=== PATIENT | female | born 1960 | race Caucasian/White ===

== ENCOUNTER → 2020-03-12 15:16 | Outpatient (BNVA) | payer OTHER, SELFPAY | PROVIDERS: PCP Internal Medicine; Visit Provider Surgery | DX: Z76.89 Persons encountering health services in other specified circumstances (principal) ==

== ENCOUNTER 2020-03-16 12:50 | Outpatient (REF) | payer OTHER, SELFPAY ==
[2020-03-16 13:04] VITALS: BP 137/58; PULSE 81; RESP 16; TEMP 36.4; O2SAT 96
[2020-03-16 13:09] VITALS: BMI 39.4
[2020-03-16 13:29] VITALS: BP 111/94; PULSE 79; RESP 16; O2SAT 79
--- NOTE | 2020-03-16 13:59 | OP_ITS ---
SURGEON: Jeb Wick MD INDICATIONS: The patient is a 59-year-old female with cystic mass in the subcutaneous area of the scalp at the right parieto occipital area, this was about 8.75 cm diameter cyst. She understood technique of excision under local anesthesia and she is aware of the risks, benefits, and alternatives. PREOPERATIVE DIAGNOSIS: Scalp cyst. POSTOPERATIVE DIAGNOSIS: Scalp cyst. PROCEDURE PERFORMED: Excision of scalp cyst. ESTIMATED BLOOD LOSS: COMPLICATIONS: ANESTHESIA: ASSISTANTS: SPECIMENS: DESCRIPTION OF PROCEDURE: She was brought to the minor procedure room and placed supine on the table with the head turned to the left a little bit to expose the cyst. The area was prepped and draped. Lidocaine 1% was used for local anesthesia. An incision was made in the skin overlying the cyst using blade #15, it was carried down to full-thickness skin and little bit of subcutaneous fat until the cyst capsule was visualized. I sharply dissected the cyst capsule off the rest of the subcutaneous layer until it was completely delivered and sent as specimen. I closed the incision with full-thickness nylon 3-0 interrupted sutures. Bacitracin ointment was applied. She tolerated procedure well. There were no complications noted. She will be seen in the office for followup in about 2 weeks. MD DEJUAN Cleary/MICKEY / [id number]
== END 2020-03-16 12:51 | disposition home or self-care (01) ==
LOC: HO.MS 12:50
PROVIDERS: PCP Internal Medicine; Visit Provider Surgery
PROC: (CPT 11426; principal; 2020-03-16 13:00)
DX: L72.0 Epidermal cyst (principal)
CPT/HCPCS: 11426; 88304

== ENCOUNTER → 2020-03-29 15:23 | Outpatient (BNVA) | payer OTHER, SELFPAY | PROVIDERS: PCP Internal Medicine; Referring Provider Internal Medicine; Visit Provider Surgery | DX: Z76.89 Persons encountering health services in other specified circumstances (principal) ==

== ENCOUNTER 2020-05-24 09:51 | Outpatient (REF) | payer OTHER, SELFPAY ==
[2020-05-24 11:38] LABS: Creatinine Urine 114.95 mg/dL; Microalbum/Creatinine Ratio Ur 9.5 ug/mg cr
[2020-05-24 11:44] LABS: Alanine Aminotransferase 17 U/L (0-31); Anion Gap 14 (12-20); Aspartate Amino Transferase 13 U/L (5-31); Blood Urea Nitrogen 13 mg/dL (9-16); Calcium 9.5 mg/dL (8.4-10.2); Carbon Dioxide 29 mmol/L (22-29); Chloride 101 mmol/L (96-108); Cholesterol 168 mg/dL; Estimated Glomerular Filt Rate > 60; Glucose Fasting 123 mg/dL (60-99); HDL Cholesterol 44 mg/dL; LDL Cholesterol Calculated 90 mg/dl; Potassium 3.8 mmol/l (3.3-5.1); Sodium 140 mmol/L (135-145); Triglycerides 172 mg/dL
[2020-05-24 12:08] LABS: Vitamin D 25-OH Total 47.9 ng/mL (>30)
== END 2020-05-24 09:52 | disposition home or self-care (01) ==
LOC: HO.HMGCLDS 09:51
PROVIDERS: PCP Internal Medicine; Visit Provider Internal Medicine
DX: E78.5 Hyperlipidemia, unspecified (principal); E11.9 Type 2 diabetes mellitus without complications; I10 Essential (primary) hypertension; Z78.0 Asymptomatic menopausal state
CPT/HCPCS: 80048; 80061; 82043; 82306; 84450; 84460

== ENCOUNTER → 2020-06-13 10:37 | Outpatient (BNVA) | payer OTHER, SELFPAY | PROVIDERS: PCP Internal Medicine; Referring Provider Internal Medicine; Visit Provider Internal Medicine ==

== ENCOUNTER 2020-07-13 14:30 | Outpatient (REF) | payer SELFPAY | END 2020-07-13 14:31 | disposition home or self-care (01) | LOC: HO.HAP 14:30 | PROVIDERS: Visit Provider Internal Medicine | DX: Z46.1 Encounter for fitting and adjustment of hearing aid (principal) | CPT/HCPCS: V5266 ==

== ENCOUNTER 2020-07-28 08:54 | Outpatient (REF) | payer OTHER, SELFPAY ==
[2020-07-28 10:47] LABS: Creatinine Urine 106.26 mg/dL; Microalbum/Creatinine Ratio Ur 7.5 ug/mg cr
[2020-07-28 10:50] LABS: Alanine Aminotransferase 18 U/L (0-31); Anion Gap 12 (12-20); Aspartate Amino Transferase 16 U/L (5-31); Blood Urea Nitrogen 14 mg/dL (9-16); Calcium 9.5 mg/dL (8.4-10.2); Carbon Dioxide 31 mmol/L (22-29); Chloride 101 mmol/L (96-108); Cholesterol 194 mg/dL; Estimated Glomerular Filt Rate > 60; Glucose Fasting 119 mg/dL (60-99); HDL Cholesterol 49 mg/dL; LDL Cholesterol Calculated 124 mg/dl; Potassium 4.2 mmol/L (3.3-5.1); Sodium 140 mmol/L (135-145); Triglycerides 106 mg/dL
[2020-07-28 11:08] LABS: Free T4 (Free Thyroxine) 0.98 ng/dL (0.71-1.85)
[2020-07-28 11:13] LABS: Thyroid Stimulating Hormone 1.07 uIU/mL (0.32-4.0); Vitamin D 25-OH Total 51.8 ng/mL (>30)
== END 2020-07-28 08:55 | disposition home or self-care (01) ==
LOC: HO.LAB 08:54
PROVIDERS: Internal Medicine; Visit Provider Internal Medicine
DX: E11.9 Type 2 diabetes mellitus without complications (principal); E78.5 Hyperlipidemia, unspecified; I10 Essential (primary) hypertension; E04.2 Nontoxic multinodular goiter; E66.01 Morbid (severe) obesity due to excess calories; Z78.0 Asymptomatic menopausal state
CPT/HCPCS: 36415; 80048; 80061; 82043; 82306; 84439; 84443; 84450; 84460

== ENCOUNTER 2020-10-08 11:11 | Outpatient (REF) | payer OTHER, SELFPAY ==
[2020-10-08 13:44] LABS: MANUAL DIFF FLAG NO
[2020-10-08 13:52] LABS: Basophils Percent Auto 0.3 % (0-2); Eosinophils Absolute Auto 0.1 X10*3/uL (0.0-0.4); Eosinophils Percent Auto 0.8 % (0-4); Hematocrit 38.3 % (37-47); Hemoglobin 12.8 g/dl (12.0-16.0); Imm Gran Abs Auto 0.02 X10*3/uL (0.00-0.03); Imm Gran Pct Auto 0.3 % (0.0-0.4); Lymphocytes Absolute Auto 1.3 X10*3/uL (1.2-4.9); Lymphocytes Percent Auto 22.4 % (20-40); Mean Corpuscular HGB Conc 33.4 g/dl (31.0-35.0); Mean Corpuscular Hemoglobin 31.8 pg (27.0-33.0); Mean Corpuscular Volume 95.3 fL (80-98); Mean Platelet Volume 12.6 fL (9.4-12.3); Monocytes Absolute Auto 0.6 X10*3/uL (0.1-1.2); Monocytes Percent Auto 9.9 % (2-11); Neutrophils Percent Auto 66.3 % (45-73); Platelet Count 209 X10*3/uL (160-400); Red Blood Count 4.02 X10*6/uL (4.20-5.50); Red Cell Distribution Width 15.7 % (11.0-16.0)
[2020-10-08 14:06] LABS: Anion Gap 13 (12-20); Blood Urea Nitrogen 14 mg/dL (9-16); Carbon Dioxide 30 mmol/L (22-29); Chloride 101 mmol/L (96-108); Estimated Glomerular Filt Rate > 60; Glucose Random 96 mg/dL (60-115); Sodium 140 mmol/L (135-145)
[2020-10-08 14:28] LABS: Thyroid Stimulating Hormone 1.77 uIU/mL (0.32-4.0)
[2020-10-09 13:38] LABS: Lyme Abs Screen <0.90 index
== END 2020-10-08 11:12 | disposition home or self-care (01) ==
LOC: HO.HMGCLDS 11:11
PROVIDERS: PCP Internal Medicine; Visit Provider Nurse Practitioner Family
DX: R20.0 Anesthesia of skin (principal); R20.2 Paresthesia of skin
CPT/HCPCS: 36415; 80048; 84443; 85025; 86617; 86618

== ENCOUNTER 2020-10-24 06:24 | Outpatient (REF) | payer OTHER, SELFPAY ==
[2020-10-24 11:59] LABS: Estimated Average Glucose 131 mg/dL; Hemoglobin A1C 148.8092 umol/L; Hemoglobin A1c % 6.2 %
[2020-10-24 12:10] LABS: Alanine Aminotransferase 20 U/L (0-31); Anion Gap 14 (12-20); Aspartate Amino Transferase 19 U/L (5-31); Blood Urea Nitrogen 25 mg/dL (9-16); Calcium 9.9 mg/dL (8.4-10.2); Carbon Dioxide 30 mmol/L (22-29); Chloride 101 mmol/L (96-108); Cholesterol 186 mg/dL; Estimated Glomerular Filt Rate > 60; Glucose Fasting 110 mg/dL (60-99); HDL Cholesterol 46 mg/dL; LDL Cholesterol Calculated 96 mg/dl; Sodium 141 mmol/L (135-145); Triglycerides 221 mg/dL
[2020-10-24 12:13] LABS: Creatinine Urine 72.02 mg/dL; Microalbum/Creatinine Ratio Ur 8.3 ug/mg cr
[2020-10-24 12:22] LABS: Free T4 (Free Thyroxine) 0.96 ng/dL (0.71-1.85); Thyroid Stimulating Hormone 2.06 uIU/mL (0.32-4.0)
[2020-10-24 12:36] LABS: Folate > 20.0 ng/mL (> or = 4.0); Vitamin B12 777 pg/mL (200-900)
== END 2020-10-24 06:25 | disposition home or self-care (01) ==
LOC: HO.HMGCLDS 06:24
PROVIDERS: Nurse Practitioner Family; PCP Internal Medicine; Visit Provider Internal Medicine
DX: E04.2 Nontoxic multinodular goiter (principal); E78.5 Hyperlipidemia, unspecified; I10 Essential (primary) hypertension; E11.9 Type 2 diabetes mellitus without complications; E03.9 Hypothyroidism, unspecified; R20.0 Anesthesia of skin; R20.2 Paresthesia of skin
CPT/HCPCS: 36415; 80048; 80061; 82043; 82607; 82746; 83036; 84439; 84443; 84450; 84460

== ENCOUNTER 2020-10-31 15:40 | Outpatient (REF) | payer SELFPAY | END 2020-10-31 15:41 | disposition home or self-care (01) | LOC: HO.HAP 15:40 | PROVIDERS: Visit Provider Internal Medicine | DX: Z46.1 Encounter for fitting and adjustment of hearing aid (principal) | CPT/HCPCS: V5266 ==

== ENCOUNTER 2020-11-15 09:59 | Outpatient (REF) | payer OTHER, SELFPAY ==
--- NOTE | 2020-11-15 10:49 | P.BOP_ITS ---
Brief Operative Note Date of Service: 11/15/20 Surgeon: Arelis Scott, DO This is doctor Arelis Scott. This is an ultrasound-guided fine-needle aspiration report. Date of Examination: 11/15/2020 Indication: Multinodular Thyroid Porcedure: Procedure was explained to the patient. Alternatives, the risk and benefits were discussed. Written consent was obtained. A time-out was also obtained. After sterile preparation, fine-needle aspiration of a left isthmus 2.0 cm thyroid nodule was performed using direct ultrasound guidance to confirm accurate needle placement. Four aspirations were made using 27 gauge needles. Samples were submitted for cytology. One pass was dedicated for [employer] sequencing director of nurses registry testing. fine-needle aspiration of a right isthmus 1.0 cm thyroid nodule was performed using direct ultrasound guidance to confirm accurate needle placement. Six aspirations were made using 27 and 25 gauge needles. Samples were submitted for cytology. One pass was dedicated for [employer] sequencing director of nurses registry testing. The patient tolerated the procedure well. Aftercare instructions were provided. Impression: Uncomplicated fine needle aspiration biopsy of a left isthmus 2.0 cm and a right isthmus 1.0 cm thyroid nodule under ultrasound guidance. Was an Diversional Therapist'S Assistant used for this Procedure?: No Estimated blood loss (mL): 0
[2020-11-15] MEDS: Lidocaine HCl 1 % MPF 5 ML VIAL SUBCUT (11:08)
== END 2020-11-15 10:00 | disposition home or self-care (01) ==
LOC: HO.US 09:59
PROVIDERS: Visit Provider Internal Medicine
DX: E04.2 Nontoxic multinodular goiter (principal)
CPT/HCPCS: 10005; 10006; 88172; 88173; 88177; 88305

== ENCOUNTER 2020-11-22 09:13 | Outpatient (REF) | payer OTHER, SELFPAY ==
--- NOTE | 2020-11-22 09:20 | EMG_ITS ---
Bilateral median and ulnar motor and sensory studies were performed. Bilateral radial sensory studies were performed and paraspinal muscles were tested with a needle. IMPRESSION: [id number] bilateral median neuropathy across carpal tunnel. MD NYA Reza/MICKEY / [id number]
== END 2020-11-22 09:14 | disposition home or self-care (01) ==
LOC: HO.NEURO 09:13
PROVIDERS: Visit Provider Nurse Practitioner Family
DX: R20.0 Anesthesia of skin (principal); R20.2 Paresthesia of skin
CPT/HCPCS: 95886; 95911

== ENCOUNTER → 2020-11-29 12:28 | Outpatient (BNVA) | payer OTHER, SELFPAY | PROVIDERS: PCP Internal Medicine; Visit Provider Internal Medicine ==

== ENCOUNTER 2021-01-30 15:28 | Outpatient (REF) | payer SELFPAY | END 2021-01-30 15:29 | disposition home or self-care (01) | LOC: HO.HAP 15:28 | PROVIDERS: Visit Provider Internal Medicine | DX: Z46.1 Encounter for fitting and adjustment of hearing aid (principal); H90.3 Sensorineural hearing loss, bilateral | CPT/HCPCS: V5266 ==

== ENCOUNTER 2021-03-02 06:44 | Outpatient (REF) | payer OTHER, SELFPAY ==
[2021-03-02 11:22] LABS: Alanine Aminotransferase 13 U/L (0-31); Anion Gap 12 (12-20); Aspartate Amino Transferase 14 U/L (5-31); Blood Urea Nitrogen 22 mg/dL (9-16); Calcium 9.6 mg/dL (8.4-10.2); Carbon Dioxide 29 mmol/L (22-29); Chloride 105 mmol/L (96-108); Cholesterol 188 mg/dL; Estimated Glomerular Filt Rate > 60; Glucose Fasting 133 mg/dL (60-99); HDL Cholesterol 42 mg/dL; LDL Cholesterol Calculated 119 mg/dl; Potassium 3.9 mmol/L (3.3-5.1); Sodium 142 mmol/L (135-145); Triglycerides 137 mg/dL
== END 2021-03-02 06:45 | disposition home or self-care (01) ==
LOC: HO.HMGCLDS 06:44
PROVIDERS: PCP Internal Medicine; Visit Provider Internal Medicine
DX: I10 Essential (primary) hypertension (principal); E78.5 Hyperlipidemia, unspecified
CPT/HCPCS: 36415; 80048; 80061; 82306; 84450; 84460

== ENCOUNTER 2021-06-29 11:48 | Outpatient (REF) | payer OTHER, SELFPAY ==
--- NOTE | ~2021-06-29 | XR_ITS ---
EXAMINATION: XR CHEST CLINICAL INFORMATION: R05.9 - Cough, unspecified COMPARISON: Chest radiographs 06/17/2019, 09/11/2015 TECHNIQUE: 2 views of the chest were obtained. FINDINGS: Cardiopulmonary appearance is similar to prior exams. There are chronic changes right lateral base with mild elevation diaphragm and blunting right lateral costophrenic angle. The posterior costophrenic sulci are clear. There is no visible effusion. No lobar or segmental airspace consolidation or groundglass opacity. The heart is normal in size. The vascularity is normal. The hilar and mediastinal contours are normal. No visible acute bony abnormality. XR/XR chest 2V IMPRESSION: No acute intrathoracic disease. Chronic changes right lateral base similar to prior exams.
[2021-06-29 12:07] LABS: Binax Internal Control QC Valid; Binax Now Covid-19 Ag Negative (Negative)
== END 2021-06-29 11:49 | disposition home or self-care (01) ==
LOC: HO.HMGCX 11:48
PROVIDERS: Visit Provider Physician Assistant
DX: R05.9 Cough, unspecified (principal); J02.9 Acute pharyngitis, unspecified; Z20.822 Contact with and (suspected) exposure to COVID-19
CPT/HCPCS: 71046

== ENCOUNTER 2021-07-22 08:55 | Outpatient (REF) | payer OTHER, SELFPAY ==
[2021-07-22 11:46] LABS: Estimated Average Glucose 137 mg/dL; Hemoglobin A1c % 6.4 %
[2021-07-22 12:10] LABS: Alanine Aminotransferase 16 U/L (0-31); Anion Gap 14 (12-20); Aspartate Amino Transferase 13 U/L (5-31); Blood Urea Nitrogen 13 mg/dL (9-16); Calcium 9.5 mg/dL (8.4-10.2); Carbon Dioxide 29 mmol/L (22-29); Chloride 102 mmol/L (96-108); Cholesterol 183 mg/dL; Estimated Glomerular Filt Rate > 60; Glucose Fasting 119 mg/dL (60-99); HDL Cholesterol 47 mg/dL; LDL Cholesterol Calculated 112 mg/dl; Potassium 3.9 mmol/L (3.3-5.1); Sodium 141 mmol/L (135-145); Triglycerides 123 mg/dL
== END 2021-07-22 08:56 | disposition home or self-care (01) ==
LOC: HO.HMGCLDS 08:55
PROVIDERS: Visit Provider Internal Medicine
DX: E11.9 Type 2 diabetes mellitus without complications (principal); E78.5 Hyperlipidemia, unspecified; I10 Essential (primary) hypertension
CPT/HCPCS: 36415; 80048; 80061; 83036; 84450; 84460

== ENCOUNTER 2021-09-12 07:13 | Outpatient (REF) | payer OTHER, SELFPAY ==
[2021-09-12 11:33] LABS: Alanine Aminotransferase 20 U/L (0-31); Anion Gap 13 (12-20); Aspartate Amino Transferase 17 U/L (5-31); Blood Urea Nitrogen 13 mg/dL (9-16); Calcium 9.8 mg/dL (8.4-10.2); Carbon Dioxide 28 mmol/L (22-29); Chloride 103 mmol/L (96-108); Cholesterol 220 mg/dL; Estimated Glomerular Filt Rate > 60; Glucose Fasting 132 mg/dL (60-99); HDL Cholesterol 48 mg/dL; LDL Cholesterol Calculated 145 mg/dl; Potassium 3.9 mmol/L (3.3-5.1); Sodium 140 mmol/L (135-145); Triglycerides 135 mg/dL
[2021-09-12 11:57] LABS: Estimated Average Glucose 128 mg/dL; Hemoglobin A1c % 6.1 %
== END 2021-09-12 07:14 | disposition home or self-care (01) ==
LOC: HO.HMGCLDS 07:13
PROVIDERS: Visit Provider Internal Medicine
DX: E11.9 Type 2 diabetes mellitus without complications (principal); E78.5 Hyperlipidemia, unspecified; I10 Essential (primary) hypertension
CPT/HCPCS: 36415; 80048; 80061; 83036; 84450; 84460

== ENCOUNTER 2021-09-13 14:16 | Outpatient (REF) | payer SELFPAY | END 2021-09-13 14:17 | disposition home or self-care (01) | LOC: HO.HAP 14:16 | PROVIDERS: Visit Provider Internal Medicine | DX: Z46.1 Encounter for fitting and adjustment of hearing aid (principal); H90.3 Sensorineural hearing loss, bilateral | CPT/HCPCS: V5266 ==

== ENCOUNTER 2021-11-30 09:45 | Outpatient (REF) | payer OTHER, SELFPAY ==
[2021-11-30 11:22] LABS: Estimated Average Glucose 128 mg/dL; Hemoglobin A1c % 6.1 %
[2021-11-30 11:29] LABS: Alanine Aminotransferase 17 U/L (0-31); Anion Gap 12 (12-20); Aspartate Amino Transferase 13 U/L (5-31); Blood Urea Nitrogen 12 mg/dL (9-16); Calcium 9.7 mg/dL (8.4-10.2); Carbon Dioxide 28 mmol/L (22-29); Chloride 105 mmol/L (96-108); Cholesterol 202 mg/dL; Estimated Glomerular Filt Rate > 60; Glucose Fasting 115 mg/dL (60-99); HDL Cholesterol 44 mg/dL; LDL Cholesterol Calculated 129 mg/dl; Potassium 4.3 mmol/L (3.3-5.1); Sodium 141 mmol/L (135-145); Triglycerides 148 mg/dL
[2021-11-30 11:44] LABS: Creatinine Urine 161.38 mg/dL; Microalbum/Creatinine Ratio Ur 10.5 ug/mg cr
[2021-11-30 11:51] LABS: Thyroid Stimulating Hormone 1.34 uIU/mL (0.32-4.0)
[2021-11-30 11:55] LABS: Free T4 (Free Thyroxine) 0.93 ng/dL (0.71-1.85)
== END 2021-11-30 09:46 | disposition home or self-care (01) ==
LOC: HO.HMGCLDS 09:45
PROVIDERS: Absent Provider Internal Medicine; PCP Internal Medicine; Visit Provider Internal Medicine
DX: E78.5 Hyperlipidemia, unspecified (principal); I10 Essential (primary) hypertension; E04.2 Nontoxic multinodular goiter; E11.9 Type 2 diabetes mellitus without complications
CPT/HCPCS: 36415; 80048; 80061; 82043; 83036; 84439; 84443; 84450; 84460

== ENCOUNTER 2021-12-05 14:18 | Outpatient (REF) | payer OTHER, SELFPAY ==
--- NOTE | ~2021-12-05 | US_ITS ---
EXAMINATION: US THYROID CLINICAL INFORMATION: Nontoxic multinodular goiter. COMPARISON: US thyroid 11/08/2019 and 11/24/2018. US-guided thyroid biopsy 11/15/2020. TECHNIQUE: Linear transducer grayscale and color Doppler examination with attention to the region of the thyroid. Technically difficult study secondary to low-lying thyroid. FINDINGS: SIZE: Measurements of the thyroid lobes and nodules are given in sagittal, anteroposterior and transverse dimensions respectively. Right Thyroid Lobe: 5.4 x 1.8 x 2.6 cm, volume 13.2 mL. Previously 4.2 x 1.6 x 2.2 cm, volume 7.7 mL. Parenchyma: The gland echotexture is homogeneous. Thyroid vascularity is normal. Left Thyroid Lobe: 6.3 x 2.0 x 2.6 cm, volume 17.2 mL. Previously 4.0 x 2.0 x 2.6 cm, volume 10.9 mL. Parenchyma: The gland echotexture is homogeneous. Thyroid vascularity is normal. Isthmus: 0.8 cm in maximum AP dimension. Previously 0.6 cm. Estimated total number of nodules greater than or equal to 1 cm: 1. Direct Sales Representative nodules are described as follows: 1. Location: Left medial/isthmus. Size: 2.0 x 1.4 x 2.0 cm, volume 2.86 mL. Previously: 1.6 x 1.3 x 1.8 cm, volume 1.96 mL. Nodule characteristics: Composition: Solid/almost completely solid (2). Echogenicity: Hypoechoic (2). Shape: Not taller than wide (0). Margins: Smooth (0). Echogenic Foci: None (0). ACR TI-RADS total points: 4 ACR TI-RADS category: 4 Significant change in size (>/= 20% in 2 dimensions and minimal increase of 2 mm or 50% or greater increase in volume): No Change in features: No Change in ACR TI-RADS risk category: No 2. Location: Right superior. Size: 0.8 x 0.3 x 0.4 cm, volume 0.06 mL. Previously: 0.6 x 0.4 x 0.6 cm, volume 0.08 mL. Nodule characteristics: Composition: Spongiform (0). Echogenicity: Anechoic (0). Shape: Not taller than wide (0). Margins: Smooth (0). Echogenic Foci: None (0). ACR TI-RADS total points: 0 ACR TI-RADS category: 1 Significant change in size (>/= 20% in 2 dimensions and minimal increase of 2 mm or 50% or greater increase in volume): No Change in features: No Change in ACR TI-RADS risk category: No 3. Location: Right isthmus. Size: 0.7 x 0.4 x 0.7 cm, volume 0.10 mL. Previously: 0.5 x 0.4 x 0.6 cm, volume 0.06 mL. Nodule characteristics: Composition: Solid (2). Echogenicity: Hypoechoic (2). Shape: Not taller than wide (0). Margins: Smooth (0). Echogenic Foci: None (0). ACR TI-RADS total points: 4 ACR TI-RADS category: 4 Significant change in size (>/= 20% in 2 dimensions and minimal increase of 2 mm or 50% or greater increase in volume): No Change in features: No Change in ACR TI-RADS risk category: No NODES: No lymphadenopathy is seen in the tissue surrounding the thyroid gland. US/US thyroid IMPRESSION: 1. A 2.0 cm in maximal diameter thyroid isthmus nodule meets ACR biopsy criteria and is amenable to ultrasound-guided biopsy, if clinically indicated and not already performed. 2. There is a diffuse goiter. ACR TI-RADS RECOMMENDATION REFERENCE: Ultrasound-guided fine-needle aspiration, followup ultrasound, no further follow up. * TR1 (0 point) and TR 2 (2 points): No FNA or follow up * TR3 (3 points): FNA if more than or equal to 2.5 cm in maximum dimension, followup ultrasound in 1, 3 and 5 years if 1.5 to 2.4 cm in maximum dimension. * TR4 (4-6 points): FNA if more than or equal to 1.5 cm in maximum dimension, followup ultrasound in 1, 2, 3 and 5 years if 1 to 1.4 cm in maximum dimension. * TR5 (more than or equal to 7 points): FNA if more than or equal to 1 cm in maximum dimension, followup ultrasound every year for 5 years if 0.5 to 0.9 cm in maximum dimension. * TR3, TR4 or TR5 nodules that are below the size threshold for follow up receive no follow up.
== END 2021-12-05 14:19 | disposition home or self-care (01) ==
LOC: HO.HMGCX 14:18
PROVIDERS: Visit Provider Internal Medicine
DX: E04.2 Nontoxic multinodular goiter (principal)
CPT/HCPCS: 76536

== ENCOUNTER 2022-02-24 15:19 | Outpatient (REF) | payer SELFPAY | END 2022-02-24 15:20 | disposition home or self-care (01) | LOC: HO.HAP 15:19 | PROVIDERS: Visit Provider Internal Medicine | DX: Z46.1 Encounter for fitting and adjustment of hearing aid (principal); H90.3 Sensorineural hearing loss, bilateral | CPT/HCPCS: V5266 ==

== ENCOUNTER 2022-05-07 06:08 | Outpatient (REF) | payer OTHER, SELFPAY ==
[2022-05-07 14:39] LABS: Hemoglobin A1c % 5.9 %
[2022-05-07 14:40] LABS: Estimated Average Glucose 123 mg/dL
[2022-05-07 14:49] LABS: Alanine Aminotransferase 18 U/L (0-31); Anion Gap 13 (12-20); Aspartate Amino Transferase 15 U/L (5-31); Blood Urea Nitrogen 12 mg/dL (9-16); Calcium 9.9 mg/dL (8.4-10.2); Carbon Dioxide 29 mmol/L (22-29); Chloride 104 mmol/L (96-108); Cholesterol 191 mg/dL; Estimated Glomerular Filt Rate > 60; Glucose Fasting 112 mg/dL (60-99); HDL Cholesterol 46 mg/dL; LDL Cholesterol Calculated 120 mg/dl; Potassium 3.8 mmol/L (3.3-5.1); Sodium 142 mmol/L (135-145); Triglycerides 129 mg/dL
== END 2022-05-07 06:09 | disposition home or self-care (01) ==
LOC: HO.HMGCLDS 06:08
PROVIDERS: Absent Provider Family Medicine Adult Medicine; PCP Internal Medicine; Visit Provider Internal Medicine
DX: E11.9 Type 2 diabetes mellitus without complications (principal); E78.5 Hyperlipidemia, unspecified; I10 Essential (primary) hypertension
CPT/HCPCS: 36415; 80048; 80061; 83036; 84450; 84460

== ENCOUNTER 2022-05-08 09:00 | Outpatient (AMB) | payer OTHER, SELFPAY ==
--- NOTE | 2022-05-08 09:38 | MHC.PC.OV ---
Vital Signs 05/08/22 09:39 Height 5 ft 5 in Weight 239 lb BMI 39.7 BP 124/70 Blood Pressure Location Lt brachial Position Sitting Pulse 67 Pulse Source Pulse Oximeter Pulse Oximetry (%) 95 Oxygen Delivery Method Room Air Intake Visit Reasons: Followup labs Intake Note: Pt is here today to discuss recent lab results Allergies mold,trees,dust,cats,dogs Allergy (Unknown, Uncoded 09/26/22 05:36) unknown strawberries Allergy (Unknown, Uncoded 09/26/22 05:36) hives Medication List - Last Reconciled 05/08/22 by Marquita Gonzales MD albuterol sulfate 90 mcg/actuation inhalation budesonide-formoterol 160-4.5 mcg/actuation inhalation calcium carbonate (Calcium 500) 500 mg PO DAILY citalopram 20 mg PO DAILY diclofenac sodium 1% topical ibuprofen 800 mg PO TID irbesartan 75 mg PO DAILY ketotifen fumarate 0.025%(0.035%) (Zaditor) 1 drp ophthalmic (eye) Q12H latanoprost 0.005% drps ophthalmic (eye) levocetirizine (Xyzal) 5 mg PO QPM PRN meloxicam 15 mg PO DAILY metformin ER 500 mg PO QPM montelukast 10 mg PO DAILY multivitamin 1 tab PO DAILY rosuvastatin 5 mg PO Q2D 90 days spironolacton-hydrochlorothiaz 25-25 mg 2 tabs PO DAILY vitamin B complex (B Complex-Vitamin B12 tablet) 1 tab PO DAILY Tobacco use date assessed: 05/08/22 HPI Followup labs HPI Details 62-year-old lady with diabetes mellitus, dyslipidemia and hypertension, here today for follow-up. She has been feeling well, compliant with taking her medications. In fasting labs done showed hemoglobin A1c at 5.9% with average glucose at 123 mg/dL over the last 3 months, LDL cholesterol however slightly elevated at 120 mg/dL, electrolytes and renal function are within normal limits. [facility] Medical History Cervical spondylosis DJD (degenerative joint disease), lumbar Dyslipidemia Family history of early CAD Hypertension Intermittent left-sided chest pain Lung nodule < 6cm on CT Menopause Mild intermittent asthma in adult without complication Morbid obesity Multiple thyroid nodules Nontoxic multinodular goiter 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 Plantar fasciitis, right Polycystic ovaries Primary open angle glaucoma, right eye Retinoblastoma of left eye Scalp cyst Seasonal allergies Type 2 diabetes mellitus without complication, without long-term current use of insulin Surgical History H/O bilateral breast reduction surgery H/O section H/O eye surgery H/O hernia repair H/O thyroidectomy Hx of cholecystectomy Status post phlebectomy Family History Father CAD (coronary artery disease) Myocardial infarction CVD (cardiovascular disease) Substance use disorder Mother Diabetes mellitus HTN (hypertension) Maternal Grandfather No problems noted. Maternal Grandmother No problems noted. Paternal Grandfather No problems noted. Paternal Grandmother No problems noted. Brother Substance use disorder Mental health disorder Sister No problems noted. Sister Substance use disorder Sister No problems noted. Sister No problems noted. Son No problems noted. Daughter No problems noted. 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 Lucien Greenberg, Tika Ryan, Raúl Marmolejo and colleagues, with an educational julian from [employer]. Asthma Control Questionnaire In the past 4 weeks, how much of the time did your asthma keep you from getting as much done at work, school or at home?: A little of the time During the past 4 weeks, how often have you had shortness of breath?: More than once a day During the past 4 weeks, how often did your asthma symptoms wake you up at night or earlier than usual in the morning?: 2-3 nights a week During the past 4 weeks, how often have you had to use your rescue inhaler or nebulizer medication?: More than 3 times per day How would you rate your asthma control during the past 4 weeks?: Poorly controlled Score: 10 Review of Systems Const Reports no additional complaints, Denies headache(s) and Denies weakness Eyes Details: sees [facility] for her dm retinopathy screening ENT Reports no additional complaints and Denies headache(s) Card Denies chest pain, Denies irregular heart rhythm and Denies dyspnea Resp Denies cough and Denies dyspnea GI Denies abdominal pain, Denies change in bowel habits, Denies diarrhea and Denies nausea Denies urinary frequency, Denies difficulty voiding, Denies nocturia, Denies dysuria, Denies vaginal discharge and Denies vaginal pruritus Musc Denies myalgias, Denies muscle cramps, Denies numbness and Denies tingling Neuro Denies burning sensations, Denies headache(s), Denies numbness, Denies tingling and Denies weakness Psych Denies anxiety and Denies depression Endo Details: sees [facility] , Dr Hollingsworth Reports no additional complaints Kenji/Lymph Reports no additional complaints Physical exam (Primary Care) Vital Signs: Last Vital Signs Pulse 67 05/08/22 09:39 BP 124/70 05/08/22 09:39 Pulse Ox 95 05/08/22 09:39 Oxygen Delivery Method Room Air 05/08/22 09:39 BMI result Body Mass Index 39.7 BMI Assessment/Plan discussion: High BMI High, discussed plan: lifestyle, weight reduction, dietary and physical activity Tobacco/Smoking Status: Tobacco use Status Tobacco use date assessed 05/08/22 05/08/22 09:51 Patient Tobacco Use Status Former Tobacco user 05/08/22 09:39 e-Cigarette/Vaping Use Never Used 05/08/22 09:39 Thrive Assessment: Date of Thrive Assessment Date Thrive assessed 07/22/21 05/08/22 09:39 Const Other: Alert oriented x3, no acute distress noted ambulatory normal gait Nutritional Appearance: obese morbidly obese Orientation/consciousness: patient oriented x3 HENMT Mouth: Normal oral and palatal mucosa present, tongue normal, oropharynx normal and moist mucous membranes Eyes Other: Artificial left eye Neck Neck: Yes full ROM, Yes no lymphadenopathy and Yes supple Resp Auscultation: clear to auscultation bilaterally Cardio Other: S1-S2 present regular rate and rhythm GI Other: Normal bowel sounds, soft, nontender Skin General skin exam: no rashes or lesions noted Neuro General: patient oriented x3, gait normal, tone normal, moves all extremities, Normal light touch and pain sensation, no focal motor deficits and CN's II-XI intact bilaterally Extrem General: Yes full ROM, Yes no joint enlargement, Yes no pedal edema and Yes normal gait Results Reviewed Results Reviewed: ENTERED: 05/07/[address]: ORDERED: Met Prof Fast, AST, ALT, Lipid Panel Test Result Flag Reference Site Sodium 142 135-145 mmol/L Potassium 3.8 3.3-5.1 mmol/L CL 104 96-108 mmol/L CO2 29 22-29 mmol/L Gap 13 12-20 BUN 12 9-16 mg/dL Creat 0.61 0.5-1.4 mg/dL EGFR > 60 NOTE: For -[place] individuals, multiply the result by 1.210. Chronic Kidney Disease: Estimated GFR < 60 mL/min/1.73m2 Severe Kidney Disease: Estimated GFR < 15 mL/min/1.73m2 FBS 112 H 60-99 mg/dL A fasting glucose from 100-125 mg/dl is considered impaired (pre-diabetes). CA 9.9 8.4-10.2 mg/dL AST (GOT) 15 5-31 U/L ALT (GPT) 18 0-31 U/L Triglyceride 129 mg/dL Desirable Triglyceride: less than 150 mg/dL Borderline High Triglyceride 150-199 mg/dL High Triglyceride: 200-499 mg/dL Very High Triglyceride: greater than or equal to 5OO mg/dL Chol 191 mg/dL Desirable Cholesterol: less than 200 mg/dL Borderline High Cholesterol: 200-239 mg/dL High Cholesterol: greater than 239 mg/dL LDL Calculated 120 mg/dl Desirable LDL: less than 100 mg/dL Near Optimal/Above Optimal LDL: 110-129 mg/dL Borderline High LDL: 130-159 mg/dL High LDL: 160-189 mg/dL Very High LDL: greater than or equal to 190 mg/dL HDL 46 mg/dL Desirable HDL: greater than 40 mg/dL Laboratory Tests 05/07/22 06:16 Estimat Average Glucose 123 Hemoglobin A1c % 5.9 Assessment and Plan Assessment & Plan (1) Dyslipidemia: Code(s): E78.5 - Hyperlipidemia, unspecified Plan: Latest LDL cholesterol is not at goal of less than 100 mg/dL, currently at 120. Increase rosuvastatin dosing to 5 mg once a day, reinforced adherence to low-cholesterol diet. Repeat another fasting lipid panel in August 2022, orders already sent. (2) Type 2 diabetes mellitus without complication, without long-term current use of insulin: Code(s): E11.9 - Type 2 diabetes mellitus without complications Plan: Recent lab results reviewed with patient, with sugar and hemoglobin A1c stable and at goal . Continue with metformin ER 500 mg once a day and continue to check fasting blood sugar at home, maintain log and bring to next appointment for review. Reinforced diabetic diet and regular exercise with patient. Referral for diabetes education and guidance with regards to nutrition/diet. Counseled regarding importance of yearly diabetes retinopathy screening, currently being seen at [facility], patient states she will make an appointment for her diabetes retinopathy screening. She has been referred to Dr. Hollingsworth , podiatry, will obtain copy of recent office visit note.. Which should Patient advised to inspect feet daily, for any signs of injury, callus or infection. Compliance with diet and regular exercise again stressed. Blood pressure goal is less than 130/80, goal LDL is less than 100 and goal hemoglobin A1c is less than 7% follow-up appointment made in--4months, after fasting labs done. (3) Hypertension: Code(s): I10 - Essential (primary) hypertension Qualifiers: Hypertension type: essential hypertension Qualified Code(s): I10 - Essential (primary) hypertension Plan: Blood pressure at goal of less than 130/80. Continue with current medication. Reinforced importance of following a low sodium diet, getting regular exercise, and lowering stress levels. Orders: Orders Alanine Aminotransferase 08/23/22 E11.9 - Type 2 diabetes mellitus without complications, E78.5 - Hyperlipidemia, unspecified, I10 - Essential (primary) hypertension, E66.01 - Morbid (severe) obesity due to excess calories, Z78.0 - Asymptomatic menopausal state Aspartate Amino Transferase 08/23/22 E11.9 - Type 2 diabetes mellitus without complications, E78.5 - Hyperlipidemia, unspecified, I10 - Essential (primary) hypertension, E66.01 - Morbid (severe) obesity due to excess calories, Z78.0 - Asymptomatic menopausal state Basic Metabolic Panel Fasting 08/23/22 E11.9 - Type 2 diabetes mellitus without complications, E78.5 - Hyperlipidemia, unspecified, I10 - Essential (primary) hypertension, E66.01 - Morbid (severe) obesity due to excess calories, Z78.0 - Asymptomatic menopausal state Hemoglobin A1c 08/23/22 E11.9 - Type 2 diabetes mellitus without complications, E78.5 - Hyperlipidemia, unspecified, I10 - Essential (primary) hypertension, E66.01 - Morbid (severe) obesity due to excess calories, Z78.0 - Asymptomatic menopausal state Lipid Panel 08/23/22 E11.9 - Type 2 diabetes mellitus without complications, E78.5 - Hyperlipidemia, unspecified, I10 - Essential (primary) hypertension, E66.01 - Morbid (severe) obesity due to excess calories, Z78.0 - Asymptomatic menopausal state Vitamin D 25-OH Total 08/23/22 E11.9 - Type 2 diabetes mellitus without complications, E78.5 - Hyperlipidemia, unspecified, I10 - Essential (primary) hypertension, E66.01 - Morbid (severe) obesity due to excess calories, Z78.0 - Asymptomatic menopausal state Microalbumin, Random (w Creat) 08/23/22 E11.9 - Type 2 diabetes mellitus without complications, E78.5 - Hyperlipidemia, unspecified, I10 - Essential (primary) hypertension, E66.01 - Morbid (severe) obesity due to excess calories, Z78.0 - Asymptomatic menopausal state Medications: Changed From rosuvastatin 5 mg PO Q2D 90 days 45 tabs 1RF E78.5 - Hyperlipidemia, unspecified, E11.9 - Type 2 diabetes mellitus without complications, I10 - Essential (primary) hypertension To rosuvastatin 5 mg PO DAILY 90 tabs 1RF 90 days E78.5 - Hyperlipidemia, unspecified, E11.9 - Type 2 diabetes mellitus without complications, I10 - Essential (primary) hypertension Coding Level of Care Code Est Pt Level 4 (10204) Diagnoses Dyslipidemia E78.5 Type 2 diabetes mellitus without complication, without long-term current use of insulin E11.9 Hypertension I10 Hypertension type: essential hypertension
[2022-05-08 09:39] VITALS: BP 124/70; PULSE 67; O2SAT 95; BMI 39.7
== END 2022-05-08 10:34 | disposition home or self-care (01) ==
LOC: HO.HMGC 09:00
PROVIDERS: PCP Internal Medicine; Visit Provider Internal Medicine
DX: E78.5 Hyperlipidemia, unspecified (principal); E11.9 Type 2 diabetes mellitus without complications; I10 Essential (primary) hypertension
CPT/HCPCS: 99214

== ENCOUNTER 2022-07-03 16:04 | Outpatient (REF) | payer SELFPAY | END 2022-07-03 16:05 | disposition home or self-care (01) | LOC: HO.HAP 16:04 | PROVIDERS: Visit Provider Internal Medicine | DX: Z46.1 Encounter for fitting and adjustment of hearing aid (principal); H90.3 Sensorineural hearing loss, bilateral | CPT/HCPCS: V5266 ==

== ENCOUNTER 2022-09-10 06:42 | Outpatient (REF) | payer OTHER, SELFPAY ==
[2022-09-10 11:48] LABS: Estimated Average Glucose 128 mg/dL; Hemoglobin A1c % 6.1 %
[2022-09-10 12:10] LABS: Alanine Aminotransferase 21 U/L (0-31); Anion Gap 13 (12-20); Aspartate Amino Transferase 19 U/L (5-31); Blood Urea Nitrogen 17 mg/dL (9-16); Calcium 9.9 mg/dL (8.4-10.2); Carbon Dioxide 31 mmol/L (22-29); Chloride 101 mmol/L (96-108); Cholesterol 178 mg/dL; Estimated Glomerular Filt Rate > 60; Glucose Fasting 118 mg/dL (60-99); HDL Cholesterol 52 mg/dL; LDL Cholesterol Calculated 94 mg/dl; Potassium 4.1 mmol/L (3.3-5.1); Sodium 141 mmol/L (135-145); Triglycerides 161 mg/dL
[2022-09-10 12:18] LABS: Creatinine Urine 69.87 mg/dL; Microalbum/Creatinine Ratio Ur 11.4 ug/mg cr
[2022-09-10 12:26] LABS: Vitamin D 25-OH Total 50.4 ng/mL (>30)
== END 2022-09-10 06:43 | disposition home or self-care (01) ==
LOC: HO.HMGCLDS 06:42
PROVIDERS: PCP Internal Medicine; Visit Provider Internal Medicine
DX: E11.9 Type 2 diabetes mellitus without complications (principal); E66.01 Morbid (severe) obesity due to excess calories; E78.5 Hyperlipidemia, unspecified; I10 Essential (primary) hypertension; Z78.0 Asymptomatic menopausal state
CPT/HCPCS: 36415; 80048; 80061; 82043; 82306; 83036; 84450; 84460

== ENCOUNTER 2022-09-23 10:18 | Outpatient (REF) | payer OTHER, SELFPAY ==
--- NOTE | ~2022-09-23 | XR_ITS ---
EXAMINATION: Cervical spine, left shoulder, left RIBS with chest x-ray and left hip. CLINICAL INDICATIONS: Fall. COMPARISON: Chest 07/01/2021. TECHNIQUE: Cervical spine 3 views. Left shoulder 3 views. Chest and left RIBS 4 views left hip 2 views. FINDINGS: LEFT HIP: AP and frog-leg views left hip reveal no visible acute fracture, dislocation or subluxation. No bony erosive changes. The soft tissues are normal. Small mesh is seen along the midline anterior abdominal wall from previous hernia repair. CHEST WITH LEFT RIBS: Multiple views of left ribs reveal no visible fracture or bony abnormality. Both lungs are well-expanded and clear of acute pneumonic process heart size and pulmonary vascularity is normal. Is mild spondylosis. No lytic or sclerotic process seen LEFT SHOULDER: There is no visible acute fracture, dislocation or subluxation. The AC joint and glenohumeral joint space is normal. No bony erosive changes or loose bodies. The soft tissues are normal. CERVICAL SPINE: There is normal cervical lordosis. The vertebral heights and alignment is normal. There is mild loss of C5-C6, and C6-C7 disc heights. The vertebral heights and alignment is maintained normal. There is mild ventral spondylosis at the C5-C6 disc level. Moderate facet joint arthropathy is seen C4-C5, C5-C6 and C6-C7 disc levels. XR/XR ribs LT min 3V w CXR1V IMPRESSION: 1. Unremarkable left hip exam. 2. Unremarkable left rib exam. 3. Unremarkable chest exam. 4. Unremarkable left shoulder exam. 5. Degenerative disc changes C5-C6 and C6-C7 disc levels with moderate ventral spondylosis at the C5-C6 disc level. There is moderate facet joint arthropathy C4-C5 through C6-C7 disc levels.
--- NOTE | ~2022-09-23 | XR_ITS ---
EXAMINATION: Cervical spine, left shoulder, left RIBS with chest x-ray and left hip. CLINICAL INDICATIONS: Fall. COMPARISON: Chest 07/01/2021. TECHNIQUE: Cervical spine 3 views. Left shoulder 3 views. Chest and left RIBS 4 views left hip 2 views. FINDINGS: LEFT HIP: AP and frog-leg views left hip reveal no visible acute fracture, dislocation or subluxation. No bony erosive changes. The soft tissues are normal. Small mesh is seen along the midline anterior abdominal wall from previous hernia repair. CHEST WITH LEFT RIBS: Multiple views of left ribs reveal no visible fracture or bony abnormality. Both lungs are well-expanded and clear of acute pneumonic process heart size and pulmonary vascularity is normal. Is mild spondylosis. No lytic or sclerotic process seen LEFT SHOULDER: There is no visible acute fracture, dislocation or subluxation. The AC joint and glenohumeral joint space is normal. No bony erosive changes or loose bodies. The soft tissues are normal. CERVICAL SPINE: There is normal cervical lordosis. The vertebral heights and alignment is normal. There is mild loss of C5-C6, and C6-C7 disc heights. The vertebral heights and alignment is maintained normal. There is mild ventral spondylosis at the C5-C6 disc level. Moderate facet joint arthropathy is seen C4-C5, C5-C6 and C6-C7 disc levels. XR/XR shoulder LT min 2V IMPRESSION: 1. Unremarkable left hip exam. 2. Unremarkable left rib exam. 3. Unremarkable chest exam. 4. Unremarkable left shoulder exam. 5. Degenerative disc changes C5-C6 and C6-C7 disc levels with moderate ventral spondylosis at the C5-C6 disc level. There is moderate facet joint arthropathy C4-C5 through C6-C7 disc levels.
--- NOTE | ~2022-09-23 | XR_ITS ---
EXAMINATION: Cervical spine, left shoulder, left RIBS with chest x-ray and left hip. CLINICAL INDICATIONS: Fall. COMPARISON: Chest 07/01/2021. TECHNIQUE: Cervical spine 3 views. Left shoulder 3 views. Chest and left RIBS 4 views left hip 2 views. FINDINGS: LEFT HIP: AP and frog-leg views left hip reveal no visible acute fracture, dislocation or subluxation. No bony erosive changes. The soft tissues are normal. Small mesh is seen along the midline anterior abdominal wall from previous hernia repair. CHEST WITH LEFT RIBS: Multiple views of left ribs reveal no visible fracture or bony abnormality. Both lungs are well-expanded and clear of acute pneumonic process heart size and pulmonary vascularity is normal. Is mild spondylosis. No lytic or sclerotic process seen LEFT SHOULDER: There is no visible acute fracture, dislocation or subluxation. The AC joint and glenohumeral joint space is normal. No bony erosive changes or loose bodies. The soft tissues are normal. CERVICAL SPINE: There is normal cervical lordosis. The vertebral heights and alignment is normal. There is mild loss of C5-C6, and C6-C7 disc heights. The vertebral heights and alignment is maintained normal. There is mild ventral spondylosis at the C5-C6 disc level. Moderate facet joint arthropathy is seen C4-C5, C5-C6 and C6-C7 disc levels. XR/XR cervical spine 3V IMPRESSION: 1. Unremarkable left hip exam. 2. Unremarkable left rib exam. 3. Unremarkable chest exam. 4. Unremarkable left shoulder exam. 5. Degenerative disc changes C5-C6 and C6-C7 disc levels with moderate ventral spondylosis at the C5-C6 disc level. There is moderate facet joint arthropathy C4-C5 through C6-C7 disc levels.
== END 2022-09-23 10:19 | disposition home or self-care (01) ==
LOC: HO.HMGCX 10:18
PROVIDERS: PCP Internal Medicine; Visit Provider Nurse Practitioner Family
DX: Z91.81 History of falling (principal)
CPT/HCPCS: 71101; 72040; 73030; 73502

== ENCOUNTER 2022-11-27 12:00 | Outpatient (REF) | payer SELFPAY | END 2022-11-27 12:01 | disposition home or self-care (01) | LOC: HO.HAP 12:00 | PROVIDERS: Visit Provider Internal Medicine | DX: Z46.1 Encounter for fitting and adjustment of hearing aid (principal) | CPT/HCPCS: V5266 ==

== ENCOUNTER 2023-01-03 07:14 | Outpatient (REF) | payer OTHER, SELFPAY ==
[2023-01-03 11:33] LABS: Estimated Average Glucose 126 mg/dL; Hemoglobin A1C 152.4232 umol/L
[2023-01-03 11:48] LABS: Alanine Aminotransferase 15 U/L (0-31); Anion Gap 14 (12-20); Aspartate Amino Transferase 13 U/L (5-31); Blood Urea Nitrogen 18 mg/dL (9-16); Carbon Dioxide 30 mmol/L (22-29); Chloride 101 mmol/L (96-108); Cholesterol 159 mg/dL; Estimated Glomerular Filt Rate > 60; Glucose Fasting 109 mg/dL (60-99); HDL Cholesterol 41 mg/dL; LDL Cholesterol Calculated 92 mg/dl; Magnesium 2.1 mg/dL (1.6-2.6); Potassium 3.7 mmol/L (3.3-5.1); Sodium 141 mmol/L (135-145); Triglycerides 133 mg/dL
[2023-01-03 12:09] LABS: Vitamin D 25-OH Total 51.7 ng/mL (>30)
[2023-01-03 12:17] LABS: Creatinine Urine 137.79 mg/dL; Microalbum/Creatinine Ratio Ur 17.4 ug/mg cr
[2023-01-03 12:24] LABS: Folate 16.2 ng/mL (> or = 4.0); Vitamin B12 1041 pg/mL (200-900)
== END 2023-01-03 07:15 | disposition home or self-care (01) ==
LOC: HO.HMGCLDS 07:14
PROVIDERS: PCP Internal Medicine; Visit Provider Internal Medicine
DX: E11.9 Type 2 diabetes mellitus without complications (principal); E66.01 Morbid (severe) obesity due to excess calories; E78.5 Hyperlipidemia, unspecified; I10 Essential (primary) hypertension; Z78.0 Asymptomatic menopausal state
CPT/HCPCS: 36415; 80048; 80061; 82043; 82306; 82607; 82746; 83036; 83735; 84450; 84460

== ENCOUNTER 2023-01-12 08:55 | Outpatient (AMB) | payer OTHER, SELFPAY ==
[2023-01-12 08:58] VITALS: BP 128/70; PULSE 70; O2SAT 94
--- NOTE | 2023-01-12 08:58 | MHC.PC.OV ---
Vital Signs 01/12/23 08:58 Weight 236 lb 2 oz BP 128/70 Blood Pressure Location Lt brachial Position Sitting Pulse 70 Pulse Source Pulse Oximeter Pulse Oximetry (%) 94 Oxygen Delivery Method Room Air Intake Visit Reasons: 4 month follow-up Intake Note: Pt is here today for 4 month f/u. Allergies mold,trees,dust,cats,dogs Allergy (Unknown, Uncoded 09/26/22 05:36) unknown strawberries Allergy (Unknown, Uncoded 09/26/22 05:36) hives Medication List - Last Reconciled 01/12/23 by Marquita Gonzales MD albuterol sulfate 90 mcg/actuation inhalation budesonide-formoterol 160-4.5 mcg/actuation inhalation calcium carbonate (Calcium 500) 500 mg PO DAILY citalopram 20 mg PO DAILY diclofenac sodium 1% topical ibuprofen 600 mg PO Q6H PRN irbesartan 75 mg PO DAILY ketotifen fumarate 0.025%(0.035%) (Zaditor) 1 drp ophthalmic (eye) Q12H latanoprost 0.005% drps ophthalmic (eye) levocetirizine (Xyzal) 5 mg PO QPM PRN magnesium oxide 400 mg PO DAILY meloxicam 15 mg PO DAILY metformin ER 500 mg PO QPM montelukast 10 mg PO DAILY multivitamin 1 tab PO DAILY rosuvastatin 5 mg PO DAILY 90 days spironolacton-hydrochlorothiaz 25-25 mg 2 tabs PO DAILY vitamin B complex (B Complex-Vitamin B12 tablet) 1 tab PO DAILY Tobacco use date assessed: 01/12/23 Dental Screening Dental Screen Date: 01/12/23 Did you have a dental visit in the last 12 months?: Yes Did you have a dental problem in the last 6 months where you did not have access to dental care?: No Was dental information given to patient?: No HPI 4 month follow-up HPI Details 62-year-old lady with diabetes mellitus, dyslipidemia, mild intermittent asthma, obstructive sleep apnea on CPAP, COPD morbid obesity, and hypertension, here today for follow-up. Has been following recommended diet and getting regular exercise. Has lost some weight. Recent fasting labs showed normal electrolytes, renal function, normal fasting lipids, hemoglobin A1c at 6%, and normal vitamin-D level. [facility] Medical History (Updated 08/21/23 @ 09:47 by Marquita Gonzales MD) Cervical spondylosis DJD (degenerative joint disease), lumbar Dyslipidemia Family history of early CAD Hypertension Intermittent left-sided chest pain Lung nodule < 6cm on CT Menopause Mild intermittent asthma in adult without complication Morbid obesity Multiple thyroid nodules Nontoxic multinodular goiter 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 Plantar fasciitis, right Polycystic ovaries Primary open angle glaucoma, right eye Retinoblastoma of left eye Scalp cyst Seasonal allergies Type 2 diabetes mellitus without complication, without long-term current use of insulin Surgical History H/O bilateral breast reduction surgery H/O section H/O eye surgery H/O hernia repair H/O thyroidectomy Hx of cholecystectomy Status post phlebectomy Family History Father CAD (coronary artery disease) Myocardial infarction CVD (cardiovascular disease) Substance use disorder Mother Diabetes mellitus HTN (hypertension) Maternal Grandfather No problems noted. Maternal Grandmother No problems noted. Paternal Grandfather No problems noted. Paternal Grandmother No problems noted. Brother Substance use disorder Mental health disorder Sister No problems noted. Sister Substance use disorder Sister No problems noted. Sister No problems noted. Son No problems noted. Daughter No problems noted. 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 1. Little interest or pleasure in doing things: not at all 2. Feeling down, depressed, or hopeless: not at all 3. Trouble falling or staying asleep, or sleeping too much: several days 4. Feeling tired or having little energy: several days 5. Poor appetite or overeating: not at all 6. Feeling bad about yourself - or that you are a failure or have let yourself or your family down: not at all 7. Trouble concentrating on things, such as reading the newspaper or watching television: not at all 8. Moving or speaking so slowly that other people could have noticed. Or the opposite - being so fidgety or restless that you have been moving around a lot more than usual: not at all 9. Thoughts that you would be better off or of hurting yourself in some way: not at all Total score: 2 Depression Screening Interpretation: Negative 21696 - PHQ-9 Billing: Yes Source: Developed by Drs. Lucien Greenberg, Tika Ryan, Raúl Marmolejo and colleagues, with an educational julian from [employer]. Thrive Questionnaire Date Thrive assessed: 01/12/23 I am a: Patient What is your living situation today?: I have a steady place to live Within the past 12 months, did the food you bought not last and you didn't have the money to get more?: Never true Within the past 12 months, did you worry whether your food would run out before you got money to buy more?: Never true Do you have trouble paying for medicines?: No Do you have trouble getting transportation to medical appointments?: No Do you have trouble paying your heating and electricity bill?: No Do you have trouble taking care of your child, family member or friend?: No Do you have trouble with day-to-day activities such as bathing, preparing meals, shopping, managing finances, etc.?: No Are you currently unemployed and looking for a job?: No Are you interested in more education?: No AUDIT C Alcohol Use Questionnaire (AUDIT-C) 1. How often do you have a drink containing alcohol?: Monthly or less 2. How many drinks containing alcohol do you have on a typical day when you are drinking?: 1 or 2 3. How often do you have six or more drinks on one occasion?: Never Total Score: 1 Score Reviewed/Action Taken: Yes MONIK-7 AMB Questionnaire MONIK-7 Date MONIK - 7 assessed: 07/22/21 Feeling nervous, anxious, or on edge: 0 = Not at all Not being able to stop or control worryin = Several days Worrying too much about different things: 1 = Several days Trouble relaxin = Not at all Being so restless that it is hard to sit still: 0 = Not at all Becoming easily annoyed or irritable: 1 = Several days Feeling afraid as if something awful might happen: 0 = Not at all Total MONIK-7 score (0-4 normal; 5-9 mild; 10-14 moderate; 15-21 severe): 3 Source: Developed by Drs. Lucien Greenberg, Tika Ryan, Raúl Marmolejo and colleagues, with an educational julian from [employer]. MONIK-7 Assessment Billing MONIK-7 Assessment Tool: MONIK-7 Assessment 53390 Review of Systems Const Denies body aches, Denies fatigue, Denies fever(s), Denies headache(s), Denies malaise and Reports weight loss Eyes Details: [facility] dm retinopathy screening ENT Denies change in voice, Denies dysphagia, Denies headache(s) and Denies hoarseness Card Denies chest pain, Denies irregular heart rhythm and Denies dyspnea Resp Denies cough and Denies dyspnea GI Denies abdominal pain, Denies change in bowel habits, Denies dysphagia, Denies diarrhea and Denies nausea Reports no additional complaints Musc Denies myalgias, Denies muscle cramps, Denies numbness and Denies tingling Skin/Breast Denies breast pain, Denies breast mass, Denies new lesions and Denies rash Neuro Denies headache(s), Denies numbness and Denies tingling Psych Denies anxiety and Denies depression Endo Details: sees [facility] , Dr Hollingsworth Denies fatigue Kenji/Lymph Denies easy bleeding and Denies easy bruising Aller/Immun Reports seasonal rhinorrhea Physical exam (Primary Care) Vital Signs: Last Vital Signs Pulse 70 01/12/23 08:58 BP 128/70 01/12/23 08:58 Pulse Ox 94 01/12/23 08:58 Oxygen Delivery Method Room Air 01/12/23 08:58 BMI Assessment/Plan discussion: High BMI High, discussed plan: lifestyle, weight reduction, dietary and physical activity Tobacco/Smoking Status: Tobacco use Status Tobacco use date assessed 01/12/23 01/12/23 09:01 Patient Tobacco Use Status Former Tobacco user 01/12/23 09:01 e-Cigarette/Vaping Use Never Used 01/12/23 09:01 PHQ-9: PHQ-9 Score PHQ-9: Total score 2 01/12/23 09:49 Depression Screening Interpretation: Negative Thrive Assessment: Date of Thrive Assessment Date Thrive assessed 01/12/23 01/12/23 09:49 Const Other: Alert oriented x3, no acute distress noted ambulatory normal gait Nutritional Appearance: obese morbidly obese Orientation/consciousness: patient oriented x3 HENMT Head: Yes normocephalic Ears: hearing grossly normal bilaterally, external ears normal, TM's normal bilaterally and EAC's normal General nose exam: Normal external nose present Face and sinus: Yes face symmetric Mouth: Normal oral and palatal mucosa present, oropharynx normal and moist mucous membranes Eyes Other: Artificial left eye Neck Neck: Yes full ROM, Yes no lymphadenopathy and Yes supple Chest Chest palpation & inspection: normal inspection of the chest and normal palpation of entire chest wall Breast/axilla inspection: normal inspection of the breasts Breast/axilla palpation: normal palpation of the breasts Resp Auscultation: clear to auscultation bilaterally Cardio Other: S1-S2 present regular rate and rhythm GI Other: Normal bowel sounds, soft, nontender General: Yes no CVA tenderness Back/Spine/Pelvis Back: no CVA tenderness and No back tenderness Cervical Spine: normal cervical lordosis and cervical ROM normal Thoracic/Lumbar Spine: thoraco-lumbar ROM normal Skin General skin exam: no rashes or lesions noted Neuro General: patient oriented x3, gait normal, tone normal, moves all extremities, Normal light touch and pain sensation, no focal motor deficits and CN's II-XI intact bilaterally Extrem General: Yes full ROM, Yes no joint enlargement, Yes no pedal edema and Yes normal gait Psych Appearance: grossly normal and well kempt Mental Status: mental status grossly normal Speech and movement: Normal speech and movement present Affect: normal affect Attitude: cooperative Thought process: Normal thought process present Thought content: Normal thought content present Results Reviewed Results Reviewed: NTERED: 01/03/23-719 FELICITAS KIRKPATRICK: ORDERED: Met Prof Fast, MG, AST, ALT, Lipid Panel, Vitamin D 25-OH Test Result Flag Reference Site Sodium 141 135-145 mmol/L Potassium 3.7 3.3-5.1 mmol/L CL 101 96-108 mmol/L CO2 30 H 22-29 mmol/L Gap 14 12-20 BUN 18 H 9-16 mg/dL Creat 0.69 0.5-1.4 mg/dL EGFR > 60 NOTE: For -[place] individuals, multiply the result by 1.210. Chronic Kidney Disease: Estimated GFR < 60 mL/min/1.73m2 Severe Kidney Disease: Estimated GFR < 15 mL/min/1.73m2 FBS 109 H 60-99 mg/dL A fasting glucose from 100-125 mg/dl is considered impaired (pre-diabetes). CA 10.0 8.4-10.2 mg/dL Magnesium 2.1 1.6-2.6 mg/dL AST (GOT) 13 5-31 U/L ALT (GPT) 15 0-31 U/L Triglyceride 133 mg/dL Desirable Triglyceride: less than 150 mg/dL Borderline High Triglyceride 150-199 mg/dL High Triglyceride: 200-499 mg/dL Very High Triglyceride: greater than or equal to 5OO mg/dL Chol 159 mg/dL Desirable Cholesterol: less than 200 mg/dL Borderline High Cholesterol: 200-239 mg/dL High Cholesterol: greater than 239 mg/dL LDL Calculated 92 mg/dl Desirable LDL: less than 100 mg/dL Near Optimal/Above Optimal LDL: 110-129 mg/dL Borderline High LDL: 130-159 mg/dL High LDL: 160-189 mg/dL Very High LDL: greater than or equal to 190 mg/dL HDL 41 mg/dL Desirable HDL: greater than 40 mg/dL Note: This HDL assay may give artificially low results in patients with liver disease. Vit D 25-OH Tot 51.7 >30 ng/mL Health Based Reference Values* < 20 ng/mL Deficient 20-30 ng/mL Insufficient > 30 ng/mL Sufficient Laboratory Tests 01/03/23 01/03/23 01/03/23 07:21 07:21 07:21 Estimat Average Glucose 126 Hemoglobin A1c % 6.0 Vitamin B12 1041 H 25-OH Vitamin D Total 51.7 Folate 16.2 Urine Creatinine Urine Microalbumin Microalb/Creat Ratio 01/03/23 07:21 Estimat Average Glucose Hemoglobin A1c % Vitamin B12 25-OH Vitamin D Total Folate Urine Creatinine 137.79 Urine Microalbumin 24.0 Microalb/Creat Ratio 17.4 Assessment and Plan Assessment & Plan (1) Morbid obesity: Code(s): E66.01 - Morbid (severe) obesity due to excess calories Plan: Continue staying active and adhering to healthy eating habits. Recommended focusing on improving your health instead of dieting. : Eat Mediterranean diet, limit foods high in fat, sugar, and calories, eat slowly, pay attention to portion sizes, plan your meals ahead of time, start regular physical activity 150 minutes of moderate intensity exercise or 90 minutes/week of vigorous exercise and increase water intake. (2) Type 2 diabetes mellitus without complication, without long-term current use of insulin: Code(s): E11.9 - Type 2 diabetes mellitus without complications Plan: Recent lab results reviewed with patient, with sugar and hemoglobin A1c stable and at goal . Reinforced diabetic diet and regular exercise with patient. Counseled regarding importance of yearly diabetes retinopathy screening. Patient advised to inspect feet daily, for any signs of injury, callus or infection. Compliance with diet and regular exercise again stressed. Blood pressure goal is less than 130/80, goal LDL is less than 100 and goal hemoglobin A1c is less than 7% follow-up appointment made in-3--months, after fasting labs done. (3) Dyslipidemia: Code(s): E78.5 - Hyperlipidemia, unspecified Plan: Reviewed recent fasting lipid profile with patient with levels at goal . Continue with rosuvastatin 5 mg daily , in addition to adherence to low-cholesterol diet and regular exercise, at least 30 minutes 3 to 4 times a week. Advised patient to make healthy food choices, eat more fruits, vegetables, whole grains, wild caught fish and low-fat dairy. Limit amount of meat and fried or fatty food products, as well as processed foods and fast foods. Follow-up scheduled with repeat fasting lipid panel in months. (4) Hypertension: Code(s): I10 - Essential (primary) hypertension Qualifiers: Hypertension type: essential hypertension Qualified Code(s): I10 - Essential (primary) hypertension Plan: Blood pressure at goal of less than 130/80. Continue with current medication. Reinforced importance of following a low sodium diet, getting regular exercise, and lowering stress levels. (5) Elevated vitamin B12 level: Code(s): R74.8 - Abnormal levels of other serum enzymes Plan: Advised to hold on taking vitamin-D supplements. (6) Retinoblastoma of left eye: Code(s): C69.22 - Malignant neoplasm of left retina Plan: Currently followed at [facility] [place] and at [facility] [place] (7) Primary open angle glaucoma, right eye: Comment: followed at [facility] in [place], Dr. Lea Code(s): H40.1110 - Primary open-angle glaucoma, right eye, stage unspecified Plan: Followed by Ophthalmology currently on latanoprost from (8) COPD (chronic obstructive pulmonary disease): Comment: followed by Dr. Leon Code(s): J44.9 - Chronic obstructive pulmonary disease, unspecified Plan: Followed by Pulmonary Dr. Leon (9) DJD (degenerative joint disease), lumbar: Code(s): M47.816 - Spondylosis without myelopathy or radiculopathy, lumbar region Plan: Prescription sent for meloxicam 50 mg per tablet to take 1 tablet once a day as needed for severe pain, may alternate this with Tylenol arthritis 650 mg once a day as needed for pain. Advised to not take any NSAIDs, like, ibuprofen, naproxen, Aleve, Advil when taking meloxicam Orders: Orders Alanine Aminotransferase 3 Months E11.9 - Type 2 diabetes mellitus without complications, E66.01 - Morbid (severe) obesity due to excess calories, E78.5 - Hyperlipidemia, unspecified, I10 - Essential (primary) hypertension, R74.8 - Abnormal levels of other serum enzymes Aspartate Amino Transferase 3 Months E11.9 - Type 2 diabetes mellitus without complications, E66.01 - Morbid (severe) obesity due to excess calories, E78.5 - Hyperlipidemia, unspecified, I10 - Essential (primary) hypertension, R74.8 - Abnormal levels of other serum enzymes Vitamin B12 and Folate 3 Months E11.9 - Type 2 diabetes mellitus without complications, E66.01 - Morbid (severe) obesity due to excess calories, E78.5 - Hyperlipidemia, unspecified, I10 - Essential (primary) hypertension, R74.8 - Abnormal levels of other serum enzymes Basic Metabolic Panel Fasting 3 Months E11.9 - Type 2 diabetes mellitus without complications, E66.01 - Morbid (severe) obesity due to excess calories, E78.5 - Hyperlipidemia, unspecified, I10 - Essential (primary) hypertension, R74.8 - Abnormal levels of other serum enzymes Hemoglobin A1c 3 Months E11.9 - Type 2 diabetes mellitus without complications, E66.01 - Morbid (severe) obesity due to excess calories, E78.5 - Hyperlipidemia, unspecified, I10 - Essential (primary) hypertension, R74.8 - Abnormal levels of other serum enzymes Lipid Panel 3 Months E11.9 - Type 2 diabetes mellitus without complications, E66.01 - Morbid (severe) obesity due to excess calories, E78.5 - Hyperlipidemia, unspecified, I10 - Essential (primary) hypertension, R74.8 - Abnormal levels of other serum enzymes Medications: Changed From meloxicam 15 mg PO DAILY 14 tabs 0RF To meloxicam 15 mg PO DAILY PRN 30 tabs 0RF joint pain Discontinued ibuprofen Discontinued Reason: Doctor's Order 600 mg PO Q6H PRN 60 tabs 0RF pain Coding Level of Care Code Est Pt Level 4 (40126) Diagnoses Morbid obesity E66.01 Type 2 diabetes mellitus without complication, without long-term current use of insulin E11.9 Dyslipidemia E78.5 Hypertension I10 Hypertension type: essential hypertension Elevated vitamin B12 level R74.8 Retinoblastoma of left eye C69.22 Primary open angle glaucoma, right eye H40.1110 COPD (chronic obstructive pulmonary disease) J44.9 DJD (degenerative joint disease), lumbar M47.816 Additional Codes MONIK-7 Assessment Billing - MONIK-7 Assessment Tool: MONIK-7 Assessment [id number] ([id number])
== END 2023-01-12 09:46 | disposition home or self-care (01) ==
PROVIDERS: PCP Internal Medicine; Visit Provider Internal Medicine
DX: E11.9 Type 2 diabetes mellitus without complications (principal); E66.01 Morbid (severe) obesity due to excess calories; I10 Essential (primary) hypertension; C69.22 Malignant neoplasm of left retina; J44.9 Chronic obstructive pulmonary disease, unspecified; E78.5 Hyperlipidemia, unspecified; R74.8 Abnormal levels of other serum enzymes; H40.1110 Primary open-angle glaucoma, right eye, stage unspecified; M47.816 Spondylosis without myelopathy or radiculopathy, lumbar region
CPT/HCPCS: 99214

== ENCOUNTER 2023-03-26 14:33 | Outpatient (AMB) | payer OTHER, SELFPAY ==
--- NOTE | 2023-03-26 14:37 | MHC.OFFVIS ---
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) Intake Note: NPV Diamond Setter Required: No Accompanied by: Self / Same As Patient Allergies mold,trees,dust,cats,dogs Allergy (Unknown, Uncoded 03/26/23 14:38) unknown strawberries Allergy (Unknown, Uncoded 03/26/23 14:38) hives Medication List - Last Reconciled 03/26/23 by Shubham Jefferson MD albuterol sulfate 90 mcg/actuation inhalation budesonide-formoterol 160-4.5 mcg/actuation inhalation calcium carbonate (Calcium 500) 500 mg PO DAILY citalopram 20 mg PO DAILY irbesartan 75 mg PO DAILY ketotifen fumarate 0.025%(0.035%) (Zaditor) 1 drp ophthalmic (eye) Q12H latanoprost 0.005% drps ophthalmic (eye) levocetirizine (Xyzal) 5 mg PO QPM PRN magnesium oxide 400 mg PO DAILY meloxicam 15 mg PO DAILY PRN metformin ER 500 mg PO QPM montelukast 10 mg PO DAILY multivitamin 1 tab PO DAILY rosuvastatin 5 mg PO DAILY 90 days spironolacton-hydrochlorothiaz 25-25 mg 2 tabs PO DAILY vitamin B complex (B Complex-Vitamin B12 tablet) 1 tab PO DAILY HPI HPI Comments History of Present Illness Details Isabella has been referred here for evaluation of chest pain but patient denies this. Past numerous times about chest pain and she states she has not had this before. Hence not clear. Any case, it seems she has got numerous cardiovascular risk factors including morbid obesity, diabetes, hypertension, dyslipidemia. Under get CT scan of the chest also shows coronary artery/aortic calcification. She states she gets asthma and that leads to shortness of breath with activity at times but not always. No previous history of any coronary disease, myocardial infarction or cardiomyopathy. 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 Again, unclear details. [facility], [facility] Medical History (Updated 03/26/23 @ 14:51 by Shubham Jefferson MD) Family history of early CAD Intermittent left-sided chest pain Seasonal allergies Plantar fasciitis, right Mild intermittent asthma in adult without complication Scalp cyst Nontoxic multinodular goiter Lung nodule < 6cm on CT Cervical spondylosis DJD (degenerative joint disease), lumbar 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 Primary open angle glaucoma, right eye Retinoblastoma of left eye Polycystic ovaries Morbid obesity Multiple thyroid nodules Menopause Type 2 diabetes mellitus without complication, without long-term current use of insulin Dyslipidemia Hypertension Surgical History Status post phlebectomy H/O eye surgery H/O hernia repair H/O bilateral breast reduction surgery H/O section H/O thyroidectomy Hx of cholecystectomy Family History Father CAD (coronary artery disease) Myocardial infarction CVD (cardiovascular disease) Substance use disorder Mother Diabetes mellitus HTN (hypertension) Maternal Grandfather No problems noted. Maternal Grandmother No problems noted. Paternal Grandfather No problems noted. Paternal Grandmother No problems noted. Brother Substance use disorder Mental health disorder Sister No problems noted. Sister Substance use disorder Sister No problems noted. Sister No problems noted. Son No problems noted. Daughter No problems noted. 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: No Cognitive needs: No Hearing needs: No Vision needs: Yes Review of Systems Const All systems reviewed & are unremarkable except as noted in HPI and below Reports as per HPI and Reports no additional complaints Eyes Reports as per HPI and Denies no additional complaints ENT Denies no additional complaints and Reports as per HPI Card Reports as per HPI, Reports no additional complaints, Denies acrocyanosis, Denies chest pain, Denies leg edema, Denies lightheadedness, Denies palpitations and Denies dyspnea Resp Reports as per HPI, Denies no additional complaints and Denies dyspnea GI Reports as per HPI and Denies no additional complaints Reports as per HPI Musc Reports no additional complaints and Reports as per HPI Skin/Breast Reports system reviewed and no additional complaints, except as documented Neuro Reports no additional complaints and Reports as per HPI Psych Reports no additional complaints and Reports as per HPI Endo Reports no additional complaints, Reports as per HPI and Denies palpitations Kenji/Lymph Reports no additional complaints and Reports as per HPI Aller/Immun Reports no additional complaints and Reports as per HPI Physical Exam Vital Signs: Last Vital Signs Pulse 63 03/26/23 14:38 BP 132/70 03/26/23 14:38 BMI result Body Mass Index 39.2 Const General: comfortable and no acute distress Orientation/consciousness: patient oriented x3 HEENT Other: Unremarkable Head: Yes normal to inspection Neck Neck: Yes normal visual inspection Chest Chest palpation & inspection: normal inspection of the chest Resp Auscultation: clear to auscultation bilaterally Cardio Palpation: normal PMI Heart sounds: S1 normal heart sound present, S2 normal heart sound present, no gallops, Murmur heart sound present systolic I/ and at the right sternal border and no rubs GI Palpation (GI): Soft to palpation Back/Spine/Pelvis Other: unremarkable Skin General skin exam: no rashes or lesions noted Neuro General: patient oriented x3 Extrem General: Yes normal to inspection Psych Mental Status: mental status grossly normal Assessment & Plan Assessment & Plan (1) Atherosclerotic cardiovascular disease: Code(s): I25.10 - Atherosclerotic heart disease of [place] coronary artery without angina pectoris (2) Type 2 diabetes mellitus without complication, without long-term current use of insulin: Code(s): E11.9 - Type 2 diabetes mellitus without complications (3) Hypertension: Code(s): I10 - Essential (primary) hypertension Qualifiers: Hypertension type: essential hypertension Qualified Code(s): I10 - Essential (primary) hypertension (4) Morbid obesity: Code(s): E66.01 - Morbid (severe) obesity due to excess calories (5) Dyslipidemia: Code(s): E78.5 - Hyperlipidemia, unspecified Plan EKG with sinus rhythm at 67/Min; no significant ST-T changes and otherwise unremarkable. Normal LA and corrected QT. Ungated chest CT scan from [facility] shows atherosclerotic calcification of thoracic aorta and coronary arteries. She has got numerous cardiovascular risk factors and there is a question of chest pain that she might have had in the past but nothing recent. We can proceed with echocardiogram and stress test for further evaluation. Discussed with patient and she is agreeable. Orders: Orders CA echo transthoracic complete Today I25.10 - Atherosclerotic heart disease of [place] coronary artery without angina pectoris CA stress test Today R07.2 - Precordial pain NM cardiolite stress test Today R07.2 - Precordial pain Coding Level of Care Code New Pt Level 3 (72324) Diagnoses Atherosclerotic cardiovascular disease I25.10 Type 2 diabetes mellitus without complication, without long-term current use of insulin E11.9 Essential hypertension I10 Hypertension type: essential hypertension Morbid obesity E66.01 Dyslipidemia E78.5
[2023-03-26 14:38] VITALS: BP 132/70; PULSE 63; BMI 39.2
== END 2023-03-26 14:52 | disposition home or self-care (01) ==
PROVIDERS: PCP Internal Medicine; Visit Provider Internal Medicine
DX: I25.10 Atherosclerotic heart disease of native coronary artery without angina pectoris (principal); E11.9 Type 2 diabetes mellitus without complications; I10 Essential (primary) hypertension; E66.01 Morbid (severe) obesity due to excess calories; E78.5 Hyperlipidemia, unspecified
CPT/HCPCS: 99203

== ENCOUNTER → 2023-03-26 14:33 | Outpatient (BNVA) | payer OTHER, SELFPAY | PROVIDERS: PCP Internal Medicine; Visit Provider Internal Medicine ==

== ENCOUNTER 2023-04-21 06:09 | Outpatient (REF) | payer OTHER, SELFPAY ==
[2023-04-21 11:42] LABS: Estimated Average Glucose 123 mg/dL; Hemoglobin A1c % 5.9 % (<6.0)
[2023-04-21 11:58] LABS: Free T4 (Free Thyroxine) 0.92 ng/dL (0.71-1.85)
[2023-04-21 12:06] LABS: Alanine Aminotransferase 22 U/L (0-31); Anion Gap 11 (12-20); Aspartate Amino Transferase 20 U/L (5-31); Blood Urea Nitrogen 16 mg/dL (9-16); Calcium 10.1 mg/dL (8.4-10.2); Carbon Dioxide 31 mmol/L (22-29); Chloride 103 mmol/L (96-108); Cholesterol 165 mg/dL (<200); Estimated Glomerular Filt Rate > 60; Glucose Fasting 121 mg/dL (60-99); HDL Cholesterol 53 mg/dL (>40); LDL Cholesterol Calculated 96 mg/dL (<100); Potassium 3.8 mmol/L (3.3-5.1); Sodium 141 mmol/L (135-145); Thyroid Stimulating Hormone 2.61 uIU/mL (0.32-4.0); Triglycerides 80 mg/dL (<150)
[2023-04-21 12:16] LABS: Folate > 20.0 ng/mL (> or = 4.0); Vitamin B12 785 pg/mL (200-900)
== END 2023-04-21 06:10 | disposition home or self-care (01) ==
LOC: HO.HMGCLDS 06:09
PROVIDERS: Absent Provider Internal Medicine; PCP Internal Medicine; Visit Provider Internal Medicine
DX: E66.01 Morbid (severe) obesity due to excess calories (principal); E11.9 Type 2 diabetes mellitus without complications; I10 Essential (primary) hypertension; R74.8 Abnormal levels of other serum enzymes; E04.2 Nontoxic multinodular goiter; E78.5 Hyperlipidemia, unspecified
CPT/HCPCS: 36415; 80048; 80061; 82607; 82746; 83036; 84439; 84443; 84450; 84460

== ENCOUNTER 2023-04-23 14:47 | Outpatient (AMB) | payer OTHER, SELFPAY ==
[2023-04-23 15:06] VITALS: BP 102/56; PULSE 67; O2SAT 95; BMI 39.8
--- NOTE | 2023-04-23 15:06 | A.OFFPC_ITS ---
Vital Signs 04/23/23 15:06 Height 5 ft 5 in Weight 239 lb 4 oz BMI 39.8 BP 102/56 L Blood Pressure Location Lt brachial Position Sitting Pulse 67 Pulse Source Pulse Oximeter Pulse Oximetry (%) 95 Oxygen Delivery Method Room Air Intake Visit Reasons: 3 month fu Intake Note: pt is here to follow up on her lab results Allergies mold,trees,dust,cats,dogs Allergy (Unknown, Uncoded 07/13/23 20:01) unknown strawberries Allergy (Unknown, Uncoded 07/13/23 20:01) hives Medication List - Last Reconciled 04/23/23 by Marquita Gonzales MD albuterol sulfate 90 mcg/actuation inhalation alendronate (Fosamax) 70 mg PO QWEEK budesonide-formoterol 160-4.5 mcg/actuation inhalation calcium carbonate (Calcium 500) 500 mg PO DAILY citalopram 20 mg PO DAILY irbesartan 75 mg PO DAILY ketotifen fumarate 0.025%(0.035%) (Zaditor) 1 drp ophthalmic (eye) Q12H latanoprost 0.005% drps ophthalmic (eye) levocetirizine (Xyzal) 5 mg PO QPM PRN magnesium oxide 400 mg PO DAILY meloxicam 15 mg PO DAILY PRN metformin ER 500 mg PO QPM montelukast 10 mg PO DAILY multivitamin 1 tab PO DAILY rosuvastatin 5 mg PO DAILY 90 days spironolacton-hydrochlorothiaz 25-25 mg 2 tabs PO DAILY vitamin B complex (B Complex-Vitamin B12 tablet) 1 tab PO DAILY Tobacco use date assessed: 04/23/23 Dental Screening Dental Screen Date: 04/23/23 Did you have a dental visit in the last 12 months?: Yes Did you have a dental problem in the last 6 months where you did not have access to dental care?: No Was dental information given to patient?: Patient has dentist HPI 3 month fu HPI Details 62-year-old lady here today for follow-u p on her hypertension and lipids. Currently on rosuvastatin 5 mg once a day and on spironolactone- hydrochlorothiazide and irbesartan for blood pressure which is currently well controlled. 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 Primary open angle glaucoma, right eye Retinoblastoma of left eye Polycystic ovaries Morbid obesity Multiple thyroid nodules Menopause Type 2 diabetes mellitus without complication, without long-term current use of insulin Dyslipidemia Hypertension Surgical History Status post phlebectomy H/O eye surgery H/O hernia repair H/O bilateral breast reduction surgery H/O section H/O thyroidectomy Hx of cholecystectomy Family History Father CAD (coronary artery disease) Myocardial infarction CVD (cardiovascular disease) Substance use disorder Mother Diabetes mellitus HTN (hypertension) Maternal Grandfather No problems noted. Maternal Grandmother No problems noted. Paternal Grandfather No problems noted. Paternal Grandmother No problems noted. Brother Substance use disorder Mental health disorder Sister No problems noted. Sister Substance use disorder Sister No problems noted. Sister No problems noted. Son No problems noted. Daughter No problems noted. 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 Depression Screening Interpretation: Negative Depression Screening Done: Yes Source: Developed by Drs. Lucien Greenberg, Tika Ryan, Raúl Marmolejo and colleagues, with an educational julian from [employer]. Thrive Questionnaire Date Thrive assessed: 01/12/23 MONIK-7 AMB Questionnaire MONIK-7 Date MONIK - 7 assessed: 07/22/21 Source: Developed by Drs. Lucien Greenberg, Tika Ryan, Raúl Marmolejo and colleagues, with an educational julian from [employer]. Review of Systems Const Denies body aches, Denies fatigue, Denies fever(s), Denies headache(s), Denies malaise and Denies weight loss Eyes Details: sees [facility] for her dm retinopathy screening Denies change in vision ENT Denies change in voice, Denies dysphagia, Denies headache(s) and Denies hoarseness Card Denies chest pain, Denies irregular heart rhythm and Denies dyspnea Resp Denies cough and Denies dyspnea GI Denies abdominal pain, Denies change in bowel habits, Denies dysphagia, Denies diarrhea and Denies nausea Reports no additional complaints Musc Denies myalgias, Denies muscle cramps, Denies numbness and Denies tingling Skin/Breast Denies breast pain, Denies breast mass, Denies new lesions and Denies rash Neuro Denies headache(s), Denies numbness and Denies tingling Psych Denies anxiety and Denies depression Endo Details: sees [facility] , Dr Hollingsworth Denies fatigue Kenji/Lymph Denies easy bleeding and Denies easy bruising Aller/Immun Reports seasonal rhinorrhea Physical exam (Primary Care) Vital Signs: Last Vital Signs Pulse 67 04/23/23 15:06 BP 102/56 L 04/23/23 15:06 Pulse Ox 95 04/23/23 15:06 Oxygen Delivery Method Room Air 04/23/23 15:06 BMI result Body Mass Index 39.8 BMI Assessment/Plan discussion: High BMI High, discussed plan: lifestyle, weight reduction, dietary and physical activity Tobacco/Smoking Status: Tobacco use Status Tobacco use date assessed 04/23/23 04/23/23 15:25 Patient Tobacco Use Status Former Tobacco user 04/23/23 15:08 e-Cigarette/Vaping Use Never Used 04/23/23 15:08 Depression Screening Interpretation: Negative Thrive Assessment: Date of Thrive Assessment Date Thrive assessed 01/12/23 04/23/23 15:08 Const Other: Alert oriented x3, no acute distress noted ambulatory normal gait Nutritional Appearance: obese morbidly obese Orientation/consciousness: patient oriented x3 HENMT Head: Yes normocephalic Ears: hearing grossly normal bilaterally, external ears normal, TM's normal bilaterally and EAC's normal General nose exam: Normal external nose present Face and sinus: Yes face symmetric Mouth: Normal oral and palatal mucosa present, oropharynx normal and moist mucous membranes Eyes Other: Artificial left eye Neck Neck: Yes full ROM, Yes no lymphadenopathy and Yes supple Resp Auscultation: clear to auscultation bilaterally Cardio Other: S1-S2 present regular rate and rhythm GI Other: Normal bowel sounds, soft, nontender General: Yes no CVA tenderness Back/Spine/Pelvis Back: no CVA tenderness and No back tenderness Cervical Spine: normal cervical lordosis and cervical ROM normal Thoracic/Lumbar Spine: thoraco-lumbar ROM normal Skin General skin exam: no rashes or lesions noted Neuro General: patient oriented x3, gait normal, tone normal, moves all extremities, Normal light touch and pain sensation, no focal motor deficits and CN's II-XI intact bilaterally Extrem General: Yes full ROM, Yes no joint enlargement, Yes no pedal edema and Yes normal gait Psych Appearance: grossly normal and well kempt Mental Status: mental status grossly normal Speech and movement: Normal speech and movement present Affect: normal affect Attitude: cooperative Thought process: Normal thought process present Thought content: Normal thought content present Results Reviewed Results Reviewed: ENTERED: 04/21/[address] [facility] DR: Arelis Scott DO ORDERED: Met Prof Fast, AST, ALT, Lipid Panel, TSH Test Result Flag Reference Site Sodium 141 135-145 mmol/L Potassium 3.8 3.3-5.1 mmol/L CL 103 96-108 mmol/L CO2 31 H 22-29 mmol/L Gap 11 L 12-20 BUN 16 9-16 mg/dL Creat 0.69 0.5-1.4 mg/dL EGFR > 60 NOTE: For -Fij[place] individuals, multiply the result by 1.210. Chronic Kidney Disease: Estimated GFR < 60 mL/min/1.73m2 Severe Kidney Disease: Estimated GFR < 15 mL/min/1.73m2 FBS 121 H 60-99 mg/dL A fasting glucose from 100-125 mg/dl is considered impaired (pre-diabetes). CA 10.1 8.4-10.2 mg/dL AST (GOT) 20 5-31 U/L ALT (GPT) 22 0-31 U/L Triglyceride 80 <150 mg/dL Desirable Triglyceride: less than 150 mg/dL Borderline High Triglyceride 150-199 mg/dL High Triglyceride: 200-499 mg/dL Very High Triglyceride: greater than or equal to 5OO mg/dL Cholesterol 165 <200 mg/dL Desirable Cholesterol: less than 200 mg/dL Borderline High Cholesterol: 200-239 mg/dL High Cholesterol: greater than 239 mg/dL LDL Calculated 96 <100 mg/dL Desirable LDL: less than 100 mg/dL Near Optimal/Above Optimal LDL: 110-129 mg/dL Borderline High LDL: 130-159 mg/dL High LDL: 160-189 mg/dL Very High LDL: greater than or equal to 190 mg/dL HDL 53 >40 mg/dL Desirable HDL: greater than 40 mg/dL Note: This HDL assay may give artificially low results in patients with liver disease. TSH 3rd Gen. 2.61 0.32-4.0 uIU/mL Note: A sustained TSH level above 2.5 uIU/mL may warrant further investigation. TSH 3rd Generation ([facility]) Laboratory Tests 04/21/23 06:23 Estimat Average Glucose 123 Hemoglobin A1c % 5.9 Assessment and Plan Assessment & Plan (1) Type 2 diabetes mellitus without complication, without long-term current use of insulin: Code(s): E11.9 - Type 2 diabetes mellitus without complications Plan: Recent lab results reviewed with patient, with sugar and hemoglobin A1c stable and at goal, with hemoglobin A1c at 5.9%. Continue with metformin ER 500 mg daily with supper. continue to check fasting blood sugar at home, maintain log and bring to next appointment for review. Reinforced diabetic diet and regular exercise with patient. Counseled regarding importance of yearly diabetes retinopathy screening. Patient advised to inspect feet daily, for any signs of injury, callus or infection. Compliance with diet and regular exercise again stressed. Blood pressure goal is less than 130/80, goal LDL is less than 100 and goal hemoglobin A1c is less than 7% (2) Morbid obesity: Code(s): E66.01 - Morbid (severe) obesity due to excess calories Plan: Has tried dieting and exercising but unable to lose weight, will add 1 general 2.5 mg per injection to be injected subcutaneously weekly, and patient instructed on proper use of the medication, discussed possible side effects of medication which may include abdominal cramping, nausea, vomiting. Continue with recommended diet, follow-up in 4 weeks. (3) Dyslipidemia: Code(s): E78.5 - Hyperlipidemia, unspecified Plan: Reviewed recent fasting lipid profile with patient with levels within normal limits . Continue with rosuvastatin 5 mg daily , in addition to adherence to low-cholesterol diet and regular exercise, at least 30 minutes 3 to 4 times a week. Advised patient to make healthy food choices, eat more fruits, vegetables, whole grains, wild caught fish and low-fat dairy. Limit amount of meat and fried or fatty food products, as well as processed foods and fast foods. (4) Hypertension: Code(s): I10 - Essential (primary) hypertension Qualifiers: Hypertension type: essential hypertension Qualified Code(s): I10 - Essential (primary) hypertension Plan: Blood pressure at goal of less than 130/80. Continue with current medication. Reinforced importance of following a low sodium diet, getting regular exercise, and lowering stress levels. Medications: New tirzepatide (Mounjaro) 2.5 mg (0.5 mL) subcut QWEEK 2 mL 0RF 4 weeks blood-glucose meter (FreeStyle Votaw Lite kit) As directed 1 ea 0RF E11.9 - Type 2 diabetes mellitus without complications lancets (FreeStyle Lancets) Check fasting glucose once a day 100 ea 5RF E11.9 - Type 2 diabetes mellitus without complications blood sugar diagnostic (FreeStyle Lite Strips) Check fasting blood sugar once a day 50 ea 5RF E11.9 - Type 2 diabetes mellitus without complications Coding Level of Care Code Est Pt Level 4 (61276) Diagnoses Type 2 diabetes mellitus without complication, without long-term current use of insulin E11.9 Morbid obesity E66.01 Dyslipidemia E78.5 Essential hypertension I10 Hypertension type: essential hypertension
== END 2023-04-23 15:58 | disposition home or self-care (01) ==
PROVIDERS: PCP Internal Medicine; Visit Provider Internal Medicine
DX: E11.69 Type 2 diabetes mellitus with other specified complication (principal); E66.01 Morbid (severe) obesity due to excess calories; E78.5 Hyperlipidemia, unspecified; Z68.39 Body mass index [BMI] 39.0-39.9, adult; I10 Essential (primary) hypertension
CPT/HCPCS: 99214

== ENCOUNTER 2023-05-04 15:20 | Outpatient (AMB) | payer OTHER, SELFPAY ==
[2023-05-04 15:26] VITALS: BP 122/60; PULSE 66; TEMP 36.3; O2SAT 95; BMI 39.8
--- NOTE | 2023-05-04 15:26 | AM.OFFWIN_ITS ---
Intake Vital Signs 05/04/23 15:26 Height 5 ft 5 in Weight 108.409 kg BMI 39.8 BP 122/60 Blood Pressure Location Rt brachial Position Sitting Pulse 66 Pulse Source Pulse Oximeter Temp 97.3 F Temp Source Temporal Artery Scan Pulse Oximetry (%) 95 Oxygen Delivery Method Room Air Intake Visit Reasons: EP cough congestion [id number] Intake Note: pt is here today cough congestion started last Thursday Patient Tobacco Use Status: Former Tobacco user Allergies mold,trees,dust,cats,dogs Allergy (Unknown, Uncoded 04/23/23 15:33) unknown strawberries Allergy (Unknown, Uncoded 04/23/23 15:33) hives Do you need a note to return to daycare/school/sports/work: No HPI HPI Comments History of Present Illness Details 62-year-old female history of COPD prese nts with productive cough of yellow/green sputum, fatigue, malaise, myalgias, has had multiple sick contacts this is all been going on since last Thursday/Thursday. 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 Denies chest pain, shortness of breath, nausea, vomiting, abdominal pain, headache, vision changes, dizziness and weakness. Physical exam benign. Likely bronchitis versus viral illness versus flu versus COVID versus RSV. Unlikely PE, pneumothorax, ACS, acute respiratory distress. Plan at this time will obtain viral test discharge patient home with treatment for bronchitis. Educated patient on diagnosis and treatment plan, answered all question, patient verbalizes understanding. At this time patient will be di scharged home, advised to return with new or worsening symptoms. Educated on worrisome signs and symptoms and when to return. At this time I feel comfortable discharge home. [facility] Medical History Family history of early CAD Intermittent left-sided chest pain Seasonal allergies Plantar fasciitis, right Mild intermittent asthma in adult without complication Scalp cyst Nontoxic multinodular goiter Lung nodule < 6cm on CT Cervical spondylosis DJD (degenerative joint disease), lumbar 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 Primary open angle glaucoma, right eye Retinoblastoma of left eye Polycystic ovaries Morbid obesity Multiple thyroid nodules Menopause Type 2 diabetes mellitus without complication, without long-term current use of insulin Dyslipidemia Hypertension Surgical History Status post phlebectomy H/O eye surgery H/O hernia repair H/O bilateral breast reduction surgery H/O section H/O thyroidectomy Hx of cholecystectomy Family History Father CAD (coronary artery disease) Myocardial infarction CVD (cardiovascular disease) Substance use disorder Mother Diabetes mellitus HTN (hypertension) Maternal Grandfather No problems noted. Maternal Grandmother No problems noted. Paternal Grandfather No problems noted. Paternal Grandmother No problems noted. Brother Substance use disorder Mental health disorder Sister No problems noted. Sister Substance use disorder Sister No problems noted. Sister No problems noted. Son No problems noted. Daughter No problems noted. 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: No Cognitive needs: No Hearing needs: No Vision needs: Yes Review of Systems Const Details: Constitutional : No Weight loss, No Fever, No Chills, + Fatigue, + Malaise ENT/Mouth : No sore throat, No Rhinorrhea Eyes: No Eye Pain, No Swelling, No Redness Cardiovascular : No Chest Pain, No SOB, No Dyspnea on Exertion, No Orthopnea, No Edema, No Palpitations Respiratory : + Cough, + Sputum, No Wheezing Gastrointestinal : No Nausea, No Vomiting, No Diarrhea, No Constipation, No abdominal Pain, No Hematochezia, No Melena Genitourinary : No Dysuria, No Urinary Frequency, No Hematuria, Musculoskeletal : No joint pain, No Myalgias, No Joint Swelling Skin : No Skin Lesions, No rash Neuro : No Weakness, No Numbness, No Dizziness, No Headache Psych : No Anxiety/Panic, No Depression All other systems reviewed and are negative All systems reviewed & are unremarkable except as noted in HPI and below Physical Exam Vital Signs: Last Vital Signs Temp 97.3 F 05/04/23 15:26 Pulse 66 05/04/23 15:26 BP 122/60 05/04/23 15:26 Pulse Ox 95 05/04/23 15:26 Oxygen Delivery Method Room Air 05/04/23 15:26 BMI result Body Mass Index 39.8 Vital signs stable Appearance: Alert.? Oriented X3.? No acute distress.? Head: Normocephalic, atraumatic, no step-offs or deformities Eyes: Pupils equal, round and reactive to light.? Neck: Normal inspection.? Neck supple.? CVS: Normal heart rate and rhythm.? Pulses normal.? Respiratory: No respiratory distress.? Breath sounds normal.? Skin: Skin warm and dry.? Normal skin color.? Normal skin turgor.? Extremities: No lower extremity edema.? No calf ttp. 5/5 strength to bilateral upper and lower extremities Neuro: Oriented X 3.? No motor deficit.? No sensory deficit. CN 2-12 intact Assessment & Plan Assessment & Plan (1) Bronchitis: Code(s): J40 - Bronchitis, not specified as acute or chronic Plan Take your medications as prescribed. If you were prescribed antibiotics today, it is important that you take your medication to their entirety, do not skip any doses, do not finish them early. Follow-up with your primary care provider this week. Return to the emergency department with new or worsening symptoms. Such as fevers, chills, chest pain, shortness of breath, nausea, vomiting, dizziness, headache, vision changes, lethargy In case of emergency call 911 Medications: New doxycycline hyclate 100 mg PO BID 14 caps 0RF 7 days prednisone 40 mg (2 x 20 mg) PO DAILY 10 tabs 0RF 5 days albuterol sulfate 90 mcg/actuation 2 puffs inhalation Q6H PRN 6.7 grams 0RF shortness of breath or wheezing Coding Level of Care Code Est Pt Level 3 (97818) Diagnoses Bronchitis J40
== END 2023-05-04 16:04 | disposition home or self-care (01) ==
PROVIDERS: PCP Internal Medicine; Visit Provider Physician Assistant
DX: J40 Bronchitis, not specified as acute or chronic (principal)
CPT/HCPCS: 99213

== ENCOUNTER 2023-05-27 15:56 | Outpatient (REF) | payer SELFPAY ==
--- NOTE | 2023-05-28 09:49 | MHC.AU.HA3 ---
Hearing Instrument Follow-Up- Binaural Date of Visit: 05/27/23 Right Ear: Nehemiah, Model, Color, Serial Number: Kassandra Guerrero [id number]-[id number] SN: [id number] Color: Zita Beige [employer] Repair Warranty: 10/17/2017 [employer] Loss and Damage Warranty: 10/17/2017 Battery Size: 13 Earmold/Dome/CShell/SlimTip:Microsonic [id number] skeleton Dispensed By: [facility] Date of Fittin07/27/2014 Left Ear: Nehemiah, Model, Color, Serial Number: Kassandra Guerrero [id number]-[id number] SN: [id number] Color: Zita Beige [employer] Repair Warranty: 10/17/2017 [employer] Loss and Damage Warranty: 10/17/2017 Battery Size: 13 Earmold/Dome/CShell/SlimTip: Microsonic [id number] skeleton Dispensed By: [facility] Date of Fittin07/27/2014 Follow-Up Summary: Isabella returned for a routine tubing change. Tubing extremely hard and discolored as it has not been changed in over three years. Cleaned both hearing aids and ear molds. Replaced tubing. Vacuumed microphones. Ran through dehumidifier. Discussed age of hearing aids and possibility of upgraded technology. Isabella reported she is interested in pursuing new hearing aids and will request doctor's order for updated hearing test to begin the process. Recommendations: Hearing instrument follow-up or maintenance as needed. Please contact our clinic with any questions or concerns. Diagnosis Code(s): Primary Diagnosis: H90.3 Bilateral Sensorineural Hearing Loss Signature: Provider: Jaquan Nelson, [facility]
== END 2023-05-27 15:57 | disposition home or self-care (01) ==
LOC: HO.HAP 15:56
PROVIDERS: Visit Provider Internal Medicine
DX: Z46.1 Encounter for fitting and adjustment of hearing aid (principal); H90.3 Sensorineural hearing loss, bilateral
CPT/HCPCS: 92593; V5266

== ENCOUNTER 2023-05-30 09:45 | Outpatient (AMB) | payer OTHER, SELFPAY ==
--- NOTE | 2023-05-30 11:36 | MHC.OFFWIV ---
Intake Vital Signs 05/30/23 12:17 Height 5 ft 5 in Weight 234 lb BMI 38.9 BP 110/78 Blood Pressure Location Rt brachial Position Sitting Pulse 92 Pulse Source Pulse Oximeter Temp 99.8 F Temp Source Oral Pulse Oximetry (%) 94 Oxygen Delivery Method Room Air Intake Visit Reasons: EP, nausea, sore throat ([phone]) Intake Note: Pt is here today c/o nausea and sore throat x3days Patient Tobacco Use Status: Former Tobacco user Allergies mold,trees,dust,cats,dogs Allergy (Unknown, Uncoded 05/30/23 12:01) unknown strawberries Allergy (Unknown, Uncoded 05/30/23 12:01) hives Do you need a note to return to daycare/school/sports/work: No HPI HPI Comments History of Present Illness Details 62-year-old female sore throat nausea and fever x3 days PFSH Medical History Family history of early CAD Intermittent left-sided chest pain Seasonal allergies Plantar fasciitis, right Mild intermittent asthma in adult without complication Scalp cyst Nontoxic multinodular goiter Lung nodule < 6cm on CT Cervical spondylosis DJD (degenerative joint disease), lumbar 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 Primary open angle glaucoma, right eye Retinoblastoma of left eye Polycystic ovaries Morbid obesity Multiple thyroid nodules Menopause Type 2 diabetes mellitus without complication, without long-term current use of insulin Dyslipidemia Hypertension Surgical History Status post phlebectomy H/O eye surgery H/O hernia repair H/O bilateral breast reduction surgery H/O section H/O thyroidectomy Hx of cholecystectomy Family History Father CAD (coronary artery disease) Myocardial infarction CVD (cardiovascular disease) Substance use disorder Mother Diabetes mellitus HTN (hypertension) Maternal Grandfather No problems noted. Maternal Grandmother No problems noted. Paternal Grandfather No problems noted. Paternal Grandmother No problems noted. Brother Substance use disorder Mental health disorder Sister No problems noted. Sister Substance use disorder Sister No problems noted. Sister No problems noted. Son No problems noted. Daughter No problems noted. 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: No Cognitive needs: No Hearing needs: No Vision needs: Yes Review of Systems Const Reports fatigue and Reports fever(s) ENT Reports sore throat Endo Reports fatigue Physical Exam Vital Signs: Last Vital Signs Temp 99.8 F 05/30/23 12:17 Pulse 92 05/30/23 12:17 BP 110/78 05/30/23 12:17 Pulse Ox 94 05/30/23 12:17 Oxygen Delivery Method Room Air 05/30/23 12:17 BMI result Body Mass Index 38.9 Const General: cooperative, healthy appearing, no acute distress and alert Orientation/consciousness: patient oriented x3 Limitations: no limitations HEENT Other: Bilateral starts in the she had a tonsils are 2+ bilaterally you the midline Head: Yes normal to inspection Ears: hearing grossly normal bilaterally General nose exam: Normal external nose present Resp Effort & Inspection: normal respiratory effort and able to speak in complete sentences Cardio Rate: regular rate Skin General skin exam: no rashes or lesions noted Neuro General: patient oriented x3 Extrem General: Yes normal to inspection Results AMB Rapid Strep AMB Rapid Strep Positive Last Edit by Trinidad Potter CMA on 05/30/23 12:26 Results Reviewed Results Reviewed: Laboratory Last Values Strep Scn Rapid Clinic Positive 05/30/23 12:16 Assessment & Plan Assessment & Plan (1) Strep pharyngitis: Code(s): J02.0 - Streptococcal pharyngitis Plan: - pos rapid strep - penicillin 500 bid x 10days - zofran for nausea - meloxicam for pain Orders: Orders AMB Rapid Strep Screen Today Z13.9 - Encounter for screening, unspecified Medications: New ondansetron 4 mg PO Q8H PRN 7 tabs 0RF nausea and vomiting penicillin V potassium 500 mg PO BID 20 tabs 0RF 10 days Coding Level of Care Code Est Pt Level 3 (36217) Diagnoses Strep pharyngitis J02.0
[2023-05-30 12:17] VITALS: BP 110/78; PULSE 92; TEMP 37.7; O2SAT 94; BMI 38.9
== END 2023-05-30 12:51 | disposition home or self-care (01) ==
PROVIDERS: PCP Internal Medicine; Visit Provider Physician Assistant
DX: J02.9 Acute pharyngitis, unspecified (principal); J02.0 Streptococcal pharyngitis
CPT/HCPCS: 87880; 99051; 99213

== ENCOUNTER 2023-06-10 09:43 | Outpatient (AMB) | payer OTHER, SELFPAY ==
--- NOTE | 2023-06-10 09:45 | A.OFFVIS_ITS ---
Intake Vital Signs 06/10/23 09:46 Height 5 ft 5 in Weight 236 lb 5.369 oz BMI 39.3 BP 110/70 Blood Pressure Location Lt brachial Position Sitting Pulse 76 Pulse Source Pulse Oximeter Intake Visit Reasons: F/U NTMNG-confirmed Intake Note: Patient presents today for NTMNG follow up. Last seen by Dr. Boyce on NTMNG. Drawer In [place] Required: No Accompanied by: Self / Same As Patient Allergies mold,trees,dust,cats,dogs Allergy (Unknown, Uncoded 05/30/23 12:01) unknown strawberries Allergy (Unknown, Uncoded 05/30/23 12:01) hives Medication List - Last Reconciled 06/10/23 by Lucien Mon MD albuterol sulfate 90 mcg/actuation inhalation albuterol sulfate 90 mcg/actuation 2 puffs inhalation Q6H PRN alendronate (Fosamax) 70 mg PO QWEEK blood sugar diagnostic (FreeStyle Lite Strips) Check fasting blood sugar once a day blood-glucose meter (FreeStyle [place] Lite kit) As directed budesonide-formoterol 160-4.5 mcg/actuation inhalation calcium carbonate (Calcium 500) 500 mg PO DAILY citalopram 20 mg PO DAILY irbesartan 75 mg PO DAILY ketotifen fumarate 0.025%(0.035%) (Zaditor) 1 drp ophthalmic (eye) Q12H lancets (FreeStyle Lancets) Check fasting glucose once a day latanoprost 0.005% drps ophthalmic (eye) levocetirizine (Xyzal) 5 mg PO QPM PRN magnesium oxide 400 mg PO DAILY meloxicam 15 mg PO DAILY PRN metformin ER 500 mg PO QPM montelukast 10 mg PO DAILY multivitamin 1 tab PO DAILY ondansetron 4 mg PO Q8H PRN penicillin V potassium 500 mg PO BID 10 days rosuvastatin 5 mg PO DAILY 90 days spironolacton-hydrochlorothiaz 25-25 mg 2 tabs PO DAILY tirzepatide (Mounjaro) 2.5 mg (0.5 mL) subcut QWEEK 4 weeks vitamin B complex (B Complex-Vitamin B12 tablet) 1 tab PO DAILY HPI HPI Comments History of Present Illness Details 62 YO F with PMHx Retinoblastoma who is seen in F/U for a multinodular thyroid. The patient last saw Dr. Boyce 04/21/2022 Was initially diagnosed with multinodular thyroid in 2016. Underwent FNA biopsy on 11/15/2020 of a L isthmus 2.0 cm thyroid nodule and a R isthmus 1.0 cm thyroid nodule, both with benign cytology. Does mention symptoms of dysphagia. Denies any baseline hoarseness of voice. Denies any symptoms of hyper or hypothyroidism. Denies any history of head or neck irradiation. Denies any family history of thyroid cancer. Thyroid US: 12/05/2021 Right Thyroid Lobe: 5.4 x 1.8 x 2.6 cm, volume 13.2 mL. Previously 4.2 x 1.6 x 2.2 cm, volume 7.7 mL. Parenchyma: The gland echotexture is homogeneous. Thyroid vascularity is normal. Left Thyroid Lobe: 6.3 x 2.0 x 2.6 cm, volume 17.2 mL. Previously 4.0 x 2.0 x 2.6 cm, volume 10.9 mL. Parenchyma: The gland echotexture is homogeneous. Thyroid vascularity is normal. Isthmus: 0.8 cm in maximum AP dimension. Previously 0.6 cm. Estimated total number of nodules greater than or equal to 1 cm: 1. Circular Saw Filer nodules are described as follows: 1.? Location: Left medial/isthmus. ?? ? Size: 2.0 x 1.4 x 2.0 cm, volume 2.86 mL. ?? ? Previously: 1.6 x 1.3 x 1.8 cm, volume 1.96 mL. ?? ? Nodule characteristics: ?? ? Composition: Solid/almost completely solid (2). ?? ? Echogenicity: Hypoechoic (2). ?? ? Shape: Not taller than wide (0). ?? ? Margins: Smooth (0). ?? ? Echogenic Foci: None (0). ? ACR TI-RADS total points: 4 ?? ? ACR TI-RADS category: 4 ? Significant change in size (>/= 20% in 2 dimensions and minimal increase of 2 mm or 50% or greater increase in volume): No ?? ? Change in features: No ?? ? Change in ACR TI-RADS risk category: No 2.? Location: Right superior. ?? ? Size: 0.8 x 0.3 x 0.4 cm, volume 0.06 mL. ?? ? Previously: 0.6 x 0.4 x 0.6 cm, volume 0.08 mL. ?? ? Nodule characteristics: ?? ? Composition: Spongiform (0). ?? ? Echogenicity: Anechoic (0). ?? ? Shape: Not taller than wide (0). ?? ? Margins: Smooth (0). ?? ? Echogenic Foci: None (0).? ACR TI-RADS total points: 0 ?? ? ACR TI-RADS category: 1 ? Significant change in size (>/= 20% in 2 dimensions and minimal increase of 2 mm or 50% or greater increase in volume): No ?? ? Change in features: No ?? ? Change in ACR TI-RADS risk category: No 3.? Location: Right isthmus. ?? ? Size: 0.7 x 0.4 x 0.7 cm, volume 0.10 mL. ?? ? Previously: 0.5 x 0.4 x 0.6 cm, volume 0.06 mL. ?? ? Nodule characteristics: ?? ? Composition: Solid (2). ?? ? Echogenicity: Hypoechoic (2). ?? ? Shape: Not taller than wide (0). ?? ? Margins: Smooth (0). ?? ? Echogenic Foci: None (0).? ACR TI-RADS total points: 4 ?? ? ACR TI-RADS category: 4 ? Significant change in size (>/= 20% in 2 dimensions and minimal increase of 2 mm or 50% or greater increase in volume): No ?? ? Change in features: No ?? ? Change in ACR TI-RADS risk category: No NODES: No lymphadenopathy is seen in the tissue surrounding the thyroid gland. Labs: Laboratory Tests 11/30/21 11/30/21 09:55 09:55 TSH 1.34 Free T4 0.93 C/O obstructive sx such as hoarseness and feels tight with head back [facility] Medical History Family history of early CAD Intermittent left-sided chest pain Seasonal allergies Plantar fasciitis, right Mild intermittent asthma in adult without complication Scalp cyst Nontoxic multinodular goiter Lung nodule < 6cm on CT Cervical spondylosis DJD (degenerative joint disease), lumbar 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 Primary open angle glaucoma, right eye Retinoblastoma of left eye Polycystic ovaries Morbid obesity Multiple thyroid nodules Menopause Type 2 diabetes mellitus without complication, without long-term current use of insulin Dyslipidemia Hypertension Surgical History Status post phlebectomy H/O eye surgery H/O hernia repair H/O bilateral breast reduction surgery H/O section H/O thyroidectomy Hx of cholecystectomy Family History Father CAD (coronary artery disease) Myocardial infarction CVD (cardiovascular disease) Substance use disorder Mother Diabetes mellitus HTN (hypertension) Maternal Grandfather No problems noted. Maternal Grandmother No problems noted. Paternal Grandfather No problems noted. Paternal Grandmother No problems noted. Brother Substance use disorder Mental health disorder Sister No problems noted. Sister Substance use disorder Sister No problems noted. Sister No problems noted. Son No problems noted. Daughter No problems noted. 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 There are no thyroid nodules palpated. There is a negative [place] sign Assessment & Plan Assessment & Plan (1) Nontoxic multinodular goiter: Code(s): E04.2 - Nontoxic multinodular goiter Plan: This is a 62-year-old white female with a history of multinodular goiter Underwent FNA biopsy on 11/15/2020 of a L isthmus 2.0 cm thyroid nodule and a R isthmus 1.0 cm thyroid nodule, both with benign cytology.. . She appears to be clinically and biochemically euthyroid . Plan is to repeat a thyroid ultrasound. I do not think patient hoarseness or dysphagia is related to the thyroid as she had a CT scan done about a year and half ago which not show any evidence of tracheal compromise. Perhaps, patient's primary care provider can order a barium swallow if the dysphagia continues Orders: Orders US thyroid Today E04.2 - Nontoxic multinodular goiter Coding Level of Care Code Est Pt Level 3 (90654) Diagnoses Nontoxic multinodular goiter E04.2
[2023-06-10 09:46] VITALS: BP 110/70; PULSE 76; BMI 39.3
== END 2023-06-10 10:33 | disposition home or self-care (01) ==
PROVIDERS: PCP Internal Medicine; Visit Provider Internal Medicine Endocrinology, Diabetes & Metabolism
DX: E04.2 Nontoxic multinodular goiter (principal)
CPT/HCPCS: 99213

== ENCOUNTER → 2023-06-10 09:43 | Outpatient (BNVA) | payer OTHER, SELFPAY | PROVIDERS: Visit Provider Internal Medicine Endocrinology, Diabetes & Metabolism ==

== ENCOUNTER 2023-06-17 15:24 | Outpatient (REF) | payer OTHER, SELFPAY ==
--- NOTE | ~2023-06-17 | US_ITS ---
EXAMINATION: US THYROID CLINICAL INFORMATION: Nontoxic multinodular goiter. October 2020 FNA Left isthmus-benign Right isthmus-benign COMPARISON: Ultrasound soft tissue head/neck thyroid dated 12/05/2021 and 11/08/2019. TECHNIQUE: Linear transducer grayscale and color Doppler examination with attention to the region of the thyroid. FINDINGS: SIZE: Measurements of the thyroid lobes and nodules are given in sagittal, anteroposterior and transverse dimensions respectively. Right Thyroid Lobe: 5.1 x 1.9 x 2.2 cm, volume 11.1 mL. Previously 5.4 x 1.8 x 2.6 cm, volume 13.2 mL. Parenchyma: The gland echotexture is homogeneous. Thyroid vascularity is normal. Left Thyroid Lobe: 4.8 x 2.3 x 2.7 cm, volume 15.7 mL. Previously 6.3 x 2.0 x 2.6 cm, volume 17.2 mL. Parenchyma: The gland echotexture is homogeneous. Thyroid vascularity is normal. Isthmus: 0.56 cm in maximum AP dimension. Previously 0.80 cm. Estimated total number of nodules greater than or equal to 1 cm: 1. Machine Tool Mechanic nodules are described as follows: 1. Location: Right superior. Size: 0.46 x 0.35 x 0.33 cm, volume 0.03 mL. Previously: 0.80 x 0.30 x 0.40 cm, volume 0.06 mL. Nodule characteristics: Composition: Spongiform (0). Echogenicity: Anechoic (0). Shape: Not taller than wide (0). Margins: Smooth (0). Echogenic Foci: None (0). ACR TI-RADS total points: 0 Previous: 0 ACR TI-RADS category: 1 Previous: 1 Significant change in size (>/= 20% in 2 dimensions and minimal increase of 2 mm or 50% or greater increase in volume): Smaller Change in features: No Change in ACR TI-RADS risk category: No 2. Location: Right mid isthmus. Size: 0.78 x 0.40 x 0.63 cm, volume 0.10 mL. Previously: 0.70 x 0.40 x 0.70 cm, volume 0.10 mL. Nodule characteristics: Composition: Solid (2). Echogenicity: Hypoechoic (2). Shape: Not taller than wide (0). Margins: Smooth (0). Echogenic Foci: None (0). ACR TI-RADS total points: 4 Previous: 4 ACR TI-RADS category: 4 Previous: 4 Significant change in size (>/= 20% in 2 dimensions and minimal increase of 2 mm or 50% or greater increase in volume): No Change in features: No Change in ACR TI-RADS risk category: No 3. Location: Left medial/inferior isthmus. Size: 1.5 x 1.2 x 1.5 cm, volume 1.4 mL. Previously: 2.0 x 1.4 x 2.0 cm, volume 2.9 mL. Nodule characteristics: Composition: Solid (2). Echogenicity: Hypoechoic (2). Shape: Not taller than wide (0). Margins: Smooth (0). Echogenic Foci: None (0). ACR TI-RADS total points: 4 Previous: 4 ACR TI-RADS category: 4 Previous: 4 Significant change in size (>/= 20% in 2 dimensions and minimal increase of 2 mm or 50% or greater increase in volume): Smaller Change in features: No Change in ACR TI-RADS risk category: No 4. Location: Left mid. Size: 0.73 x 0.58 x 0.63 cm, volume 0.14 mL. Previously: Not seen on the previous study. Nodule characteristics: Composition: Solid (2). Echogenicity: Hypoechoic (2). Shape: Not taller than wide (0). Margins: Smooth (0). Echogenic Foci: None (0). ACR TI-RADS total points: 4 ACR TI-RADS category: 4 NODES: No lymphadenopathy is seen in the tissue surrounding the thyroid gland. US/US thyroid IMPRESSION: 1.5 cm nodule in the left medial/inferior isthmus is smaller compared to the prior study, TR 4. This was previously biopsied and considered to be benign. Continue annual sonographic follow-up is recommended. ACR TI-RADS RECOMMENDATION REFERENCE: Ultrasound-guided fine-needle aspiration, follow up ultrasound, no further followup. * TR1 (0 point) and TR2 (2 points): No FNA or followup * TR3 (3 points): FNA if more than or equal to 2.5 cm in maximum dimension, follow up ultrasound in 1, 3 and 5 years if 1.5 to 2.4 cm in maximum dimension. * TR4 (4-6 points): FNA if more than or equal to 1.5 cm in maximum dimension, follow up ultrasound in 1, 2, 3 and 5 years if 1 to 1.4 cm in maximum dimension. * TR5 (more than or equal to 7 points): FNA if more than or equal to 1 cm in maximum dimension, follow up ultrasound every year for 5 years if 0.5 to 0.9 cm in maximum dimension. * TR3, TR4 or TR5 nodules that are below the size threshold for follow up receive no followup.
== END 2023-06-17 15:25 | disposition home or self-care (01) ==
LOC: HO.HMGCX 15:24
PROVIDERS: PCP Internal Medicine; Visit Provider Internal Medicine Endocrinology, Diabetes & Metabolism
DX: E04.2 Nontoxic multinodular goiter (principal)
CPT/HCPCS: 76536

== ENCOUNTER 2023-07-23 14:21 | Outpatient (AMB) | payer OTHER, SELFPAY ==
[2023-07-23 14:29] VITALS: BP 132/64; PULSE 73; O2SAT 97; BMI 40.5
--- NOTE | 2023-07-23 14:29 | MHC.PC.OV ---
Vital Signs 07/23/23 14:29 Height 5 ft 5 in Weight 243 lb 8 oz BMI 40.5 BP 132/64 Blood Pressure Location Lt brachial Position Sitting Pulse 73 Pulse Source Pulse Oximeter Pulse Oximetry (%) 97 Intake Visit Reasons: 4 week F/U blood sugar and weight Intake Note: Pt is here today for 4 wk F/u on blood sugar and weight. Allergies mold,trees,dust,cats,dogs Allergy (Unknown, Uncoded 07/23/23 14:40) unknown strawberries Allergy (Unknown, Uncoded 07/23/23 14:40) hives Medication List - Last Reconciled 07/23/23 by Marquita Gonzales MD albuterol sulfate 90 mcg/actuation 2 puffs inhalation Q6H PRN alendronate (Fosamax) 70 mg PO QWEEK blood sugar diagnostic (FreeStyle Lite Strips) Check fasting blood sugar once a day blood-glucose meter (FreeStyle [place] Lite kit) As directed budesonide-formoterol 160-4.5 mcg/actuation inhalation calcium carbonate (Calcium 500) 500 mg PO DAILY citalopram 20 mg PO DAILY irbesartan 75 mg PO DAILY ketotifen fumarate 0.025%(0.035%) (Zaditor) 1 drp ophthalmic (eye) Q12H lancets (FreeStyle Lancets) Check fasting glucose once a day latanoprost 0.005% drps ophthalmic (eye) levocetirizine (Xyzal) 5 mg PO QPM PRN magnesium oxide 400 mg PO DAILY meloxicam 15 mg PO DAILY PRN metformin ER 500 mg PO QPM montelukast 10 mg PO DAILY multivitamin 1 tab PO DAILY ondansetron 4 mg PO Q8H PRN penicillin V potassium 500 mg PO BID 10 days rosuvastatin 5 mg PO DAILY 90 days spironolacton-hydrochlorothiaz 25-25 mg 2 tabs PO DAILY vitamin B complex (B Complex-Vitamin B12 tablet) 1 tab PO DAILY Tobacco use date assessed: 07/23/23 Dental Screening Dental Screen Date: 07/23/23 Did you have a dental visit in the last 12 months?: Yes Did you have a dental problem in the last 6 months where you did not have access to dental care?: No Was dental information given to patient?: Patient has dentist HPI 4 week F/U blood sugar and weight HPI Details 63-year-old lady with diabetes mellitus, hypertension hyperlipidemia as well as obesity, here today for follow-up. She has been compliant with her medications, but not so much with diet and has not been getting any regular exercise this past few months. She has gained weight over the winter, and diabetes control is less as compared to last check with hemoglobin A1c today at 6.2%. She also has been complaining of decreased hearing in both ears, especially in crowded places. [facility] Medical History Hearing loss Family history of early CAD Intermittent left-sided chest pain Seasonal allergies Plantar fasciitis, right Mild intermittent asthma in adult without complication Scalp cyst Nontoxic multinodular goiter Lung nodule < 6cm on CT Cervical spondylosis DJD (degenerative joint disease), lumbar 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 Primary open angle glaucoma, right eye Retinoblastoma of left eye Polycystic ovaries Morbid obesity Multiple thyroid nodules Menopause Type 2 diabetes mellitus without complication, without long-term current use of insulin Dyslipidemia Hypertension Surgical History Status post phlebectomy H/O eye surgery H/O hernia repair H/O bilateral breast reduction surgery H/O section H/O thyroidectomy Hx of cholecystectomy Family History Father CAD (coronary artery disease) Myocardial infarction CVD (cardiovascular disease) Substance use disorder Mother Diabetes mellitus HTN (hypertension) Maternal Grandfather No problems noted. Maternal Grandmother No problems noted. Paternal Grandfather No problems noted. Paternal Grandmother No problems noted. Brother Substance use disorder Mental health disorder Sister No problems noted. Sister Substance use disorder Sister No problems noted. Sister No problems noted. Son No problems noted. Daughter No problems noted. 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 Depression Screening Interpretation: Negative Depression Screening Done: Yes Source: Developed by Drs. Lucien Greenberg, Tika Ryan, Raúl Marmolejo and colleagues, with an educational julian from [employer]. Thrive Questionnaire Date Thrive assessed: 01/12/23 AUDIT C Alcohol Use Questionnaire (AUDIT-C) 1. How often do you have a drink containing alcohol?: Monthly or less 2. How many drinks containing alcohol do you have on a typical day when you are drinking?: 1 or 2 3. How often do you have six or more drinks on one occasion?: Never Total Score: 1 Score Reviewed/Action Taken: Yes MONIK-7 AMB Questionnaire MONIK-7 Date MONIK - 7 assessed: 07/22/21 Source: Developed by Drs. Lucien Greenberg, Tika Ryan, Raúl Marmolejo and colleagues, with an educational julian from [employer]. Review of Systems Const Denies fatigue, Denies fever(s), Denies headache(s) and Denies malaise Eyes Details: sees [facility] for her dm retinopathy screening Denies change in vision ENT Reports as per HPI, Denies change in voice, Denies dysphagia, Denies headache(s) and Denies hoarseness Card Denies chest pain, Denies irregular heart rhythm and Denies dyspnea Resp Denies cough and Denies dyspnea GI Denies abdominal pain, Denies change in bowel habits, Denies dysphagia, Denies diarrhea and Denies nausea Reports no additional complaints Musc Denies myalgias, Denies muscle cramps, Denies numbness and Denies tingling Skin/Breast Denies breast pain, Denies breast mass, Denies new lesions and Denies rash Neuro Denies headache(s), Denies numbness and Denies tingling Psych Denies anxiety and Denies depression Endo Details: sees [facility] , Dr Hollingsworth Denies fatigue Kenji/Lymph Denies easy bleeding and Denies easy bruising Aller/Immun Reports seasonal rhinorrhea Physical exam (Primary Care) Vital Signs: Last Vital Signs Pulse 73 07/23/23 14:29 BP 132/64 07/23/23 14:29 Pulse Ox 97 07/23/23 14:29 BMI result Body Mass Index 40.5 BMI Assessment/Plan discussion: High BMI High, discussed plan: lifestyle, weight reduction, dietary and physical activity Tobacco/Smoking Status: Tobacco use Status Tobacco use date assessed 07/23/23 07/23/23 14:35 Patient Tobacco Use Status Former Tobacco user 07/23/23 14:35 e-Cigarette/Vaping Use Never Used 07/23/23 14:35 Depression Screening Interpretation: Negative Thrive Assessment: Date of Thrive Assessment Date Thrive assessed 01/12/23 07/23/23 14:35 Const Other: Alert oriented x3, no acute distress noted ambulatory normal gait Nutritional Appearance: obese morbidly obese Orientation/consciousness: patient oriented x3 HENMT Head: Yes normocephalic Ears: external ears normal, TM's normal bilaterally and EAC's normal General nose exam: Normal external nose present Face and sinus: Yes face symmetric Mouth: Normal oral and palatal mucosa present, oropharynx normal and moist mucous membranes Eyes Other: Artificial left eye Neck Neck: Yes full ROM, Yes no lymphadenopathy and Yes supple Resp Auscultation: clear to auscultation bilaterally Cardio Other: S1-S2 present regular rate and rhythm GI Other: Normal bowel sounds, soft, nontender General: Yes no CVA tenderness Back/Spine/Pelvis Back: no CVA tenderness and No back tenderness Cervical Spine: normal cervical lordosis and cervical ROM normal Thoracic/Lumbar Spine: thoraco-lumbar ROM normal Skin General skin exam: no rashes or lesions noted Neuro General: patient oriented x3, gait normal, tone normal, moves all extremities, Normal light touch and pain sensation, no focal motor deficits and CN's II-XI intact bilaterally Extrem General: Yes full ROM, Yes no joint enlargement, Yes no pedal edema and Yes normal gait Results AMB Hemoglobin A1c AMB Hemoglobin A1c 6.2 % Last Edit by Shashi Mohamud CMA on 07/23/23 15:22 Results Reviewed Results Reviewed: Laboratory Last Values Hgb A1c (Clinic) 6.2 % (4.0-6.0) H 07/23/23 15:22 Assessment and Plan Assessment & Plan (1) Type 2 diabetes mellitus without complication, without long-term current use of insulin: Code(s): E11.9 - Type 2 diabetes mellitus without complications Plan: Hemoglobin A1c ordered, which came back at 6.2%, higher than last check.. Continued on metformin ER 500 mg per tablet taken once a day, in addition to adhering to healthy eating habits and regular exercise. (2) Dyslipidemia: Code(s): E78.5 - Hyperlipidemia, unspecified Plan: Last fasting lipids are within normal limits, continued on rosuvastatin 5 mg daily repeat fasting labs to check lipids, liver enzymes, hemoglobin A1c, microalbumin and vitamin-D ordered for October 2023 (3) Hypertension: Code(s): I10 - Essential (primary) hypertension Qualifiers: Hypertension type: essential hypertension Qualified Code(s): I10 - Essential (primary) hypertension Plan: Blood pressure at goal of less than 130/80. Continue your irbesartan 75 mg daily and spironolactone-HCTZ 25-25 mg 2 tablets daily.. Reinforced importance of following a low sodium diet, getting regular exercise, and lowering stress levels. (4) Hearing loss: Code(s): H91.90 - Unspecified hearing loss, unspecified ear Plan: Referral made to speech and hearing for evaluation and management of hearing loss Orders: Orders Hemoglobin A1c 10/24/23 I25.10 - Atherosclerotic heart disease of [place] coronary artery without angina pectoris, Z78.0 - Asymptomatic menopausal state, E11.9 - Type 2 diabetes mellitus without complications, E78.5 - Hyperlipidemia, unspecified, I10 - Essential (primary) hypertension AMB Hemoglobin A1c 07/23/23 Z13.9 - Encounter for screening, unspecified Lipid Panel 10/24/23 I25.10 - Atherosclerotic heart disease of [place] coronary artery without angina pectoris, Z78.0 - Asymptomatic menopausal state, E11.9 - Type 2 diabetes mellitus without complications, E78.5 - Hyperlipidemia, unspecified, I10 - Essential (primary) hypertension Basic Metabolic Panel Fasting 10/24/23 I25.10 - Atherosclerotic heart disease of [place] coronary artery without angina pectoris, Z78.0 - Asymptomatic menopausal state, E11.9 - Type 2 diabetes mellitus without complications, E78.5 - Hyperlipidemia, unspecified, I10 - Essential (primary) hypertension Alanine Aminotransferase 10/24/23 I25.10 - Atherosclerotic heart disease of [place] coronary artery without angina pectoris, Z78.0 - Asymptomatic menopausal state, E11.9 - Type 2 diabetes mellitus without complications, E78.5 - Hyperlipidemia, unspecified, I10 - Essential (primary) hypertension Aspartate Amino Transferase 10/24/23 I25.10 - Atherosclerotic heart disease of [place] coronary artery without angina pectoris, Z78.0 - Asymptomatic menopausal state, E11.9 - Type 2 diabetes mellitus without complications, E78.5 - Hyperlipidemia, unspecified, I10 - Essential (primary) hypertension Microalbumin, Random (w Creat) 10/24/23 I25.10 - Atherosclerotic heart disease of [place] coronary artery without angina pectoris, Z78.0 - Asymptomatic menopausal state, E11.9 - Type 2 diabetes mellitus without complications, E78.5 - Hyperlipidemia, unspecified, I10 - Essential (primary) hypertension Vitamin D 25-OH Total 10/24/23 I25.10 - Atherosclerotic heart disease of [place] coronary artery without angina pectoris, Z78.0 - Asymptomatic menopausal state, E11.9 - Type 2 diabetes mellitus without complications, E78.5 - Hyperlipidemia, unspecified, I10 - Essential (primary) hypertension Referrals Speech and Hearing Referral H91.90 - Unspecified hearing loss, unspecified ear Coding Level of Care Code Est Pt Level 4 (29776) Diagnoses Type 2 diabetes mellitus without complication, without long-term current use of insulin E11.9 Dyslipidemia E78.5 Essential hypertension I10 Hypertension type: essential hypertension Hearing loss H91.90
== END 2023-07-23 15:03 | disposition home or self-care (01) ==
PROVIDERS: PCP Internal Medicine; Visit Provider Internal Medicine
DX: E11.9 Type 2 diabetes mellitus without complications (principal); E78.5 Hyperlipidemia, unspecified; I10 Essential (primary) hypertension; H91.90 Unspecified hearing loss, unspecified ear
CPT/HCPCS: 83036; 99214

== ENCOUNTER → 2023-08-11 08:03 | Outpatient (REF) | payer OTHER, SELFPAY ==
--- NOTE | ~2023-08-11 | NM_ITS ---
Exercise Myocardial perfusion study Indication: Precordial pain to evaluate for myocardial ischemia Technique: The patient was brought in for an exercise perfusion study on 08/11/2023. Patient performed exercise as per Saman protocol and was injected 35 mCi of sestamibi was given intravenously one target HR was achieved. Images were obtained using the SPECT gamma camera interlaced with the gating device. Images were obtained in supine position. Resting perfusion study was performed on 08/21/2023. Patient was administered 35 mCi of sestamibi intravenously at rest. Images were then obtained in supine position. Images obtained with and without CT attenuation. Total DLP 135 mGy-cm. Images were processed with the software and compared side to side in short axis, horizontal long axis and vertical long axis views. Findings: The stress perfusion study showed non attenuated images show small area of mildly reduced uptake in the distal anterior, apical as well as portion of distal septal wall of the LV myocardium. Remainder of the LV myocardium is normally perfused. Attenuation corrected images show mildly to moderately reduced uptake of the distal anterior, apex and distal septum.. The gated study shows normal LV systolic function with calculated LVEF of 62%. LV cavity is mildly dilated in size. The gated study shows normal systolic wall thickening and contraction of all segments. There is no transient ischemic dilation. Resting study shows non attenuated images show improved uptake in the distal anterior, apical as well as distal septum of the LV myocardium. Attenuation corrected images show no changes compared to the stress perfusion study. Gating at rest reveals normal systolic wall motion with ejection fraction at 52%. The findings are consistent with mild intensity reversible defect percent. [place] ischemia in the mid to distal LAD territory. NM/NM cardiolite stress test Impression: 1. Mild intensity ischemia in the mid to distal LAD territory 2. Gated LVEF is 62% 3. Transient ischemic dilatation not present Stress EKG is positive for ischemia
--- NOTE | 2023-08-11 08:07 | CA_ITS ---
Acquisition Time: 2023-08-11 09:09:32 Total Exercise Time: 00:05:00 Test Indications: Chest Pain Medications: SEE H Protocol: OSMAR Max HR: 137 BPM 86% of Pred: 159 BPM Max BP: 200/070 mmHG Max Work Load: 5.7 METS Exercise stress test exercise 5 min of Osmar protocol achieving 86% MPHR, with moderate SOB, 6/10 chest tightness which quickly resolved, with isolated PVCs and PACs, with hypertensive response to exercise, with downsloping in leads 2, 3, aVF, V5-V6. Blood pressure returned to baseline. Nuclear images pending. Test reviewed with Dr. Jefferson. Referred By: Shubham Jefferson Overread By: Vesta Lock
--- NOTE | 2023-08-11 08:07 | CA_ITS ---
Transthoracic Echocardiogram Patient (Last, First, Middle): Isabella Gonzalez E Gender: Female Date of : 1960 Age: 62 Procedure Date: 08/11/2023 Procedure Type: Transthoracic Echocardiogram Location: OP Height: 165. cm Weight: 107.96 kg BSA: 2.13 m2 Heart Rate: 69 bpm BP: 118 / 60 mmHg Inspector Soldering: ANYI Referring MD: Shubham Jefferson MD Symptoms: I25.10 - Atherosclerotic heart disease of [place] coronary artery without... Study Quality: Adequate w/Contrast ECG Rhythm: Sinus Conclusions: - The left ventricular systolic function is normal. The calculated ejection fraction is 65% by biplane method. - No obvious valvular pathology seen on this study. Findings Procedure Information Contrast agent, definity, is being given per protocol without apparent complications. Left Ventricle Normal left ventricular cavity size. There is normal left ventricular wall thickness. The left ventricular systolic function is normal. The calculated ejection fraction is 65% by biplane method. There is no evidence of regional wall motion abnormalities. Evidence suggests grade I (mild) diastolic dysfunction. Right Ventricle Normal right ventricular cavity size and systolic function. Atria Both atria are normal in size. Aortic Valve There is a normal trileaflet aortic valve. There is no aortic valve stenosis. There is no aortic valve regurgitation. Mitral Valve The mitral valve appears normal. There is no mitral valve regurgitation. There is no mitral valve stenosis. Pulmonic Valve The pulmonic valve is likely normal. Tricuspid Valve Normal tricuspid valve structure. There is trace tricuspid valve regurgitation. There is no evidence of pulmonary hypertension. Great Vessels The asc aorta is normal in size. Venous The inferior vena cava is normal in size and collapses greater than 50% with inspiration. Pericardium/Pleural There is no evidence of pericardial effusion. Prior Study Comparison Changes noted compared to prior study dated: 04/22/2017. Improved tricuspid regurgitation and pulmonary artery systolic pressure. Recommendations, Care & Conclusions No obvious valvular pathology seen on this study. Measurements 2D Linear Measurements IVSd: 1.02 0.6-0.9/0.6-1.0 cm LVIDd: 5.06 3.9-5.3/4.2-5.9 cm LVIDd Index: 2.38 2.4-3.2/2.2-3.1 cm/m2 LVIDs: 3.14 2.0-3.6 cm LVPWd: 0.96 0.7-1.1 cm LA Diam: 4.20 2.7-3.8/3.0-4.0 cm LAIDs Index: 1.97 1.5-2.3 cm/m2 LV Mass: 228.60 67-162/88-224 g LV Mass Index: 107.32 43-95/49-115 g/m2 LVOT Diam: 2.10 3.0+(-)1.3 cm 2D Systolic Function EF 4C: 62.80 >55% EF 2C: 67.90 >55% EF BiP: 64.80 >55% Mitral Valve MV Pk E: 0.76 MV PK A: 0.96 MV Decel Time: 238.00 E/A: 0.80 E'Lateral: 6.31 E'Medial: 5.22 E/E' Med: 14.50 E/E' Lat: 12.00 PHT: 70.00 MVA PHT: 3.14 Decel Bremer: 3.19 Aortic Valve AoV Pk Bharat: 1.52 AoV Mn Bharat: 1.12 AoV VTI: 0.36 AoV Pk Grad: 9.00 Aov Mn Grad: 5.00 KRISS Cont.VTI: 2.19 LVOT LVOT Pk Bharat: 1.09 LVOT Mn Bharat: 0.73 LVOT VTI: 0.23 LVOT Pk Grad: 5.00 LVOT Mn Grad: 2.00 LVOT Diam: 2.10 LVOT Area: 3.46 Diastolic Function MV Pk E: 0.76 MV Pk A: 0.96 E/A: 0.80 E'Medial: 5.22 E/E' Med: 14.50 E' Laterial: 6.31 E/E' Lat: 12.00 Right Ventricle TAPSE (mm): 21.40 TVS' Bharat: 10.30 Tricuspid Valve TR Pk Bharat: 2.09 TR Pk Grad: 17.00 RA Press: 3.00 RVSP: 20.00 Great Vessels Aorta Sinus of Valsalva: 3.70 2.0-3.5 cm Ao Asc: 3.60 2.1-3.4 cm Pulmonary Valve PV Pk Bharat: 1.26 Peak PV Grad: 6.00 Updated in Other Vendor System with Status of Final Shubham Jefferson MD electronically signed on 08/13/2023 10:47:53 AM with status of Final
== END ==
LOC: HO.CARD 08:03
PROVIDERS: PCP Internal Medicine; Visit Provider Internal Medicine
DX: R07.2 Precordial pain (principal); I25.10 Atherosclerotic heart disease of native coronary artery without angina pectoris
CPT/HCPCS: 78452; 93017; 93306; A9500; Q9957

== ENCOUNTER → 2023-08-11 08:07 | Outpatient (BNV) | payer OTHER, SELFPAY | PROVIDERS: PCP Internal Medicine; Visit Provider Nurse Practitioner | DX: R07.2 Precordial pain (principal); I25.6 Silent myocardial ischemia | CPT/HCPCS: 78452; 93016; 93018; 93350; 93352 ==

== ENCOUNTER 2023-09-08 06:41 | Outpatient (REF) | payer OTHER, SELFPAY ==
[2023-09-08 10:21] LABS: MANUAL DIFF FLAG NO
[2023-09-08 10:35] LABS: INTERNATIONAL NORM RATIO 0.9 (0.9-1.1); Prothrombin Time 11.1 SEC (11.1-13.3)
[2023-09-08 10:36] LABS: Basophils Percent Auto 0.6 % (0-2); Eosinophils Absolute Auto 0.1 X10*3/uL (0.0-0.4); Eosinophils Percent Auto 1.6 % (0-4); Hematocrit 39.7 % (37.0-47.0); Hemoglobin 13.1 g/dl (12.0-16.0); Imm Gran Abs Auto 0.02 X10*3/uL (0.00-0.03); Imm Gran Pct Auto 0.4 % (0.0-0.4); Lymphocytes Absolute Auto 1.5 X10*3/uL (1.2-4.9); Lymphocytes Percent Auto 30.1 % (20-40); Mean Corpuscular Hemoglobin 31.7 pg (27.0-33.0); Mean Corpuscular Volume 96.1 fL (80.0-98.0); Mean Platelet Volume 11.9 fL (9.4-12.3); Monocytes Absolute Auto 0.5 X10*3/uL (0.1-1.2); Monocytes Percent Auto 10.5 % (2-11); Neutrophils Absolute Auto 2.9 x10*3/uL (2.0-8.3); Neutrophils Percent Auto 56.8 % (45-73); Platelet Count 212 X10*3/uL (160-400); Red Blood Count 4.13 X10*6/uL (4.20-5.50); Red Cell Distribution Width 15.9 % (11.0-16.0); White Blood Count 5.1 X10*3/uL (4.8-10.8)
[2023-09-08 11:00] LABS: Anion Gap 13 (12-20); Blood Urea Nitrogen 17 mg/dL (9-16); Carbon Dioxide 29 mmol/L (22-29); Chloride 103 mmol/L (96-108); Estimated Glomerular Filt Rate > 60; Glucose Random 108 mg/dL (60-115); Potassium 3.8 mmol/L (3.3-5.1); Sodium 141 mmol/L (135-145)
== END 2023-09-08 06:42 | disposition home or self-care (01) ==
LOC: HO.HMGCLDS 06:41
PROVIDERS: PCP Internal Medicine; Visit Provider Internal Medicine
DX: I25.10 Atherosclerotic heart disease of native coronary artery without angina pectoris (principal); E11.9 Type 2 diabetes mellitus without complications; R94.39 Abnormal result of other cardiovascular function study
CPT/HCPCS: 36415; 80048; 85025; 85610

== ENCOUNTER → 2023-09-22 23:59 | Outpatient (BNV) | payer OTHER, SELFPAY | PROVIDERS: PCP Internal Medicine; Visit Provider Internal Medicine Cardiovascular Disease | DX: I20.89 Other forms of angina pectoris (principal) | CPT/HCPCS: 92928; 92972; 92978; 93458; 99152 ==

== ENCOUNTER 2023-10-08 15:01 | Outpatient (AMB) | payer OTHER, SELFPAY ==
[2023-10-08 15:22] VITALS: BP 118/68; PULSE 75; O2SAT 99; BMI 41.1
--- NOTE | 2023-10-08 15:22 | MHC.OFFVIS ---
Vital Signs 10/08/23 15:22 Height 5 ft 5 in Weight 246 lb 14.684 oz BMI 41.1 BP 118/68 Blood Pressure Location Lt brachial Position Sitting Pulse 75 Pulse Source Monitor Pulse Oximetry (%) 99 Oxygen Delivery Method Room Air Intake Visit Reasons: Follow up post cardiac cath Allergies mold,trees,dust,cats,dogs Allergy (Unknown, Uncoded 07/23/23 14:40) unknown strawberries Allergy (Unknown, Uncoded 07/23/23 14:40) hives Medication List - Last Reconciled 10/08/23 by Vesta Lock, YADIEL albuterol sulfate 90 mcg/actuation 2 puffs inhalation Q6H PRN alendronate (Fosamax) 70 mg PO QWEEK aspirin (Adult Aspirin Regimen) 81 mg PO DAILY blood sugar diagnostic (FreeStyle Lite Strips) Check fasting blood sugar once a day blood-glucose meter (FreeStyle [place] Lite kit) As directed budesonide-formoterol 160-4.5 mcg/actuation inhalation calcium carbonate (Calcium 500) 500 mg PO DAILY citalopram 20 mg PO DAILY irbesartan 75 mg PO DAILY ketotifen fumarate 0.025%(0.035%) (Zaditor) 1 drp ophthalmic (eye) Q12H lancets (FreeStyle Lancets) Check fasting glucose once a day latanoprost 0.005% drps ophthalmic (eye) levocetirizine (Xyzal) 5 mg PO QPM PRN magnesium oxide 400 mg PO DAILY meloxicam 15 mg PO DAILY PRN metformin ER 500 mg PO QPM montelukast 10 mg PO DAILY multivitamin 1 tab PO DAILY rosuvastatin 5 mg PO DAILY 90 days spironolacton-hydrochlorothiaz 25-25 mg 2 tabs PO DAILY ticagrelor (Brilinta) 90 mg PO Q12H 90 days vitamin B complex (B Complex-Vitamin B12 tablet) 1 tab PO DAILY HPI Comments Details: 63-year-old female presents today for a follow-up after cardiac catheterization. She reports she has been feeling much better since then. She had a stent placed in her proximal and mid LAD. She denies any fever, bleeding, chills, odor, drainage, or tenderness at the site. Site is healing appropriately. She no longer smokes. [facility] Medical History (Updated 10/09/23 @ 09:52 by Vesta Lock NP) Incomplete right bundle branch block (RBBB) determined by electrocardiography Hearing loss Family history of early CAD Intermittent left-sided chest pain Seasonal allergies Plantar fasciitis, right Mild intermittent asthma in adult without complication Scalp cyst Nontoxic multinodular goiter Lung nodule < 6cm on CT Cervical spondylosis DJD (degenerative joint disease), lumbar 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 Primary open angle glaucoma, right eye Retinoblastoma of left eye Polycystic ovaries Morbid obesity Multiple thyroid nodules Menopause Type 2 diabetes mellitus without complication, without long-term current use of insulin Dyslipidemia Hypertension Surgical History (Updated 10/09/23 @ 09:54 by Vesta Lock NP) S/P cardiac catheterization Status post phlebectomy H/O eye surgery H/O hernia repair H/O bilateral breast reduction surgery H/O section H/O thyroidectomy Hx of cholecystectomy Family History Father CAD (coronary artery disease) Myocardial infarction CVD (cardiovascular disease) Substance use disorder Mother Diabetes mellitus HTN (hypertension) Maternal Grandfather No problems noted. Maternal Grandmother No problems noted. Paternal Grandfather No problems noted. Paternal Grandmother No problems noted. Brother Substance use disorder Mental health disorder Sister No problems noted. Sister Substance use disorder Sister No problems noted. Sister No problems noted. Son No problems noted. Daughter No problems noted. 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: No Cognitive needs: No Hearing needs: No Vision needs: Yes Review of Systems Const Denies weakness ENT Denies dizziness Card Denies chest pain, Denies chest pain with activity, Denies syncope, Denies rapid heart rate, Denies pedal edema, Denies edema, Denies leg edema, Denies lightheadedness, Denies palpitations, Denies dyspnea, Denies dyspnea on exertion and Denies orthopnea Resp Denies cough, Denies dyspnea and Denies dyspnea on exertion GI Denies hematochezia and Denies change in stool character Musc Denies abnormal gait, Denies muscle cramps, Denies muscle weakness, Denies numbness, Denies radiating pain into limb and Denies tingling Neuro Denies abnormal gait, Denies dizziness, Denies syncope, Denies numbness, Denies tingling and Denies weakness Endo Denies palpitations Physical Exam Vital Signs: Last Vital Signs Pulse 75 10/08/23 15:22 BP 118/68 10/08/23 15:22 Pulse Ox 99 10/08/23 15:22 Oxygen Delivery Method Room Air 10/08/23 15:22 BMI result Body Mass Index 41.1 Office Procedures EKG Details: EKG today. Normal Sinus Rhythm. Rightward axis. Incomplete Right Bundle Branch Block. Rate 75 bpm. QRS 106ms. QTc 462ms. [place] 174 ms. [id number], Complete Assessment & Plan Assessment & Plan (1) S/P cardiac catheterization: Comment: Angiographic Findings Cardiac Arteries and Lesion Findings LMCA: Lesion in LMCA: Distal subsection. LAD: Lesion in Prox LAD: Ostial.90% stenosis . RCA: Lesion in Mid RCA: Proximal subsection.65% stenosis . Code(s): Z98.890 - Other specified postprocedural states Category: Surgical (2) Incomplete right bundle branch block (RBBB) determined by electrocardiography: Code(s): I45.10 - Unspecified right bundle-branch block Category: Medical Plan Right radial site healing appropriately. She is on Brilinta 90mg BID and tolerating it well. Continue for at least 12 months, Aspirin 81mg indefinitely. She is on rosuvasatin 5mg. Will recheck lipid panel. LDL as of 04/21/2023 was 96. Goal less then 70. She is agreeable to do cardiac rehab. IC RBBB seen on EKG. New finding. Will monitor with EKGs periodically for any progression. She denies any pre-syncope or syncope. Orders: Orders Cardiac Rehab 10/08/23 I25.10 - Atherosclerotic heart disease of [place] coronary artery without angina pectoris Medications: New ticagrelor (Brilinta) 90 mg PO Q12H 90 days 180 tabs 3RF Coding Level of Care Code Est Pt Level 3 (36819) Diagnoses S/P cardiac catheterization Z98.890 Incomplete right bundle branch block (RBBB) determined by electrocardiography I45.10 CPT Codes EKG - CPT: 07122-[id number], Complete ([id number])
== END 2023-10-08 16:00 | disposition home or self-care (01) ==
PROVIDERS: PCP Internal Medicine; Visit Provider Nurse Practitioner
DX: Z98.890 Other specified postprocedural states (principal); I45.10 Unspecified right bundle-branch block
CPT/HCPCS: 93010; 99213

== ENCOUNTER → 2023-10-08 15:01 | Outpatient (BNVA) | payer OTHER, SELFPAY | PROVIDERS: PCP Internal Medicine; Visit Provider Nurse Practitioner | DX: I45.10 Unspecified right bundle-branch block (principal); Z79.82 Long term (current) use of aspirin; Z79.899 Other long term (current) drug therapy | CPT/HCPCS: 93005 ==

== ENCOUNTER 2023-10-27 15:45 | Outpatient (REF) | payer OTHER, SELFPAY | END 2023-10-27 15:46 | disposition home or self-care (01) | LOC: HO.SH 15:45 | PROVIDERS: Visit Provider Internal Medicine | DX: Z01.118 Encounter for examination of ears and hearing with other abnormal findings (principal); H90.3 Sensorineural hearing loss, bilateral | CPT/HCPCS: 92552; 92556; 92567 ==

== ENCOUNTER 2023-10-27 16:33 | Outpatient (REF) | payer SELFPAY ==
--- NOTE | 2023-10-28 10:03 | MHC.AU.HA3 ---
Hearing Instrument Follow-Up- Binaural Date of Visit: 10/27/23 Right Ear: Nehemiah Model, Color, Serial Number: Kassandra Guerrero [id number]-[id number] SN: [id number] Color: Zita Beige Able Bodied Watchman Repair Warranty: 10/17/2017 Able Bodied Watchman Loss and Damage Warranty: 10/17/2017 [facility] Service Plan: Battery Size: 13 Hop Grower/Slim Tube: Earmold/Dome/CShell/SlimTip:Microsonic [id number] skeleton Type of Wax Guard: Dispensed By: [facility] Date of Fittin07/27/2014 Left Ear: Nehemiah, Model, Color, Serial Number: Kassandra Guerrero Q50-P SN: [id number] Color: Zita Bemelany Able Bodied Watchman Repair Warranty: 10/17/2017 Able Bodied Watchman Loss and Damage Warranty: 10/17/2017 [facility] Service Plan: Battery Size: 13 Hop Grower/Slim Tube: Earmold/Dome/CShell/SlimTip: Microsonic [id number] skeleton Type of Wax Guard: Dispensed By: [facility] Date of Fittin07/27/2014 Follow-Up Summary: Here for evaluation. Reports not hearing well with aids. Tubes coming out of molds. Considering new amplification. Cleaned and checked aids, tubes were very hard. Cleaned earmolds. Replaced tubing. Listening check positive. Improvement but Isabella continues to get feedback with increased volume. Earmolds have hardened over time and are likely not fitting ears as snugly as they need to be. Discussed options- new amplification and new earmolds, cost for just new earmolds. Isabella is going to reach out to [facility] about new hearing aids. Recommendations: Recommendations (Other): She will return either for HAE through [facility], HAE private pay, or to get new earmolds and stick with these aids. Diagnosis Code(s): Primary Diagnosis: H90.3 Bilateral Sensorineural Hearing Loss Signature: Provider: Jaquan Lewis, [facility]
== END 2023-10-27 16:34 | disposition home or self-care (01) ==
LOC: HO.HAP 16:33
PROVIDERS: Visit Provider Internal Medicine
DX: Z46.1 Encounter for fitting and adjustment of hearing aid (principal); H90.3 Sensorineural hearing loss, bilateral
CPT/HCPCS: 92593; V5266

== ENCOUNTER 2023-11-04 06:06 | Outpatient (REF) | payer OTHER, SELFPAY ==
[2023-11-04 10:53] LABS: Estimated Average Glucose 131 mg/dL; Hemoglobin A1C 149.4924 umol/L; Hemoglobin A1c % 6.2 % (<6.0)
[2023-11-04 11:01] LABS: Alanine Aminotransferase 19 U/L (0-31); Anion Gap 13 (12-20); Aspartate Amino Transferase 21 U/L (5-31); Blood Urea Nitrogen 12 mg/dL (9-16); Calcium 10.1 mg/dL (8.4-10.2); Carbon Dioxide 28 mmol/L (22-29); Chloride 102 mmol/L (96-108); Cholesterol 154 mg/dL (<200); Estimated Glomerular Filt Rate > 60; Glucose Fasting 131 mg/dL (60-99); HDL Cholesterol 53 mg/dL (>40); LDL Cholesterol Calculated 85 mg/dL (<100); Potassium 3.4 mmol/L (3.3-5.1); Sodium 140 mmol/L (135-145); Triglycerides 82 mg/dL (<150)
[2023-11-04 11:02] LABS: Creatinine Urine 136.54 mg/dL; Microalbum/Creatinine Ratio Ur 10.2 ug/mg cr (<30)
[2023-11-04 11:22] LABS: Vitamin D 25-OH Total 48.8 ng/mL (>30)
== END 2023-11-04 06:07 | disposition home or self-care (01) ==
LOC: HO.HMGCLDS 06:06
PROVIDERS: PCP Internal Medicine; Visit Provider Internal Medicine
DX: I25.10 Atherosclerotic heart disease of native coronary artery without angina pectoris (principal); Z78.0 Asymptomatic menopausal state; E11.9 Type 2 diabetes mellitus without complications; E78.5 Hyperlipidemia, unspecified; I10 Essential (primary) hypertension
CPT/HCPCS: 36415; 80048; 80061; 82043; 82306; 82570; 83036; 84450; 84460

== ENCOUNTER 2023-11-05 11:00 | Outpatient (AMB) | payer OTHER, SELFPAY ==
[2023-11-05 11:03] VITALS: BP 110/68; PULSE 68; O2SAT 93; BMI 40.2
--- NOTE | 2023-11-05 11:03 | A.OFFPC_ITS ---
Vital Signs 11/05/23 11:03 Height 5 ft 5 in Weight 241 lb 8 oz BMI 40.2 BP 110/68 Blood Pressure Location Lt brachial Position Sitting Pulse 68 Pulse Source Pulse Oximeter Pulse Oximetry (%) 93 Oxygen Delivery Method Room Air Intake Visit Reasons: 4M F/U blood sugar and weight Intake Note: Pt is here today for her 4 month follow up on weight. Allergies mold,trees,dust,cats,dogs Allergy (Unknown, Uncoded 11/06/23 01:54) unknown strawberries Allergy (Unknown, Uncoded 11/06/23 01:54) hives Medication List - Last Reconciled 11/05/23 by Marquita Gonzales MD albuterol sulfate 90 mcg/actuation 2 puffs inhalation Q6H PRN alendronate (Fosamax) 70 mg PO QWEEK aspirin (Adult Aspirin Regimen) 81 mg PO DAILY blood sugar diagnostic (FreeStyle Lite Strips) Check fasting blood sugar once a day blood-glucose meter (FreeStyle [place] Lite kit) As directed budesonide-formoterol 160-4.5 mcg/actuation inhalation calcium carbonate (Calcium 500) 500 mg PO DAILY citalopram 20 mg PO DAILY irbesartan 75 mg PO DAILY ketotifen fumarate 0.025%(0.035%) (Zaditor) 1 drp ophthalmic (eye) Q12H lancets (FreeStyle Lancets) Check fasting glucose once a day latanoprost 0.005% drps ophthalmic (eye) levocetirizine (Xyzal) 5 mg PO QPM PRN magnesium oxide 400 mg PO DAILY meloxicam 15 mg PO DAILY PRN metformin ER 500 mg PO QPM montelukast 10 mg PO DAILY multivitamin 1 tab PO DAILY rosuvastatin 5 mg PO DAILY 90 days spironolacton-hydrochlorothiaz 25-25 mg 2 tabs PO DAILY ticagrelor (Brilinta) 90 mg PO Q12H 90 days vitamin B complex (B Complex-Vitamin B12 tablet) 1 tab PO DAILY Tobacco use date assessed: 11/05/23 Dental Screening Dental Screen Date: 11/05/23 Did you have a dental visit in the last 12 months?: No Did you have a dental problem in the last 6 months where you did not have access to dental care?: No Was dental information given to patient?: Patient has dentist HPI 4M F/U blood sugar and weight HPI Details 63-year-old lady with diabetes mellitus, hyperlipidemia, hypertension and coronary artery disease status post JABIER to proximal and mid LAD, here today for follow-up. She has been feeling well, compliant with taking her medications, denies any chest pain, shortness of breath or lightheadedness. [facility] Medical History (Updated 11/05/23 @ 11:42 by Marquita Gonzales MD) Osteoporosis of lumbar spine Incomplete right bundle branch block (RBBB) determined by electrocardiography Hearing loss Family history of early CAD Intermittent left-sided chest pain Seasonal allergies Plantar fasciitis, right Mild intermittent asthma in adult without complication Scalp cyst Nontoxic multinodular goiter Lung nodule < 6cm on CT Cervical spondylosis DJD (degenerative joint disease), lumbar 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 Primary open angle glaucoma, right eye Retinoblastoma of left eye Polycystic ovaries Morbid obesity Multiple thyroid nodules Menopause Type 2 diabetes mellitus without complication, without long-term current use of insulin Dyslipidemia Hypertension Surgical History S/P cardiac catheterization Status post phlebectomy H/O eye surgery H/O hernia repair H/O bilateral breast reduction surgery H/O section H/O thyroidectomy Hx of cholecystectomy Family History Father CAD (coronary artery disease) Myocardial infarction CVD (cardiovascular disease) Substance use disorder Mother Diabetes mellitus HTN (hypertension) Maternal Grandfather No problems noted. Maternal Grandmother No problems noted. Paternal Grandfather No problems noted. Paternal Grandmother No problems noted. Brother Substance use disorder Mental health disorder Sister No problems noted. Sister Substance use disorder Sister No problems noted. Sister No problems noted. Son No problems noted. Daughter No problems noted. 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 1. Little interest or pleasure in doing things: several days 2. Feeling down, depressed, or hopeless: not at all 3. Trouble falling or staying asleep, or sleeping too much: several days 4. Feeling tired or having little energy: not at all 5. Poor appetite or overeating: not at all 6. Feeling bad about yourself - or that you are a failure or have let yourself or your family down: not at all 7. Trouble concentrating on things, such as reading the newspaper or watching television: not at all 8. Moving or speaking so slowly that other people could have noticed. Or the opposite - being so fidgety or restless that you have been moving around a lot more than usual: not at all 9. Thoughts that you would be better off or of hurting yourself in some way: not at all Total score: 2 Depression Screening Interpretation: Negative Depression Screening Done: Yes 38063 - PHQ-9 Billing: Yes Source: Developed by Drs. Lucien Greenberg, Tika Ryan, Raúl Marmolejo and colleagues, with an educational julian from [employer]. Thrive Questionnaire Date Thrive assessed: 11/05/23 I am a: Patient What is your living situation today?: I have a steady place to live Within the past 12 months, did the food you bought not last and you didn't have the money to get more?: Never true Within the past 12 months, did you worry whether your food would run out before you got money to buy more?: Never true Do you have trouble paying for medicines?: No Do you have trouble getting transportation to medical appointments?: No Do you have trouble paying your heating and electricity bill?: No Do you have trouble taking care of your child, family member or friend?: No Do you have trouble with day-to-day activities such as bathing, preparing meals, shopping, managing finances, etc.?: No Are you currently unemployed and looking for a job?: No Are you interested in more education?: No Please select the resources that you would like help with: None THRIVE Score: 0 AUDIT C Alcohol Use Questionnaire (AUDIT-C) 1. How often do you have a drink containing alcohol?: Monthly or less 2. How many drinks containing alcohol do you have on a typical day when you are drinking?: 1 or 2 3. How often do you have six or more drinks on one occasion?: Never Total Score: 1 Score Reviewed/Action Taken: Yes MONIK-7 AMB Questionnaire MONIK-7 Date MONIK - 7 assessed: 11/05/23 Feeling nervous, anxious, or on edge: 1 = Several days Not being able to stop or control worryin = Several days Worrying too much about different things: 1 = Several days Trouble relaxin = Several days Being so restless that it is hard to sit still: 0 = Not at all Becoming easily annoyed or irritable: 1 = Several days Feeling afraid as if something awful might happen: 1 = Several days Total MONIK-7 score (0-4 normal; 5-9 mild; 10-14 moderate; 15-21 severe): 6 Source: Developed by Drs. Lucien Greenberg, Tika Ryan, Raúl Marmolejo and colleagues, with an educational julian from [employer]. MONIK-7 Assessment Billing MONIK-7 Assessment Tool: MONIK-7 Assessment 98032 Review of Systems Const Denies headache(s) and Denies weakness ENT Denies dizziness and Denies headache(s) Card Denies chest pain, Denies chest pain with activity, Denies syncope, Denies rapid heart rate, Denies pedal edema, Denies lightheadedness, Denies palpitations, Denies dyspnea, Denies dyspnea on exertion and Denies orthopnea Resp Denies cough, Denies dyspnea and Denies dyspnea on exertion GI Denies hematochezia and Denies change in stool character Reports no additional complaints Musc Denies abnormal gait, Denies muscle cramps, Denies muscle weakness, Denies numbness, Denies radiating pain into limb and Denies tingling Neuro Denies abnormal gait, Denies dizziness, Denies syncope, Denies headache(s), Denies numbness, Denies tingling and Denies weakness Psych Reports no additional complaints Endo Denies palpitations Kenji/Lymph Denies easy bleeding and Reports easy bruising Physical exam (Primary Care) Vital Signs: Last Vital Signs Pulse 68 11/05/23 11:03 BP 110/68 11/05/23 11:03 Pulse Ox 93 11/05/23 11:03 Oxygen Delivery Method Room Air 11/05/23 11:03 BMI result Body Mass Index 40.2 Tobacco/Smoking Status: Tobacco use Status Tobacco use date assessed 11/05/23 11/05/23 11:10 Patient Tobacco Use Status Former Tobacco user 11/05/23 11:10 e-Cigarette/Vaping Use Never Used 11/05/23 11:10 PHQ-9: PHQ-9 Score PHQ-9: Total score 2 11/05/23 12:55 Depression Screening Interpretation: Negative Thrive Assessment: Date of Thrive Assessment Date Thrive assessed 11/05/23 11/05/23 11:46 Const Other: Alert oriented x3, no acute distress noted ambulatory normal gait Nutritional Appearance: obese morbidly obese Orientation/consciousness: patient oriented x3 HENMT Head: Yes normocephalic Ears: external ears normal, TM's normal bilaterally and EAC's normal General nose exam: Normal external nose present Face and sinus: Yes face symmetric Mouth: oropharynx normal and moist mucous membranes Eyes Other: Artificial left eye Neck Neck: Yes full ROM, Yes no lymphadenopathy and Yes supple Resp Auscultation: clear to auscultation bilaterally Cardio Other: S1-S2 present regular rate and rhythm GI Other: Normal bowel sounds, soft, nontender General: Yes no CVA tenderness Back/Spine/Pelvis Back: no CVA tenderness and No back tenderness Cervical Spine: normal cervical lordosis and cervical ROM normal Thoracic/Lumbar Spine: thoraco-lumbar ROM normal Skin General skin exam: no rashes or lesions noted Neuro General: patient oriented x3, gait normal, tone normal, moves all extremities, Normal light touch and pain sensation, no focal motor deficits and CN's II-XI intact bilaterally Extrem General: Yes full ROM, Yes no joint enlargement, Yes no pedal edema and Yes normal gait Results Reviewed Results Reviewed: Laboratory Tests 11/04/23 06:10 Estimat Average Glucose 131 Hemoglobin A1c % 6.2 H Urine Creatinine 136.54 Urine Microalbumin 14.0 Microalb/Creat Ratio 10.2 aneta: Isabella Gonzalez Age/Sex: 63/F : 1960 Unit#: [id number] Attend Dr: Marquita Gonzales MD Re11/04/23 Status: DEP REF Location: [facility] Disch: SPEC : [id number] SHANE: 11/04/23 STATUS: COMP REQ : [id number] RECD: 11/04/23-[address]: Marquita Gonzales MD COMP: 11/04/23-1121 ENTERED: 11/04/[address]: ORDERED: Met Prof Fast, AST, ALT, Lipid Panel, Vitamin D 25-OH Test Result Flag Reference Sodium 140 135-145 mmol/L Potassium 3.4 3.3-5.1 mmol/L CL 102 96-108 mmol/L CO2 28 22-29 mmol/L Gap 13 12-20 BUN 12 9-16 mg/dL Creat 0.69 0.5-1.4 mg/dL EGFR > 60 NOTE: For -[place] individuals, multiply the result by 1.210. Chronic Kidney Disease: Estimated GFR < 60 mL/min/1.73m2 Severe Kidney Disease: Estimated GFR < 15 mL/min/1.73m2 FBS 131 H 60-99 mg/dL A fasting glucose of 126 mg/dl or greater on more than one occasion is considered diagnostic of diabetes. CA 10.1 8.4-10.2 mg/dL AST (GOT) 21 5-31 U/L ALT (GPT) 19 0-31 U/L Triglyceride 82 <150 mg/dL Desirable Triglyceride: less than 150 mg/dL Borderline High Triglyceride 150-199 mg/dL High Triglyceride: 200-499 mg/dL Very High Triglyceride: greater than or equal to 5OO mg/dL Cholesterol 154 <200 mg/dL Desirable Cholesterol: less than 200 mg/dL Borderline High Cholesterol: 200-239 mg/dL High Cholesterol: greater than 239 mg/dL LDL Calculated 85 <100 mg/dL Desirable LDL: less than 100 mg/dL Near Optimal/Above Optimal LDL: 110-129 mg/dL Borderline High LDL: 130-159 mg/dL High LDL: 160-189 mg/dL Very High LDL: greater than or equal to 190 mg/dL HDL 53 >40 mg/dL Desirable HDL: greater than 40 mg/dL Note: This HDL assay may give artificially low results in patients with liver disease. Vit D 25-OH Tot 48.8 >30 ng/mL Health Based Reference Values* < 20 ng/mL Deficient 20-30 ng/mL Insufficient > 30 ng/mL Sufficient Assessment and Plan Assessment & Plan (1) Atherosclerotic cardiovascular disease: Code(s): I25.10 - Atherosclerotic heart disease of [place] coronary artery without angina pectoris Plan: Followed by cardiology, currently on Brilinta and aspirin 81 mg daily goal LDL cholesterol less than 70 mg/dL, reinforced importance controlling diabetes me llitus, lipids and hypertension will be starting cardiac rehab in 12/12/2023 (2) Hypertension: Code(s): I10 - Essential (primary) hypertension Qualifiers: Hypertension type: essential hypertension Qualified Code(s): I10 - Essential (primary) hypertension Plan: Blood pressure at goal of less than 130/80. Continue with current medication. Reinforced importance of following a low sodium diet, getting regular exercise, and lowering stress levels. (3) Dyslipidemia: Code(s): E78.5 - Hyperlipidemia, unspecified Plan: Reviewed recent fasting lipid profile with patient with LDL cholesterol still not at goal of less than 70 mg/dL . Increase rosuvastatin dose now to 10 mg once a day,, in addition to adherence to low-cholesterol diet and regular exercise, at least 30 minutes 3 to 4 times a week. Advised patient to make healthy food choices, eat more fruits, vegetables, whole grains, wild caught fish and low-fat dairy. Limit amount of meat and fried or fatty food products, as well as processed foods and fast foods. Follow-up scheduled with repeat fasting lipid panel in 6 months. (4) Type 2 diabetes mellitus without complication, without long-term current use of insulin: Code(s): E11.9 - Type 2 diabetes mellitus without complications Plan: Recent lab results reviewed with patient, with sugar and hemoglobin A1c stable and at goal . Continue metformin ER 500 mg 1 tablet at night with supper. continue to check fasting blood sugar at home, maintain log and bring to next appointment for review. Reinforced diabetic diet and regular exercise with patient. Counseled regarding importance of yearly diabetes retinopathy screening. Patient advised to inspect feet daily, for any signs of injury, callus or infection. Compliance with diet and regular exercise again stressed. Blood pressure goal is less than 130/80, goal LDL is less than 100 and goal hemoglobin A1c is less than 7% follow-up appointment made in-6--months, after fasting labs done. Orders: Orders Lipid Panel 04/24/24 E11.9 - Type 2 diabetes mellitus without complications, E78.5 - Hyperlipidemia, unspecified, I10 - Essential (primary) hypertension, I25.10 - Atherosclerotic heart disease of [place] coronary artery without angina pectoris, M81.0 - Age-related osteoporosis without current pathological fracture Aspartate Amino Transferase 04/24/24 E11.9 - Type 2 diabetes mellitus without complications, E78.5 - Hyperlipidemia, unspecified, I10 - Essential (primary) hypertension, I25.10 - Atherosclerotic heart disease of [place] coronary artery without angina pectoris, M81.0 - Age-related osteoporosis without current pathological fracture Alanine Aminotransferase 04/24/24 E11.9 - Type 2 diabetes mellitus without complications, E78.5 - Hyperlipidemia, unspecified, I10 - Essential (primary) hypertension, I25.10 - Atherosclerotic heart disease of [place] coronary artery without angina pectoris, M81.0 - Age-related osteoporosis without current pathological fracture Basic Metabolic Panel Fasting 04/24/24 E11.9 - Type 2 diabetes mellitus without complications, E78.5 - Hyperlipidemia, unspecified, I10 - Essential (primary) hypertension, I25.10 - Atherosclerotic heart disease of [place] coronary artery without angina pectoris, M81.0 - Age-related osteoporosis without current pathological fracture Hemoglobin A1c 04/24/24 E11.9 - Type 2 diabetes mellitus without complications, E78.5 - Hyperlipidemia, unspecified, I10 - Essential (primary) hypertension, I25.10 - Atherosclerotic heart disease of [place] coronary artery without angina pectoris, M81.0 - Age-related osteoporosis without current pathological fracture Microalbumin, Random (w Creat) 11/05/23 E11.9 - Type 2 diabetes mellitus without complications, E78.5 - Hyperlipidemia, unspecified, I10 - Essential (primary) hypertension, I25.10 - Atherosclerotic heart disease of [place] coronary artery without angina pectoris Medications: Changed From rosuvastatin 5 mg PO DAILY 90 days 90 tabs 1RF E11.9 - Type 2 diabetes mellitus without complications, E78.5 - Hyperlipidemia, unspecified, I10 - Essential (primary) hypertension To rosuvastatin 10 mg PO DAILY 90 days 90 tabs 1RF E11.9 - Type 2 diabetes mellitus without complications, E78.5 - Hyperlipidemia, unspecified, I10 - Essential (primary) hypertension Refilled blood-glucose meter (FreeStyle [place] Lite kit) As directed 1 ea 0RF E11.9 - Type 2 diabetes mellitus without complications Discontinued meloxicam Discontinued Reason: Doctor's Order 15 mg PO DAILY PRN 30 tabs 0RF joint pain Coding Level of Care Code Est Pt Level 4 (46164) Complex EM visit Add On G2211 Diagnoses Atherosclerotic cardiovascular disease I25.10 Essential hypertension I10 Hypertension type: essential hypertension Dyslipidemia E78.5 Type 2 diabetes mellitus without complication, without long-term current use of insulin E11.9 Additional Codes MONIK-7 Assessment Billing - MONIK-7 Assessment Tool: MONIK-7 Assessment 11635 ([id number])
== END 2023-11-05 11:43 | disposition home or self-care (01) ==
LOC: HO.HMGC 11:00
PROVIDERS: PCP Internal Medicine; Visit Provider Internal Medicine
DX: I25.10 Atherosclerotic heart disease of native coronary artery without angina pectoris (principal); I10 Essential (primary) hypertension; E78.5 Hyperlipidemia, unspecified; E11.9 Type 2 diabetes mellitus without complications
CPT/HCPCS: 99214; G2211

== ENCOUNTER 2023-12-09 08:13 | Outpatient (AMB) | payer OTHER, SELFPAY ==
--- NOTE | 2023-12-09 08:24 | A.OFFVIS_ITS ---
Vital Signs 12/09/23 08:25 Height 5 ft 5 in Weight 242 lb 1.081 oz BMI 40.3 BP 112/78 Blood Pressure Location Lt brachial Position Sitting Pulse 68 Pulse Source Pulse Oximeter Intake Visit Reasons: f/u MNG Intake Note: Patient present today for MNG follow up visit. Credit Collections Clerk Required: No Credit Collections Clerk Services: Credit Collections Clerk Offered & Declined Accompanied by: Self / Same As Patient Allergies mold,trees,dust,cats,dogs Allergy (Unknown, Uncoded 12/09/23 08:28) unknown strawberries Allergy (Unknown, Uncoded 12/09/23 08:28) hives HPI Comments Details: 63 YO F with PMHx Retinoblastoma who is seen in F/U for a multinodular thyroid. Was initially diagnosed with multinodular thyroid in 2016. Underwent FNA biopsy on 11/15/2020 of a L isthmus 2.0 cm thyroid nodule and a R isthmus 1.0 cm thyroid nodule, both with benign cytology. Does mention symptoms of dysphagia. Denies any baseline hoarseness of voice. Denies any symptoms of hyper or hypothyroidism. Denies any history of head or neck irradiation. Denies any family history of thyroid cancer. Thyroid US: 12/05/2021 Right Thyroid Lobe: 5.4 x 1.8 x 2.6 cm, volume 13.2 mL. Previously 4.2 x 1.6 x 2.2 cm, volume 7.7 mL. Parenchyma: The gland echotexture is homogeneous. Thyroid vascularity is normal. Left Thyroid Lobe: 6.3 x 2.0 x 2.6 cm, volume 17.2 mL. Previously 4.0 x 2.0 x 2.6 cm, volume 10.9 mL. Parenchyma: The gland echotexture is homogeneous. Thyroid vascularity is normal. Isthmus: 0.8 cm in maximum AP dimension. Previously 0.6 cm. Estimated total number of nodules greater than or equal to 1 cm: 1. Tube Fitter nodules are described as follows: 1.? Location: Left medial/isthmus. ?? ? Size: 2.0 x 1.4 x 2.0 cm, volume 2.86 mL. ?? ? Previously: 1.6 x 1.3 x 1.8 cm, volume 1.96 mL. ?? ? Nodule characteristics: ?? ? Composition: Solid/almost completely solid (2). ?? ? Echogenicity: Hypoechoic (2). ?? ? Shape: Not taller than wide (0). ?? ? Margins: Smooth (0). ?? ? Echogenic Foci: None (0). ? ACR TI-RADS total points: 4 ?? ? ACR TI-RADS category: 4 ? Significant change in size (>/= 20% in 2 dimensions and minimal increase of 2 mm or 50% or greater increase in volume): No ?? ? Change in features: No ?? ? Change in ACR TI-RADS risk category: No 2.? Location: Right superior. ?? ? Size: 0.8 x 0.3 x 0.4 cm, volume 0.06 mL. ?? ? Previously: 0.6 x 0.4 x 0.6 cm, volume 0.08 mL. ?? ? Nodule characteristics: ?? ? Composition: Spongiform (0). ?? ? Echogenicity: Anechoic (0). ?? ? Shape: Not taller than wide (0). ?? ? Margins: Smooth (0). ?? ? Echogenic Foci: None (0).? ACR TI-RADS total points: 0 ?? ? ACR TI-RADS category: 1 ? Significant change in size (>/= 20% in 2 dimensions and minimal increase of 2 mm or 50% or greater increase in volume): No ?? ? Change in features: No ?? ? Change in ACR TI-RADS risk category: No 3.? Location: Right isthmus. ?? ? Size: 0.7 x 0.4 x 0.7 cm, volume 0.10 mL. ?? ? Previously: 0.5 x 0.4 x 0.6 cm, volume 0.06 mL. ?? ? Nodule characteristics: ?? ? Composition: Solid (2). ?? ? Echogenicity: Hypoechoic (2). ?? ? Shape: Not taller than wide (0). ?? ? Margins: Smooth (0). ?? ? Echogenic Foci: None (0).? ACR TI-RADS total points: 4 ?? ? ACR TI-RADS category: 4 ? Significant change in size (>/= 20% in 2 dimensions and minimal increase of 2 mm or 50% or greater increase in volume): No ?? ? Change in features: No ?? ? Change in ACR TI-RADS risk category: No NODES: No lymphadenopathy is seen in the tissue surrounding the thyroid gland. Labs: Laboratory Tests 11/30/21 11/30/21 09:55 09:55 TSH 1.34 Free T4 0.93 c/o nasal drip but no obstructive sx 1. Location: Right superior. Size: 0.46 x 0.35 x 0.33 cm, volume 0.03 mL. Previously: 0.80 x 0.30 x 0.40 cm, volume 0.06 mL. Nodule characteristics: Composition: Spongiform (0). Echogenicity: Anechoic (0). Shape: Not taller than wide (0). Margins: Smooth (0). Echogenic Foci: None (0). ACR TI-RADS total points: 0 Previous: 0 ACR TI-RADS category: 1 Previous: 1 Significant change in size (>/= 20% in 2 dimensions and minimal increase of 2 mm or 50% or greater increase in volume): Smaller Change in features: No Change in ACR TI-RADS risk category: No 2. Location: Right mid isthmus. Size: 0.78 x 0.40 x 0.63 cm, volume 0.10 mL. Previously: 0.70 x 0.40 x 0.70 cm, volume 0.10 mL. Nodule characteristics: Composition: Solid (2). Echogenicity: Hypoechoic (2). Shape: Not taller than wide (0). Margins: Smooth (0). Echogenic Foci: None (0). ACR TI-RADS total points: 4 Previous: 4 ACR TI-RADS category: 4 Previous: 4 Significant change in size (>/= 20% in 2 dimensions and minimal increase of 2 mm or 50% or greater increase in volume): No Change in features: No Change in ACR TI-RADS risk category: No 3. Location: Left medial/inferior isthmus. Size: 1.5 x 1.2 x 1.5 cm, volume 1.4 mL. Previously: 2.0 x 1.4 x 2.0 cm, volume 2.9 mL. Nodule characteristics: Composition: Solid (2). Echogenicity: Hypoechoic (2). Shape: Not taller than wide (0). Margins: Smooth (0). Echogenic Foci: None (0). ACR TI-RADS total points: 4 Previous: 4 ACR TI-RADS category: 4 Previous: 4 Significant change in size (>/= 20% in 2 dimensions and minimal increase of 2 mm or 50% or greater increase in volume): Smaller Change in features: No Change in ACR TI-RADS risk category: No 4. Location: Left mid. Size: 0.73 x 0.58 x 0.63 cm, volume 0.14 mL. Previously: Not seen on the previous study. Nodule characteristics: Composition: Solid (2). Echogenicity: Hypoechoic (2). Shape: Not taller than wide (0). Margins: Smooth (0). Echogenic Foci: None (0). ACR TI-RADS total points: 4 ACR TI-RADS category: 4 NODES: No lymphadenopathy PFS Medical History (Updated 11/05/23 @ 11:42 by Marquita Gonzales MD) Osteoporosis of lumbar spine Incomplete right bundle branch block (RBBB) determined by electrocardiography Hearing loss Family history of early CAD Intermittent left-sided chest pain Seasonal allergies Plantar fasciitis, right Mild intermittent asthma in adult without complication Scalp cyst Nontoxic multinodular goiter Lung nodule < 6cm on CT Cervical spondylosis DJD (degenerative joint disease), lumbar 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 Primary open angle glaucoma, right eye Retinoblastoma of left eye Polycystic ovaries Morbid obesity Multiple thyroid nodules Menopause Type 2 diabetes mellitus without complication, without long-term current use of insulin Dyslipidemia Hypertension Surgical History S/P cardiac catheterization Status post phlebectomy H/O eye surgery H/O hernia repair H/O bilateral breast reduction surgery H/O section H/O thyroidectomy Hx of cholecystectomy Family History Father CAD (coronary artery disease) Myocardial infarction CVD (cardiovascular disease) Substance use disorder Mother Diabetes mellitus HTN (hypertension) Maternal Grandfather No problems noted. Maternal Grandmother No problems noted. Paternal Grandfather No problems noted. Paternal Grandmother No problems noted. Brother Substance use disorder Mental health disorder Sister No problems noted. Sister Substance use disorder Sister No problems noted. Sister No problems noted. Son No problems noted. Daughter No problems noted. 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 There are no thyroid nodules palpated. There is a negative [place] sign Assessment & Plan Assessment & Plan (1) Nontoxic multinodular goiter: Comment: Sees Dr. Mon Code(s): E04.2 - Nontoxic multinodular goiter Category: Medical Plan: This is a 62-year-old white female with a history of multinodular goiter Underwent FNA biopsy on 11/15/2020 of a L isthmus 2.0 cm thyroid nodule and a R isthmus 1.0 cm thyroid nodule, both with benign cytology.. . She appears to be clinically and biochemically euthyroid . Plan is to repeat TSH and free T4. . Assuming above is normal, patient returned to the care of her primary care provider who should repeat a thyroid ultrasound about 2 years time. If there is a change in the size or characteristics of the nodules, patient returned back to endocrinology Orders: Orders Free T4 (Free Thyroxine) Today E04.2 - Nontoxic multinodular goiter Thyroid Stimulating Hormone Today E04.2 - Nontoxic multinodular goiter Coding Level of Care Code Est Pt Level 3 (11194) Diagnoses Nontoxic multinodular goiter E04.2
[2023-12-09 08:25] VITALS: BP 112/78; PULSE 68; BMI 40.3
== END 2023-12-09 08:39 | disposition home or self-care (01) ==
PROVIDERS: PCP Internal Medicine; Visit Provider Internal Medicine Endocrinology, Diabetes & Metabolism
DX: E04.2 Nontoxic multinodular goiter (principal)
CPT/HCPCS: 99213

== ENCOUNTER → 2023-12-09 08:13 | Outpatient (BNVA) | payer OTHER, SELFPAY | PROVIDERS: PCP Internal Medicine; Visit Provider Internal Medicine Endocrinology, Diabetes & Metabolism ==

== ENCOUNTER 2023-12-09 08:40 | Outpatient (REF) | payer OTHER, SELFPAY ==
[2023-12-09 12:16] LABS: Free T4 (Free Thyroxine) 0.99 ng/dL (0.71-1.85); Thyroid Stimulating Hormone 2.04 uIU/mL (0.32-4.0)
== END 2023-12-09 08:41 | disposition home or self-care (01) ==
LOC: HO.10HDL 08:40
PROVIDERS: Visit Provider Internal Medicine Endocrinology, Diabetes & Metabolism
DX: E04.2 Nontoxic multinodular goiter (principal)
CPT/HCPCS: 36415; 84439; 84443

== ENCOUNTER 2023-12-28 09:52 | Outpatient (AMB) | payer OTHER, SELFPAY ==
[2023-12-28 09:57] VITALS: BP 118/62; PULSE 71; BMI 39.6
--- NOTE | 2023-12-28 09:57 | MHC.OFFVIS ---
Vital Signs 12/28/23 09:57 Height 5 ft 5 in Weight 238 lb BMI 39.6 BP 118/62 Blood Pressure Location Lt brachial Position Sitting Pulse 71 Pulse Source Pulse Oximeter Intake Visit Reasons: 3mth f/up Allergies mold,trees,dust,cats,dogs Allergy (Unknown, Uncoded 12/09/23 08:28) unknown strawberries Allergy (Unknown, Uncoded 12/09/23 08:28) hives Medication List - Last Reconciled 12/28/23 by Shubham Jefferson MD albuterol sulfate 90 mcg/actuation 2 puffs inhalation Q6H PRN aspirin (Adult Aspirin Regimen) 81 mg PO DAILY blood sugar diagnostic (FreeStyle Lite Strips) Check fasting blood sugar once a day blood-glucose meter (FreeStyle Lueders Lite kit) As directed budesonide-formoterol 160-4.5 mcg/actuation inhalation calcium carbonate (Calcium 500) 500 mg PO DAILY citalopram 20 mg PO DAILY clopidogrel (Plavix) 75 mg PO DAILY irbesartan 75 mg PO DAILY ketotifen fumarate 0.025%(0.035%) (Zaditor) 1 drp ophthalmic (eye) Q12H lancets (FreeStyle Lancets) Check fasting glucose once a day latanoprost 0.005% drps ophthalmic (eye) levocetirizine (Xyzal) 5 mg PO QPM PRN magnesium oxide 400 mg PO DAILY metformin ER 500 mg PO QPM methocarbamol 500 mg PO TID PRN montelukast 10 mg PO DAILY multivitamin 1 tab PO DAILY rosuvastatin 10 mg PO DAILY 90 days spironolacton-hydrochlorothiaz 25-25 mg 2 tabs PO DAILY vitamin B complex (B Complex-Vitamin B12 tablet) 1 tab PO DAILY HPI Comments Details: Isabella returns for follow-up. To recall, she was seen in evaluation of chest pain. Many comorbidities including obesity, hypertension, dyslipidemia. Chest CT scan had shown coronary artery calcification. She underwent stress testing and that led to a cardiac catheterization. Status post LAD stenting. Overall, she states she feels good. No further chest pains. Overall, doing okay. [facility] Medical History (Updated 11/05/23 @ 11:42 by Marquita Gonzales MD) Osteoporosis of lumbar spine Incomplete right bundle branch block (RBBB) determined by electrocardiography Hearing loss Family history of early CAD Intermittent left-sided chest pain Seasonal allergies Plantar fasciitis, right Mild intermittent asthma in adult without complication Scalp cyst Nontoxic multinodular goiter Lung nodule < 6cm on CT Cervical spondylosis DJD (degenerative joint disease), lumbar 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 Primary open angle glaucoma, right eye Retinoblastoma of left eye Polycystic ovaries Morbid obesity Multiple thyroid nodules Menopause Type 2 diabetes mellitus without complication, without long-term current use of insulin Dyslipidemia Hypertension Surgical History S/P cardiac catheterization Status post phlebectomy H/O eye surgery H/O hernia repair H/O bilateral breast reduction surgery H/O section H/O thyroidectomy Hx of cholecystectomy Family History Father CAD (coronary artery disease) Myocardial infarction CVD (cardiovascular disease) Substance use disorder Mother Diabetes mellitus HTN (hypertension) Maternal Grandfather No problems noted. Maternal Grandmother No problems noted. Paternal Grandfather No problems noted. Paternal Grandmother No problems noted. Brother Substance use disorder Mental health disorder Sister No problems noted. Sister Substance use disorder Sister No problems noted. Sister No problems noted. Son No problems noted. Daughter No problems noted. 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: No Cognitive needs: No Hearing needs: No Vision needs: Yes Review of Systems Const Denies weakness ENT Denies dizziness Card Denies chest pain, Denies chest pain with activity, Denies syncope, Denies rapid heart rate, Denies pedal edema, Denies edema, Denies leg edema, Denies lightheadedness, Denies palpitations, Denies dyspnea, Denies dyspnea on exertion and Denies orthopnea Resp Denies cough, Denies dyspnea and Denies dyspnea on exertion GI Denies hematochezia and Denies change in stool character Musc Denies abnormal gait, Denies muscle cramps, Denies muscle weakness, Denies numbness, Denies radiating pain into limb and Denies tingling Neuro Denies abnormal gait, Denies dizziness, Denies syncope, Denies numbness, Denies tingling and Denies weakness Endo Denies palpitations Physical Exam Vital Signs: Last Vital Signs Pulse 71 12/28/23 09:57 BP 118/62 12/28/23 09:57 BMI result Body Mass Index 39.6 Const General: comfortable and no acute distress Orientation/consciousness: patient oriented x3 HEENT Other: Unremarkable Head: Yes normal to inspection Neck Neck: Yes normal visual inspection Chest Chest palpation & inspection: normal inspection of the chest Resp Auscultation: clear to auscultation bilaterally Cardio Palpation: normal PMI Heart sounds: S1 normal heart sound present, S2 normal heart sound present, no gallops, no murmurs and no rubs GI Palpation (GI): Soft to palpation Back/Spine/Pelvis Other: unremarkable Skin General skin exam: no rashes or lesions noted Neuro General: patient oriented x3 Extrem General: Yes normal to inspection Psych Mental Status: mental status grossly normal Assessment & Plan Assessment & Plan (1) Atherosclerotic cardiovascular disease: Code(s): I25.10 - Atherosclerotic heart disease of [place] coronary artery without angina pectoris Category: Medical (2) Hypertension: Code(s): I10 - Essential (primary) hypertension Category: Medical Qualifiers: Hypertension type: essential hypertension Qualified Code(s): I10 - Essential (primary) hypertension (3) Type 2 diabetes mellitus without complication, without long-term current use of insulin: Code(s): E11.9 - Type 2 diabetes mellitus without complications Category: Medical (4) Dyslipidemia: Code(s): E78.5 - Hyperlipidemia, unspecified Category: Medical Plan Cardiac testing reviewed. Echocardiogram with LVEF of 65%. No wall motion abnormalities and otherwise unremarkable. In the exercise stress test, positive for chest tightness, hypertensive blood pressure response with EKG changes. Perfusion component showed LAD territory ischemia. Cardiac catheterization 08/2023 with severe proximal to mid LAD stenosis status post PCI. Mid RCA, moderate 60-70% stenosis, medical managed. Continue long-term aspirin. Plavix for 1 year total. Blood pressure stable on the current dose of Irbesartan. She is also on spironolactone/HCTZ. For lipids, she is on rosuvastatin 10 mg daily. We can increase it to 40 mg daily. New script being sent. There are already pending labs which can be done in a few months after med change. For diabetes, she is on metformin. Hemoglobin A1c is 6.2%. Follow-up in 6 months. She will call with interim concerns. Total time spent including review of data, counseling, documentation, coordination of care-32 minutes. Medications: New rosuvastatin 40 mg PO DAILY 90 tabs 3RF Discontinued rosuvastatin Discontinued Reason: Doctor's Order 10 mg PO DAILY 90 days 90 tabs 1RF E11.9 - Type 2 diabetes mellitus without complications, E78.5 - Hyperlipidemia, unspecified, I10 - Essential (primary) hypertension Coding Level of Care Code Est Pt Level 4 (36643) Diagnoses Atherosclerotic cardiovascular disease I25.10 Essential hypertension I10 Hypertension type: essential hypertension Type 2 diabetes mellitus without complication, without long-term current use of insulin E11.9 Dyslipidemia E78.5
== END 2023-12-28 10:19 | disposition home or self-care (01) ==
PROVIDERS: PCP Internal Medicine; Visit Provider Internal Medicine
DX: I25.10 Atherosclerotic heart disease of native coronary artery without angina pectoris (principal); I10 Essential (primary) hypertension; E11.9 Type 2 diabetes mellitus without complications; E78.5 Hyperlipidemia, unspecified
CPT/HCPCS: 99214

== ENCOUNTER → 2023-12-28 09:52 | Outpatient (BNVA) | payer OTHER, SELFPAY | PROVIDERS: PCP Internal Medicine; Visit Provider Internal Medicine ==

== ENCOUNTER 2024-01-13 13:30 | Outpatient (RCR) | payer OTHER, SELFPAY | END 2024-01-14 15:39 | disposition home or self-care (01) | LOC: HO.CR 13:30 | PROVIDERS: PCP Internal Medicine; Visit Provider Nurse Practitioner | DX: I25.10 Atherosclerotic heart disease of native coronary artery without angina pectoris (principal); Z98.890 Other specified postprocedural states; Z98.61 Coronary angioplasty status | CPT/HCPCS: 93798 ==

== ENCOUNTER 2024-04-11 15:10 | Outpatient (REF) | payer SELFPAY | END 2024-04-11 15:11 | disposition home or self-care (01) | LOC: HO.HAP 15:10 | PROVIDERS: Visit Provider Internal Medicine | DX: Z46.1 Encounter for fitting and adjustment of hearing aid (principal); H90.3 Sensorineural hearing loss, bilateral | CPT/HCPCS: V5266 ==

== ENCOUNTER 2024-04-13 10:55 | Outpatient (AMB) | payer OTHER, SELFPAY ==
--- NOTE | 2024-04-13 11:07 | A.OFFVIS_ITS ---
VS Expanded 04/13/24 11:09 04/13/24 14:46 Height 5 ft 5 in 5 ft 5 in Weight 231 lb 4.238 oz 231 lb BMI 38.5 38.4 Intake Visit Reasons: T2DM/LVM Allergies mold,trees,dust,cats,dogs Allergy (Unknown, Uncoded 12/09/23 08:28) unknown strawberries Allergy (Unknown, Uncoded 12/09/23 08:28) hives Nutrition Presentation Details: Pt presents for MNT for T2DM. Pt has hx of atherosclerotic CVD, hyslipidemia, essentail htn Pt reports typically having 3 meals/day working on following Mediterranean style diet HAs [employer] since 09/22/23 walks at work 15 min 5 x/wk food frequency fish: 0-1/wk legumes: not including fruits: 1-2/d dairy : 4+ starches> 20 ve time/wk BS Monitoring Most Recent Diabetes Results: Microalb/Creat Ratio 10.2 ug/mg cr (<30) 11/04/23 Cholesterol 154 mg/dL (<200) 11/04/23 HDL Cholesterol 53 mg/dL (>40) 11/04/23 Triglycerides 82 mg/dL (<150) 11/04/23 Creatinine 0.69 mg/dL (0.5-1.4) 11/04/23 Blood Urea Nitrogen 12 mg/dL (9-16) 11/04/23 Sodium 140 mmol/L (135-145) 11/04/23 Potassium 3.4 mmol/L (3.3-5.1) 11/04/23 Chloride 102 mmol/L (96-108) 11/04/23 Carbon Dioxide 28 mmol/L (22-29) 11/04/23 Calcium 10.1 mg/dL (8.4-10.2) 11/04/23 AST 21 U/L (5-31) 11/04/23 ALT 19 U/L (0-31) 11/04/23 SCG-[id number]-Ed.Jeor Equation Height: 5 ft 5 in Weight: 231 lb Resting Metabolic Rate: 1612.59 Calculated Activity Level: Sedentary Calories Needed to Maintain Weight: 1935.11 Diagnosis Nutrition problem #1: food nutri know defi As related to (etiology) #1: diagnosis As evidenced by (sign/symptom) #1: knowledge deficit of diet [facility] Medical History (Updated 04/20/24 @ 12:55 by Aimee Norton, RD, LDN) Osteoporosis of lumbar spine Incomplete right bundle branch block (RBBB) determined by electrocardiography Hearing loss Family history of early CAD Intermittent left-sided chest pain Seasonal allergies Plantar fasciitis, right Mild intermittent asthma in adult without complication Scalp cyst Nontoxic multinodular goiter Lung nodule < 6cm on CT Cervical spondylosis DJD (degenerative joint disease), lumbar 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 Primary open angle glaucoma, right eye Retinoblastoma of left eye Polycystic ovaries Morbid obesity Multiple thyroid nodules Menopause Type 2 diabetes mellitus without complication, without long-term current use of insulin Dyslipidemia Hypertension Surgical History S/P cardiac catheterization Status post phlebectomy H/O eye surgery H/O hernia repair H/O bilateral breast reduction surgery H/O section H/O thyroidectomy Hx of cholecystectomy Family History Father CAD (coronary artery disease) Myocardial infarction CVD (cardiovascular disease) Substance use disorder Mother Diabetes mellitus HTN (hypertension) Maternal Grandfather No problems noted. Maternal Grandmother No problems noted. Paternal Grandfather No problems noted. Paternal Grandmother No problems noted. Brother Substance use disorder Mental health disorder Sister No problems noted. Sister Substance use disorder Sister No problems noted. Sister No problems noted. Son No problems noted. Daughter No problems noted. 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: No Cognitive needs: No Hearing needs: Yes Vision needs: Yes Assessment & Plan Assessment & Plan (1) Type 2 diabetes mellitus without complication, without long-term current use of insulin: Comment: atherosclerotic cvd, dyslipidemia, htn Code(s): E11.9 - Type 2 diabetes mellitus without complications Category: Medical Plan: Wt:105 Kg ( 04/17 ) Est kcal needs as per MSJ: 2000 (40% carb, 30% protein/fat) Est fluid needs as per 25-30 ml/d: 3100 Est prot per day as per 1 g/kg bw: 105 Recommend fiber intake : 8-10 g per day and gradually increase to 25-28 g per day for women and 35-38 g for men or as tolerated Recommend sodium intake per day : less than 2300 mg Educated patient on: ( R = reviewed V = verbalizes understanding N/R = needs review N/A = not applicable * Food sources of carbohydrate, adequate serving sizes and its role in various health conditions: R * Differences between complex carbohydrates a simple carbohydrates, role of fiber in diet: R * Lean protein sources of foods: R V NR * Differences between types of fats and role in diet (mono on saturated fat fatty acids, saturated fatty acids, trans fats): R * Food sources of sodium in salt and healthy modifications for heart health in kidney health: R V R/V * Vitamins and minerals: R V N/R * Healthy plate method concept: R V N/R * Physical activity: Benefits a precaution: R V N/R * Hypoglycemia protocol (rule of 15): R V N/R * Dietary prevention of Hyperglycemia: R Patient Instructions: HAve legume meal 2 times a week increasing on fiber source sof foods and reducing sat'd fats see meal ideas as reference (consisting of 60 g carb, 4-5 oz protein and 5-8 g fiber0 Coding Level of Care Code Nutr Indiv Intake (51779) Diagnoses Type 2 diabetes mellitus without complication, without long-term current use of insulin E11.9 Time Spent (min) 30
[2024-04-13 11:09] VITALS: BMI 38.5
[2024-04-20 12:57] VITALS: BMI 38.4
== END 2024-04-13 11:52 | disposition home or self-care (01) ==
PROVIDERS: PCP Internal Medicine; Visit Provider Dietitian, Registered
DX: E11.9 Type 2 diabetes mellitus without complications (principal)

== ENCOUNTER → 2024-04-13 10:55 | Outpatient (BNVA) | payer OTHER, SELFPAY | PROVIDERS: PCP Internal Medicine; Visit Provider Dietitian, Registered | DX: E11.9 Type 2 diabetes mellitus without complications (principal); Z71.3 Dietary counseling and surveillance | CPT/HCPCS: 97802 ==

== ENCOUNTER 2024-05-07 08:10 | Outpatient (REF) | payer OTHER, SELFPAY ==
[2024-05-07 11:38] LABS: Estimated Average Glucose 131 mg/dL; Hemoglobin A1C 145.2896 umol/L; Hemoglobin A1c % 6.2 % (<6.0); Total Hemoglobin (HGBA1C) 3324.2231 umol/L
[2024-05-07 12:00] LABS: Alanine Aminotransferase 22 U/L (0-31); Anion Gap 11 (12-20); Aspartate Amino Transferase 21 U/L (5-31); Blood Urea Nitrogen 15 mg/dL (9-16); Calcium 9.6 mg/dL (8.4-10.2); Carbon Dioxide 28 mmol/L (22-29); Chloride 107 mmol/L (96-108); Cholesterol 123 mg/dL (<200); Estimated Glomerular Filt Rate > 60; Glucose Fasting 109 mg/dL (60-99); HDL Cholesterol 44 mg/dL (>40); LDL Cholesterol Calculated 59 mg/dL (<100); Potassium 4.1 mmol/L (3.3-5.1); Sodium 142 mmol/L (135-145); Triglycerides 103 mg/dL (<150)
== END 2024-05-07 08:11 | disposition home or self-care (01) ==
LOC: HO.HMGCLDS 08:10
PROVIDERS: PCP Internal Medicine; Visit Provider Internal Medicine
DX: I25.10 Atherosclerotic heart disease of native coronary artery without angina pectoris (principal); M81.0 Age-related osteoporosis without current pathological fracture; E11.9 Type 2 diabetes mellitus without complications; E78.5 Hyperlipidemia, unspecified; I10 Essential (primary) hypertension
CPT/HCPCS: 36415; 80048; 80061; 83036; 84450; 84460

== ENCOUNTER 2024-05-09 09:12 | Outpatient (AMB) | payer OTHER, SELFPAY ==
[2024-05-09 09:29] VITALS: BP 128/68; PULSE 63; O2SAT 98; BMI 39.6
--- NOTE | 2024-05-09 09:29 | A.OFFPC_ITS ---
Vital Signs 05/09/24 09:29 Height 5 ft 5 in Weight 238 lb BMI 39.6 BP 128/68 Blood Pressure Location Lt brachial Position Sitting Pulse 63 Pulse Source Pulse Oximeter Pulse Oximetry (%) 98 Oxygen Delivery Method Room Air Intake Visit Reasons: Follow Up Intake Note: Pt is here today for her f/u lipids Allergies mold,trees,dust,cats,dogs Allergy (Unknown, Uncoded 05/15/24 22:14) unknown strawberries Allergy (Unknown, Uncoded 05/15/24 22:14) hives Medication List - Last Reconciled 05/15/24 by Marquita Gonzales MD albuterol sulfate 90 mcg/actuation 2 puffs inhalation Q6H PRN alendronate 70 mg PO QWEEK aspirin (Adult Aspirin Regimen) 81 mg PO DAILY blood sugar diagnostic (FreeStyle Lite Strips) Check fasting blood sugar once a day blood-glucose meter (FreeStyle [place] Lite kit) As directed budesonide-formoterol 160-4.5 mcg/actuation 1 inh inhalation BID calcium carbonate (Calcium 500) 500 mg PO DAILY citalopram 20 mg PO DAILY clopidogrel (Plavix) 75 mg PO DAILY irbesartan 75 mg PO DAILY ketotifen fumarate 0.025%(0.035%) (Zaditor) 1 drp ophthalmic-Right Q12H lancets (FreeStyle Lancets) Check fasting glucose once a day latanoprost 0.005% 1 drp ophthalmic (eye) QPM levocetirizine (Xyzal) 5 mg PO QPM PRN magnesium oxide 400 mg PO DAILY metformin ER 500 mg PO QPM methocarbamol 500 mg PO TID PRN montelukast 10 mg PO DAILY multivitamin 1 tab PO DAILY rosuvastatin 40 mg PO DAILY spironolacton-hydrochlorothiaz 25-25 mg 2 tabs PO DAILY vitamin B complex (B Complex-Vitamin B12 tablet) 1 tab PO DAILY Tobacco use date assessed: 05/09/24 Dental Screening Dental Screen Date: 05/09/24 Did you have a dental visit in the last 12 months?: Yes Did you have a dental problem in the last 6 months where you did not have access to dental care?: No Was dental information given to patient?: Patient has dentist HPI Follow Up HPI Details - The patient is a 63-year-old female pr esenting for follow up of Type 2 Diabetes Mellitus. - Diagnosed previously, currently manage d with metformin. HbA1c stable at 6.2% over the past year, though previously was 5.9% the prior year. - Hypercholesterolemia discussed with re cent lab results: - Triglycerides higher than last check , but within normal range. Low-density lipoprotein cholesterol decreased from 85 to 59 mg/dl, High-density lipoprotein decreased from 53 to 44. - seen by endocrine clinic for history of multinodular goiter. Underwent FNA biopsy on 11/15/2020 of a L isthmus 2.0 cm thyroid nodule and a R isthmus 1.0 cm thyroid nodule, both with benign cytology.. . She appears to be clinically and biochemically euthyroid . Last at TSH and free T4 checked 11/2023 were within normal limits . Plan is to repeat thyroid ultrasound in 2 years time. - continues to do exercise at home , ta ught at cardiac rehab - Up-to-date on COVID booster, flu, pneu monia, shingles, and tetanus vaccines. [facility] Medical History Osteoporosis of lumbar spine Incomplete right bundle branch block (RBBB) determined by electrocardiography Hearing loss Family history of early CAD Intermittent left-sided chest pain Seasonal allergies Plantar fasciitis, right Mild intermittent asthma in adult without complication Scalp cyst Nontoxic multinodular goiter Lung nodule < 6cm on CT Cervical spondylosis DJD (degenerative joint disease), lumbar 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 Primary open angle glaucoma, right eye Retinoblastoma of left eye Polycystic ovaries Morbid obesity Multiple thyroid nodules Menopause Type 2 diabetes mellitus without complication, without long-term current use of insulin Dyslipidemia Hypertension Surgical History S/P cardiac catheterization Status post phlebectomy H/O eye surgery H/O hernia repair H/O bilateral breast reduction surgery H/O section H/O thyroidectomy Hx of cholecystectomy Family History Father CAD (coronary artery disease) Myocardial infarction CVD (cardiovascular disease) Substance use disorder Mother Diabetes mellitus HTN (hypertension) Maternal Grandfather No problems noted. Maternal Grandmother No problems noted. Paternal Grandfather No problems noted. Paternal Grandmother No problems noted. Brother Substance use disorder Mental health disorder Sister No problems noted. Sister Substance use disorder Sister No problems noted. Sister No problems noted. Son No problems noted. Daughter No problems noted. 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 1. Little interest or pleasure in doing things: not at all 2. Feeling down, depressed, or hopeless: not at all 4. Feeling tired or having little energy: several days 5. Poor appetite or overeating: not at all 6. Feeling bad about yourself - or that you are a failure or have let yourself or your family down: not at all 8. Moving or speaking so slowly that other people could have noticed. Or the opposite - being so fidgety or restless that you have been moving around a lot more than usual: several days Depression Screening Interpretation: Negative Depression Screening Done: Yes Source: Developed by Drs. Lucien Greenberg, Tika Ryan, Raúl Marmolejo and colleagues, with an educational julian from [employer]. Thrive Questionnaire Date Thrive assessed: 05/09/24 I am a: Patient What is your living situation today?: I have a steady place to live Within the past 12 months, did the food you bought not last and you didn't have the money to get more?: Never true Within the past 12 months, did you worry whether your food would run out before you got money to buy more?: Never true Do you have trouble paying for medicines?: No Do you have trouble getting transportation to medical appointments?: No Do you have trouble paying your heating and electricity bill?: No Do you have trouble taking care of your child, family member or friend?: No Do you have trouble with day-to-day activities such as bathing, preparing meals, shopping, managing finances, etc.?: No Are you currently unemployed and looking for a job?: No Are you interested in more education?: Yes Please select the resources that you would like help with: Job search/training Currently or been in a relationship where the following occur: No concerns reported THRIVE Score: 0 AUDIT C Alcohol Use Questionnaire (AUDIT-C) 1. How often do you have a drink containing alcohol?: Never 3. How often do you have six or more drinks on one occasion?: Never Total Score: 0 MONIK-7 AMB Questionnaire MONIK-7 Date MONIK - 7 assessed: 11/05/23 Feeling nervous, anxious, or on edge: 0 = Not at all Not being able to stop or control worryin = Several days Worrying too much about different things: 0 = Not at all Trouble relaxin = Not at all Being so restless that it is hard to sit still: 0 = Not at all Becoming easily annoyed or irritable: 1 = Several days Feeling afraid as if something awful might happen: 0 = Not at all Total MONIK-7 score (0-4 normal; 5-9 mild; 10-14 moderate; 15-21 severe): 2 Source: Developed by Drs. Lucien Greenberg, Tika Ryan, Raúl Marmolejo and colleagues, with an educational julian from [employer]. Review of Systems Const Denies weakness Eyes Reports no additional complaints ENT Denies dizziness Card Denies chest pain, Denies chest pain with activity, Denies syncope, Denies rapid heart rate, Denies edema, Denies lightheadedness, Denies palpitations, Denies dyspnea and Denies dyspnea on exertion Resp Denies cough, Denies dyspnea and Denies dyspnea on exertion GI Denies hematochezia and Denies change in stool character Reports no additional complaints Musc Details: sees Dr Villanueva , podiatry in [place] Denies abnormal gait, Denies muscle cramps, Denies muscle weakness, Denies numbness, Denies radiating pain into limb and Denies tingling Neuro Denies abnormal gait, Denies dizziness, Denies syncope, Denies numbness, Denies tingling and Denies weakness Endo Denies palpitations Kenji/Lymph Reports no additional complaints Aller/Immun Reports no additional complaints Physical exam (Primary Care) Vital Signs: Last Vital Signs Pulse 63 05/09/24 09:29 BP 128/68 05/09/24 09:29 Pulse Ox 98 05/09/24 09:29 Oxygen Delivery Method Room Air 05/09/24 09:29 BMI result Body Mass Index 39.6 Tobacco/Smoking Status: Tobacco use Status Tobacco use date assessed 05/09/24 05/09/24 09:39 Patient Tobacco Use Status Former Tobacco user 05/09/24 09:31 e-Cigarette/Vaping Use Never Used 05/09/24 09:31 Depression Screening Interpretation: Negative Thrive Assessment: Date of Thrive Assessment Date Thrive assessed 05/09/24 05/09/24 09:39 Currently or been in a relationship where the following occur: No concerns reported Const Other: Alert oriented x3, no acute distress noted ambulatory normal gait Nutritional Appearance: obese morbidly obese Orientation/consciousness: patient oriented x3 HENMT Head: Yes normocephalic Ears: external ears normal, TM's normal bilaterally and EAC's normal General nose exam: Normal external nose present Face and sinus: Yes face symmetric Mouth: oropharynx normal and moist mucous membranes Eyes Other: Artificial left eye Neck Neck: Yes full ROM, Yes no lymphadenopathy and Yes supple Resp Auscultation: clear to auscultation bilaterally Cardio Other: S1-S2 present regular rate and rhythm GI Other: Normal bowel sounds, soft, nontender General: Yes no CVA tenderness Back/Spine/Pelvis Back: no CVA tenderness and No back tenderness Cervical Spine: normal cervical lordosis and cervical ROM normal Thoracic/Lumbar Spine: thoraco-lumbar ROM normal Skin General skin exam: no rashes or lesions noted Neuro General: patient oriented x3, gait normal, tone normal, moves all extremities, Normal light touch and pain sensation, no focal motor deficits and CN's II-XI intact bilaterally Extrem General: Yes full ROM, Yes no joint enlargement, Yes no pedal edema and Yes normal gait Results Reviewed Results Reviewed: Laboratory Tests 05/07/24 08:32 Estimat Average Glucose 131 Hemoglobin A1c % 6.2 H Name: Isabella Gonzalez Age/Sex: 63/F : 1960 Unit#: [id number] Attend Dr: Marquita Gonzales MD Re05/07/24 Status: DEP REF Location: [facility] Disch: SPEC : [id number] SHANE: 05/07/24 STATUS: COMP REQ : [id number] RECD: 05/07/[address]: Marquita Gonzales MD COMP: 05/07/24 ENTERED: 05/07/24 [facility] DR: ORDERED: Met Prof Fast, AST, ALT, Lipid Panel Test Result Flag Reference Sodium 142 135-145 mmol/L Potassium 4.1 # 3.3-5.1 mmol/L CL 107 96-108 mmol/L CO2 28 22-29 mmol/L Gap 11 L 12-20 BUN 15 9-16 mg/dL Creat 0.73 0.5-1.4 mg/dL eGFR > 60 Chronic Kidney Disease: Estimated GFR < 60 mL/min/1.73m2 Severe Kidney Disease: Estimated GFR < 15 mL/min/1.73m2 FBS 109 H 60-99 mg/dL A fasting glucose from 100-125 mg/dl is considered impaired (pre-diabetes). CA 9.6 8.4-10.2 mg/dL AST (GOT) 21 5-31 U/L ALT (GPT) 22 0-31 U/L Triglyceride 103 <150 mg/dL Desirable Triglyceride: less than 150 mg/dL Borderline High Triglyceride 150-199 mg/dL High Triglyceride: 200-499 mg/dL Very High Triglyceride: greater than or equal to 5OO mg/dL Cholesterol 123 <200 mg/dL Desirable Cholesterol: less than 200 mg/dL Borderline High Cholesterol: 200-239 mg/dL High Cholesterol: greater than 239 mg/dL LDL Calculated 59 <100 mg/dL Desirable LDL: less than 100 mg/dL Near Optimal/Above Optimal LDL: 110-129 mg/dL Borderline High LDL: 130-159 mg/dL High LDL: 160-189 mg/dL Very High LDL: greater than or equal to 190 mg/dL HDL 44 >40 mg/dL Desirable HDL: greater than 40 mg/dL Note: This HDL assay may give artificially low results in patients with liver disease. Coding Level of Care Code Est Pt Level 4 (37424) Complex EM visit Add On G2211 Diagnoses Essential hypertension I10 Hypertension type: essential hypertension Dyslipidemia E78.5 Type 2 diabetes mellitus without complication, without long-term current use of insulin E11.9 Assessment & Plan Assessment & Plan (1) Hypertension: Code(s): I10 - Essential (primary) hypertension Category: Medical Qualifiers: Hypertension type: essential hypertension Qualified Code(s): I10 - Essential (primary) hypertension (2) Dyslipidemia: Code(s): E78.5 - Hyperlipidemia, unspecified Category: Medical (3) Type 2 diabetes mellitus without complication, without long-term current use of insulin: Comment: atherosclerotic cvd, dyslipidemia, htn Code(s): E11.9 - Type 2 diabetes mellitus without complications Category: Medical Plan - Continue current diabetes management with metformin ER 500 mg at night latest HbA1c at 6.2 % - Encourage weight reduction through diet and exercise to improve diabetic control and hypercholesterolemia. - Monitor thyroid goiter annually; blood test to check thyroid function in November next year, repeat tHyroid US in 2 years - blood pressure stable controlled on irbesartan 75 mg daily - latest fasting lipids are within normal limits, continue with rosuvastatin 40 mg daily. Instrument Calibrator on increasing HDL through cardiovascular exercise. - Plan for scheduling a physical examination in July next year. - Order blood work before the next examination. Patient was informed and verbally consented to the use of an ambient scribe for clinic note documentation during this visit. Orders: Orders Hemoglobin A1c 07/23/24 E11.9 - Type 2 diabetes mellitus without complications, E78.5 - Hyperlipidemia, unspecified, I10 - Essential (primary) hypertension, M81.0 - Age-related osteoporosis without current pathological fracture, Z78.0 - Asymptomatic menopausal state Lipid Panel 07/23/24 E11.9 - Type 2 diabetes mellitus without complications, E78.5 - Hyperlipidemia, unspecified, I10 - Essential (primary) hypertension, M81.0 - Age-related osteoporosis without current pathological fracture, Z78.0 - Asymptomatic menopausal state Alanine Aminotransferase 07/23/24 E11.9 - Type 2 diabetes mellitus without complications, E78.5 - Hyperlipidemia, unspecified, I10 - Essential (primary) hypertension, M81.0 - Age-related osteoporosis without current pathological fracture, Z78.0 - Asymptomatic menopausal state Aspartate Amino Transferase 07/23/24 E11.9 - Type 2 diabetes mellitus without complications, E78.5 - Hyperlipidemia, unspecified, I10 - Essential (primary) hypertension, M81.0 - Age-related osteoporosis without current pathological fracture, Z78.0 - Asymptomatic menopausal state Vitamin D 25-OH Total 07/23/24 E11.9 - Type 2 diabetes mellitus without complications, E78.5 - Hyperlipidemia, unspecified, I10 - Essential (primary) hypertension, M81.0 - Age-related osteoporosis without current pathological fracture, Z78.0 - Asymptomatic menopausal state Complete Blood Count Auto Diff 07/23/24 E11.9 - Type 2 diabetes mellitus without complications, E78.5 - Hyperlipidemia, unspecified, I10 - Essential (primary) hypertension, M81.0 - Age-related osteoporosis without current pathological fracture, Z78.0 - Asymptomatic menopausal state Microalbumin, Random (w Creat) 07/23/24 E11.9 - Type 2 diabetes mellitus without complications, E78.5 - Hyperlipidemia, unspecified, I10 - Essential (primary) hypertension, M81.0 - Age-related osteoporosis without current pathological fracture, Z78.0 - Asymptomatic menopausal state Basic Metabolic Panel Fasting 07/23/24 E11.9 - Type 2 diabetes mellitus without complications, E78.5 - Hyperlipidemia, unspecified, I10 - Essential (primary) hypertension, M81.0 - Age-related osteoporosis without current pathological fracture, Z78.0 - Asymptomatic menopausal state
== END 2024-05-09 12:50 | disposition home or self-care (01) ==
PROVIDERS: PCP Internal Medicine; Visit Provider Internal Medicine
DX: I10 Essential (primary) hypertension (principal); E78.5 Hyperlipidemia, unspecified; E11.9 Type 2 diabetes mellitus without complications

== ENCOUNTER 2024-06-01 09:45 | Outpatient (AMB) | payer OTHER, SELFPAY ==
[2024-06-01 09:54] VITALS: BMI 39.0
--- NOTE | 2024-06-01 09:54 | A.OFFVIS_ITS ---
VS Expanded 06/01/24 09:54 Height 5 ft 5 in Weight 234 lb 9.149 oz BMI 39.0 Intake Visit Reasons: T2DM Allergies mold,trees,dust,cats,dogs Allergy (Unknown, Uncoded 05/15/24 22:14) unknown strawberries Allergy (Unknown, Uncoded 05/15/24 22:14) hives Nutrition Presentation Details: Pt presents for MNT f/u for T2DM Pt has questions regarding meal replacements BS Monitoring Most Recent Diabetes Results: Cholesterol 123 mg/dL (<200) 05/07/24 HDL Cholesterol 44 mg/dL (>40) 05/07/24 Triglycerides 103 mg/dL (<150) 05/07/24 Creatinine 0.73 mg/dL (0.5-1.4) 05/07/24 Blood Urea Nitrogen 15 mg/dL (9-16) 05/07/24 Sodium 142 mmol/L (135-145) 05/07/24 Potassium 4.1 mmol/L (3.3-5.1) 05/07/24 Chloride 107 mmol/L (96-108) 05/07/24 Carbon Dioxide 28 mmol/L (22-29) 05/07/24 Calcium 9.6 mg/dL (8.4-10.2) 05/07/24 AST 21 U/L (5-31) 05/07/24 ALT 22 U/L (0-31) 05/07/24 PFS Medical History Osteoporosis of lumbar spine Incomplete right bundle branch block (RBBB) determined by electrocardiography Hearing loss Family history of early CAD Intermittent left-sided chest pain Seasonal allergies Plantar fasciitis, right Mild intermittent asthma in adult without complication Scalp cyst Nontoxic multinodular goiter Lung nodule < 6cm on CT Cervical spondylosis DJD (degenerative joint disease), lumbar 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 Primary open angle glaucoma, right eye Retinoblastoma of left eye Polycystic ovaries Morbid obesity Multiple thyroid nodules Menopause Type 2 diabetes mellitus without complication, without long-term current use of insulin Dyslipidemia Hypertension Surgical History S/P cardiac catheterization Status post phlebectomy H/O eye surgery H/O hernia repair H/O bilateral breast reduction surgery H/O section H/O thyroidectomy Hx of cholecystectomy Family History Father CAD (coronary artery disease) Myocardial infarction CVD (cardiovascular disease) Substance use disorder Mother Diabetes mellitus HTN (hypertension) Maternal Grandfather No problems noted. Maternal Grandmother No problems noted. Paternal Grandfather No problems noted. Paternal Grandmother No problems noted. Brother Substance use disorder Mental health disorder Sister No problems noted. Sister Substance use disorder Sister No problems noted. Sister No problems noted. Son No problems noted. Daughter No problems noted. 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: No Cognitive needs: No Hearing needs: Yes Vision needs: Yes Assessment & Plan Assessment & Plan (1) Type 2 diabetes mellitus without complication, without long-term current use of insulin: Comment: atherosclerotic cvd, dyslipidemia, htn Code(s): E11.9 - Type 2 diabetes mellitus without complications Category: Medical Plan: Wt:105 Kg ( 04/17 ), 107 kg(06/18) Est kcal needs as per MSJ: 2000 (40% carb, 30% protein/fat) Est fluid needs as per 25-30 ml/d: 3100 Est prot per day as per 1 g/kg bw: 105 Recommend fiber intake : 8-10 g per day and gradually increase to 25-28 g per day for women and 35-38 g for men or as tolerated Recommend sodium intake per day : less than 2300 mg Educated patient on: ( R = reviewed V = verbalizes understanding N/R = needs review N/A = not applicable * Food sources of carbohydrate, adequate serving sizes and its role in various health conditions: R * Differences between complex carbohydrates a simple carbohydrates, role of fiber in diet: R * Lean protein sources of foods: R V NR * Differences between types of fats and role in diet (mono on saturated fat fatty acids, saturated fatty acids, trans fats): R * Food sources of sodium in salt and healthy modifications for heart health in kidney health: R V R/V * Vitamins and minerals: R V N/R * Healthy plate method concept: R V N/R * Physical activity: Benefits a precaution: R V N/R * Hypoglycemia protocol (rule of 15): R V N/R * Dietary prevention of Hyperglycemia: R Patient Instructions: Continue working on reducing sugars (pastries, syrups and similar foods) Have a meal replacement once a day Choose a fruit in place of popcorn as snack reducing on salt Coding Level of Care Code Nutr Indiv Subseq (41612) Diagnoses Type 2 diabetes mellitus without complication, without long-term current use of insulin E11.9 Time Spent (min) 30
== END 2024-06-01 10:23 | disposition home or self-care (01) ==
PROVIDERS: PCP Internal Medicine; Visit Provider Dietitian, Registered
DX: E11.9 Type 2 diabetes mellitus without complications (principal)

== ENCOUNTER → 2024-06-01 09:45 | Outpatient (BNVA) | payer OTHER, SELFPAY | PROVIDERS: PCP Internal Medicine; Visit Provider Dietitian, Registered | DX: E11.9 Type 2 diabetes mellitus without complications (principal); I25.10 Atherosclerotic heart disease of native coronary artery without angina pectoris; E78.5 Hyperlipidemia, unspecified; I10 Essential (primary) hypertension; Z71.3 Dietary counseling and surveillance | CPT/HCPCS: 97803 ==

== ENCOUNTER 2024-06-29 08:52 | Outpatient (REF) | payer OTHER, SELFPAY ==
--- OUTSIDE RECORDS SUMMARY | 2024-06-29 12:01 | XMS_ITS | Encounter Summary ---
Author Organization [facility] Address [address] [place] [address] Care Team Providers Care Instructional Technology Director Name Role Phone Marquita Gonzales MD Primary Care Provider [phone] Reason for Referral * Therapy (Routine) - Pending Review Specialty Diagnoses / Procedures Referred By Contac t Referred To Contact Pulmonology Diagnoses Moderate persistent asthma without complication Chronic obstructive pulmonary disease, unspecified COPD type ([facility]) Procedures Pulmonary function testing: Carbon Monoxide Diffusing Capacity, Nitrogen Wash Out, Spirometry with Bronchodilator Mikael Leon MD [address] [address] [facility] [address] [place] [address] Referral ID Status Reason Start Date Expiration Date V isits Requested Visits Authorized [id number] Pending Review 06/13/2024 06/13/2025 1 1 * Medications - Pending Review Specialty Diagnoses / Procedures Referred By Contarin t Referred To Contact Diagnoses Moderate persistent asthma without complication Mikael Leon MD [address] [address] Referral ID Status Reason Start Date Expiration Date V isits Requested Visits Authorized [id number] Pending Review 1 1 Reason for Visit * Reason Comments COPD F/u copd Encounter Details Date Type Department Care Team ([facility] st Contact Info) Description 06/13/2024 9:45 AM EST Office Visit Pulmonolgy - [place] 175 [facility] [address] [place] [phone] Mikael Leon MD 175 [facility] [address] [place] [address] Moderate persistent asthma without complication (Primary Dx); Chronic obstructive pulmonary disease, unspecified COPD type ([facility]); Morbid obesity with BMI of 40.0-44.9, adult ([facility]) Social History Tobacco Use Types Packs/Day Years [...] 1 tablet (81 mg total). blood-glucose meter [facility] budesonide-formoteroL (SYMBICORT) 160-4.5 mcg/actuation inhaler INHALE 2 PUFFS INTO THE LUNGS TWO TIMES A DAY calcium carbonate/mag carb (CALCIUM ACETATE-MAGNESIUM CARB ORAL) Take by mouth. citalopram (CeleXA) 10 mg tablet Take 1 tablet (10 mg total) by mouth. clopidogreL (PLAVIX) 75 mg tablet fluocinonide (LIDEX) 0.05 % ointment fluticasone-salmeterol (ADVAIR DISKUS) 250-50 mcg/dose diskus inhaler Inhale 1 puff by mouth. FREESTYLE LANCETS [facility] irbesartan (AVAPRO) 75 mg tablet Take 1 [...] Morbid obesity with BMI of 40.0-44.9, adult ([facility]) 02/21/2019 DORCAS (obstructive sleep apnea) 09/06/2018 Moderate persistent asthma without complication 09/06/2018 Sinusitis 09/06/2018 Chronic obstructive pulmonary disease ([facility]) 02/10/2017 Pulmonary nodule 02/10/2017 Past Surgical History: Procedure Laterality Date BREAST CYST ASPIRATION Right BREAST REDUCTION 1996 PROCEDURE: [place] BREAST REDUCTION SECTION PROCEDURE: HISTORICAL CHOLECYSTECTOMY PROCEDURE: HISTORICAL CHOLECYSTECTOMY EYE SURGERY Left 1963 PROCEDURE: HISTORICAL EYE SURGERY; COMMENT: retinoblastoma w/enucleation OTHER SURGICAL HISTORY PROCEDURE: HISTORY OTHER; COMMENT: hernia repair w/mesh FAMILY HISTORY: Family History Problem Relation Name Age of Onset Diabetes Mother HTN Coronary artery disease Father 54 [place], CVD Breast cancer Mother's Sister OCCUPATION OR [...] Chronic obstructive pulmonary disease, unspecified COPD type ([facility]) J44.9 496 Pulmonary function testing: Carbon Monoxide Diffusing Capacity, Nitrogen Wash Out, Spirometry with Bronchodilator 3. Morbid obesity with BMI of 40.0-44.9, adult ([facility]) E66.01 278.01 Z68.41 V85.41 PLAN: I reviewed [...] 8:45 AM EDT Office Visit Pulmonolgy - [place] 175 [facility] [address] [place] [phone] Mikael Leon MD 175 [facility] [address] [place] [address] Scheduled Orders Name Type Priority Associated Diagnoses [...] (CMS/HCC) documented in this encounter Care Teams Instructional Technology Director Relationship Specialty Start Date End Date Marquita Gonzales MD [address] [place] [address] PCP - General Internal Medicine 02/13/20 documented as of this encounter
--- OUTSIDE RECORDS SUMMARY | 2024-06-29 12:01 | XMS_ITS | Clinical Summary ---
Author Organization [facility] Address [address] [place] [address] Phone Care Team Providers Care Fishing Tackle Repairer Name Role Phone Marquita Gonzales MD Primary Care Provider [phone] Allergies No known active allergies Medications Medication [...] TO 30 DAYS DIRECTED Active [facility] [place] budesonide-formotero L (SYMBICORT) 160-4.5 mcg/actuation inhaler [...] 9:45 AM EST Office Visit Pulmonolgy - [place] 175 [facility] [address] [place] [phone] Mikael Leon MD Moderate persistent asthma without complication (Primary Dx); Chronic obstructive pulmonary disease, unspecified COPD type ([facility]); Morbid obesity with BMI of 40.0-44.9, adult ([facility]) 04/02/2024 8:00 AM EST - 04/02/2024 11:59 PM EST Hospital [facility]counter [facility] [address] [place] [phone] Encounter for screening mammogram for breast cancer [...] SECTION PROCEDURE: HISTORICAL BREAST REDUCTION 1996 PROCEDURE: [place] BREAST REDUCTION OTHER SURGICAL HISTORY PROCEDURE: HISTORY OTHER; COMMENT: hernia repair w/mesh EYE SURGERY 1962 Left PROCEDURE: HISTORICAL EYE SURGERY; COMMENT: retinoblastoma w/enucleation BREAST CYST ASPIRATION Right Medical History Medical History Date Comments Pulmonary nodule 02/10/2017 DX:Pulmonary no dule Chronic obstructive pulmonar y disease ([facility]) 02/10/2017 DX:Chronic obstructive pulmo nary disease (HCC) Moderate persistent asthma w ithout complication 09/06/2018 DX:Moderate persistent asthm a without complication DORCAS (obstructive sleep apnea) 09/06/2018 DX :DORCAS (obstructive sleep apnea) Morbid obesity with BMI of 4 0.0-44.9, adult ([facility]) 02/21/2019 DX:Morbid obesity with BMI o f 40.0-44.9, adult ([facility]) PCOS (polycystic ovarian syndrome) 02/21/2019 DX:PCOS (polycystic [...] Relation Name Comments Coronary artery disease Father [place], CVD Diabetes Mother HTN Breast cancer Mother's [...] 8:45 AM EDT Office Visit Pulmonolgy - [place] 175 [facility] [address] [place] [address] Mikael Leon MD 175 [facility] [address] [place] [address] Health Maintenance Due Date Last Done Comments [...] year. Mammo Location: [facility], [address] [place] [address], [address], . -------- FINAL REPORT -------- Dictated By: Lynnette Arechiga Dictated Date: 04/04/2024 09:20 ET Assigned Physician: Lynnette Arechiga Reviewed and Electronically Signed By: Lynnette Arechiga Signed Date: 04/04/2024 09:21 ET Workstation ID: [id number] Transcribed By: Self Edit Transcribed Date: 04/04/2024 09:20 ET Narrative 04/04/2024 9:21 AM EST HISTORY: Screening. Reduction mammoplasty in 1996. Maternal aunt had breast carcinoma. COMPARISON: 02/12/23, 02/01/22, 01/21/21 ?? TECHNIQUE: Bilateral digital breast tomosynthesis was performed in the CC and MLO projections. Computer aided detection with [employer] 3D 3.1 was employed. BREAST DENSITY: B [...] MLO projections. Computer aided detection with iCAD [employer] 3D 3.1was employed. BREAST DENSITY: B - [...] year. Mammo Location: [facility], [address] [place] [address], [address], . -------- FINAL REPORT -------- Dictated By: Lynnette Arechiga Dictated Date: 04/04/2024 09:20 ET Assigned Physician: Lynnette Arechiga Reviewed and Electronically Signed By: Lynnette Arechiga Signed Date: 04/04/2024 09:21 ET Workstation ID: [id number] Transcribed By: Self Edit Transcribed Date: 04/04/2024 09:20 ET Marquita Gonzales MD IMG BI PROCEDURES from Last 3 Months Care Teams Fishing Tackle Repairer Relationship Specialty Start Date End Date Marquita Gonzales MD [address] [facility] [place] [address] PCP - General Internal Medicine 02/13/20
== END 2024-06-29 08:53 | disposition home or self-care (01) ==
LOC: HO.LAB 08:52
PROVIDERS: PCP Internal Medicine
DX: M54.9 Dorsalgia, unspecified (principal)
CPT/HCPCS: 87086

== ENCOUNTER 2024-06-29 09:34 | Outpatient (REF) | payer OTHER, SELFPAY ==
--- NOTE | ~2024-06-29 | XR_ITS ---
EXAMINATION: XR KNEE, RIGHT CLINICAL INFORMATION: M25.569 - Pain in unspecified knee COMPARISON: None. TECHNIQUE: Three views of the right knee. FINDINGS: No fracture, dislocation, or suspicious bone lesion. Normal alignment. Minimal degenerative arthritis tricompartmental, with minimal joint space narrowing and tiny marginal osteophytes, most notable laterally. Mild spurring of the tibial spines. There is a small suprapatellar joint effusion. There is no soft tissue abnormality. XR/XR knee RT 3V IMPRESSION: 1. No acute findings right knee. 2. Small suprapatellar effusion. 3. Mild tricompartmental degenerative arthritis. Electronically signed by: Champ Lock MD 06/29/2024 10:03 AM ERIKA
--- OUTSIDE RECORDS SUMMARY | 2024-06-29 10:05 | XMS_ITS | Encounter Summary ---
Author Organization [facility] Address [address] [place] [address] Care Team Providers Care Territory Sales Manager Name Role Phone Marquita Gonzales MD Primary Care Provider [phone] Reason for Referral * Therapy (Routine) - Pending Review Specialty Diagnoses / Procedures Referred By Contac t Referred To Contact Pulmonology Diagnoses Moderate persistent asthma without complication Chronic obstructive pulmonary disease, unspecified COPD type ([facility]) Procedures Pulmonary function testing: Carbon Monoxide Diffusing Capacity, Nitrogen Wash Out, Spirometry with Bronchodilator Mikael Leon MD [address] [address] [facility] [address] [place] [address] Referral ID Status Reason Start Date Expiration Date V isits Requested Visits Authorized [id number] Pending Review 06/13/2024 06/13/2025 1 1 * Medications - Pending Review Specialty Diagnoses / Procedures Referred By Contarin t Referred To Contact Diagnoses Moderate persistent asthma without complication Mikael Leon MD [address] [address] Referral ID Status Reason Start Date Expiration Date V isits Requested Visits Authorized [id number] Pending Review 1 1 Reason for Visit * Reason Comments COPD F/u copd Encounter Details Date Type Department Care Team ([facility] st Contact Info) Description 06/13/2024 9:45 AM EST Office Visit Pulmonolgy - [place] [address] [facility] [address] [place] [phone] Mikael Leon MD [address] [facility] [address] [place] [address] Moderate persistent asthma without complication (Primary Dx); Chronic obstructive pulmonary disease, unspecified COPD type ([facility]); Morbid obesity with BMI of 40.0-44.9, adult ([facility]) Social History Tobacco Use Types Packs/Day Years Used Date Smoking Tobacco: Former Cigarettes Q uit: 05/25/2015 Smokeless Tobacco: Never Alcohol Use Standard Drinks/Week Comments Yes 0 (1 standard drink = 0.6 oz pur e alcohol) Sex and Gender Information Value Date Recorded Sex Assigned at Not on file Gender Identity Not on file Sexual Orientation Not on file Job Start Date Occupation Industry Not on file Not on file Not on file documented as of this encounter Last Filed Vital Signs Vital Sign Reading Time Taken Comments Blood Pressure 130/66 06/13/2024 10:04 AM EST Pulse 62 06/13/2024 10:04 AM EST Temperature 36.3 ??C (97.3 ??F) 06/13/2024 10:[address] Respiratory Rate 20 06/13/2024 10:04 AM EST Oxygen Saturation 94% 06/13/2024 10:04 AM EST Inhaled Oxygen Concentration - - Weight 109 kg (241 lb) 06/13/2024 10:04 AM EST Height 165.1 cm (5' 5 ) 06/13/2024 10:04 AM EST Body Mass Index 40.1 06/13/2024 10:04 AM EST documented in this encounter Ordered Prescriptions Prescription Sig Dispensed Refills Start Date End Da te albuterol HFA (PROAIR HFA ; PROVENTIL HFA ; VENTOLIN HFA) 90 mcg/actuation inhalerIndications:Moderat e persistent asthma without complication Inhale 2 puffs by mouth every 6 (six) hours if needed for wheezing. 6.7 g 11 06/13/2024 06/13/2025 documented in this encounter Progress Notes * Mikael Leon MD - 06/13/2024 9:45 AM EST ADULT PULMONARY CONSULT CHIEF COMPLAINT or REASON FOR CONSULTATION: COPD (F/u copd) HISTORY OF PRESENT ILLNESS: Isabella Gonzalez is a 63 y.o. years old, female with a history of DORCAS and COPD. Not on cpap-no drowsiness driving. I last saw her 6 months ago the patient is mostly stable without any exacerbations. She is on Symbicort, montelukast and as needed albuterol... ALLERGIES: No Known Allergies ACTIVE MEDICATIONS: Outpatient Medications Marked as Taking for the 06/13/24 encounter (Office Visit) with Mikael Leon MD Medication Sig Dispense Refill albuterol HFA (PROVENTIL HFA;VENTOLIN HFA) 108 (90 Base) MCG/ACT inhaler INHALE TWO PUFFS BY MOUTH FOUR TIMES A DAY NEEDED FOR COUGH OR WHEEZING FOR UP TO 30 DAYS DIRECTED albuterol sulfate (ProAir RespiClick) 90 mcg/actuation aerosol powdr breath activated Inhale 2 puffs by mouth. alendronate (FOSAMAX) 70 mg tablet amoxicillin (AMOXIL) 500 mg capsule aspirin 81 mg chewable tablet Chew 1 tablet (81 mg total). blood-glucose meter [facility] budesonide-formoteroL (SYMBICORT) 160-4.5 mcg/actuation inhaler INHALE 2 PUFFS INTO THE LUNGS TWO TIMES A DAY calcium carbonate/mag carb (CALCIUM ACETATE-MAGNESIUM CARB ORAL) Take by mouth. citalopram (CeleXA) 10 mg tablet Take 1 tablet (10 mg total) by mouth. clopidogreL (PLAVIX) 75 mg tablet fluocinonide (LIDEX) 0.05 % ointment fluticasone-salmeterol (ADVAIR DISKUS) 250-50 mcg/dose diskus inhaler Inhale 1 puff by mouth. FREESTYLE LANCETS [facility] irbesartan (AVAPRO) 75 mg tablet Take 1 tablet (75 mg total) by mouth 1 (one) time each day. latanoprost (XALATAN) 0.005 % ophthalmic solution Administer 2 drops into affected eye(s). metFORMIN XR (GLUCOPHAGE-XR) 500 mg 24 hr tablet Take 1 tablet (500 mg total) by mouth 1 (one) timeeach day. methocarbamoL (ROBAXIN) 500 mg tablet montelukast (SINGULAIR) 10 mg tablet Take 1 tablet (10 mg total) by mouth. multivitamine, geriatric, (Multivitamin 50 Plus) tablet Take by mouth. rosuvastatin (CRESTOR) 5 mg tablet Take 1 tablet (5 mg total) by mouth 3 (three) times a week. spironolactone-hydroCHLOROthiazide (ALDACTAZIDE) 25-25 mg per tablet Take 1 tablet (25 mg total) bymouth 1 (one) time each day. PROVIDER ATTESTS THAT THE MEDICATION LIST WAS OBTAINED, REVIEWED AND UPDATED. REVIEW OF SYSTEMS: GENERAL: No wt lost or fever ENT: +snoring Eye: RESPIRATORY: + cough, wheezing and dyspnea CARDIOVASCULAR: No chest pain, leg swelling or palpitations GI: No abdominal discomfort, MUSCULOSKELETAL: +backpain, +knee pain HEMATOLOGY/LYMPHOLOGY No prolonged bleeding, easy bruisability ENDOCRINE: no DM NEURO: No focal weakness : Psych: no depression PAST MEDICAL HISTORY: Patient Active Problem List Diagnosis Date Noted Lab test negative for COVID-19 virus 07/22/2020 Varicose vein of leg 02/21/2019 Hypertension 02/21/2019 CAD (coronary artery disease) 02/21/2019 PCOS (polycystic ovarian syndrome) 02/21/2019 Hyperlipidemia 02/21/2019 Anxiety 02/21/2019 DDD (degenerative disc disease), lumbar 02/21/2019 Bilateral deafness 02/21/2019 Morbid obesity with BMI of 40.0-44.9, adult ([facility]) 02/21/2019 DORCAS (obstructive sleep apnea) 09/06/2018 Moderate persistent asthma without complication 09/06/2018 Sinusitis 09/06/2018 Chronic obstructive pulmonary disease ([facility]) 02/10/2017 Pulmonary nodule 02/10/2017 Past Surgical History: Procedure Laterality Date BREAST CYST ASPIRATION Right BREAST REDUCTION 1996 PROCEDURE: MO BREAST REDUCTION SECTION PROCEDURE: HISTORICAL CHOLECYSTECTOMY PROCEDURE: HISTORICAL CHOLECYSTECTOMY EYE SURGERY Left 1963 PROCEDURE: HISTORICAL EYE SURGERY; COMMENT: retinoblastoma w/enucleation OTHER SURGICAL HISTORY PROCEDURE: HISTORY OTHER; COMMENT: hernia repair w/mesh FAMILY HISTORY: Family History Problem Relation Name Age of Onset Diabetes Mother HTN Coronary artery disease Father 54 [place], CVD Breast cancer Mother's Sister OCCUPATION OR 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 SOCIAL HISTORY Social History Socioeconomic History Marital status: Spouse name: Not on file Number of children: Not on file Years of education: Not on file Highest education level: Not on file Occupational History Not on file Tobacco Use Smoking status: Former Current packs/day: 0.00 Types: Cigarettes Quit date: 05/25/2015 Years since quittin.0 Smokeless tobacco: Never Substance and Sexual Activity Alcohol use: Yes Drug use: Never Sexual activity: Not on file Other Topics Concern Not on file Social History Narrative Not on file IMMUNIZATION: Immunization History Administered Date(s) Administered COVID-19 (Pfizer/Comirnaty) 12yo and older 02/23/2023, 02/27/2024 Influenza trivalent, 0.5mL, preservative free (Fluarix; FluLaval; Fluzone) ages 6mo and older (Afluria) 3 years and older 03/18/2018 Pfizer (ages 12 & older) Bivalent, COVID-19 06/07/2022 Pfizer SARS-CoV-2 COVID-19, mRNA, LNP-S, preservative free 07/03/2020, 07/24/2020, 02/14/2021 Pneumococcal polysaccharide 23 valent (Pneumovax 23) 2yo and older 12/15/2017 Tdap Tetanus diptheria acellular pertussis (Boostrix; Adacel) 7yo and older 05/05/2013 PHYSICAL EXAM: Visit Vitals BP 130/66 (BP Location: Left arm, Patient Position: Sitting, BP Cuff Size: Large adult) Pulse 62 Temp 36.3 ??C (97.3 ??F) (Temporal) Resp 20 Ht 1.651 m (65 ) Wt 109 kg (241 lb) SpO2 94% BMI 40.10 kg/m?? OB Status Postmenopausal Smoking Status Former BSA 2.14 m?? APPEARANCE: Alert and in no acute distress. Overweight EYES: Conjunctiva and sclera normal. NOSE/SINUS: Nares normal. Septum midline. Mucosa No drainage or sinus tenderness. MOUTH/THROAT: no erythema or exudates. Mallampati class 2 NECK: Neck supple, thyroid symmetric and of normal size. HEART: RRR with normal S1 and S2, no murmurs, no gallops, no JVD appreciated. LUNG: slight exp wheezing or bronchial bs ABDOMEN: Bowel sounds normoactive, soft, non-tender EXTREMITIES: no clubbing, cyanosis, or edema. LYMPH NODES: No cervical and supra-clavicular lymphadenopathy. NEURO: Awake, alert and oriented x 3, no focalization. DIAGNOSTIC DATA: 12/22/16 ahi 12/hr, lowest sat 87% CARDIOPULMONARY TEST: Last Pulmonary function Test showed: 07/2020 Fev1= 65%,Fvc= 74%, TLC= 112%, DlCO= 80% 01/2017- fev1 56%, Fvc= 61%. Fev1/fvc= 91%, TLC= 94%, DlCO= 63%. Moderate COPD RADIOLOGIST IMAGING: CT Lung Screening Low Dose - 12/22/23 - 1517 Report Status:Signed PROCEDURE: CT chest lung cancer screening low dose examination. INDICATION: CT lung screening. COMPARISON: CT chest October 2022. CT chest October 2021 FINDINGS: NODULES: Several small pulmonary nodules in the right and left chest appears stable from the previous exam. Stable tubular structure in the right lower lobe that likely represents a small vascular anomaly or malformation is stable to the recent exam as well as prior study in October 2021. LUNGS: Minimal emphysematous changes. Normal regions of atelectasis are noted. OTHER: Limited views of the upper abdomen appear normal. No significant mediastinal lymphadenopathy. Atherosclerotic disease of the aorta without aneu rysm. Coronary atherosclerotic disease. Mild degenerative changes in the spine. IMPRESSION: Stable examination with stable small pulmonary nodules as described above. ASSESSMENT: ICD-10-CM ICD-9-CM 1. Moderate persistent asthma without complication J45.40 493.90 albuterol HFA (PROAIR HFA ; PROVENTIL HFA ; VENTOLIN HFA) 90 mcg/actuation inhaler Pulmonary function testing: Carbon Monoxide Diffusing Capacity, Nitrogen Wash Out, Spirometry with Bronchodilator 2. Chronic obstructive pulmonary disease, unspecified COPD type ([facility]) J44.9 496 Pulmonary function testing: Carbon Monoxide Diffusing Capacity, Nitrogen Wash Out, Spirometry with Bronchodilator 3. Morbid obesity with BMI of 40.0-44.9, adult ([facility]) E66.01 278.01 Z68.41 V85.41 PLAN: I reviewed the patient's chest CT scan, there is mild emphysema changes. The patient stopped smoking almost 10 years ago. I will continue Symbicort and montelukast. I will repeat a PFT to follow-up on the FEV1 the last in 2020 showed improvement compared to 2017. This is due to smoking cessation. Weight loss will improve her symptoms. The patient had mild sleep apnea in the past but has no significant pulmonary symptoms - Follow up with Marquita Gonzales MD for the other co-morbilities. - I spend 32 Minutes on this visit. The patient was educated about his problems, where assessment and plan was reviewed and explained, All questions were answered. RETURN TO THE NEXT VISIT: Based on physical exam, symptomatology, tests requested and baseline pulmonary evaluation/disease, I instructed the patient to come back to see me in 6 mths for reevaluation after the test has been done or earlier if the patient needed. Thanks Marquita Gonzales MD for allowing me to have the opportunity to assist in the care of this patient. documented in this encounter Plan of Treatment Upcoming Encounters Date Type Department Care Team (Late st Contact Info) Description 12/12/2024 8:45 AM EDT Office Visit Pulmonolgy - [place] [address] [facility] [address] [place] [phone] Mikael Leon MD [address] [facility] [address] [place] [address] Scheduled Orders Name Type Priority Associated Diagnoses Orde r Schedule Pulmonary function testing: Carbon Monoxide Diffusing Capacity, Nitrogen Wash Out, Spirometry with Bronchodilator PFT Routine Moderate persistent asthma without complication Chronic obstructive pulmonary disease, unspecified COPD type (CMS/HCC) 1 Occurrences starting 06/13/2024 until 06/13/2025 documented as of this encounter Visit Diagnoses Diagnosis Moderate persistent asthma without complication- Primary Chronic obstructive pulmonary disease, unspecified COPD type (CMS/HCC) Morbid obesity with BMI of 40.0-44.9, adult (CMS/HCC) documented in this encounter Care Teams Territory Sales Manager Relationship Specialty Start Date End Date Marquita Gonzales MD [address] [place] [address] PCP - General Internal Medicine 02/13/20 documented as of this encounter
--- OUTSIDE RECORDS SUMMARY | 2024-06-29 10:06 | XMS_ITS | Clinical Summary ---
Author Organization [facility] Address [address] [place] [address] Phone Care Team Providers Care Beater And Pulper Feeder Name Role Phone Marquita Gonzales MD Primary Care Provider Allergies No known active allergies Medications Medication Sig Dispensed Refills Start Date End Date Status alendronate (FOSAMAX) 70 mg tablet 11/14/2023 Active amoxicillin (AMOXIL) 500 mg capsule 10/13/2023 Active blood-glucose meter misc 11/05/2023 Active clopidogreL (PLAVIX) 75 mg tablet 11/25/2023 Active fluocinonide (LIDEX) 0.05 % ointment 11/10/2023 Active methocarbamoL (ROBAXIN) 500 mg tablet 11/16/2023 Active ticagrelor (Brilinta) 90 mg tablet 11/14/2023 Active fluticasone-salmeter ol (ADVAIR DISKUS) 250-50 mcg/dose diskus inhaler Inhale 1 puff by mouth. 11/27/2023 Active albuterol sulfate (ProAir RespiClick) 90 mcg/actuation aerosol powdr breath activated Inhale 2 puffs by mouth. 12/09/2022 Active calcium carbonate/mag carb (CALCIUM ACETATE-MAGNESIUM CARB ORAL) Take by mouth. Active aspirin 81 mg chewable tablet Chew 1 tablet (81 mg total). Active citalopram (CeleXA) 10 mg tablet Take 1 tablet (10 mg total) by mouth. Active spironolactone-hydro CHLOROthiazide (ALDACTAZIDE) 25-25 mg per tablet Take 1 tablet (25 mg total) by mouth 1 (one) time each day. Active metFORMIN XR (GLUCOPHAGE-XR) 500 mg 24 hr tablet Take 1 tablet (500 mg total) by mouth 1 (one) time each day. 09/15/2021 Active rosuvastatin (CRESTOR) 5 mg tablet Take 1 tablet (5 mg total) by mouth 3 (three) times a week. 09/04/2021 Active montelukast (SINGULAIR) 10 mg tablet Take 1 tablet (10 mg total) by mouth. 07/12/2021 Active irbesartan (AVAPRO) 75 mg tablet Take 1 tablet (75 mg total) by mouth 1 (one) time each day. 09/26/2021 Active latanoprost (XALATAN) 0.005 % ophthalmic solution Administer 2 drops into affected eye(s). 09/04/2021 Active albuterol HFA (PROVENTIL HFA;VENTOLIN HFA) 108 (90 Base) MCG/ACT inhaler INHALE TWO PUFFS BY MOUTH FOUR TIMES A DAY NEEDED FOR COUGH OR WHEEZING FOR UP TO 30 DAYS DIRECTED Active [facility] [place] budesonide-formotero L (SYMBICORT) 160-4.5 mcg/actuation inhaler INHALE 2 PUFFS INTO THE LUNGS TWO TIMES A DAY Active multivitamine, geriatric, (Multivitamin 50 Plus) tablet Take by mouth. Active albuterol HFA (PROAIR HFA ; PROVENTIL HFA ; VENTOLIN HFA) 90 mcg/actuation inhalerIndications:M oderate persistent asthma without complication Inhale 2 puffs by mouth every 6 (six) hours if needed for wheezing. 6.7 g 11 06/13/2024 06/13/2025 Active Active Problems Problem Noted Date Diagnosed Date Lab test negative for COVID-19 virus 07/22/2020 Varicose vein of leg 02/21/2019 Hypertension 02/21/2019 CAD (coronary artery disease) 02/21/2019 PCOS (polycystic ovarian syndrome) 02/21/2019 Hyperlipidemia 02/21/2019 Anxiety 02/21/2019 DDD (degenerative disc disease), lumbar 02/22/20 19 Bilateral deafness 02/21/2019 Morbid obesity with BMI of 40.0-44.9, adult 01/25 DORCAS (obstructive sleep apnea) 09/06/2018 Moderate persistent asthma without complication 09/06/2018 Sinusitis 09/06/2018 Chronic obstructive pulmonary disease 02/10/2017 Pulmonary nodule 02/10/2017 Encounters Date Type Department Care Team Description 06/13/2024 9:45 AM EST Office Visit Pulmonolgy - [place] 175 [facility] [address] [place] [phone] Mikael Leon MD Moderate persistent asthma without complication (Primary Dx); Chronic obstructive pulmonary disease, unspecified COPD type ([facility]); Morbid obesity with BMI of 40.0-44.9, adult ([facility]) 04/02/2024 8:00 AM EST - 04/02/2024 11:59 PM EST [facility] [address] [place] [phone] Encounter for screening mammogram for breast cancer Discharge Disposition: Home or Self Care from Last 3 Months Immunizations Name Administration Dates Next Due Influenza trivalent, 0.5mL, preservative free (Fluarix; FluLaval; Fluzone) ages 6mo and older (Afluria) 3 years and older 03/18/2018 Pneumococcal polysaccharide 23 valent (Pneumovax 23) 2yo and older 12/15/2017 Tdap Tetanus diptheria acell ular pertussis (Boostrix; Adacel) 7yo and older 05/05/2013 Surgical History Surgery Date Site/Laterality Comments CHOLECYSTECTOMY PROCEDURE: HISTORICAL CHOLECYSTECTOMY SECTION PROCEDURE: HISTORICAL BREAST REDUCTION 1996 PROCEDURE: [place] BREAST REDUCTION OTHER SURGICAL HISTORY PROCEDURE: HISTORY OTHER; COMMENT: hernia repair w/mesh EYE SURGERY 1962 Left PROCEDURE: HISTORICAL EYE SURGERY; COMMENT: retinoblastoma w/enucleation BREAST CYST ASPIRATION Right Medical History Medical History Date Comments Pulmonary nodule 02/10/2017 DX:Pulmonary no dule Chronic obstructive pulmonar y disease ([facility]/HCC) 02/10/2017 DX:Chronic obstructive pulmo nary disease (HCC) Moderate persistent asthma w ithout complication 09/06/2018 DX:Moderate persistent asthm a without complication DORCAS (obstructive sleep apnea) 09/06/2018 DX :DORCAS (obstructive sleep apnea) Morbid obesity with BMI of 4 0.0-44.9, adult ([facility]) 02/21/2019 DX:Morbid obesity with BMI o f 40.0-44.9, adult ([facility]) PCOS (polycystic ovarian syndrome) 02/21/2019 DX:PCOS (polycystic ovarian syndrome) Bilateral deafness 02/21/2019 DX:Bilateral deafness Anxiety 02/21/2019 DX:Anxiety Varicose vein of leg 02/21/2019 DX:Varicose vein of leg Hypertension 02/21/2019 DX:Hypertension Hyperlipidemia 02/21/2019 DX:Hyperlipidemi a CAD (coronary artery disease) 02/21/2019 DX :CAD (coronary artery disease) DDD (degenerative disc disease), lumbar 9 DX:DDD (degenerative disc disease), lumbar Sinusitis 09/06/2018 DX:Sinusitis Fibrocystic breast Family History Medical History Relation Name Comments Coronary artery disease Father [place], CVD Diabetes Mother HTN Breast cancer Mother's Sister Relation Name Status Comments Father Maternal Grandfather Maternal Grandmother Mother Alive Mother's Sister Alive Paternal Grandfather Paternal Grandmother Social History Tobacco Use Types Packs/Day Years [...] file Not on file Not on file Obstetrics History Para Term AB IAB SAB Ectopic Multiple Livin g Live Births 2 Last Filed Vital Signs Vital Sign Reading [...] Mass Index 40.1 06/13/2024 10:04 AM EST Plan of Treatment Upcoming Encounters Date Type Department Care Team (Late st Contact Info) Description 12/12/2024 8:45 AM EDT Office Visit Pulmonolgy - [place] 175 [facility] [address] [place] [address] Mikael Leon MD 175 [facility] [address] [place] [address] Health Maintenance Due Date Last Done Comments Cervical Cancer Screening: Pap Smear 1982 Pneumococcal Vaccine: Pediatrics (0 to 5 Years) and At-Risk Patients (6 to 64 Years) (2 of 2 - PCV) 12/15/2018 12/15/2017 RSV Immunization Patients 60+ Years Old (1 - Risk 60-74 years 1-dose series) 2021 Cholesterol Screening (Lipid Panel) 05/03/2022 Colorectal Cancer Screening: Colonoscopy 05/03/2022 Depression Screening 05/03/2022 HIV Screening 05/03/2022 Hepatitis C Screening 05/03/2022 Social Influencers of Health Screening 05/03/2022 Hypertension/CHF/CAD Annual BMP Blood Test 05/09/2022 DTaP,Tdap,and Td Vaccines (2 - Td or Tdap) 05/05/2023 05/05/2013 Breast Cancer Screening 04/02/2026 04/02/20, 02/12/2023, 02/02/2022, Additional history exists Zoster Vaccines Completed 03/20/2022, 07/22/2021 COVID-19 Vaccine Completed 02/27/2024, 06/2022, 06/07/2022, Additional history exists Influenza Vaccine Completed 02/27/2024, , 02/15/2022, Additional history exists HIB Vaccines Aged Out No longer eligi ble based on patient's age to complete this topic HPV Vaccines Aged Out No longer eligi ble based on patient's age to complete this topic Hepatitis A Vaccines Aged Out No long er eligible based on patient's age to complete this topic Hepatitis B Vaccines Aged Out No long er eligible based on patient's age to complete this topic IPV Vaccines Aged Out No longer eligi ble based on patient's age to complete this topic MMR Vaccines Aged Out No longer eligi ble based on patient's age to complete this topic Meningococcal ACWY Vaccine Aged Out N o longer eligible based on patient's age to complete this topic RSV Immunization Patients Under 20 months Aged Out No longer eligible based on patient's age to complete this topic Varicella Vaccines Aged Out No longer eligible based on patient's age to complete this topic Procedures Procedure Name Priority Date/Time Associated Diagnosis Comments MG MAMMO DIGITAL SCREENING W YEHUDA BILAT Routine 04/02/2024 8:14 AM EST Encounter for screening mammogram for breast cancer from Last 3 Months Results * MG Mammo Digital Screening w Yehuda bilat (04/02/2024 8:14 AM EST) Anatomical Region Laterality Modality Breast Bilateral Mammography 04/04/2024 9:20 AM EST Impressions 04/04/2024 9:21 AM EST Stable mammographic appearance of the breasts. No evidence of malignancy is seen. A negative mammogram in the presence of a clinically suspicious palpable abnormality does not preclude the possibility of malignancy or alter the indications for biopsy. BI-RADS CATEGORY: 2 - BENIGN RECOMMENDATION: Screening bilateral mammogram is recommended in 1 year. Mammo Location: [facility], [address] [place] [address], [id number], . -------- FINAL REPORT -------- Dictated By: Lynnette Arechiga Dictated Date: 04/04/2024 09:20 ET Assigned Physician: Lynnette Arechiga Reviewed and Electronically Signed By: Lynnette Arechiga Signed Date: 04/04/2024 09:21 ET Workstation ID: [id number] Transcribed By: Self Edit Transcribed Date: 04/04/2024 09:20 ET Narrative 04/04/2024 9:21 AM EST HISTORY: Screening. Reduction mammoplasty in 1996. Maternal aunt had breast carcinoma. COMPARISON: 02/12/23, 02/01/22, 01/21/21 ?? TECHNIQUE: Bilateral digital breast tomosynthesis was performed in the CC and MLO projections. Computer aided detection with Ring 3D 3.1 was employed. BREAST DENSITY: B - There are scattered areas of fibroglandular density. FINDINGS: Reduction mammoplasty sequelae are again seen bilaterally, including numerous small round calcifications close to the skin line. No suspicious masses, grouped microcalcifications, or developing architectural distortion are seen. The vascularity is unremarkable. Procedure Note Lynnette Arechiga MD - 04/04/2024 HISTORY: Screening. Reduction mammoplasty in 1996. Maternal aunt hadbreast carcinoma. COMPARISON: 02/12/23, 02/01/22, 01/21/21 TECHNIQUE: Bilateral digital breast tomosynthesis was performed in the CCand MLO projections. Computer aided detection with iCAD [employer] 3D 3.1was employed. BREAST DENSITY: B - There are scattered areas of fibroglandular density. FINDINGS: Reduction mammoplasty sequelae are again seen bilaterally, includingnumerous small round calcifications close to the skin line. No suspiciousmasses, grouped microcalcifications, or developing architecturaldistortion are seen. The vascularity is unremarkable. IMPRESSION: Stable mammographic appearance of the breasts. No evidence of malignancyis seen. A negative mammogram in the presence of a clinically suspicious palpableabnormality does not preclude the possibility of malignancy or alter theindications for biopsy. BI-RADS CATEGORY: 2 - BENIGN RECOMMENDATION: Screening bilateral mammogram is recommended in 1 year. Mammo Location: [facility], [address] [place] [address], [id number], . -------- FINAL REPORT -------- Dictated By: Lynnette Arechiga Dictated Date: 04/04/2024 09:20 ET Assigned Physician: Lynnette Arechiga Reviewed and Electronically Signed By: Lynnette Arechiga Signed Date: 04/04/2024 09:21 ET Workstation ID: [id number] Transcribed By: Self Edit Transcribed Date: 04/04/2024 09:20 ET Marquita Gonzales MD IMG BI PROCEDURES from Last 3 Months Care Teams Beater And Pulper Feeder Relationship Specialty Start Date End Date Marquita Gonzales MD [address] [place] [address] PCP - General Internal Medicine 02/13/20
== END 2024-06-29 09:35 | disposition home or self-care (01) ==
LOC: HO.HMGCX 09:34
PROVIDERS: PCP Internal Medicine; Visit Provider Physician Assistant
DX: M25.561 Pain in right knee (principal); M54.50 Low back pain, unspecified
CPT/HCPCS: 73562; 81003

== ENCOUNTER → 2024-06-29 09:37 | Outpatient (BNV) | payer OTHER, SELFPAY | PROVIDERS: PCP Internal Medicine; Visit Provider Radiology Diagnostic Radiology | DX: M25.461 Effusion, right knee (principal); M17.11 Unilateral primary osteoarthritis, right knee | CPT/HCPCS: 73562 ==

== ENCOUNTER → 2024-06-30 15:02 | Outpatient (BNVA) | payer OTHER, SELFPAY | PROVIDERS: PCP Internal Medicine; Visit Provider Internal Medicine ==

== ENCOUNTER 2024-07-13 09:21 | Outpatient (AMB) | payer OTHER, SELFPAY ==
--- NOTE | 2024-07-13 09:31 | MHC.AMNUTRGE ---
VS Expanded 07/13/24 09:33 Height 5 ft 5 in Weight 238 lb 12.17 oz BMI 39.7 Intake Visit Reasons: T2DM Allergies mold,trees,dust,cats,dogs Allergy (Unknown, Uncoded 06/29/24 08:59) unknown strawberries Allergy (Unknown, Uncoded 06/29/24 08:59) hives Nutrition Presentation Details: Pt presents for MNT f/u for T2DM, obesity Typical meal intake: Today will typical meal coffee/cream,no sugar, cream cheese on a bagel cereal special k /cheerios with skim milk apple, water lunch:salad/cheese/dressing vinaigrette /tuna dinner: rice/chicken/Trimble sprouts Snacks: pretzels/chips, peanut butter celery,yogurt,fruits fluid: water, 16oz/d, coffee 16oz/d physical activity: sedentary (knee pain - will see ortho) BS Monitoring Most Recent Diabetes Results: Cholesterol 123 mg/dL (<200) 05/07/24 HDL Cholesterol 44 mg/dL (>40) 05/07/24 Triglycerides 103 mg/dL (<150) 05/07/24 Creatinine 0.73 mg/dL (0.5-1.4) 05/07/24 Blood Urea Nitrogen 15 mg/dL (9-16) 05/07/24 Sodium 142 mmol/L (135-145) 05/07/24 Potassium 4.1 mmol/L (3.3-5.1) 05/07/24 Chloride 107 mmol/L (96-108) 05/07/24 Carbon Dioxide 28 mmol/L (22-29) 05/07/24 Calcium 9.6 mg/dL (8.4-10.2) 05/07/24 AST 21 U/L (5-31) 05/07/24 ALT 22 U/L (0-31) 05/07/24 [facility]LY [facility] Medical History Osteoporosis of lumbar spine Incomplete right bundle branch block (RBBB) determined by electrocardiography Hearing loss Family history of early CAD Intermittent left-sided chest pain Seasonal allergies Plantar fasciitis, right Mild intermittent asthma in adult without complication Scalp cyst Nontoxic multinodular goiter Lung nodule < 6cm on CT Cervical spondylosis DJD (degenerative joint disease), lumbar 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 Primary open angle glaucoma, right eye Retinoblastoma of left eye Polycystic ovaries Morbid obesity Multiple thyroid nodules Menopause Type 2 diabetes mellitus without complication, without long-term current use of insulin Dyslipidemia Hypertension Surgical History S/P cardiac catheterization Status post phlebectomy H/O eye surgery H/O hernia repair H/O bilateral breast reduction surgery H/O section H/O thyroidectomy Hx of cholecystectomy Family History Father CAD (coronary artery disease) Myocardial infarction CVD (cardiovascular disease) Substance use disorder Mother Diabetes mellitus HTN (hypertension) Maternal Grandfather No problems noted. Maternal Grandmother No problems noted. Paternal Grandfather No problems noted. Paternal Grandmother No problems noted. Brother Substance use disorder Mental health disorder Sister No problems noted. Sister Substance use disorder Sister No problems noted. Sister No problems noted. Son No problems noted. Daughter No problems noted. 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: No Cognitive needs: No Hearing needs: Yes Vision needs: Yes Assessment & Plan Assessment & Plan (1) Type 2 diabetes mellitus without complication, without long-term current use of insulin: Code(s): E11.9 - Type 2 diabetes mellitus without complications Category: Medical Plan: Wt:105 Kg ( 04/17 ), 107 kg(06/18), 108 kg(07/19) Est kcal needs as per MSJ: 2000 (40% carb, 30% protein/fat) Est fluid needs as per 25-30 ml/d: 3100 Est prot per day as per 1 g/kg bw: 105 Recommend fiber intake : 8-10 g per day and gradually increase to 25-28 g per day for women and 35-38 g for men or as tolerated Recommend sodium intake per day : less than 2300 mg Educated patient on: ( R = reviewed V = verbalizes understanding N/R = needs review N/A = not applicable Food sources of carbohydrate, adequate serving sizes and its role in various health conditions: R Differences between complex carbohydrates a simple carbohydrates, role of fiber in diet: R Lean protein sources of foods: R V NR Differences between types of fats and role in diet (mono on saturated fat fatty acids, saturated fatty acids, trans fats): R Food sources of sodium in salt and healthy modifications for heart health in kidney health: R V R/V Vitamins and minerals: R V N/R Healthy plate method concept: R V N/R Physical activity: Benefits a precaution: R V N/R Hypoglycemia protocol (rule of 15): R V N/R Dietary prevention of Hyperglycemia: R Patient Instructions: Work on reducing total calorie from snack , choose snack with less than 100 calories (limit to 2-3 a day) , Also be aware of sodium amount per serving in the snack choices(pretzel/popcorn, as example, aim for less than 200 mg of sodium per snack Coding Level of Care Code Nutr Indiv Subseq (59676) Diagnoses Type 2 diabetes mellitus without complication, without long-term current use of insulin E11.9 Time Spent (min) 20
[2024-07-13 09:33] VITALS: BMI 39.7
--- OUTSIDE RECORDS SUMMARY | 2024-07-13 09:37 | XMS_ITS | Patient Health Record ---
Author Organization [facility] Address [address] [place] [phone] Care Team Providers Care Waiter/Waitress Name Role Phone Janet CRUZ, Marquita Primary Care Provider Lucien Shelby Unavailable [phone] ALLERGIES Allergen (clinical drug ingredient) Drug/Non Drug Allergy documented on EMR Reaction Allergy Type Onset Date Status seasonal-allergy [facility] bi-weekly (uncoded) Unknown Allergy Active REASON FOR REFERRAL No Information MEDICATIONS Medication SIG (Take, Route, Frequency, Duration) Notes Start Date End Date Status Citalopram Hydrobromide 20 MG Oral for 90 Active Albuterol Sulfate HFA 108 (90 Base) MCG/ACT Inhalation for 16 Active Aspir-81 81 MG 1 tablet Orally Once a day Active Irbesartan 75 MG Oral for 30 A ctive Amoxicillin 500 MG 1 tablet Orally every 12 hrs before dental appointment Active Rosuvastatin Calcium 40 MG Oral for 30 Active Clopidogrel Bisulfate 75 MG Oral for 30 Active Fluticasone-Salmeter ol 250-50 MCG/ACT Inhalation for 30 Activ e Alendronate Sodium 70 MG Oral for 28 Active metFORMIN HCl ER 500 MG Oral for 30 Active Brilinta 90 MG Oral for 30 Not -Taking Montelukast Sodium 10 MG Oral for 30 Active Methocarbamol 500 MG Oral for 3 Active Latanoprost 0.005 % Ophthalmic for 75 Active Spironolactone-HCTZ 25-25 MG Oral for 30 Active SOCIAL HISTORY Tobacco Use: Social History Observation Description Date Details (start date - stop date) Former Smoker NA - NA Sex Assigned At : Social History Observation Description Sex Assigned At Unknown Tobacco Use/Smoking Question Answer Notes Patient is a former smoker How long has it been since you last smoked? > 10 years PROBLEMS Problem Type ICD Code Onset Dates Problem Status W/U Status Risk SNOMED Code Notes Problem Colon cancer screening (Z12.11) Active confirmed Colon cancer screening (753147130) Problem Encounter for other preprocedural examination (Z01.818) Active confirmed Pre-procedure evaluation check (629829024) Problem Aspirin long-term use (Z79.82) Active confirmed Long-term current use of aspirin (9780339063643 03) VITAL SIGNS Blood pressure diastolic 00 mm Hg 04/13/2024 Height 65.25 in 04/13/2024 Blood pressure systolic 00 mm Hg 04/13/2024 Weight 241 lbs 04/13/2024 BMI 39.79 kg/m2 04/13/2024 PROCEDURES Procedure Date Ordered Date Performed Result Body Sit e COLONOSCOPY 04/13/2024 N/A Encounters Encounter Location Date Provider Diagnosis [facility] [address] [facility] [address] [place] [address] 04/13/2024 Lucien Gooden Colon cancer screeni ng Z12.11 ; Encounter for other preprocedural examination Z01.818 and Aspirin long-term use Z79.82 ASSESSMENTS Encounter Date Diagnosis Assessment Notes Treatment Notes Treatment Clinical Notes 04/13/2024 Colon cancer screening (ICD-10 - Z12.11) Do not take aspirin on the morning of the colonoscopy Do not take Metformin the night before or on the morning of the colonoscopy Do not take Spironolactone-HCT Z the day before or on the day of the colonoscopy We will get clearance from Dr. Jefferson/Dr. Lopez regarding the stoppage of Clopidogrel and whether or not you need antibiotics for the colonoscopy 04/13/2024 Encounter for other preprocedural examination (ICD-10 - Z01.818) 04/13/2024 Aspirin long-term use (ICD-10 - Z79.82) PLAN OF TREATMENT Pending Test Test Name Order Date COLONOSCOPY 04/13/2024 Next Appt Details Provider Name:Lucien Gooden , 11/14/2024 07:30:00 AM, [address] [place] [address] , [place], [place], [id number], Insurance Providers Payer Name Payer Address Payer Phone Subscriber Number Group Number Insured Name Patient Relationship to Insured Coverage Start Date Coverage End Date [facility] [address] [facility] [place] [phone] [id number] JACINTOJORGE ROGERS Self - patient is the insured MEDICAL (GENERAL) HISTORY Medical History History ICD Code Hypertension Denies DC,CVA,renal disease Staph endocarditis in 1983-- Rx'd with a long course of IV antibiotics---her professional employer consultant still recommends prophylactic antibiotics before invasive procedures Bronchitis Asthma/COPD NIDDM Goiter Colonoscopy 01/2014 with a hyperplastic p olyp CAD-1 stent 08/2023-Dr. Jefefrson Surgical History Surgery Date(Month/Year) breast reduction 1996 cholecystectomy-acalculous cholecystitis eye surgery-left--retinoblastoma 1963 legs veins / dr. lemon
--- OUTSIDE RECORDS SUMMARY | 2024-07-13 09:37 | XMS_ITS | Clinical Summary ---
Author Organization [facility] Address [address] [place] [address] Phone Care Team Providers Care Sports Nutritionist Name Role Phone Marquita Gonzales MD Primary Care Provider Allergies No known active allergies Medications alendronate (FOSAMAX) 70 mg tablet 4 Active amoxicillin (AMOXIL) 500 mg capsule 4 Active blood-glucose meter misc 4 Active clopidogreL (PLAVIX) 75 mg tablet 4 Active fluocinonide (LIDEX) 0.05 % ointment 4 Active methocarbamoL (ROBAXIN) 500 mg tablet 4 Active ticagrelor (Brilinta) 90 mg tablet 4 Active fluticasone-salme terol (ADVAIR DISKUS) 250-50 mcg/dose diskus inhaler Inhale 1 puff by mouth. 4 Active albuterol sulfate (ProAir RespiClick) 90 mcg/actuation aerosol powdr breath activated Inhale 2 puffs by mouth. 3 Active calcium carbonate/mag carb (CALCIUM ACETATE-MAGNESIUM CARB ORAL) Take by mouth. Acti ve aspirin 81 mg chewable tablet Chew 1 tablet (81 mg total). Active citalopram (CeleXA) 10 mg tablet Take 1 tablet (10 mg total) by mouth. Active spironolactone-hy droCHLOROthiazide (ALDACTAZIDE) 25-25 mg per tablet Take 1 tablet (25 mg total) by mouth 1 (one) time each day. Active metFORMIN XR (GLUCOPHAGE-XR) 500 mg 24 hr tablet Take 1 tablet (500 mg total) by mouth 1 (one) time each day. 2 Active rosuvastatin (CRESTOR) 5 mg tablet Take 1 tablet (5 mg total) by mouth 3 (three) times a week. 2 Active montelukast (SINGULAIR) 10 mg tablet Take 1 tablet (10 mg total) by mouth. 2 Active irbesartan (AVAPRO) 75 mg tablet Take 1 tablet (75 mg total) by mouth 1 (one) time each day. 2 Active latanoprost (XALATAN) 0.005 % ophthalmic solution Administer 2 drops into affected eye(s). 2 Active albuterol HFA (PROVENTIL HFA;VENTOLIN HFA) 108 (90 Base) MCG/ACT inhaler INHALE TWO PUFFS BY MOUTH FOUR TIMES A DAY NEEDED FOR COUGH OR WHEEZING FOR UP TO 30 DAYS DIRECTED Active DEBBIE FRIAS MISC Active budesonide-formot Francine (SYMBICORT) 160-4.5 mcg/actuation inhaler INHALE 2 PUFFS INTO THE LUNGS TWO TIMES A DAY Active multivitamine, geriatric, (Multivitamin 50 Plus) tablet Take by mouth. Ac tive albuterol HFA (PROAIR HFA ; PROVENTIL HFA ; VENTOLIN HFA) 90 mcg/actuation inhalerIndication s:Moderate persistent asthma without complication Inhale 2 puffs by mouth every 6 (six) hours if needed for wheezing. 6.7 g 11 5 06/13/19 26 Active Active Problems Problem Noted Date Diagnosed [...] 9:45 AM EST Office Visit Pulmonolgy - [place] [address] [facility] [address] [place] [address] Mikael Leon MD Moderate persistent asthma without complication (Primary Dx); Chronic obstructive pulmonary disease, unspecified COPD type ([facility]); Morbid obesity with BMI of 40.0-44.9, adult ([facility]) from Last 3 Months Immunizations Name Administration [...] SECTION PROCEDURE: HISTORICAL BREAST REDUCTION 1996 PROCEDURE: NM BREAST REDUCTION OTHER SURGICAL HISTORY PROCEDURE: HISTORY OTHER; COMMENT: hernia repair w/mesh EYE SURGERY 1962 Left PROCEDURE: HISTORICAL EYE SURGERY; COMMENT: retinoblastoma w/enucleation BREAST CYST ASPIRATION Right Medical History Medical History Date Comments Pulmonary nodule 02/10/2017 DX:Pulmonary no dule Chronic obstructive pulmonar y disease ([facility]) 02/10/2017 DX:Chronic obstructive pulmo nary disease ([facility]) Moderate persistent asthma w ithout complication 09/06/2018 DX:Moderate persistent asthm a without complication DORCAS (obstructive sleep apnea) 09/06/2018 DX :DORCAS (obstructive sleep apnea) Morbid obesity with BMI of 4 0.0-44.9, adult ([facility]) 02/21/2019 DX:Morbid obesity with BMI o f 40.0-44.9, adult ([facility]) PCOS (polycystic ovarian syndrome) 02/21/2019 DX:PCOS (polycystic [...] Relation Name Comments Coronary artery disease Father CT, CVD Diabetes Mother HTN Breast cancer Mother's Sister Relation Name Status Comments Father Maternal Grandfather Maternal Grandmother Mother Alive Mother's Sister Alive Paternal Grandfather Paternal Grandmother Social History Tobacco Use Types Packs/Day Years Used Date Smoking Tobacco: Former Cigarettes Q uit: 05/25/2015 Smokeless Tobacco: Never Alcohol Use Standard Drinks/Week Comments Yes 0 (1 standard drink = 0.6 oz pur e alcohol) Comments No Sex and Gender Information Value Date Recorded Sex Assigned at Not on file Legal Sex Female 10:56 PM EST Gender Identity Not on file Sexual Orientation Not on file Obstetrics History Para Term [...] Description 12/12/2024 8:45 AM EDT Office Visit Pulmonol - [place] [address] [place] [phone] Mikael Leon MD [address] [place] [address] Health Maintenance Due Date Last Done Comments Cervical Cancer Screening: Pap Smear 1982 Pneumococcal Vaccine: 50+ Years (2 of 2 - PCV) 12/15/2018 12/15/2017 Pneumococcal Vaccine: Pediatrics (0 to 5 Years) [...] patient's age to complete this topic Meningococcal B Vacine Aged Out No lo nger eligible based on patient's age to complete [...] for breast cancer from Last 3 Months or Most Recently Relevant to Health Maintenance Results * MG Mammo Digital Screening w [...] year. Mammo Location: [facility], [address] [place] [address], [id number], . -------- FINAL REPORT -------- Dictated By: Lynnette Arechiga Dictated Date: 04/04/2024 09:20 ET Assigned Physician: Lynnette Arechiga Reviewed and Electronically Signed By: Lynnette Arechiga Signed Date: 04/04/2024 09:21 ET Workstation ID: [id number] Transcribed By: Self Edit Transcribed Date: 04/04/2024 09:20 ET Narrative 04/04/2024 9:21 AM EST HISTORY: Screening. Reduction mammoplasty in 1996. Maternal aunt had breast carcinoma. COMPARISON: 02/12/23, 02/01/22, 01/21/21 ?? TECHNIQUE: Bilateral digital breast tomosynthesis was performed in the CC and MLO projections. Computer aided detection with Prim’Vision 3D 3.1 was employed. BREAST DENSITY: B [...] CCand MLO projections. Computer aided detection with Enviable AbodeD GotoTel 3D 3.1was employed. BREAST DENSITY: B - [...] year. Mammo Location: [facility], [address] [place] [address], [id number], . -------- FINAL REPORT -------- Dictated By: Lynnette Arechiga Dictated Date: 04/04/2024 09:20 ET Assigned Physician: Lynnette Arechiga Reviewed and Electronically Signed By: Lynnette Arechiga Signed Date: 04/04/2024 09:21 ET Workstation ID: [id number] Transcribed By: Self Edit Transcribed Date: 04/04/2024 09:20 ET us Marquita Gonzales MD IMG BI PROCEDURES Final Res ult from Last 3 Months or Most Recently Relevant to Health Maintenance Insurance [facility] [address] [place] [address] Care Teams Sports Nutritionist Relationship Specialty Start Date End Date Marquita Gonzales MD [address] [place] [address] PCP - General Internal Medicine 02/13/20
--- OUTSIDE RECORDS SUMMARY | 2024-07-13 09:37 | XMS_ITS | Encounter Summary ---
Author Organization [facility] [place] [address] Care Team Providers Care Welcome Wagon Host/Hostess Name Role Phone Marquita Gonzales MD Primary Care Provider [phone] Reason for Referral * Therapy (Routine) - Pending Review Specialty Diagnoses / Procedures Referred By Contac t Referred To Contact Pulmonology Diagnoses Moderate persistent asthma without complication Chronic obstructive pulmonary disease, unspecified COPD type ([facility]) Procedures Pulmonary function testing: Carbon Monoxide Diffusing Capacity, Nitrogen Wash Out, Spirometry with Bronchodilator Mikael Leon MD [address] [address] Phone: tel: fax: [facility] [address] [place] [address] Phone: tel: Referral ID Status Reason Start Date Expiration Date V isits Requested Visits Authorized [id number] Pending Review 06/13/2024 06/13/2025 1 1 * Medications - Pending Review Specialty Diagnoses / Procedures Referred By Contac t Referred To Contact Diagnoses Moderate persistent asthma without complication Mikael Leon MD [address] [address] Phone: tel: fax: Referral ID Status Reason Start Date Expiration Date V isits Requested Visits Authorized [id number] Pending Review 1 1 Reason for Visit * Reason Comments COPD F/u copd Encounter Details Date Type Department Care Team (Late st Contact Info) Description 06/13/2024 9:45 AM EST Office Visit Pulmonolgy - [place] [address] [facility] [address] [place] [phone] Mikael Leon MD [address] [facility] [address] [place] [address] Moderate persistent asthma without complication (Primary Dx); Chronic obstructive pulmonary disease, unspecified COPD type ([facility]); Morbid obesity with BMI of 40.0-44.9, adult ([facility]) Social History Tobacco Use Types Packs/Day [...] on file Sexual Orientation Not on file documented as of this [...] in this encounter Ordered Prescriptions Prescription Sig Dispense Quantity Refills Last Filled Start Date End Date albuterol HFA (PROAIR HFA ; PROVENTIL HFA ; VENTOLIN HFA) 90 mcg/actuation inhalerIndications :Moderate persistent asthma without complication Inhale 2 puffs [...] 1 tablet (81 mg total). blood-glucose meter [facility] budesonide-formoteroL (SYMBICORT) 160-4.5 mcg/actuation inhaler INHALE 2 PUFFS INTO THE LUNGS TWO TIMES A DAY calcium carbonate/mag carb (CALCIUM ACETATE-MAGNESIUM CARB ORAL) Take by mouth. citalopram (CeleXA) 10 mg tablet Take 1 tablet (10 mg total) by mouth. clopidogreL (PLAVIX) 75 mg tablet fluocinonide (LIDEX) 0.05 % ointment fluticasone-salmeterol (ADVAIR DISKUS) 250-50 mcg/dose diskus inhaler Inhale 1 puff by mouth. FREESTYLE LANCETS [facility] irbesartan (AVAPRO) 75 mg tablet Take 1 [...] Morbid obesity with BMI of 40.0-44.9, adult ([facility]) 02/21/2019 DORCAS (obstructive sleep apnea) 09/06/2018 Moderate persistent asthma without complication 09/06/2018 Sinusitis 09/06/2018 Chronic obstructive pulmonary disease ([facility]) 02/10/2017 Pulmonary nodule 02/10/2017 Past Surgical History: Procedure Laterality Date BREAST CYST ASPIRATION Right BREAST REDUCTION 1996 PROCEDURE: MS BREAST REDUCTION SECTION PROCEDURE: HISTORICAL CHOLECYSTECTOMY PROCEDURE: HISTORICAL CHOLECYSTECTOMY EYE SURGERY Left 1963 PROCEDURE: HISTORICAL EYE SURGERY; COMMENT: retinoblastoma w/enucleation OTHER SURGICAL HISTORY PROCEDURE: HISTORY OTHER; COMMENT: hernia repair w/mesh FAMILY HISTORY: Family History Problem Relation Name Age of Onset Diabetes Mother HTN Coronary artery disease Father 54 [place], CVD Breast cancer Mother's Sister OCCUPATION OR [...] Chronic obstructive pulmonary disease, unspecified COPD type ([facility]) J44.9 496 Pulmonary function testing: Carbon Monoxide Diffusing Capacity, Nitrogen Wash Out, Spirometry with Bronchodilator 3. Morbid obesity with BMI of 40.0-44.9, adult ([facility]) E66.01 278.01 Z68.41 V85.41 PLAN: I [...] 8:45 AM EDT Office Visit Pulmonolgy - [place] [address] [address] Mikael Leon MD [address] [address] Scheduled Orders Name Type Priority Associated Diagnoses [...] (CMS/HCC) documented in this encounter Care Teams Welcome Wagon Host/Hostess Relationship Specialty Start Date End Date Marquita Gonzales MD [address] [place] [address] PCP - General Internal Medicine 02/13/20 documented as of this encounter
--- OUTSIDE RECORDS SUMMARY | 2024-07-13 09:37 | XMS_ITS ---
Author Organization [facility] Address [address] [place] [address] Care Team Providers Care Smelter Operator Name Role Phone Janet CRUZ, Marquita Primary Care Provider Lucien Shelby Unavailable [phone] ALLERGIES Allergen (clinical drug ingredient) Drug/Non Drug Allergy documented on EMR Reaction Allergy Type Onset Date Status seasonal-allergy [facility] bi-weekly (uncoded) Unknown Allergy Active REASON FOR VISIT Patient presents today for a colon recall MEDICATIONS Medication SIG (Take, Route, Frequency, Duration) Notes Start Date End Date Status Albuterol Sulfate HFA 108 (90 Base) MCG/ACT Inhalation for 16 Active Irbesartan 75 MG Oral for 30 A ctive Rosuvastatin Calcium 40 MG Oral for 30 Active Brilinta 90 MG Oral for 30 Not -Taking Montelukast Sodium 10 MG Oral for 30 Active Methocarbamol 500 MG Oral for 3 Active Latanoprost 0.005 % Ophthalmic for 75 Active Spironolactone-HCTZ 25-25 MG Oral for 30 Active Clopidogrel Bisulfate 75 MG Oral for 30 Active Citalopram Hydrobromide 20 MG Oral for 90 Active Aspir-81 81 MG 1 tablet Orally Once a day Active Fluticasone-Salmeter ol 250-50 MCG/ACT Inhalation for 30 Activ e Alendronate Sodium 70 MG Oral for 28 Active metFORMIN HCl ER 500 MG Oral for 30 Active Amoxicillin 500 MG 1 tablet Orally every 12 hrs before dental appointment Active SOCIAL HISTORY Tobacco Use: Social History [...] screening (Z12.11) Active confirmed Colon cancer screening (482072297) Problem Encounter for other preprocedural examination (Z01.818) Active confirmed Pre-procedure evaluation check (346982400) Problem Aspirin long-term use (Z79.82) Active confirmed Long-term current use of aspirin ([id number] 03) VITAL SIGNS BMI 39.79 kg/m2 04/13/2024 Blood pressure systolic 00 mm Hg 04/13/20 24 Blood pressure diastolic 00 mm Hg 024 Height 65.25 in 04/13/2024 Weight 241 lbs 04/13/2024 PROCEDURES Procedure Date Ordered Date Performed Result Body Sit e COLONOSCOPY 04/13/2024 N/A Encounters Encounter Location Date Provider Diagnosis [facility] [address] [place] [address] 04/13/2024 Lucien Gooden Colon cancer screeni ng [...] use (ICD-10 - Z79.82) PLAN OF TREATMENT Treatment Notes Assessment Notes Colon cancer screening Do not take aspirin on the morning of the colonoscopy Do not take Metformin the night before or on the morning of the colonoscopy Do not take Spironolactone-HCTZ the day before or on the day of the colonoscopy We will get clearance from Dr. Jefferson/Dr. Lopez regarding the stoppage of Clopidogrel and whether or not you need antibiotics for the colonoscopy Pending Test Test Name Order Date COLONOSCOPY 04/13/2024 Next Appt Details Follow Up: prn, Reason: Provider Name:Lucien Gooden , 11/14/2024 07:30:00 AM, [address] [place] [address], [id number], Progress Notes * Examination Category Sub-Category Detail Notes General Examination GENERAL APPEARANCE: pleasant , well nourished, well developed, in no acute distress HEAD: EYES: sclera non-icteric EARS: NOSE: THROAT: NECK/THYROID: no cervical lymphade nopathy, neck supple HEART: S1, S2 normal CHEST: LUNGS: clear to auscultatio n bilaterally ABDOMEN: normal bowel sounds, no guarding or rigidity, no guarding or rigidity, no masses palpable, soft, nontender, nondistended NEUROLOGIC: alert and oriented SKIN: nonjaundiced, no spi rachael angiomata EXTREMITIES: no edema PERIPHERAL PULSES: BACK: BREASTS: MUSCULOSKELETAL: MALE GENITOURINARY: LYMPH NODES: RECTAL EXAM: FEMALE GENITOURINARY: ORAL CAVITY: mucosa moist
== END 2024-07-13 10:19 | disposition home or self-care (01) ==
PROVIDERS: PCP Internal Medicine; Visit Provider Dietitian, Registered
DX: E11.9 Type 2 diabetes mellitus without complications (principal)

== ENCOUNTER → 2024-07-13 09:21 | Outpatient (BNVA) | payer OTHER, SELFPAY | PROVIDERS: PCP Internal Medicine; Visit Provider Dietitian, Registered | DX: E11.9 Type 2 diabetes mellitus without complications (principal); E66.9 Obesity, unspecified; Z68.39 Body mass index [BMI] 39.0-39.9, adult; Z71.3 Dietary counseling and surveillance | CPT/HCPCS: 97803 ==

== ENCOUNTER 2024-08-13 07:04 | Outpatient (REF) | payer OTHER, SELFPAY ==
[2024-08-13 12:01] LABS: MANUAL DIFF FLAG NO
[2024-08-13 12:07] LABS: Basophils Percent Auto 0.3 % (0-2); Eosinophils Absolute Auto 0.1 X10*3/uL (0.0-0.4); Hematocrit 37.7 % (37.0-47.0); Hemoglobin 12.8 g/dl (12.0-16.0); Imm Gran Abs Auto 0.03 X10*3/uL (0.00-0.03); Imm Gran Pct Auto 0.5 % (0.0-0.4); Lymphocytes Absolute Auto 1.2 X10*3/uL (1.2-4.9); Mean Corpuscular Hemoglobin 32.3 pg (27.0-33.0); Mean Corpuscular Volume 95.2 fL (80.0-98.0); Mean Platelet Volume 11.7 fL (9.4-12.3); Monocytes Absolute Auto 0.6 X10*3/uL (0.1-1.2); Monocytes Percent Auto 10.2 % (2-11); Neutrophils Absolute Auto 4.2 x10*3/uL (2.0-8.3); Platelet Count 213 X10*3/uL (160-400); Red Blood Count 3.96 X10*6/uL (4.20-5.50); Red Cell Distribution Width 15.8 % (11.0-16.0); White Blood Count 6.1 X10*3/uL (4.8-10.8)
[2024-08-13 12:40] LABS: Alanine Aminotransferase 18 U/L (0-31); Anion Gap 11 (12-20); Aspartate Amino Transferase 23 U/L (5-31); Blood Urea Nitrogen 16 mg/dL (9-16); Calcium 9.8 mg/dL (8.4-10.2); Carbon Dioxide 27 mmol/L (22-29); Chloride 107 mmol/L (96-108); Cholesterol 118 mg/dL (<200); Estimated Glomerular Filt Rate > 60; Glucose Fasting 116 mg/dL (60-99); HDL Cholesterol 47 mg/dL (>40); LDL Cholesterol Calculated 46 mg/dL (<100); Sodium 141 mmol/L (135-145); Triglycerides 128 mg/dL (<150)
[2024-08-13 12:51] LABS: Estimated Average Glucose 131 mg/dL; Hemoglobin A1C 149.9223 umol/L; Hemoglobin A1c % 6.2 % (<6.0); Total Hemoglobin (HGBA1C) 3420.0316 umol/L
[2024-08-13 12:54] LABS: Vitamin D 25-OH Total 64.8 ng/mL (>30)
[2024-08-13 14:08] LABS: Creatinine Urine 57.67 mg/dL; Microalbumin Urine < 5.0 mg/L
== END 2024-08-13 07:05 | disposition home or self-care (01) ==
LOC: HO.HMGCLDS 07:04
PROVIDERS: PCP Internal Medicine; Visit Provider Internal Medicine
DX: M81.0 Age-related osteoporosis without current pathological fracture (principal); Z78.0 Asymptomatic menopausal state; E11.9 Type 2 diabetes mellitus without complications; E78.5 Hyperlipidemia, unspecified; I10 Essential (primary) hypertension
CPT/HCPCS: 36415; 80048; 80061; 82043; 82306; 82570; 83036; 84450; 84460; 85025

== ENCOUNTER 2024-08-15 09:40 | Outpatient (AMB) | payer OTHER, SELFPAY ==
[2024-08-15 10:26] VITALS: BP 112/80; PULSE 66; RESP 15; TEMP 36.5; O2SAT 95; BMI 39.6
--- NOTE | 2024-08-15 10:26 | MHC.PC.OV ---
Vital Signs 08/15/24 10:26 Height 5 ft 5 in Weight 238 lb BMI 39.6 BP 112/80 Blood Pressure Location Lt brachial Position Sitting Respiration 15 Pulse 66 Pulse Source Pulse Oximeter Temp 97.7 F Temp Source Oral Pulse Oximetry (%) 95 Oxygen Delivery Method Room Air Intake Visit Reasons: Annual PE/Per Dr. Gonzales Intake Note: Pt is here today for her PE: last colonoscopy 02/01/14 Allergies mold,trees,dust,cats,dogs Allergy (Unknown, Uncoded 08/15/24 10:41) unknown strawberries Allergy (Unknown, Uncoded 08/15/24 10:41) hives Medication List - Last Reconciled 08/15/24 by Marquita Gonzales MD albuterol sulfate 90 mcg/actuation 2 puffs inhalation Q6H PRN alendronate 70 mg PO QWEEK aspirin (Adult Aspirin Regimen) 81 mg PO DAILY blood sugar diagnostic (FreeStyle Lite Strips) Check fasting blood sugar once a day blood-glucose meter (FreeStyle [place] Lite kit) As directed budesonide-formoterol 160-4.5 mcg/actuation 1 inh inhalation BID calcium carbonate (Calcium 500) 500 mg PO DAILY citalopram 20 mg PO DAILY clopidogrel (Plavix) 75 mg PO DAILY irbesartan 75 mg PO DAILY ketotifen fumarate 0.025%(0.035%) (Zaditor) 1 drp ophthalmic-Right Q12H lancets (FreeStyle Lancets) Check fasting glucose once a day latanoprost 0.005% 1 drp ophthalmic (eye) QPM levocetirizine (Xyzal) 5 mg PO QPM PRN magnesium oxide 400 mg PO DAILY metformin ER 500 mg PO QPM methocarbamol 500 mg PO TID PRN montelukast 10 mg PO DAILY multivitamin 1 tab PO DAILY rosuvastatin 40 mg PO DAILY spironolacton-hydrochlorothiaz 25-25 mg 2 tabs PO DAILY vitamin B complex (B Complex-Vitamin B12 tablet) 1 tab PO DAILY Tobacco use date assessed: 08/15/24 Dental Screening Dental Screen Date: 08/15/24 Did you have a dental visit in the last 12 months?: Yes Did you have a dental problem in the last 6 months where you did not have access to dental care?: No Was dental information given to patient?: Patient has dentist HPI Annual PE/Per Dr. Gonzales HPI Details 64-year-old lady with history of type 2 diabetes mellitus, hyperlipidemia, history of multinodular goiter status post FNA biopsy in 2020, with benign findings, here today for physical exam. She is overdue to get her screening mammogram, last done in 2022. She gets yearly lung cancer screening with LDCT with last tests done earlier this month showing benign findings. She goes to her own OBGYN for routine Pap and pelvic exam, last done in 2020 with negative findings. Recent fasting labs done which showed results within normal limits including hemoglobin A1c at 6.2%, lipids, electrolytes renal function within normal limits. She is up-to-date with her COVID booster, flu, pneumonia shingles and tetanus vaccination . She continues to stay active, still doing all the exercises taught at cardiac rehab [facility] Medical History (Updated 08/16/24 @ 14:25 by Allen Sánchez MD) History of retinoblastoma Osteoporosis of lumbar spine Incomplete right bundle branch block (RBBB) determined by electrocardiography Hearing loss Family history of early CAD Intermittent left-sided chest pain Seasonal allergies Plantar fasciitis, right Mild intermittent asthma in adult without complication Nontoxic multinodular goiter Lung nodule < 6cm on CT Cervical spondylosis DJD (degenerative joint disease), lumbar 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 Primary open angle glaucoma, right eye Retinoblastoma of left eye Polycystic ovaries Morbid obesity Multiple thyroid nodules Menopause Type 2 diabetes mellitus without complication, without long-term current use of insulin Dyslipidemia Hypertension Surgical History S/P cardiac catheterization Status post phlebectomy H/O eye surgery H/O hernia repair H/O bilateral breast reduction surgery H/O section H/O thyroidectomy Hx of cholecystectomy Family History Father CAD (coronary artery disease) Myocardial infarction CVD (cardiovascular disease) Substance use disorder Mother Diabetes mellitus HTN (hypertension) Maternal Grandfather No problems noted. Maternal Grandmother No problems noted. Paternal Grandfather No problems noted. Paternal Grandmother No problems noted. Brother Substance use disorder Mental health disorder Sister No problems noted. Sister Substance use disorder Sister No problems noted. Sister No problems noted. Son No problems noted. Daughter No problems noted. 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 1. Little interest or pleasure in doing things: not at all 2. Feeling down, depressed, or hopeless: not at all 3. Trouble falling or staying asleep, or sleeping too much: not at all 4. Feeling tired or having little energy: several days 5. Poor appetite or overeating: several days 6. Feeling bad about yourself - or that you are a failure or have let yourself or your family down: not at all 7. Trouble concentrating on things, such as reading the newspaper or watching television: not at all 8. Moving or speaking so slowly that other people could have noticed. Or the opposite - being so fidgety or restless that you have been moving around a lot more than usual: not at all 9. Thoughts that you would be better off or of hurting yourself in some way: not at all Total score: 2 Depression Screening Interpretation: Negative Depression Screening Done: Yes 27879 - PHQ-9 Billing: Yes Source: Developed by Drs. Lucien Greenberg, Tika Ryan, Raúl Marmolejo and colleagues, with an educational julian from [employer]. Thrive Questionnaire Date Thrive assessed: 08/08/24 I am a: Patient What is your living situation today?: I have a steady place to live Within the past 12 months, did the food you bought not last and you didn't have the money to get more?: Never true Within the past 12 months, did you worry whether your food would run out before you got money to buy more?: Never true Do you have trouble paying for medicines?: No Do you have trouble getting transportation to medical appointments?: No Do you have trouble paying your heating and electricity bill?: No Do you have trouble taking care of your child, family member or friend?: No Do you have trouble with day-to-day activities such as bathing, preparing meals, shopping, managing finances, etc.?: No Are you currently unemployed and looking for a job?: No Are you interested in more education?: No Please select the resources that you would like help with: None Currently or been in a relationship where the following occur: No concerns reported THRIVE Score: 0 AUDIT C Alcohol Use Questionnaire (AUDIT-C) 1. How often do you have a drink containing alcohol?: Monthly or less 2. How many drinks containing alcohol do you have on a typical day when you are drinking?: 1 or 2 3. How often do you have six or more drinks on one occasion?: Never Total Score: 1 MONIK-7 AMB Questionnaire MONIK-7 Date MONIK - 7 assessed: 08/15/24 Feeling nervous, anxious, or on edge: 0 = Not at all Not being able to stop or control worryin = Not at all Worrying too much about different things: 1 = Several days Trouble relaxin = Not at all Being so restless that it is hard to sit still: 0 = Not at all Becoming easily annoyed or irritable: 0 = Not at all Feeling afraid as if something awful might happen: 0 = Not at all Total MONIK-7 score (0-4 normal; 5-9 mild; 10-14 moderate; 15-21 severe): 1 Source: Developed by Drs. Lucien Greenberg, Tika Ryan, Raúl Marmolejo and colleagues, with an educational julian from [employer]. MONIK-7 Assessment Billing MONIK-7 Assessment Tool: MONIK-7 Assessment 30336 Review of Systems Const Denies chills, Denies fatigue, Denies fever(s), Denies weight gain and Denies weight loss Eyes Details: Left eye prosthesis ENT Denies dizziness Card Denies chest pain, Denies leg edema, Denies lightheadedness, Denies palpitations, Denies dyspnea on exertion, Denies orthopnea and Denies other Resp Denies cough and Denies dyspnea on exertion GI Denies hematochezia and Denies change in stool character Reports no additional complaints and Denies nipple discharge Musc Denies abnormal gait, Denies muscle weakness, Denies numbness, Denies radiating pain into limb and Denies tingling Skin/Breast Denies breast pain, Denies breast mass, Denies nipple discharge and Denies rash Neuro Denies abnormal gait, Denies dizziness, Denies numbness and Denies tingling Psych Reports no additional complaints Endo Denies fatigue and Denies palpitations Kenji/Lymph Reports no additional complaints Aller/Immun Reports no additional complaints Physical exam (Primary Care) Vital Signs: Last Vital Signs Temp 97.7 F 08/15/24 10:26 Pulse 66 08/15/24 10:26 Resp 15 08/15/24 10:26 BP 112/80 08/15/24 10:26 Pulse Ox 95 08/15/24 10:26 Oxygen Delivery Method Room Air 08/15/24 10:26 BMI result Body Mass Index 39.6 Tobacco/Smoking Status: Tobacco use Status Tobacco use date assessed 08/15/24 08/15/24 10:29 Patient Tobacco Use Status Former Tobacco user 08/15/24 10:29 e-Cigarette/Vaping Use Never Used 08/15/24 10:29 PHQ-9: PHQ-9 Score PHQ-9: Total score 2 08/22/24 02:01 Depression Screening Interpretation: Negative Thrive Assessment: Date of Thrive Assessment Date Thrive assessed 08/08/24 08/15/24 10:29 Currently or been in a relationship where the following occur: No concerns reported Const Other: Alert oriented x3, no acute distress noted ambulatory normal gait Nutritional Appearance: obese morbidly obese [facility] Head: Yes normocephalic Ears: external ears normal, TM's normal bilaterally and EAC's normal General nose exam: Normal external nose present Face and sinus: Yes face symmetric Mouth: oropharynx normal and moist mucous membranes Eyes Other: Artificial left eye Neck Neck: Yes full ROM, Yes no lymphadenopathy and Yes supple Resp Auscultation: clear to auscultation bilaterally Cardio Other: S1-S2 present regular rate and rhythm GI Other: Normal bowel sounds, soft, nontender General: Yes no CVA tenderness Back/Spine/Pelvis Back: no CVA tenderness and No back tenderness Cervical Spine: normal cervical lordosis and cervical ROM normal Thoracic/Lumbar Spine: thoraco-lumbar ROM normal Skin General skin exam: no rashes or lesions noted Neuro General: gait normal, tone normal, moves all extremities, Normal light touch and pain sensation, no focal motor deficits and CN's II-XI intact bilaterally Extrem General: Yes full ROM, Yes no joint enlargement, Yes no pedal edema and Yes normal gait Psych Appearance: grossly normal and well kempt Mental Status: mental status grossly normal Speech and movement: Normal speech and movement present Affect: normal affect Results Reviewed Results Reviewed: Name: Isabella Gonzalez Age/Sex: 64/F : 1960 Unit#: [id number] Attend Dr: Marquita Gonzales MD Re08/13/24 Status: DEP REF Location: [facility] Disch: SPEC : [id number] SHANE: 08/13/24 STATUS: COMP REQ : [id number] RECD: 08/13/[address]: Marquita Gonzales MD COMP: 08/13/24 ENTERED: 08/13/[address] [facility] [address]: ORDERED: CBC Auto Diff Test Result Flag Reference WBC 6.1 4.8-10.8 X10*3/uL RBC 3.96 L 4.20-5.50 X10*6/uL HGB 12.8 12.0-16.0 g/dl HCT 37.7 37.0-47.0 % MCV 95.2 80.0-98.0 fL MCH 32.3 27.0-33.0 pg MCHC 34.0 31.0-35.0 g/dl RDW 15.8 11.0-16.0 % PLT 213 160-400 X10*3/uL MPV 11.7 9.4-12.3 fL Neut Pct Auto 68.0 45-73 % ImGran Pct Auto 0.5 H 0.0-0.4 % Lymp Pct Auto 20.0 20-40 % [place] Pct Auto 10.2 2-11 % Eos Pct Auto 1.0 0-4 % Baso Pct Auto 0.3 0-2 % NRBC Pct Auto 0.0 0.0-0.2 /100WBC ANC Neut Abs # 4.2 2.0-8.3 x10*3/uL ImGran Abs Auto 0.03 0.00-0.03 X10*3/uL Lymph Abs Auto 1.2 1.2-4.9 X10*3/uL [place] Abs Auto 0.6 0.1-1.2 X10*3/uL Eos Abs Auto 0.1 0.0-0.4 X10*3/uL Baso Abs Auto 0.0 0.0-0.2 X10*3/uL NRBC Abs Auto 0.000 0.0-0.012 X10*3/uL Name: Isabella Gonzalez Age/Sex: 64/F : 1960 Unit#: [id number] Attend Dr: Marquita Gonzales MD Re08/13/24 Status: DEP [facility]F [facility] Disch: SPEC : [id number] SHANE: 08/13/24 STATUS: COMP REQ : [id number] RECD: 08/13/24-[address]: Marquita Gonzales MD COMP: 08/13/24 ENTERED: 08/13/[address] [facility] [address]: ORDERED: Met Prof Fast, AST, ALT, Lipid Panel, Vitamin D 25-OH Test Result Flag Reference Sodium 141 135-145 mmol/L Potassium 4.0 3.3-5.1 mmol/L CL 107 96-108 mmol/L CO2 27 22-29 mmol/L Gap 11 L 12-20 BUN 16 9-16 mg/dL Creat 0.66 0.5-1.4 mg/dL eGFR > 60 Chronic Kidney Disease: Estimated GFR < 60 mL/min/1.73m2 Severe Kidney Disease: Estimated GFR < 15 mL/min/1.73m2 FBS 116 H 60-99 mg/dL A fasting glucose from 100-125 mg/dl is considered impaired (pre-diabetes). CA 9.8 8.4-10.2 mg/dL AST (GOT) 23 5-31 U/L ALT (GPT) 18 0-31 U/L Triglyceride 128 <150 mg/dL Desirable Triglyceride: less than 150 mg/dL Borderline High Triglyceride 150-199 mg/dL High Triglyceride: 200-499 mg/dL Very High Triglyceride: greater than or equal to 5OO mg/dL Cholesterol 118 <200 mg/dL Desirable Cholesterol: less than 200 mg/dL Borderline High Cholesterol: 200-239 mg/dL High Cholesterol: greater than 239 mg/dL LDL Calculated 46 <100 mg/dL Desirable LDL: less than 100 mg/dL Near Optimal/Above Optimal LDL: 110-129 mg/dL Borderline High LDL: 130-159 mg/dL High LDL: 160-189 mg/dL Very High LDL: greater than or equal to 190 mg/dL HDL 47 >40 mg/dL Desirable HDL: greater than 40 mg/dL Note: This HDL assay may give artificially low results in patients with liver disease. Vitamin D 25-OH 64.8 >30 ng/mL Health Based Reference Values* < 20 ng/mL Deficient 20-30 ng/mL Insufficient > 30 ng/mL Sufficient Laboratory Tests 08/13/24 07:25 Estimat Average Glucose 131 Hemoglobin A1c % 6.2 H Urine Creatinine 57.67 Urine Microalbumin < 5.0 Microalb/Creat Ratio TNP r Coding Level of Care Code Est Pt Prev Care 40-64y(75057) Diagnoses Annual visit for general adult medical examination with abnormal findings Z00.01 Type 2 diabetes mellitus without complication, without long-term current use of insulin E11.9 Dyslipidemia E78.5 Essential hypertension I10 Hypertension type: essential hypertension Morbid obesity E66.01 Advanced directives, counseling/discussion Z71.89 Polycystic ovaries E28.2 COPD (chronic obstructive pulmonary disease) J44.9 Primary open angle glaucoma, right eye H40.1110 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 G47.33; Z99.89 Lung nodule < 6cm on CT R91.1 Nontoxic multinodular goiter E04.2 Mild intermittent asthma in adult without complication J45.20 Atherosclerotic cardiovascular disease I25.10 Osteoporosis of lumbar spine M81.0 Additional Codes PHQ-9 - 75377 - PHQ-9 Billing: Yes ([id number]) MONIK-7 Assessment Billing - MONIK-7 Assessment Tool: MONIK-7 Assessment 66059 ([id number]) Assessment & Plan Assessment & Plan (1) Annual visit for general adult medical examination with abnormal findings: Code(s): Z00.01 - Encounter for general adult medical examination with abnormal findings Plan: Reviewed recent fasting lab results with patient. Recommended dental visit every 6 months and regular eye exams, at least every 2 years. Take adequate calcium in diet and vitamin-D 3 at 2000 IU per cap once a day, in addition to weight-bearing exercises to help maintain good muscle tone and weight control. Instructed to do self-breast exam, and continue with yearly mammogram,. Currently being seen by an OBGYN [facility] cervical cancer screening and pelvic exam. Up-to-date with her screening colonoscopy, up-to-date with all vaccinations (2) Type 2 diabetes mellitus without complication, without long-term current use of insulin: Code(s): E11.9 - Type 2 diabetes mellitus without complications Category: Medical Plan: Continue metformin ER 500 mg 1 tablet at night with supper reinforced importance of following a diabetic diet and getting regular exercise. Currently goes to [facility] for her routine eye exam and diabetes retinopathy screening (3) Dyslipidemia: Code(s): E78.5 - Hyperlipidemia, unspecified Category: Medical Plan: Reviewed recent fasting lipid profile with patient with levels within normal limits. Continue rosuvastatin 40 mg daily , in addition to adherence to low-cholesterol diet and regular exercise, at least 30 minutes 3 to 4 times a week. Advised patient to make healthy food choices, eat more fruits, vegetables, whole grains, wild caught fish and low-fat dairy. Limit amount of meat and fried or fatty food products, as well as processed foods and fast foods. (4) Hypertension: Code(s): I10 - Essential (primary) hypertension Category: Medical Qualifiers: Hypertension type: essential hypertension Qualified Code(s): I10 - Essential (primary) hypertension Plan: Blood pressure at goal of less than 130/80. Continue with current medication. Reinforced importance of following a low sodium diet, getting regular exercise, and lowering stress levels. (5) Morbid obesity: Code(s): E66.01 - Morbid (severe) obesity due to excess calories Category: Medical Plan: Stressed again importance of following recommended diet and getting regular exercise (6) Advanced directives, counseling/discussion: Code(s): Z71.89 - Other specified counseling Plan: Initiated the conversation about Advanced Directives. Advanced Directives help patients prepare for current and future decisions about their medical treatment and place of care. Discussed with patient that it is a process where a patients current condition and prognosis are reviewed, their wishes for information regarding their illness are elicited, and likely medical dilemmas are presented and options discussed. Healthcare proxy form completed today. The form can be amended as needed, reviewed yearly and make changes as needed (7) Polycystic ovaries: Comment: Dr Hahn @ [facility] Code(s): E28.2 - Polycystic ovarian syndrome Category: Medical Plan: By her own OBGYN (8) COPD (chronic obstructive pulmonary disease): Comment: followed by Dr. Leon Code(s): J44.9 - Chronic obstructive pulmonary disease, unspecified Category: Medical Plan: Followed by Dr. Leon currently on budesonide-formoterol 160-4.5 mcg per inhalation used twice a day (9) Primary open angle glaucoma, right eye: Comment: followed at [facility] in [place], Dr. Lea Code(s): H40.1110 - Primary open-angle glaucoma, right eye, stage unspecified Category: Medical Plan: Followed at [facility] (10) 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: Code(s): G47.33 - Obstructive sleep apnea (adult) (pediatric); Z99.89 - Dependence on other enabling machines and devices Category: Medical Plan: Compliance with CPAP stressed, weight loss recommended (11) Lung nodule < 6cm on CT: Comment: followed yearly with low-dose CT scan ordered by Dr. Parks Code(s): R91.1 - Solitary pulmonary nodule Category: Medical Plan: Followed by Dr. Jesus for her lung cancer screening (12) Nontoxic multinodular goiter: Comment: Sees Dr. Mon Code(s): E04.2 - Nontoxic multinodular goiter Category: Medical Plan: Previously followed by endocrine clinic. Underwent FNA biopsy on 11/15/2020 of a L isthmus 2.0 cm thyroid nodule and a R isthmus 1.0 cm thyroid nodule, both with benign cytology.. . She appears to be clinically and biochemically euthyroid . Plan is to repeat TSH and free T4., ordered . repeat a thyroid ultrasound about 2 years, time due in 2025. (13) Mild intermittent asthma in adult without complication: Comment: robson Leon Code(s): J45.20 - Mild intermittent asthma, uncomplicated Category: Medical Plan: Continue with current inhalers, followed by Dr. Padron (14) Atherosclerotic cardiovascular disease: Code(s): I25.10 - Atherosclerotic heart disease of [place] coronary artery without angina pectoris Category: Medical Plan: Continue with aspirin 81 mg daily and Plavix 75 mg daily together with the irbesartan 75 mg daily and spironolactone-hydrochlorothiazide 25-25 mg 2 tablets daily (15) Osteoporosis of lumbar spine: Comment: Started on alendronate by Mimi Weinstein 08/2023 Code(s): M81.0 - Age-related osteoporosis without current pathological fracture Category: Medical Plan: Currently on alendronate started by her OBGYN Orders: Orders Hemoglobin A1c 01/23/25 E04.2 - Nontoxic multinodular goiter, E11.9 - Type 2 diabetes mellitus without complications, E28.2 - Polycystic ovarian syndrome, E66.01 - Morbid (severe) obesity due to excess calories, E78.5 - Hyperlipidemia, unspecified, G47.33 - Obstructive sleep apnea (adult) (pediatric), H40.1110 - Primary open-angle glaucoma, right eye, stage unspecified, I10 - Essential (primary) hypertension, I25.10 - Atherosclerotic heart disease of [place] coronary artery without angina pectoris, J44.9 - Chronic obstructive pulmonary disease, unspecified, J45.20 - Mild intermittent asthma, uncomplicated, M81.0 - Age-related osteoporosis without current pathological fracture, R91.1 - Solitary pulmonary nodule, Z85.840 - Personal history of malignant neoplasm of eye, Z99.89 - Dependence on other enabling machines and devices Alanine Aminotransferase 01/23/25 E04.2 - Nontoxic multinodular goiter, E11.9 - Type 2 diabetes mellitus without complications, E28.2 - Polycystic ovarian syndrome, E66.01 - Morbid (severe) obesity due to excess calories, E78.5 - Hyperlipidemia, unspecified, G47.33 - Obstructive sleep apnea (adult) (pediatric), H40.1110 - Primary open-angle glaucoma, right eye, stage unspecified, I10 - Essential (primary) hypertension, I25.10 - Atherosclerotic heart disease of [place] coronary artery without angina pectoris, J44.9 - Chronic obstructive pulmonary disease, unspecified, J45.20 - Mild intermittent asthma, uncomplicated, M81.0 - Age-related osteoporosis without current pathological fracture, R91.1 - Solitary pulmonary nodule, Z85.840 - Personal history of malignant neoplasm of eye, Z99.89 - Dependence on other enabling machines and devices Aspartate Amino Transferase 01/23/25 E04.2 - Nontoxic multinodular goiter, E11.9 - Type 2 diabetes mellitus without complications, E28.2 - Polycystic ovarian syndrome, E66.01 - Morbid (severe) obesity due to excess calories, E78.5 - Hyperlipidemia, unspecified, G47.33 - Obstructive sleep apnea (adult) (pediatric), H40.1110 - Primary open-angle glaucoma, right eye, stage unspecified, I10 - Essential (primary) hypertension, I25.10 - Atherosclerotic heart disease of [place] coronary artery without angina pectoris, J44.9 - Chronic obstructive pulmonary disease, unspecified, J45.20 - Mild intermittent asthma, uncomplicated, M81.0 - Age-related osteoporosis without current pathological fracture, R91.1 - Solitary pulmonary nodule, Z85.840 - Personal history of malignant neoplasm of eye, Z99.89 - Dependence on other enabling machines and devices Basic Metabolic Panel Fasting 01/23/25 E04.2 - Nontoxic multinodular goiter, E11.9 - Type 2 diabetes mellitus without complications, E28.2 - Polycystic ovarian syndrome, E66.01 - Morbid (severe) obesity due to excess calories, E78.5 - Hyperlipidemia, unspecified, G47.33 - Obstructive sleep apnea (adult) (pediatric), H40.1110 - Primary open-angle glaucoma, right eye, stage unspecified, I10 - Essential (primary) hypertension, I25.10 - Atherosclerotic heart disease of [place] coronary artery without angina pectoris, J44.9 - Chronic obstructive pulmonary disease, unspecified, J45.20 - Mild intermittent asthma, uncomplicated, M81.0 - Age-related osteoporosis without current pathological fracture, R91.1 - Solitary pulmonary nodule, Z85.840 - Personal history of malignant neoplasm of eye, Z99.89 - Dependence on other enabling machines and devices Lipid Panel 01/23/25 E04.2 - Nontoxic multinodular goiter, E11.9 - Type 2 diabetes mellitus without complications, E28.2 - Polycystic ovarian syndrome, E66.01 - Morbid (severe) obesity due to excess calories, E78.5 - Hyperlipidemia, unspecified, G47.33 - Obstructive sleep apnea (adult) (pediatric), H40.1110 - Primary open-angle glaucoma, right eye, stage unspecified, I10 - Essential (primary) hypertension, I25.10 - Atherosclerotic heart disease of [place] coronary artery without angina pectoris, J44.9 - Chronic obstructive pulmonary disease, unspecified, J45.20 - Mild intermittent asthma, uncomplicated, M81.0 - Age-related osteoporosis without current pathological fracture, R91.1 - Solitary pulmonary nodule, Z85.840 - Personal history of malignant neoplasm of eye, Z99.89 - Dependence on other enabling machines and devices Thyroid Stimulating Hormone 01/23/25 E04.2 - Nontoxic multinodular goiter Free T4 (Free Thyroxine) 01/23/25 E04.2 - Nontoxic multinodular goiter
== END 2024-08-15 12:02 | disposition home or self-care (01) ==
LOC: HO.HMCC 09:41
PROVIDERS: PCP Internal Medicine; Visit Provider Internal Medicine
DX: Z00.00 Encounter for general adult medical examination without abnormal findings (principal); E11.9 Type 2 diabetes mellitus without complications; E66.01 Morbid (severe) obesity due to excess calories; J44.9 Chronic obstructive pulmonary disease, unspecified; Z68.39 Body mass index [BMI] 39.0-39.9, adult; E78.5 Hyperlipidemia, unspecified; I10 Essential (primary) hypertension; Z71.89 Other specified counseling; E28.2 Polycystic ovarian syndrome; H40.1110 Primary open-angle glaucoma, right eye, stage unspecified; G47.33 Obstructive sleep apnea (adult) (pediatric); Z99.89 Dependence on other enabling machines and devices

== ENCOUNTER → 2024-08-15 09:40 | Outpatient (BNVA) | payer OTHER, SELFPAY | PROVIDERS: PCP Internal Medicine; Visit Provider Internal Medicine | DX: Z00.01 Encounter for general adult medical examination with abnormal findings (principal); E11.9 Type 2 diabetes mellitus without complications; E78.5 Hyperlipidemia, unspecified; I10 Essential (primary) hypertension; E66.01 Morbid (severe) obesity due to excess calories; Z68.39 Body mass index [BMI] 39.0-39.9, adult; Z79.84 Long term (current) use of oral hypoglycemic drugs; Z79.899 Other long term (current) drug therapy; Z71.89 Other specified counseling | CPT/HCPCS: 96127 ==

== ENCOUNTER 2024-08-16 13:47 | Outpatient (AMB) | payer OTHER, SELFPAY ==
[2024-08-16 14:03] VITALS: BMI 39.6
--- NOTE | 2024-08-16 14:03 | MHC.OFFVIS ---
Vital Signs 08/16/24 14:03 Height 5 ft 5 in Weight 238 lb BMI 39.6 Intake Visit Reasons: Right knee pain and giving way Intake Note: Isabella is a 63 year old female who presents with complaints of progressively worsening right knee pain and giving way. The patient states that she injured her right knee 5 years ago when she fell over her dog. She twisted her knee and had acute onset of pain. Since that time her symptoms have gotten worse. She has tried Tylenol which gives only mild relief. She is not able to tolerate anti-inflammatory medicines. She has failed the last 6 weeks of conservative treatment which has included a home exercise program, Aspercreme and icing. Most of the pain is along the medial aspect of her knee. She states her right knee will give out several times per day. Allergies mold,trees,dust,cats,dogs Allergy (Unknown, Uncoded 08/15/24 10:41) unknown strawberries Allergy (Unknown, Uncoded 08/15/24 10:41) hives Medication List - Last Reconciled 08/16/24 by Allen Sánchez MD albuterol sulfate 90 mcg/actuation 2 puffs inhalation Q6H PRN alendronate 70 mg PO QWEEK aspirin (Adult Aspirin Regimen) 81 mg PO DAILY blood sugar diagnostic (FreeStyle Lite Strips) Check fasting blood sugar once a day blood-glucose meter (FreeStyle [place] Lite kit) As directed budesonide-formoterol 160-4.5 mcg/actuation 1 inh inhalation BID calcium carbonate (Calcium 500) 500 mg PO DAILY citalopram 20 mg PO DAILY clopidogrel (Plavix) 75 mg PO DAILY irbesartan 75 mg PO DAILY ketotifen fumarate 0.025%(0.035%) (Zaditor) 1 drp ophthalmic-Right Q12H lancets (FreeStyle Lancets) Check fasting glucose once a day latanoprost 0.005% 1 drp ophthalmic (eye) QPM levocetirizine (Xyzal) 5 mg PO QPM PRN magnesium oxide 400 mg PO DAILY metformin ER 500 mg PO QPM methocarbamol 500 mg PO TID PRN montelukast 10 mg PO DAILY multivitamin 1 tab PO DAILY rosuvastatin 40 mg PO DAILY spironolacton-hydrochlorothiaz 25-25 mg 2 tabs PO DAILY vitamin B complex (B Complex-Vitamin B12 tablet) 1 tab PO DAILY PFSH Medical History (Updated 08/16/24 @ 14:25 by Allen Sánchez MD) History of retinoblastoma Osteoporosis of lumbar spine Incomplete right bundle branch block (RBBB) determined by electrocardiography Hearing loss Family history of early CAD Intermittent left-sided chest pain Seasonal allergies Plantar fasciitis, right Mild intermittent asthma in adult without complication Nontoxic multinodular goiter Lung nodule < 6cm on CT Cervical spondylosis DJD (degenerative joint disease), lumbar 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 Primary open angle glaucoma, right eye Retinoblastoma of left eye Polycystic ovaries Morbid obesity Multiple thyroid nodules Menopause Type 2 diabetes mellitus without complication, without long-term current use of insulin Dyslipidemia Hypertension Surgical History S/P cardiac catheterization Status post phlebectomy H/O eye surgery H/O hernia repair H/O bilateral breast reduction surgery H/O section H/O thyroidectomy Hx of cholecystectomy Family History Father CAD (coronary artery disease) Myocardial infarction CVD (cardiovascular disease) Substance use disorder Mother Diabetes mellitus HTN (hypertension) Maternal Grandfather No problems noted. Maternal Grandmother No problems noted. Paternal Grandfather No problems noted. Paternal Grandmother No problems noted. Brother Substance use disorder Mental health disorder Sister No problems noted. Sister Substance use disorder Sister No problems noted. Sister No problems noted. Son No problems noted. Daughter No problems noted. 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: No Cognitive needs: No Hearing needs: Yes Vision needs: Yes Physical Exam Vital Signs: BMI result Body Mass Index 39.6 Const Other: Well-nourished well-developed very friendly female awake alert and oriented x3 in no acute distress Extrem Other: Bilateral lower extremity examination shows good capillary refill, no skin lesions noted, normal sensation light touch Right knee examination shows a minimal effusion, mild crepitus with range of motion, tenderness along her medial joint line, positive Heidi's test, no instability Results Reviewed Results Reviewed: Standing full weight-bearing x-rays of the patient's right knee show mild diffuse joint space narrowing, no acute bony abnormalities Assessment & Plan Assessment & Plan (1) Tear of medial meniscus of right knee: Code(s): S83.241A - Other tear of medial meniscus, current injury, right knee, initial encounter Category: Medical Plan Ms. Gonzalez presents with progressively worsening right knee pain and mechanical symptoms most likely due to a medial meniscus tear. Thus, I will send the patient for an MRI of her right knee for further evaluation. I will see her back once the MRI is completed to discuss the findings and treatment options. Feel free to call me at any time should questions regarding her orthopedic management arise. I spent 21 minutes in reviewing the patient's records and imaging studies, seeing the patient and documenting in the medical record. Orders: Orders MR knee RT wo con Today S83.241A - Other tear of medial meniscus, current injury, right knee, initial encounter Coding Level of Care Code New Pt Level 3 (07285) Complex EM visit Add On G2211 Diagnoses Tear of medial meniscus of right knee S83.241A
== END 2024-08-16 14:21 | disposition home or self-care (01) ==
LOC: HO.HOS 13:48
PROVIDERS: PCP Internal Medicine; Visit Provider Orthopaedic Surgery
DX: S83.241A Other tear of medial meniscus, current injury, right knee, initial encounter (principal)
CPT/HCPCS: 99203

== ENCOUNTER 2024-08-17 12:25 | Outpatient (AMB) | payer OTHER, SELFPAY ==
[2024-08-17 12:32] VITALS: BMI 40.1
--- NOTE | 2024-08-17 12:32 | MHC.AMNUTRGE ---
VS Expanded 08/17/24 12:32 Height 5 ft 5 in Weight 240 lb 11.916 oz BMI 40.1 Intake Visit Reasons: T2DM Allergies mold,trees,dust,cats,dogs Allergy (Unknown, Uncoded 08/15/24 10:41) unknown strawberries Allergy (Unknown, Uncoded 08/15/24 10:41) hives Nutrition Presentation Details: Pt presents for MNT f/u for T2DM Pt reports watching portion of carbs , maintaining A1c at 6.2% (08/16) Has a meal replacement once a day - which reports starting BS Monitoring Most Recent Diabetes Results: Microalb/Creat Ratio TNP 08/13/24 Cholesterol 118 mg/dL (<200) 08/13/24 HDL Cholesterol 47 mg/dL (>40) 08/13/24 Triglycerides 128 mg/dL (<150) 08/13/24 Creatinine 0.66 mg/dL (0.5-1.4) 08/13/24 Blood Urea Nitrogen 16 mg/dL (9-16) 08/13/24 Sodium 141 mmol/L (135-145) 08/13/24 Potassium 4.0 mmol/L (3.3-5.1) 08/13/24 Chloride 107 mmol/L (96-108) 08/13/24 Carbon Dioxide 27 mmol/L (22-29) 08/13/24 Calcium 9.8 mg/dL (8.4-10.2) 08/13/24 AST 23 U/L (5-31) 08/13/24 ALT 18 U/L (0-31) 08/13/24 [facility] Medical History (Updated 08/16/24 @ 14:25 by Allen Sánchez MD) History of retinoblastoma Osteoporosis of lumbar spine Incomplete right bundle branch block (RBBB) determined by electrocardiography Hearing loss Family history of early CAD Intermittent left-sided chest pain Seasonal allergies Plantar fasciitis, right Mild intermittent asthma in adult without complication Nontoxic multinodular goiter Lung nodule < 6cm on CT Cervical spondylosis DJD (degenerative joint disease), lumbar 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 Primary open angle glaucoma, right eye Retinoblastoma of left eye Polycystic ovaries Morbid obesity Multiple thyroid nodules Menopause Type 2 diabetes mellitus without complication, without long-term current use of insulin Dyslipidemia Hypertension Surgical History S/P cardiac catheterization Status post phlebectomy H/O eye surgery H/O hernia repair H/O bilateral breast reduction surgery H/O section H/O thyroidectomy Hx of cholecystectomy Family History Father CAD (coronary artery disease) Myocardial infarction CVD (cardiovascular disease) Substance use disorder Mother Diabetes mellitus HTN (hypertension) Maternal Grandfather No problems noted. Maternal Grandmother No problems noted. Paternal Grandfather No problems noted. Paternal Grandmother No problems noted. Brother Substance use disorder Mental health disorder Sister No problems noted. Sister Substance use disorder Sister No problems noted. Sister No problems noted. Son No problems noted. Daughter No problems noted. 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: No Cognitive needs: No Hearing needs: Yes Vision needs: Yes Assessment & Plan Assessment & Plan (1) Type 2 diabetes mellitus without complication, without long-term current use of insulin: Code(s): E11.9 - Type 2 diabetes mellitus without complications Category: Medical Plan: Wt:105 Kg ( 04/17 ), 107 kg(06/18), 108 kg(07/19), 109 kg (08/16) Est kcal needs as per MSJ: 2000 (40% carb, 30% protein/fat) Est fluid needs as per 25-30 ml/d: 3100 Est prot per day as per 1 g/kg bw: 105 Recommend fiber intake : 8-10 g per day and gradually increase to 25-28 g per day for women and 35-38 g for men or as tolerated Recommend sodium intake per day : less than 2300 mg Educated patient on: ( R = reviewed V = verbalizes understanding N/R = needs review N/A = not applicable Food sources of carbohydrate, adequate serving sizes and its role in various health conditions: R Differences between complex carbohydrates a simple carbohydrates, role of fiber in diet: R Lean protein sources of foods: R V NR Differences between types of fats and role in diet (mono on saturated fat fatty acids, saturated fatty acids, trans fats): R Food sources of sodium in salt and healthy modifications for heart health in kidney health: R V R/V Vitamins and minerals: R V N/R Healthy plate method concept: R V N/R Physical activity: Benefits a precaution: R V N/R Hypoglycemia protocol (rule of 15): R V N/R Dietary prevention of Hyperglycemia: R Patient Instructions: Mindful of hidden fats and salt content of foods (cheese, sauces, gravies, breading as examples ) and simple sugars (candies, sweets) Keep hydrated by having water with meals/snacks, try herb flavors Coding Level of Care Code Nutr Indiv Subseq (83560) Diagnoses Type 2 diabetes mellitus without complication, without long-term current use of insulin E11.9 Time Spent (min) 30
--- OUTSIDE RECORDS SUMMARY | 2024-08-17 14:49 | XMS_ITS | Clinical Summary ---
Author Organization [facility] Address [address] [place] [address] Phone Care Team Providers Care Refrigerator Tester Name Role Phone Marquita Gonzales MD Primary [...] 9:45 AM EST Office Visit Pulmonolgy - [place] [address] [place] [address] Mikael Leon MD Moderate persistent asthma without complication (Primary Dx); Chronic obstructive pulmonary disease, unspecified COPD type ([facility]); Morbid obesity with BMI of 40.0-44.9, adult ([facility]) from Last 3 Months Immunizations Name Administration [...] SECTION PROCEDURE: HISTORICAL BREAST REDUCTION 1996 PROCEDURE: [place] BREAST REDUCTION OTHER SURGICAL HISTORY PROCEDURE: HISTORY OTHER; COMMENT: hernia repair w/mesh EYE SURGERY 1962 Left PROCEDURE: HISTORICAL EYE SURGERY; COMMENT: retinoblastoma w/enucleation BREAST CYST ASPIRATION Right Medical History Medical History Date Comments Pulmonary nodule 02/10/2017 DX:Pulmonary no dule Chronic obstructive pulmonar y disease ([facility]) 02/10/2017 DX:Chronic obstructive pulmo nary disease ([facility]) Moderate persistent asthma w ithout complication 09/06/2018 DX:Moderate persistent asthm a without complication DORCAS (obstructive sleep apnea) 09/06/2018 DX :DORCAS (obstructive sleep apnea) Morbid obesity with BMI of 4 0.0-44.9, adult ([facility]) 02/21/2019 DX:Morbid obesity with BMI o f 40.0-44.9, adult ([facility]) PCOS (polycystic ovarian syndrome) 02/21/2019 DX:PCOS (polycystic [...] Relation Name Comments Coronary artery disease Father [place], CVD Diabetes Mother HTN Breast cancer Mother's [...] 8:45 AM EDT Office Visit Pulmonol - [place] [address] [place] [id number] Mikael Leon MD [address] [place] [address] Health Maintenance Due Date Last Done Comments [...] year. Mammo Location: [facility], [address] [place] [address], [id number], . -------- FINAL REPORT -------- Dictated By: Lynnette Arechiga Dictated Date: 04/04/2024 09:20 ET Assigned Physician: Lynnette Arechiga Reviewed and Electronically Signed By: Lynnette Arechiga Signed Date: 04/04/2024 09:21 ET Workstation ID: [id number] Transcribed By: Self Edit Transcribed Date: 04/04/2024 09:20 ET Narrative 04/04/2024 9:21 AM EST HISTORY: Screening. Reduction mammoplasty in 1996. Maternal aunt had breast carcinoma. COMPARISON: 02/12/23, 02/01/22, 01/21/21 ?? TECHNIQUE: Bilateral digital breast tomosynthesis was performed in the CC and MLO projections. Computer aided detection with Cass Art 3D 3.1 was employed. BREAST DENSITY: B [...] CCand MLO projections. Computer aided detection with flikdateD JJ PHARMA 3D 3.1was employed. BREAST DENSITY: B - [...] year. Mammo Location: [facility], [address] [place] [address], [id number], . -------- FINAL REPORT -------- Dictated By: Lynnette Arechiga Dictated Date: 04/04/2024 09:20 ET Assigned Physician: Lynnette Arechiga Reviewed and Electronically Signed By: Lynnette Arechiga Signed Date: 04/04/2024 09:21 ET Workstation ID: [id number] Transcribed By: Self Edit Transcribed Date: 04/04/2024 09:20 ET us Marquita Gonzales MD IMG BI PROCEDURES Final Res ult from Last 3 Months or Most Recently Relevant to Health Maintenance Insurance [facility] [address] [place] [address] Care Teams Refrigerator Tester Relationship Specialty Start Date End Date Marquita Gonzales MD [address] [place] [address] PCP - General Internal Medicine 02/13/20
--- OUTSIDE RECORDS SUMMARY | 2024-08-17 14:49 | XMS_ITS ---
Author Organization [facility] Address [address] [place] [address] Care Team Providers Care Geneticist Name Role Phone Janet CRUZ, Marquita Primary Care Provider Lucien Shelby Unavailable [phone] Allergies Allergen (clinical drug ingredient) Drug/Non Drug Allergy documented on EMR Reaction Allergy Type Onset Date Status seasonal-allergy [facility] bi-weekly (uncoded) Unknown Allergy Active REASON FOR VISIT Patient presents today for a colon recall Medications Medication SIG (Take, Route, Frequency, Duration) Notes [...] every 12 hrs before dental appointment Active Social History Tobacco Use: Social History Observation Description Date Details (start date - stop date) Former Smoker NA - NA Tobacco Use/Smoking Question Answer Notes Patient is a former smoker How long has it been since you last smoked? > 10 years Section Notes: Nonsmoker since 2013, occasi onal alcohol Problems Problem Type SNOMED Code ICD Code Onset Dates Problem Status W/U Status Risk Notes Problem Colon cancer screening (587753192) Colon cancer screening (Z12.11) Active confirmed Problem Pre-procedure evaluation check (841598577) Encounter for other preprocedural examination (Z01.818) Active confirmed Problem Long-term current use of aspirin (8109931065257 03) Aspirin long-term use (Z79.82) Active confirmed Vital Signs Blood pressure systolic 00 mm Hg 04/13/20 24 Blood pressure diastolic 00 mm Hg 024 Height 65.25 in 04/13/2024 Weight 241 lbs 04/13/2024 BMI 39.79 kg/m2 04/13/2024 Procedures Procedure Date Ordered Date Performed Result Body Sit e COLONOSCOPY 04/13/2024 N/A Encounters Encounter Location Date Provider Diagnosis [facility] [address] [facility] [address] [place] [address] 04/13/2024 Lucien Gooden Colon cancer screeni ng Z12.11 ; Encounter for other preprocedural examination Z01.818 and Aspirin long-term use Z79.82 Assessments Encounter Date Diagnosis (ICD Code) Assessment Notes Treatment Notes Treatment Clinical Notes Section Notes 04/13/2024 Colon cancer screening (ICD-10 - Z12.11) Do not take aspirin on the morning of the colonoscopy Do not take Metformin the night before or on the morning of the colonoscopy Do not take Spironolactone -HCTZ the day before or on the day of the colonoscopy We will get clearance from Dr. Jefferson/Dr Baldomero Lopez regarding the stoppage of Clopidogrel and whether or not you need antibiotics for the colonoscopy Overall, Jorge appears well and is not having any new or worrisome GI complaints. I did recommend a followup colonoscopy for screening purposes given that it has been over 10 years since her last exam in 2013. We did review the rationale for that in regard to colorectal cancer prevention. Full consent was obtained for this, including risks of bleeding and perforation. The procedure will be done with monitored anesthesia care. The procedure will be scheduled for her sometime in October of 2024 as that will be over one year since the placement of a coronary artery stent. I believe that would allow some brief interruption of her blood thinner if she is still on that at that time. She was given the other below instructions regarding adjustment of her medications for the procedure. We will get clearance from her technician for the colonoscopy in regard to her overall cardiac status and the recommendations regarding her blood thinners. We will also ask the technician if she still requires antibiotics for prophylaxis given her previous history of endocarditis. Jorge was comfortable with this plan. Thank you again for allowing me to participate in Jorge's care. I shall continue to keep you advised of her progress. 04/13/2024 Encounter for other preprocedural examination (ICD-10 - Z01.818) Overall, Jorge appears well and is not having any new or worrisome GI complaints. I did recommend a followup colonoscopy for screening purposes given that it has been over 10 years since her last exam in 2013. We did review the rationale for that in regard to colorectal cancer prevention. Full consent was obtained for this, including risks of bleeding and perforation. The procedure will be done with monitored anesthesia care. The procedure will be scheduled for her sometime in October of 2024 as that will be over one year since the placement of a coronary artery stent. I believe that would allow some brief interruption of her blood thinner if she is still on that at that time. She was given the other below instructions regarding adjustment of her medications for the procedure. We will get clearance from her technician for the colonoscopy in regard to her overall cardiac status and the recommendations regarding her blood thinners. We will also ask the technician if she still requires antibiotics for prophylaxis given her previous history of endocarditis. Jorge was comfortable with this plan. Thank you again for allowing me to participate in Jorge's care. I shall continue to keep you advised of her progress. 04/13/2024 Aspirin long-term use (ICD-10 - Z79.82) Overall, Jorge appears well and is not having any new or worrisome GI complaints. I did recommend a followup colonoscopy for screening purposes given that it has been over 10 years since her last exam in 2013. We did review the rationale for that in regard to colorectal cancer prevention. Full consent was obtained for this, including risks of bleeding and perforation. The procedure will be done with monitored anesthesia care. The procedure will be scheduled for her sometime in October of 2024 as that will be over one year since the placement of a coronary artery stent. I believe that would allow some brief interruption of her blood thinner if she is still on that at that time. She was given the other below instructions regarding adjustment of her medications for the procedure. We will get clearance from her technician for the colonoscopy in regard to her overall cardiac status and the recommendations regarding her blood thinners. We will also ask the technician if she still requires antibiotics for prophylaxis given her previous history of endocarditis. Jorge was comfortable with this plan. Thank you again for allowing me to participate in Jorge's care. I shall continue to keep you advised of her progress. Plan Of Treatment Treatment Notes Assessment Notes Colon cancer screening [...] Provider Name:Lucien Gooden , 11/14/2024 07:30:00 AM, [address] [place] [address] , [place], [place], [phone], Progress Notes * GLORIA BISHOPADOB:1960 (63 yo F)Acc No.[id number]:04/13/2024 Progress Notes Patient:?JORGE BISHOP Provider:?Lucien Gooden MD :1960???Age:63 Y???Sex:Female D ate:04/13/2024 Address:[address] [place] [address] , [address] [facility], [id number] Pcp:Marquita Gonzales MD Subjective: * Chief Complaints: * ???Patient presents today fo r a colon recall * HPI: ???incontinence:? I saw Jorge in the office today for evaluation of colon cancer screening. ?I last saw Jorge in January of 2014, at which time she underwent a negative screening colonoscopy other than the finding of a hyperplastic polyp. She presently feels well from a GI standpoint. She enjoys a good appetite, without any significant heartburn or dysphagia. Her bowel movements are regular and without any signs of hematochezia or melena. She denies any abdominal pain, jaundice, nor unintentional weight loss. She denies any known family history of colorectal cancer. ?As you know, she had a coronary artery stent placed at the end of August 2023 and has been on clopidogrel and 81 mg aspirin since that time. * ROS:?General/Constitutional:?Change in appetite?denies.?Chills?denies.?Fatigue?denies.?Ophthalmologic:?Comments?all negative.?ENT:?Comments?all negative.?Respiratory:?hemoptysis?denies.?Cough?denies.?Cardiovascular:?Chest pain?denies.?Orthopnea?denies.?Gastrointestinal:?Comments?See HPI for details.?Genitourinary:?Hematuria?denies.?Dysuria?denies.?Musculoskeletal:?Painful joints?denies.?Weakness?denies.?Skin:?Itching?denies.?Rash?denies.?Neurologic:?Headache?denies.?Seizures?denies.?Psychiatric:?Comments?all negative.? * Medical History:? * Surgical History:? 1992/1995breast reduction 1996cholecystectomy- acalculous cholecystitis eye surgery-left--retinoblastoma [address] [place] [address] / dr. lemon * Hospitalization/Major Diagno stic Procedure:?No Hospitalization History. * Family History:?Father: dece ased.?Mother: .?Siblings: alive, colon polyps at age 52 sister, diagnosed with Colon polyps.? No colorectal cancer. * Social History:?Tobacco Use:?Tobacco Use/Smoking?Patient is a?former smoker,?How long has it been since you last smoked??> 10 years.?Drugs/Alcohol:?Alcohol Screen?Points: 2, Interpretation: Negative.?Miscellaneous:?Marital status: . 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 ???Nonsmoker since 2013, occasional alcohol. * Medications:?TakingAmoxicill in 500 MG Tablet 1 tablet Orally every 12 hrs, Notes: before dental appointmentAspir-81 81 MG Tablet Delayed Release 1 tablet Orally Once a dayCitalopram Hydrobromide 20 MG Tablet Oral metFORMIN HCl ER 500 MG Tablet Extended Release 24 Hour Oral Alendronate Sodium 70 MG Tablet Oral Fluticasone-Salmeterol 250-50 MCG/ACT Aerosol Powder Breath Activated Inhalation Spironolactone-HCTZ 25-25 MG Tablet Oral Latanoprost 0.005 % Solution Ophthalmic Methocarbamol 500 MG Tablet Oral Montelukast Sodium 10 MG Tablet Oral Clopidogrel Bisulfate 75 MG Tablet Oral Rosuvastatin Calcium 40 MG Tablet Oral Irbesartan 75 MG Tablet Oral Albuterol Sulfate HFA 108 (90 Base) MCG/ACT Aerosol Solution Inhalation Taking Amoxicillin 500 MG Tablet 1 tablet Orally every 12 hrs, Notes: before dental appointmentTaking Aspir-81 81 MG Tablet Delayed Release 1 tablet Orally Once a dayTaking Citalopram Hydrobromide 20 MG Tablet Oral Taking metFORMIN HCl ER 500 MG Tablet Extended Release 24 Hour Oral Taking Alendronate Sodium 70 MG Tablet Oral Taking Fluticasone-Salmeterol 250-50 MCG/ACT Aerosol Powder Breath Activated Inhalation Taking Spironolactone-HCTZ 25-25 MG Tablet Oral Taking Latanoprost 0.005 % Solution Ophthalmic Taking Methocarbamol 500 MG Tablet Oral Taking Montelukast Sodium 10 MG Tablet Oral Taking Clopidogrel Bisulfate 75 MG Tablet Oral Taking Rosuvastatin Calcium 40 MG Tablet Oral Taking Irbesartan 75 MG Tablet Oral Taking Albuterol Sulfate HFA 108 (90 Base) MCG/ACT Aerosol Solution Inhalation Not-Taking/PRNBrilinta 90 MG Tablet Oral Not- Taking/PRN Brilinta 90 MG Tablet Oral DiscontinuedWellbutrin XL 300 MG Tablet Extended Release 24 Hour 1 tablet in the morning Orally Once a daySuprep Bowel Prep 1 kit Solution as directed Orally as directedMedication List reviewed and reconciled with the patientDiscontinued Wellbutrin XL 300 MG Tablet Extended Release 24 Hour 1 tablet in the morning Orally Once a dayDiscontinued Suprep Bowel Prep 1 kit Solution as directed Orally as directedMedication List reviewed and reconciled with the patient * Allergies:?seasonal-allergy shots bi-weeklyyes[Allergies Verified] Objective: * Vitals:?Wt: 241 lbs, Ht: 65. 25 in, BMI:39.79 Index, BP: 00/00 mm Hg. * Examination: ???General Examination: ?GENERAL APPEARANCE:?pleasant, well nourished, well developed, in no acute distress.?EYES:?sclera non-icteric.?ORAL CAVITY:?mucosa moist.?NECK/THYROID:?no cervical lymphadenopathy, neck supple.?SKIN:?nonjaundiced, no spider angiomata.?HEART:?S1, S2 normal.?LUNGS:?clear to auscultation bilaterally.?ABDOMEN:?normal bowel sounds, no guarding or rigidity, no guarding or rigidity, no masses palpable, soft, nontender, nondistended.?EXTREMITIES:?no edema.?NEUROLOGIC:?alert and oriented.? Assessment: * Assessment: 1.?Encounter for other prepr ocedural examination - Z01.818 (Primary)?2.?Colon cancer screening - Z12.11?3.?Aspirin long-term use - Z79.82? Overall, Jorge appears well a nd is not having any new or worrisome GI complaints. I did recommend a followup colonoscopy for screening purposes given that it has been over 10 years since her last exam in 2014. We did review the rationale for that in regard to colorectal cancer prevention. Full consent was obtained for this, including risks of bleeding and perforation. The procedure will be done with monitored anesthesia care. The procedure will be scheduled for her sometime in October of 2024 as that will be over one year since the placement of a coronary artery stent. I believe that would allow some brief interruption of her blood thinner if she is still on that at that time. She was given the other below instructions regarding adjustment of her medications for the procedure. We will get clearance from her technician for the colonoscopy in regard to her overall cardiac status and the recommendations regarding her blood thinners. We will also ask the technician if she still requires antibiotics for prophylaxis given her previous history of endocarditis. Jorge was comfortable with this plan. Thank you again for allowing me to participate in Jorge's care. I shall continue to keep you advised of her progress. Plan: * Treatment: * Procedure Orders:? * ?Procedure: COLONOSCOPY * Procedure Codes:?3017F COLOR ECTAL CA SCREEN DOC [id number] TOBACCO NON-[id number] BP SCR NOT PRFRM REC REASON NOS * Preventive Medicine:? ??Counseling:?Care goal follow-up plan:?Above Normal BMI Follow-up?Giving encouragement to exercise,?BMI management provided?Yes.? * Follow Up:?prn * * Sign off status: Completed true * Provider:?Lucien Gooden MD Date:? 024 Generated for Simon samano/Jennifer/eTransmitting on:?08/17/2024 02:48 PM EDT History and Physical Notes * HPI (History of Present Illness) Category Sub-Category Detail Notes Category Not es incontinence I saw Jorge in the office today for evaluation of colon cancer screening. I last saw Jorge in January of 2014, at which time she underwent a negative screening colonoscopy other than the finding of a hyperplastic polyp. She presently feels well from a GI standpoint. She enjoys a good appetite, without any significant heartburn or dysphagia. Her bowel movements are regular and without any signs of hematochezia or melena. She denies any abdominal pain, jaundice, nor unintentional weight loss. She denies any known family history of colorectal cancer. As you know, she had a coronary artery stent placed at the end of August 2023 and has been on clopidogrel and 81 mg aspirin since that time. Examination Category Sub-Category Detail Notes Category Not es General Examination GENERAL APPEARANCE: pleasant , well [...]
--- OUTSIDE RECORDS SUMMARY | 2024-08-17 14:49 | XMS_ITS | Patient Health Record ---
Author Organization [facility] Address [address] [place] [address] Care Team Providers Care Data Lead Name Role Phone Janet CRUZ, Marquita Primary Care Provider Lucien Shelby Unavailable [phone] Allergies Allergen (clinical drug ingredient) Drug/Non Drug Allergy documented on EMR Reaction Allergy Type Onset Date Status seasonal-allergy [facility] bi-weekly (uncoded) Unknown Allergy Active Reason For Referral No Information Medications Medication SIG (Take, Route, Frequency, Duration) [...] Spironolactone-HCTZ 25-25 MG Oral for 30 Active Social History Tobacco Use: Social History Observation Description Date Details (start date - stop date) Former Smoker NA - NA Tobacco Use/Smoking Question Answer Notes Patient is a former smoker How long has it been since you last smoked? > 10 years Section Notes: Smoker 1/2 ppd; occasional a lcohol Nonsmoker since 2013, occasi onal alcohol Problems Problem Type SNOMED Code ICD Code Onset Dates Problem Status W/U Status Risk Notes Problem Colon cancer screening (424883866) Colon cancer screening (Z12.11) Active confirmed Problem Pre-procedure evaluation check (461715447) Encounter for other preprocedural examination (Z01.818) Active confirmed Problem Long-term current use of aspirin (8197901402688 03) Aspirin long-term use (Z79.82) Active confirmed Vital Signs Blood pressure diastolic 00 mm Hg 04/13/2024 Height 65.25 in 04/13/2024 Blood pressure systolic 00 mm Hg 04/13/2024 Weight 241 lbs 04/13/2024 BMI 39.79 kg/m2 04/13/2024 Procedures Procedure Date Ordered Date Performed Result Body Sit e COLONOSCOPY 04/13/2024 N/A Encounters Encounter Location Date Provider Diagnosis [facility] [address] [facility] [address] [place] [address] 04/13/2024 Lucien Gooden Colon cancer screeni ng [...] you need antibiotics for the colonoscopy Overall, Isabella appears well and is not having any [...] procedure. We will get clearance from her dye expert for the colonoscopy in regard to her overall cardiac status and the recommendations regarding her blood thinners. We will also ask the dye expert if she still requires antibiotics for prophylaxis given her previous history of endocarditis. Isabella was comfortable with this plan. Thank you again for allowing me to participate in Isabella's care. I shall continue to keep you advised of her progress. 04/13/2024 Encounter for other preprocedural examination (ICD-10 - Z01.818) Overall, Isabella appears well and is not having any [...] procedure. We will get clearance from her dye expert for the colonoscopy in regard to her overall cardiac status and the recommendations regarding her blood thinners. We will also ask the dye expert if she still requires antibiotics for prophylaxis given her previous history of endocarditis. Isabella was comfortable with this plan. Thank you again for allowing me to participate in Isabella's care. I shall continue to keep you advised of her progress. 04/13/2024 Aspirin long-term use (ICD-10 - Z79.82) Overall, Isabella appears well and is not having any [...] procedure. We will get clearance from her dye expert for the colonoscopy in regard to her overall cardiac status and the recommendations regarding her blood thinners. We will also ask the dye expert if she still requires antibiotics for prophylaxis given her previous history of endocarditis. Isabella was comfortable with this plan. Thank you again for allowing me to participate in Isabella's care. I shall continue to keep you advised of her progress. Plan Of Treatment Pending Test Test Name Order Date COLONOSCOPY 04/13/2024 Next Appt Details Provider Name:Lucien Matthews Gooden , 11/14/2024 07:30:00 AM, [address] [place] [address] , [place], [place], [phone], Insurance Providers Payer Name Payer Address Payer Phone Subscriber Number Group Number Insured Name Patient Relationship to Insured Coverage Start Date Coverage End Date [facility] [address] [place] [phone] [id number] ISABELLA BISHOP Self - patient is the insured Medical (General) History Medical History History ICD Code Hypertension Denies [place],CVA,renal disease 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 lemon
== END 2024-08-17 13:06 | disposition home or self-care (01) ==
LOC: HO.ENCR 12:26
PROVIDERS: PCP Internal Medicine; Visit Provider Dietitian, Registered
DX: E11.9 Type 2 diabetes mellitus without complications (principal)

== ENCOUNTER → 2024-08-17 12:25 | Outpatient (BNVA) | payer OTHER, SELFPAY | PROVIDERS: PCP Internal Medicine; Visit Provider Dietitian, Registered | DX: E11.9 Type 2 diabetes mellitus without complications (principal); Z71.3 Dietary counseling and surveillance | CPT/HCPCS: 97803 ==

== ENCOUNTER 2024-08-27 14:30 | Outpatient (REF) | payer OTHER, SELFPAY ==
--- NOTE | ~2024-08-27 | MR_ITS ---
EXAMINATION: MRI RIGHT KNEE WITHOUT CONTRAST HISTORY: S83.241A - Other tear of medial meniscus, current injury, right knee COMPARISON: Correlation is made with plain films of the right knee dated 06/29/2024. TECHNIQUE: Coronal T1 and fat-suppressed proton density, sagittal proton density and fat-suppressed proton density, and axial fat suppressed T2 weighted MR images of the right knee were obtained. FINDINGS: Bone marrow: Bone marrow signal intensity is normal. Joint effusion: There is a moderate suprapatellar joint effusion. Fluid is also seen posteriorly, where there is a 0.8 cm loose body. Lucas's cyst: There is no Lucas's cyst. Articular cartilage: There is diffuse mild cartilage thinning involving all compartments. Muscles/soft tissues: The visualized muscles demonstrate normal signal intensity. There is a 2.4 x 1.0 x 1.4 cm multiseptated cystic structure at the posterior aspect of the knee, compatible with a ganglion cyst. Anterior cruciate ligament: Intact Posterior cruciate ligament: Intact Medial collateral ligament: Intact Lateral collateral ligament: Intact Medial meniscus: Intact Lateral meniscus: There is diffuse irregularity of the lateral meniscus involving the anterior horn and body, and posterior horn. Multiple foci of increased T2 signal intensity are noted consistent with a complex tear. There is a 2.0 x 0.6 x 1.0 cm cystic structure associated with the anterior horn of the lateral meniscus, consistent with a meniscal cyst. Flexor mechanism: The popliteus, gastrocnemius, and hamstring tendons are intact. Quadriceps tendon: Intact Patellar tendon: Intact Patellar retinacula: Intact MR/MR knee RT wo con IMPRESSION: 1. Diffuse mild osteoarthritis. 2. Complex tear involving the entire lateral meniscus. There is a 2.0 x 0.6 x 1.0 cm meniscal cyst associated with the anterior horn of the lateral meniscus. 3. 2.4 x 1.0 x 1.4 cm ganglion cyst at the posterior aspect of the knee. 4. Moderate joint effusion. 8 mm loose body in the posterior aspect of the joint space. Electronically signed by: Lucien Fuentes MD 08/29/2024 08:06 AM EDT
--- OUTSIDE RECORDS SUMMARY | 2024-08-27 14:38 | XMS_ITS | Patient Health Record ---
Author Organization [facility] Address [address] [place] [address] Care Team Providers Care Land Acquisition Analyst Name Role Phone Janet CRUZ, Marquita Primary Care Provider Lucien Shelby Unavailable [phone] Allergies Allergen (clinical drug ingredient) Drug/Non Drug Allergy documented on EMR Reaction Allergy Type Onset Date Status seasonal-allergy [facility] bi-weekly (uncoded) Unknown Allergy Active Reason For [...] Status Risk Notes Problem Colon cancer screening (344209222) Colon cancer screening (Z12.11) Active confirmed Problem Pre-procedure evaluation check (281243796) Encounter for other preprocedural examination (Z01.818) Active confirmed Problem Long-term current use of aspirin (4890613903856 03) Aspirin long-term use (Z79.82) Active confirmed Vital Signs Blood pressure diastolic 00 mm Hg 04/13/2024 Height 65.25 in 04/13/2024 Blood pressure systolic 00 mm Hg 04/13/2024 Weight 241 lbs 04/13/2024 BMI 39.79 kg/m2 04/13/2024 Procedures Procedure Date Ordered Date Performed Result Body Sit e COLONOSCOPY 04/13/2024 N/A Encounters Encounter Location Date Provider Diagnosis [facility] [address] [facility] [address] [place] [address] 04/13/2024 Lucien Gooden Colon cancer screeni ng [...] procedure. We will get clearance from her supervisor shop for the colonoscopy in regard to her overall cardiac status and the recommendations regarding her blood thinners. We will also ask the supervisor shop if she still requires antibiotics for prophylaxis [...] procedure. We will get clearance from her supervisor shop for the colonoscopy in regard to her overall cardiac status and the recommendations regarding her blood thinners. We will also ask the supervisor shop if she still requires antibiotics for prophylaxis [...] procedure. We will get clearance from her supervisor shop for the colonoscopy in regard to her overall cardiac status and the recommendations regarding her blood thinners. We will also ask the supervisor shop if she still requires antibiotics for prophylaxis given her previous history of endocarditis. Isabella was comfortable with this plan. Thank you again for allowing me to participate in Isabella's care. I shall continue to keep you advised of her progress. Plan Of Treatment Pending Test Test Name Order Date COLONOSCOPY 04/13/2024 Next Appt Details Provider Name:Lucien Matthews Gooden , 11/14/2024 07:30:00 AM, [address] [place] [address] , [place], [place], [phone], Insurance Providers Payer Name Payer Address Payer Phone Subscriber Number Group Number Insured Name Patient Relationship to Insured Coverage Start Date Coverage End Date [facility] [address] [place] [phone] [id number] ISABELLA BISHOP Self - patient is the insured Medical (General) History Medical History History ICD Code Hypertension Denies [place],CVA,renal disease 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 lemon
--- OUTSIDE RECORDS SUMMARY | 2024-08-27 14:38 | XMS_ITS ---
Author Organization [facility] [place] Address [address] [place] [address] Care Team Providers Care Financial Aid Counselor Name Role Phone Janet CRUZ, Marquita Primary Care Provider Lucien Shelby Unavailable [phone] Allergies Allergen (clinical drug ingredient) Drug/Non Drug Allergy documented on EMR Reaction Allergy Type Onset Date Status seasonal-allergy [facility] bi-weekly (uncoded) Unknown Allergy Active REASON [...] Status Risk Notes Problem Colon cancer screening (926828167) Colon cancer screening (Z12.11) Active confirmed Problem Pre-procedure evaluation check (647292229) Encounter for other preprocedural examination (Z01.818) Active confirmed Problem Long-term current use of aspirin (4862641625730 03) Aspirin long-term use (Z79.82) Active confirmed Vital Signs Blood pressure systolic 00 mm Hg 04/13/20 24 Blood pressure diastolic 00 mm Hg 024 Height 65.25 in 04/13/2024 Weight 241 lbs 04/13/2024 BMI 39.79 kg/m2 04/13/2024 Procedures Procedure Date Ordered Date Performed Result Body Sit e COLONOSCOPY 04/13/2024 N/A Encounters Encounter Location Date Provider Diagnosis [facility] [address] [facility] [address] [place] [address] 04/13/2024 Lucien Gooden Colon cancer screeni ng [...] procedure. We will get clearance from her assembler semiconductor for the colonoscopy in regard to her overall cardiac status and the recommendations regarding her blood thinners. We will also ask the assembler semiconductor if she still requires antibiotics for prophylaxis [...] procedure. We will get clearance from her assembler semiconductor for the colonoscopy in regard to her overall cardiac status and the recommendations regarding her blood thinners. We will also ask the assembler semiconductor if she still requires antibiotics for prophylaxis [...] procedure. We will get clearance from her assembler semiconductor for the colonoscopy in regard to her overall cardiac status and the recommendations regarding her blood thinners. We will also ask the assembler semiconductor if she still requires antibiotics for prophylaxis [...] Provider Name:Lucien Gooden , 11/14/2024 07:30:00 AM, [address] [place] [address] , [place], [place], [phone], Progress Notes * GLORIA BISHOPADOB:1960 (63 yo F)Acc No.[id number]:04/13/2024 Progress Notes Patient:?JORGE BISHOP Provider:?Lucien Gooden MD :1960???Age:63 Y???Sex:Female D ate:04/13/2024 Address:[address] [place] [address] , [address] [facility], [facility] Pcp:Marquita Gonzales MD Subjective: * Chief Complaints: [...] 1992/1995breast reduction 1996cholecystectomy- acalculous cholecystitis eye surgery-left--retinoblastoma [address] [place] [address] / dr. lemon * Hospitalization/Major Diagno stic Procedure:?No Hospitalization History. * Family History:?Father: dece ased.?Mother: .?Siblings: alive, colon polyps at age 52 sister, diagnosed with Colon polyps.? No colorectal cancer. * Social History:?Tobacco Use:?Tobacco Use/Smoking?Patient is a?former smoker,?How long has it been since you last smoked??> 10 years.?Drugs/Alcohol:?Alcohol Screen?Points: 2, Interpretation: Negative.?Miscellaneous:?Marital status: . 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 ???Nonsmoker since 2013, occasional alcohol. * Medications:?TakingAmoxicill [...] procedure. We will get clearance from her assembler semiconductor for the colonoscopy in regard to her overall cardiac status and the recommendations regarding her blood thinners. We will also ask the assembler semiconductor if she still requires antibiotics for prophylaxis given her previous history of endocarditis. Jorge was comfortable with this plan. Thank you again for allowing me to participate in Jorge's care. I shall continue to keep you advised of her progress. Plan: * Treatment: * Procedure Orders:? * ?Procedure: COLONOSCOPY * Procedure Codes:?3017F COLOR ECTAL CA SCREEN DOC [id number] TOBACCO NON-[id number] BP SCR NOT PRFRM REC REASON NOS * Preventive Medicine:? ??Counseling:?Care goal follow-up plan:?Above Normal BMI Follow-up?Giving encouragement to exercise,?BMI management provided?Yes.? * Follow Up:?prn * * Sign off status: Completed true * Provider:?Lucien Gooden MD Date:? 024 Generated for Simon samano/Jennifer/eTransmitting on:?08/27/2024 02:37 PM EDT History and Physical Notes * [...]
--- OUTSIDE RECORDS SUMMARY | 2024-08-27 14:38 | XMS_ITS | Clinical Summary ---
Author Organization [facility] Address [address] [place] [address] Phone Care Team Providers Care Drawstring Knotter Name Role Phone Marquita Gonzales MD Primary [...] 9:45 AM EST Office Visit Pulmonolgy - [place] [address] [facility] [address] [place] [address] Mikael Leon MD Moderate persistent asthma without complication (Primary Dx); Chronic obstructive pulmonary disease, unspecified COPD type ([facility]); Morbid obesity with BMI of 40.0-44.9, adult ([facility]) from Last 3 Months Immunizations Name Administration [...] SECTION PROCEDURE: HISTORICAL BREAST REDUCTION 1996 PROCEDURE: SD BREAST REDUCTION OTHER SURGICAL HISTORY PROCEDURE: HISTORY OTHER; COMMENT: hernia repair w/mesh EYE SURGERY 1962 Left PROCEDURE: HISTORICAL EYE SURGERY; COMMENT: retinoblastoma w/enucleation BREAST CYST ASPIRATION Right Medical History Medical History Date Comments Pulmonary nodule 02/10/2017 DX:Pulmonary no dule Chronic obstructive pulmonar y disease ([facility]) 02/10/2017 DX:Chronic obstructive pulmo nary disease ([facility]) Moderate persistent asthma w ithout complication 09/06/2018 DX:Moderate persistent asthm a without complication DORCAS (obstructive sleep apnea) 09/06/2018 DX :DORCAS (obstructive sleep apnea) Morbid obesity with BMI of 4 0.0-44.9, adult ([facility]) 02/21/2019 DX:Morbid obesity with BMI o f 40.0-44.9, adult ([facility]) PCOS (polycystic ovarian syndrome) 02/21/2019 DX:PCOS [...] Relation Name Comments Coronary artery disease Father [place], CVD Diabetes Mother HTN Breast cancer Mother's [...] 8:45 AM EDT Office Visit Pulmonol - [place] [address] [place] [id number] Mikael Leon MD [address] [place] [address] Health Maintenance Due Date Last Done Comments Cervical Cancer Screening: Pap Smear 1982 Pneumococcal Vaccine: 50+ Years (2 of 2 - PCV) 12/15/2018 12/15/2017 Pneumococcal Vaccine: Pediatrics (0 to 5 Years) and At-Risk Patients (6 to 64 Years) (2 of 2 - PCV) 12/15/2018 12/15/2017 RSV Immunization Adult Patients (1 - Risk 60-74 years 1-dose series) [...] year. Mammo Location: [facility], [address] [place] [address], [address], . -------- FINAL REPORT -------- Dictated By: Lynnette Arechiga Dictated Date: 04/04/2024 09:20 ET Assigned Physician: Lynnette Arechiga Reviewed and Electronically Signed By: Lynnette Arechiga Signed Date: 04/04/2024 09:21 ET Workstation ID: [id number] Transcribed By: Self Edit Transcribed Date: 04/04/2024 09:20 ET Narrative 04/04/2024 9:21 AM EST HISTORY: Screening. Reduction mammoplasty in 1996. Maternal aunt had breast carcinoma. COMPARISON: 02/12/23, 02/01/22, 01/21/21 ?? TECHNIQUE: Bilateral digital breast tomosynthesis was performed in the CC and MLO projections. Computer aided detection with Cubikal 3D 3.1 was employed. BREAST DENSITY: B [...] MLO projections. Computer aided detection with [employer] AI 3D 3.1was employed. BREAST DENSITY: B - [...] year. Mammo Location: [facility], [address] [place] [address], [address], . -------- FINAL REPORT -------- Dictated By: Lynnette Arechiga Dictated Date: 04/04/2024 09:20 ET Assigned Physician: Lynnette Arechiga Reviewed and Electronically Signed By: Lynnette Arechiga Signed Date: 04/04/2024 09:21 ET Workstation ID: [id number] Transcribed By: Self Edit Transcribed Date: 04/04/2024 09:20 ET us Marquita Gonzales MD IMG BI PROCEDURES Final Res ult from Last 3 Months or Most Recently Relevant to Health Maintenance Insurance [facility] [address] [place] [address] Care Teams Drawstring Knotter Relationship Specialty Start Date End Date Marquita Gonzales MD [address] [place] [address] PCP - General Internal Medicine 02/13/20
== END 2024-08-27 14:31 | disposition home or self-care (01) ==
LOC: HO.MRI 14:30
PROVIDERS: PCP Internal Medicine; Visit Provider Orthopaedic Surgery
DX: S83.241A Other tear of medial meniscus, current injury, right knee, initial encounter (principal)
CPT/HCPCS: 73721

== ENCOUNTER → 2024-08-27 14:30 | Outpatient (BNV) | payer OTHER, SELFPAY | PROVIDERS: PCP Internal Medicine; Visit Provider Radiology Diagnostic Radiology | DX: M17.11 Unilateral primary osteoarthritis, right knee (principal); S83.271A Complex tear of lateral meniscus, current injury, right knee, initial encounter; M67.461 Ganglion, right knee; M25.461 Effusion, right knee | CPT/HCPCS: 73721 ==

== ENCOUNTER 2024-09-06 14:00 | Outpatient (AMB) | payer OTHER, SELFPAY ==
[2024-09-06 14:18] VITALS: BMI 39.9
--- NOTE | 2024-09-06 14:18 | MHC.OFFVIS ---
Vital Signs 09/06/24 14:18 Height 5 ft 5 in Weight 240 lb BMI 39.9 Intake Visit Reasons: Right knee pain and giving way Intake Note: Isabella is a 63 year old female who presents with complaints of progressively worsening right knee pain and giving way. The patient states that she injured her right knee 5 years ago when she fell over her dog. She twisted her knee and had acute onset of pain. Since that time her symptoms have gotten worse. She has tried Tylenol which gives only mild relief. She is not able to tolerate anti-inflammatory medicines. She has failed the last 6 weeks of conservative treatment which has included a home exercise program, Aspercreme and icing. Most of the pain is along the medial aspect of her knee. She states her right knee will give out several times per day. Allergies mold,trees,dust,cats,dogs Allergy (Unknown, Uncoded 09/06/24 14:18) unknown strawberries Allergy (Unknown, Uncoded 09/06/24 14:18) hives Medication List - Last Reconciled 09/06/24 by Allen Sánchez MD albuterol sulfate 90 mcg/actuation 2 puffs inhalation Q6H PRN alendronate 70 mg PO QWEEK aspirin (Adult Aspirin Regimen) 81 mg PO DAILY blood sugar diagnostic (FreeStyle Lite Strips) Check fasting blood sugar once a day blood-glucose meter (FreeStyle Milo Lite kit) As directed budesonide-formoterol 160-4.5 mcg/actuation 1 inh inhalation BID calcium carbonate (Calcium 500) 500 mg PO DAILY citalopram 20 mg PO DAILY clopidogrel (Plavix) 75 mg PO DAILY irbesartan 75 mg PO DAILY ketotifen fumarate 0.025%(0.035%) (Zaditor) 1 drp ophthalmic-Right Q12H lancets (FreeStyle Lancets) Check fasting glucose once a day latanoprost 0.005% 1 drp ophthalmic (eye) QPM levocetirizine (Xyzal) 5 mg PO QPM PRN magnesium oxide 400 mg PO DAILY metformin ER 500 mg PO QPM methocarbamol 500 mg PO TID PRN montelukast 10 mg PO DAILY multivitamin 1 tab PO DAILY rosuvastatin 40 mg PO DAILY spironolacton-hydrochlorothiaz 25-25 mg 2 tabs PO DAILY vitamin B complex (B Complex-Vitamin B12 tablet) 1 tab PO DAILY PFSH Medical History (Updated 08/16/24 @ 14:25 by Allen Sánchez MD) History of retinoblastoma Osteoporosis of lumbar spine Incomplete right bundle branch block (RBBB) determined by electrocardiography Hearing loss Family history of early CAD Intermittent left-sided chest pain Seasonal allergies Plantar fasciitis, right Mild intermittent asthma in adult without complication Nontoxic multinodular goiter Lung nodule < 6cm on CT Cervical spondylosis DJD (degenerative joint disease), lumbar 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 Primary open angle glaucoma, right eye Retinoblastoma of left eye Polycystic ovaries Morbid obesity Multiple thyroid nodules Menopause Type 2 diabetes mellitus without complication, without long-term current use of insulin Dyslipidemia Hypertension Surgical History S/P cardiac catheterization Status post phlebectomy H/O eye surgery H/O hernia repair H/O bilateral breast reduction surgery H/O section H/O thyroidectomy Hx of cholecystectomy Family History Father CAD (coronary artery disease) Myocardial infarction CVD (cardiovascular disease) Substance use disorder Mother Diabetes mellitus HTN (hypertension) Maternal Grandfather No problems noted. Maternal Grandmother No problems noted. Paternal Grandfather No problems noted. Paternal Grandmother No problems noted. Brother Substance use disorder Mental health disorder Sister No problems noted. Sister Substance use disorder Sister No problems noted. Sister No problems noted. Son No problems noted. Daughter No problems noted. 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: No Cognitive needs: No Hearing needs: Yes Vision needs: Yes Physical Exam Vital Signs: BMI result Body Mass Index 39.9 Const Other: Well-nourished well-developed very friendly female awake alert and oriented x3 in no acute distress Extrem Other: Bilateral lower extremity examination shows good capillary refill, no skin lesions noted, normal sensation light touch Right knee examination shows a minimal effusion, mild crepitus with range of motion, tenderness along her medial and lateral joint lines, positive Heidi's test, no instability Results Reviewed Results Reviewed: Standing full weight-bearing x-rays of the patient's right knee show mild diffuse joint space narrowing, no acute bony abnormalities MRI of the patient's right knee shows mild diffuse degenerative changes as well as tearing of the medial and lateral menisci Assessment & Plan Assessment & Plan (1) Tear of medial meniscus of right knee: Code(s): S83.241A - Other tear of medial meniscus, current injury, right knee, initial encounter Category: Medical Plan Ms. Gonzalez presents with progressively worsening right knee pain and mechanical symptoms due to tearing of her medial and lateral menisci. I had a lengthy discussion with the patient regarding the treatment options. At this point she has failed continued non operative treatments. The risks and benefits of right knee arthroscopic surgery were discussed at length with the patient. The patient wishes to proceed with surgery. Surgery will most likely involve right knee arthroscopic partial medial and lateral meniscectomies. She does understand that she may not get 100% relief of her symptoms depending on the severity of her degenerative changes. She will be scheduled for next available date. She will follow-up as instructed. Feel free to call me at any time should questions regarding her orthopedic management arise. I spent 22 minutes in reviewing the patient's records and imaging studies, seeing the patient and documenting in the medical record. Coding Level of Care Code Est Pt Level 3 (20733) Complex EM visit Add On G2211 Diagnoses Tear of medial meniscus of right knee S83.241A
--- OUTSIDE RECORDS SUMMARY | 2024-09-06 17:15 | XMS_ITS ---
Author Organization [facility] Address [address] [place] [address] Care Team Providers Care Environmental Field Office Manager Name Role Phone Janet CRUZ, Marquita Primary Care Provider Lucien Shelby Unavailable [phone] Allergies Allergen (clinical drug ingredient) Drug/Non Drug Allergy documented on EMR Reaction Allergy Type Onset Date Status seasonal-allergy [facility] bi-weekly (uncoded) Unknown Allergy Active REASON FOR [...] Status Risk Notes Problem Colon cancer screening (328112144) Colon cancer screening (Z12.11) Active confirmed Problem Pre-procedure evaluation check (273580260) Encounter for other preprocedural examination (Z01.818) Active confirmed Problem Long-term current use of aspirin (2812701043886 03) Aspirin long-term use (Z79.82) Active confirmed Vital Signs Blood pressure systolic 00 mm Hg 04/13/20 24 Blood pressure diastolic 00 mm Hg 024 Height 65.25 in 04/13/2024 Weight 241 lbs 04/13/2024 BMI 39.79 kg/m2 04/13/2024 Procedures Procedure Date Ordered Date Performed Result Body Sit e COLONOSCOPY 04/13/2024 N/A Encounters Encounter Location Date Provider Diagnosis [facility] [address] [facility] [address] [place] [address] 04/13/2024 Lucien Gooden Colon cancer screeni ng [...] procedure. We will get clearance from her security shift manager for the colonoscopy in regard to her overall cardiac status and the recommendations regarding her blood thinners. We will also ask the security shift manager if she still requires antibiotics for prophylaxis [...] procedure. We will get clearance from her security shift manager for the colonoscopy in regard to her overall cardiac status and the recommendations regarding her blood thinners. We will also ask the security shift manager if she still requires antibiotics for prophylaxis [...] procedure. We will get clearance from her security shift manager for the colonoscopy in regard to her overall cardiac status and the recommendations regarding her blood thinners. We will also ask the security shift manager if she still requires antibiotics for prophylaxis [...] Provider Name:Lucien Gooden , 11/14/2024 07:30:00 AM, [address] [place] [address] , [place], [place], [id number], Progress Notes * GLORIA BISHOPADOB:1960 (63 yo F)Acc No.[id number]:04/13/2024 Progress Notes Patient:?JORGE BISHOP Provider:?Lucien Gooden MD :1960???Age:63 Y???Sex:Female D ate:04/13/2024 Address:[address] [place] [address] , [address] [facility], [facility] Pcp:Marquita Gonzales MD Subjective: * Chief Complaints: [...] 1992/1995breast reduction 1996cholecystectomy- acalculous cholecystitis eye surgery-left--retinoblastoma [address] [place] [address] / dr. lemon * Hospitalization/Major Diagno stic Procedure:?No Hospitalization History. * Family History:?Father: dece ased.?Mother: .?Siblings: alive, colon polyps at age 52 sister, diagnosed with Colon polyps.? No colorectal cancer. * Social History:?Tobacco Use:?Tobacco Use/Smoking?Patient is a?former smoker,?How long has it been since you last smoked??> 10 years.?Drugs/Alcohol:?Alcohol Screen?Points: 2, Interpretation: Negative.?Miscellaneous:?Marital status: . 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 * Medications:?TakingAmoxicill [...] procedure. We will get clearance from her security shift manager for the colonoscopy in regard to her overall cardiac status and the recommendations regarding her blood thinners. We will also ask the security shift manager if she still requires antibiotics for prophylaxis given her previous history of endocarditis. Jorge was comfortable with this plan. Thank you again for allowing me to participate in Jorge's care. I shall continue to keep you advised of her progress. Plan: * Treatment: * Procedure Orders:? * ?Procedure: COLONOSCOPY * Procedure Codes:?3017F COLOR ECTAL CA SCREEN DOC [id number] TOBACCO NON-[id number] BP SCR NOT PRFRM REC REASON NOS * Preventive Medicine:? ??Counseling:?Care goal follow-up plan:?Above Normal BMI Follow-up?Giving encouragement to exercise,?BMI management provided?Yes.? * Follow Up:?prn * * Sign off status: Completed true * Provider:?Lucien Gooden MD Date:? 024 Generated for Simon samano/Jennifer/eTransmitting on:?09/06/2024 05:14 PM EDT History and Physical Notes * [...]
--- OUTSIDE RECORDS SUMMARY | 2024-09-06 17:15 | XMS_ITS | Patient Health Record ---
Author Organization [facility] Address [address] [place] [address] Care Team Providers Care Sleep Technician Name Role Phone Janet CRUZ, Marquita Primary Care Provider Lucien Shelby Unavailable [phone] Allergies Allergen (clinical drug ingredient) Drug/Non Drug Allergy documented on EMR Reaction Allergy Type Onset Date Status seasonal-allergy [facility] bi-weekly (uncoded) Unknown Allergy Active Reason [...] Status Risk Notes Problem Colon cancer screening (255138983) Colon cancer screening (Z12.11) Active confirmed Problem Pre-procedure evaluation check (114861666) Encounter for other preprocedural examination (Z01.818) Active confirmed Problem Long-term current use of aspirin ([id number] 03) Aspirin long-term use (Z79.82) Active confirmed Vital Signs Blood pressure diastolic 00 mm Hg 04/13/2024 Height 65.25 in 04/13/2024 Blood pressure systolic 00 mm Hg 04/13/2024 Weight 241 lbs 04/13/2024 BMI 39.79 kg/m2 04/13/2024 Procedures Procedure Date Ordered Date Performed Result Body Sit e COLONOSCOPY 04/13/2024 N/A Encounters Encounter Location Date Provider Diagnosis [facility] [address] [place] [address] 04/13/2024 Lucien Gooden Colon cancer screeni ng [...] procedure. We will get clearance from her ice cream machine operator for the colonoscopy in regard to her overall cardiac status and the recommendations regarding her blood thinners. We will also ask the ice cream machine operator if she still requires antibiotics for prophylaxis [...] procedure. We will get clearance from her ice cream machine operator for the colonoscopy in regard to her overall cardiac status and the recommendations regarding her blood thinners. We will also ask the ice cream machine operator if she still requires antibiotics for prophylaxis [...] procedure. We will get clearance from her ice cream machine operator for the colonoscopy in regard to her overall cardiac status and the recommendations regarding her blood thinners. We will also ask the ice cream machine operator if she still requires antibiotics for prophylaxis given her previous history of endocarditis. Isabella was comfortable with this plan. Thank you again for allowing me to participate in Isabella's care. I shall continue to keep you advised of her progress. Plan Of Treatment Pending Test Test Name Order Date COLONOSCOPY 04/13/2024 Next Appt Details Provider Name:Lucien Matthews Gooden , 11/14/2024 07:30:00 AM, [address] [place] [address] , [place], [place], [phone], Insurance Providers Payer Name Payer Address Payer Phone Subscriber Number Group Number Insured Name Patient Relationship to Insured Coverage Start Date Coverage End Date [facility] [address] [place] [address] [phone] [id number] ISABELLA BISHOP Self - patient is the insured Medical (General) History Medical History History ICD Code Hypertension Denies CT,CVA,renal disease Staph endocarditis in 1983-- Rx'd with a long course of IV antibiotics---her ice cream machine operator still recommends prophylactic antibiotics before invasive procedures Bronchitis Asthma/COPD NIDDM Goiter Colonoscopy 01/2014 with a hyperplastic p olyp CAD-1 stent 08/2023-Dr. 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 lemon
--- OUTSIDE RECORDS SUMMARY | 2024-09-06 17:15 | XMS_ITS | Clinical Summary ---
Author Organization [facility] Address [address] [place] [address] Phone Care Team Providers Care Biomedical Engineering Professor Name Role Phone Marquita Gonzales MD Primary Care Provider [phone] Allergies No known active allergies Medications alendronate [...] [facility] [place] budesonide-formot Francine (SYMBICORT) 160-4.5 mcg/actuation inhaler [...] deafness 02/21/2019 Morbid obesity with BMI of 4 0.0-44.9, adult ([facility] V24, [facility] V28) 02/21/2019 DORCAS (obstructive sleep apnea) 09/06/2018 Moderate persistent asthma without complication 09/06/2018 Sinusitis 09/06/2018 Chronic obstructive pulmonar y disease ([facility] V24, [facility] V28) 02/10/2017 Pulmonary nodule 02/10/2017 Encounters Date Type Department Care Team Description 06/13/2024 9:45 AM EST Office Visit Pulmonolgy - [address] [place] [address] Mikael Leon MD Moderate persistent asthma without complication (Primary Dx); Chronic obstructive pulmonary disease, unspecified COPD type ([facility] V24, [facility] V28); Morbid obesity with BMI of 40.0-44.9, adult ([facility] V24, [facility] V28) from Last 3 Months Immunizations Name Administration [...] SECTION PROCEDURE: HISTORICAL BREAST REDUCTION 1996 PROCEDURE: [place] BREAST REDUCTION OTHER SURGICAL HISTORY PROCEDURE: HISTORY OTHER; COMMENT: hernia repair w/mesh EYE SURGERY 1963 Left PROCEDURE: HISTORICAL EYE SURGERY; COMMENT: retinoblastoma w/enucleation BREAST CYST ASPIRATION Right Medical History Medical History Date Comments Pulmonary nodule 02/10/2017 DX:Pulmonary no dule Chronic obstructive pulmonar y disease ([facility] V24, [facility] V28) 02/10/2017 DX:Chronic obstructive pulm onary disease (HCC) Moderate persistent asthma w ithout complication 09/06/2018 DX:Moderate persistent asthm a without complication DORCAS (obstructive sleep apnea) 09/06/2018 DX :DORCAS (obstructive sleep apnea) Morbid obesity with BMI of 4 0.0-44.9, adult ([facility] V24, [facility] V28) 02/21/2019 DX:Morbid obesity wit h BMI of 40.0-44.9, adult ([facility]) PCOS (polycystic ovarian syndrome) 02/21/2019 [...] Relation Name Comments Coronary artery disease Father [place], CVD Diabetes Mother HTN Breast cancer Mother's [...] 8:45 AM EDT Office Visit Pulmonolgy - [place] [address] [place] [phone] Mikael Leon MD [address] [facility] [address] [place] [address] Health Maintenance Due Date Last Done Comments [...] age to complete this topic Meningococcal B Vaccine Aged Out No l onger eligible based on patient's age to complete [...] year. Mammo Location: [facility], [address] [place] [address], [address], . -------- FINAL REPORT -------- Dictated By: Lynnette Arechiga Dictated Date: 04/04/2024 09:20 ET Assigned Physician: Lynnette Arechiga Reviewed and Electronically Signed By: Lynnette Arechiga Signed Date: 04/04/2024 09:21 ET Workstation ID: [id number] Transcribed By: Self Edit Transcribed Date: 04/04/2024 09:20 ET Narrative 04/04/2024 9:21 AM EST HISTORY: Screening. Reduction mammoplasty in 1996. Maternal aunt had breast carcinoma. COMPARISON: 02/12/23, 02/01/22, 01/21/21 ?? TECHNIQUE: Bilateral digital breast tomosynthesis was performed in the CC and MLO projections. Computer aided detection with Intapp 3D 3.1 was employed. BREAST DENSITY: B [...] CCand MLO projections. Computer aided detection with Intapp 3D 3.1was employed. BREAST DENSITY: B - [...] year. Mammo Location: [facility], [address] [place] [address], [id number], . -------- FINAL REPORT -------- Dictated By: Lynnette Arechiga Dictated Date: 04/04/2024 09:20 ET Assigned Physician: Lynnette Arechiga Reviewed and Electronically Signed By: Lynnette Arechiga Signed Date: 04/04/2024 09:21 ET Workstation ID: [id number] Transcribed By: Self Edit Transcribed Date: 04/04/2024 09:20 ET us Marquita Gonzales MD IMG BI PROCEDURES Final Res ult from Last 3 Months or Most Recently Relevant to Health Maintenance Insurance [facility] Care Teams Biomedical Engineering Professor Relationship Specialty Start Date End Date Marquita Gonzales MD [address] [place] [address] PCP - General Internal Medicine 02/13/20
== END 2024-09-06 14:34 | disposition home or self-care (01) ==
LOC: HO.HOS 14:00
PROVIDERS: PCP Internal Medicine; Visit Provider Orthopaedic Surgery
DX: S83.241A Other tear of medial meniscus, current injury, right knee, initial encounter (principal)
CPT/HCPCS: 99213

== ENCOUNTER → 2024-09-06 14:00 | Outpatient (BNVA) | payer OTHER, SELFPAY | PROVIDERS: PCP Internal Medicine; Visit Provider Orthopaedic Surgery ==

== ENCOUNTER 2024-09-23 13:34 | Outpatient (AMB) | payer OTHER, SELFPAY ==
[2024-09-23 13:38] VITALS: BP 120/62; PULSE 68; BMI 39.9
--- NOTE | 2024-09-23 13:38 | A.OFFVIS_ITS ---
Vital Signs 09/23/24 13:38 Height 5 ft 5 in Weight 239 lb 13.807 oz BMI 39.9 BP 120/62 Blood Pressure Location Lt brachial Position Sitting Pulse 68 Pulse Source Monitor Intake Visit Reasons: pre-op knee arthroscopy with Dr. Sánchez [employer] Required: No Allergies mold,trees,dust,cats,dogs Allergy (Unknown, Uncoded 09/23/24 13:42) unknown strawberries Allergy (Unknown, Uncoded 09/23/24 13:42) hives Medication List - Last Reconciled 09/23/24 by EVELYN HansonC albuterol sulfate 90 mcg/actuation 2 puffs inhalation Q6H PRN alendronate 70 mg PO QWEEK aspirin (Adult Aspirin Regimen) 81 mg PO DAILY blood sugar diagnostic (FreeStyle Lite Strips) Check fasting blood sugar once a day blood-glucose meter (FreeStyle [place] Lite kit) As directed budesonide-formoterol 160-4.5 mcg/actuation 1 inh inhalation BID calcium carbonate (Calcium 500) 500 mg PO DAILY citalopram 20 mg PO DAILY clopidogrel (Plavix) 75 mg PO DAILY irbesartan 75 mg PO DAILY ketotifen fumarate 0.025%(0.035%) (Zaditor) 1 drp ophthalmic-Right Q12H lancets (FreeStyle Lancets) Check fasting glucose once a day latanoprost 0.005% 1 drp ophthalmic (eye) QPM levocetirizine (Xyzal) 5 mg PO QPM PRN magnesium oxide 400 mg PO DAILY metformin ER 500 mg PO QPM methocarbamol 500 mg PO TID PRN montelukast 10 mg PO DAILY multivitamin 1 tab PO DAILY rosuvastatin 40 mg PO DAILY spironolacton-hydrochlorothiaz 25-25 mg 2 tabs PO DAILY vitamin B complex (B Complex-Vitamin B12 tablet) 1 tab PO DAILY HPI HPI pre-op knee arthroscopy with Dr. Sánchez: Details: Isabella is a 64-year-old female past medical history of obesity, hypertension, hyperlipidemia, CAD with LAD stent 08/2023, residual moderate RCA stenosis who presents for follow-up and preop cardiovascular clearance. Today she reports that she will be having arthroscopic surgery on her knee on 11/18/2024. She has not been having any chest discomfort at rest or with activity. No concerning shortness of breath, PND, orthopnea or edema. No lightheadedness, presyncope, syncope, falls. She does have asthma which she reports is stable. 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 She can climb a flight of stairs without reported difficulty. [facility] Medical History History of retinoblastoma Osteoporosis of lumbar spine Incomplete right bundle branch block (RBBB) determined by electrocardiography Hearing loss Family history of early CAD Intermittent left-sided chest pain Seasonal allergies Plantar fasciitis, right Mild intermittent asthma in adult without complication Nontoxic multinodular goiter Lung nodule < 6cm on CT Cervical spondylosis DJD (degenerative joint disease), lumbar 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 Primary open angle glaucoma, right eye Retinoblastoma of left eye Polycystic ovaries Morbid obesity Multiple thyroid nodules Menopause Type 2 diabetes mellitus without complication, without long-term current use of insulin Dyslipidemia Hypertension Surgical History S/P cardiac catheterization Status post phlebectomy H/O eye surgery H/O hernia repair H/O bilateral breast reduction surgery H/O section H/O thyroidectomy Hx of cholecystectomy Family History Father CAD (coronary artery disease) Myocardial infarction CVD (cardiovascular disease) Substance use disorder Mother Diabetes mellitus HTN (hypertension) Maternal Grandfather No problems noted. Maternal Grandmother No problems noted. Paternal Grandfather No problems noted. Paternal Grandmother No problems noted. Brother Substance use disorder Mental health disorder Sister No problems noted. Sister Substance use disorder Sister No problems noted. Sister No problems noted. Son No problems noted. Daughter No problems noted. 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: No Cognitive needs: No Hearing needs: Yes Vision needs: Yes Review of Systems Const All systems reviewed & are unremarkable except as noted in HPI and below ENT Denies dizziness Card Denies chest pain, Denies chest pain at rest, Denies chest pain with activity, Denies rapid heart rate, Denies pedal edema, Denies edema, Denies leg edema, Denies lightheadedness, Denies palpitations, Denies dyspnea, Denies dyspnea on exertion and Denies orthopnea Resp Denies cough, Denies dyspnea and Denies dyspnea on exertion GI Denies hematochezia and Denies change in stool character Musc Details: discomfort right knee with walking Reports limited range of motion, Denies muscle cramps, Denies muscle weakness, Denies numbness, Denies radiating pain into limb, Denies stiffness and Denies tingling Neuro Denies dizziness, Denies numbness and Denies tingling Endo Denies palpitations Physical Exam Vital Signs: Last Vital Signs Pulse 68 09/23/24 13:38 BP 120/62 09/23/24 13:38 BMI result Body Mass Index 39.9 Const General: cooperative, healthy appearing, comfortable and no acute distress Orientation/consciousness: patient oriented x3 Neck Neck: Yes normal visual inspection and Yes no JVD Resp Effort & Inspection: normal respiratory effort Auscultation: clear to auscultation bilaterally, no crackles, no rales, no rhonchi and no wheezes Cardio Rate: regular rate Rhythm: regular rhythm Heart sounds: S1 normal heart sound present, S2 normal heart sound present, no murmurs and no rubs Neuro General: patient oriented x3 Extrem General: Yes normal to inspection, No no pedal edema and No calf tenderness Psych Appearance: grossly normal Mental Status: mental status grossly normal Speech and movement: Normal speech and movement present Office Procedures EKG Details: Today, read by me, Normal sinus rhythm, low voltage QRS, rate 68, Qtc 435ms [id number], Complete Assessment & Plan Assessment & Plan (1) Atherosclerotic cardiovascular disease: Code(s): I25.10 - Atherosclerotic heart disease of [place] coronary artery without angina pectoris Category: Medical Plan: Prior reports of chest discomfort with abnormal stress test leading to cardiac catheterization 09/22/2023 showing significant LAD stenosis and stent was placed. She does have a residual moderate RCA stenosis and has been asymptomatic. EKG done today showing sinus rhythm with no acute ST or T-wave abnormalities, rate 68. Last echocardiogram 08/11/2023 showed EF 65%, no valve abnormalities and no regional wall motion abnormalities. Continue med management for stable CAD. She is no longer on Plavix as it has been greater than 1 year post stent. She continues on aspirin. Continue rosuvastatin with ideal LDL goal less than 70. Continue irbesartan for good blood pressure control. Signs and symptoms of angina reviewed with her. Cardiology follow-up 6 months, sooner if needed. (2) S/P cardiac catheterization: Comment: Angiographic Findings Cardiac Arteries and Lesion Findings 09/22/2023 LMCA: Lesion in LMCA: Distal subsection. LAD: Lesion in Prox LAD: Ostial.90% stenosis . RCA: Lesion in Mid RCA: Proximal subsection.65% stenosis . Code(s): Z98.890 - Other specified postprocedural states Category: Surgical Plan: As above (3) Hypertension: Code(s): I10 - Essential (primary) hypertension Category: Medical Qualifiers: Hypertension type: essential hypertension Qualified Code(s): I10 - Essential (primary) hypertension Plan: Blood pressure goal less than 130/80. Blood pressure well controlled. Continue irbesartan, spironolactone/hydrochlorothiazide. (4) Dyslipidemia: Code(s): E78.5 - Hyperlipidemia, unspecified Category: Medical Plan: [place] LDL goal less than 70. Labs done 08/13/2024 showed LDL 46. Continue rosuvastatin. (5) Preop cardiovascular exam: Code(s): Z01.810 - Encounter for preprocedural cardiovascular examination Category: Medical Plan: Preop for arthroscopic knee surgery with Dr Sánchez 11/18/2024. She may proceed with low to intermediate cardiac risk. Aspirin could be held if needed for the procedure and plan to restart as soon as cleared by surgeon to do so. Continue rosuvastatin. Call/consult Cardiology if needed. Plan Time spent on chart review, documentation, interview and assessment. Patient was informed and verbally consented to the use of an ambient scribe for clinic note documentation during this visit. During the visit, I reviewed the patient's history and the scheduled knee surgery for meniscus cleaning by Dr. Sánchez on November 18. We confirmed discontinuing Clopidogrel, maintaining aspirin, irbesartan, and rosuvastatin, and addressed the pharmacy?s repeated refills for Clopidogrel with assurance to stop further orders. The EKG was normal, and echocardiogram does not need to be repeated at this time. We discussed managing the patient's asthma exacerbated by seasonal allergies. Medications: Discontinued clopidogrel (Plavix) Discontinued Reason: Doctor's Order 75 mg PO DAILY 30 tabs 3RF Patient Instructions: - Discontinue Clopidogrel and continue aspirin, irbesartan, and rosuvastin - Continue to work on good blood sugar control. - Avoid added sodium in meals - Maintain asthma management practices as allergies persist - Prepare for knee surgery on November 18 - aspirin can be held as requested by surgeon - Follow up with wood fuel pelletizer for any new cardiac symptoms . Coding Level of Care Code Est Pt Level 4 (08111) Complex EM visit Add On G2211 Diagnoses Atherosclerotic cardiovascular disease I25.10 S/P cardiac catheterization Z98.890 Essential hypertension I10 Hypertension type: essential hypertension Dyslipidemia E78.5 Preop cardiovascular exam Z01.810 CPT Codes EKG - CPT: 89289-[id number], Complete ([id number]) Time Spent (min) 28
--- OUTSIDE RECORDS SUMMARY | 2024-09-23 13:50 | XMS_ITS | Clinical Summary ---
Author Organization [facility] Address [address] [place] [address] Phone Care Team Providers Care Hotel Desk Clerk Name Role Phone Marquita Gonzales MD Primary [...] TO 30 DAYS DIRECTED Active DEBBIE FRIAS [facility] Active budesonide-formot Francine (SYMBICORT) 160-4.5 mcg/actuation inhaler [...] obesity with BMI of 4 0.0-44.9, adult ([facility] V24, [facility] V28) 02/21/2019 DORCAS (obstructive sleep apnea) 09/06/2018 Moderate persistent asthma without complication 09/06/2018 Sinusitis 09/06/2018 Chronic obstructive pulmonar y disease ([facility] V24, [facility] V28) 02/10/2017 Pulmonary nodule 02/10/2017 Immunizations Name Administration Dates Next Due Influenza trivalent, 0.5mL, preservative free (Fluarix; FluLaval; Fluzone) ages 6mo and older (Afluria) 3 years and older 03/18/2018 Pneumococcal polysaccharide 23 valent (Pneumovax 23) 2yo and older 12/15/2017 Tdap Tetanus diptheria acell ular pertussis (Boostrix; Adacel) 7yo and older 05/05/2013 Surgical History Surgery Date Site/Laterality Comments CHOLECYSTECTOMY PROCEDURE: HISTORICAL CHOLECYSTECTOMY SECTION PROCEDURE: HISTORICAL BREAST REDUCTION 1996 PROCEDURE: [place] BREAST REDUCTION OTHER SURGICAL HISTORY PROCEDURE: HISTORY OTHER; COMMENT: hernia repair w/mesh EYE SURGERY 1962 Left PROCEDURE: HISTORICAL EYE SURGERY; COMMENT: retinoblastoma w/enucleation BREAST CYST ASPIRATION Right Medical History Medical History Date Comments Pulmonary nodule 02/10/2017 DX:Pulmonary no dule Chronic obstructive pulmonar y disease ([facility] V24, [facility] V28) 02/10/2017 DX:Chronic obstructive pulm onary disease (HCC) Moderate persistent asthma w ithout complication 09/06/2018 DX:Moderate persistent asthm a without complication DORCAS (obstructive sleep apnea) 09/06/2018 DX :DORCAS (obstructive sleep apnea) Morbid obesity with BMI of 4 0.0-44.9, adult ([facility] V24, [facility] V28) 02/21/2019 DX:Morbid obesity wit h BMI of 40.0-44.9, adult ([facility]) PCOS (polycystic ovarian syndrome) 02/21/2019 [...] 8:45 AM EDT Office Visit Pulmonolgy - [place] [address] [place] [phone] Mikael Leon MD [address] [place] [address] Health Maintenance Due Date Last Done Comments [...] year. Mammo Location: [facility], [address] [place] [address], [address], . -------- FINAL REPORT -------- Dictated By: Lynnette Arechiga Dictated Date: 04/04/2024 09:20 ET Assigned Physician: Lynnette Arechiga Reviewed and Electronically Signed By: Lynnette Arechiga Signed Date: 04/04/2024 09:21 ET Workstation ID: [id number] Transcribed By: Self Edit Transcribed Date: 04/04/2024 09:20 ET Narrative 04/04/2024 9:21 AM EST HISTORY: Screening. Reduction mammoplasty in 1996. Maternal aunt had breast carcinoma. COMPARISON: 02/12/23, 02/01/22, 01/21/21 ?? TECHNIQUE: Bilateral digital breast tomosynthesis was performed in the CC and MLO projections. Computer aided detection with Lendio 3D 3.1 was employed. BREAST DENSITY: B [...] CCand MLO projections. Computer aided detection with CrowdComfort[employer] TrashOut 3D 3.1was employed. BREAST DENSITY: B - [...] year. Mammo Location: [facility], [address] [place] [address], [address], . -------- FINAL REPORT -------- Dictated By: Lynnette Arechiga Dictated Date: 04/04/2024 09:20 ET Assigned Physician: Lynnette Arechiga Reviewed and Electronically Signed By: Lynnette Arechiga Signed Date: 04/04/2024 09:21 ET Workstation ID: [id number] Transcribed By: Self Edit Transcribed Date: 04/04/2024 09:20 ET Marquita Gonzales MD IMG BI PROCEDURES Final Res ult from Last 3 Months or Most Recently Relevant to Health Maintenance Insurance [facility] [address] [place] [address] Care Teams Hotel Desk Clerk Relationship Specialty Start Date End Date Marquita Gonzales MD [address] [place] [facility] [place] [address] PCP - General Internal Medicine 02/13/20
--- OUTSIDE RECORDS SUMMARY | 2024-09-23 13:50 | XMS_ITS ---
Author Organization [facility] Address [address] [place] [address] Care Team Providers Care Beef Selector Name Role Phone Janet CRUZ, Marquita Primary Care Provider Lucien Shelby Unavailable [phone] Allergies Allergen (clinical drug ingredient) Drug/Non Drug Allergy documented on EMR Reaction Allergy Type Onset Date Status seasonal-allergy [facility] bi-weekly (uncoded) Unknown Allergy Active [...] Status Risk Notes Problem Colon cancer screening (571121878) Colon cancer screening (Z12.11) Active confirmed Problem Pre-procedure evaluation check (067194190) Encounter for other preprocedural examination (Z01.818) Active confirmed Problem Long-term current use of aspirin (4970508133637 03) Aspirin long-term use (Z79.82) Active confirmed Vital Signs Blood pressure systolic 00 mm Hg 04/13/20 24 Blood pressure diastolic 00 mm Hg 024 Height 65.25 in 04/13/2024 Weight 241 lbs 04/13/2024 BMI 39.79 kg/m2 04/13/2024 Procedures Procedure Date Ordered Date Performed Result Body Sit e COLONOSCOPY 04/13/2024 N/A Encounters Encounter Location Date Provider Diagnosis [facility] [address] [facility] [address] [place] [address] 04/13/2024 Lucien Gooden Colon cancer screeni ng [...] procedure. We will get clearance from her groover runner for the colonoscopy in regard to her overall cardiac status and the recommendations regarding her blood thinners. We will also ask the groover runner if she still requires antibiotics for prophylaxis [...] procedure. We will get clearance from her groover runner for the colonoscopy in regard to her overall cardiac status and the recommendations regarding her blood thinners. We will also ask the groover runner if she still requires antibiotics for prophylaxis [...] procedure. We will get clearance from her groover runner for the colonoscopy in regard to her overall cardiac status and the recommendations regarding her blood thinners. We will also ask the groover runner if she still requires antibiotics for prophylaxis [...] Provider Name:Lucien Gooden , 11/14/2024 07:30:00 AM, [address] [place] [address] , [place], [place], [phone], Progress Notes * GLORIA BISHOPADOB:1960 (63 yo F)Acc No.[id number]:04/13/2024 Progress Notes Patient:?JORGE BISHOP Provider:?Lucien Gooden MD :1960???Age:63 Y???Sex:Female D ate:04/13/2024 Address:[address] [place] [address] , [facility], [facility] Pcp:Marquita Gonzales MD Subjective: * Chief Complaints: [...] 1992/1995breast reduction 1996cholecystectomy- acalculous cholecystitis eye surgery-left--retinoblastoma [address] [place] [address] / dr. lemon * Hospitalization/Major Diagno stic Procedure:?No Hospitalization History. * Family History:?Father: dece ased.?Mother: .?Siblings: alive, colon polyps at age 52 sister, diagnosed with Colon polyps.? No colorectal cancer. * Social History:?Tobacco Use:?Tobacco Use/Smoking?Patient is a?former smoker,?How long has it been since you last smoked??> 10 years.?Drugs/Alcohol:?Alcohol Screen?Points: 2, Interpretation: Negative.?Miscellaneous:?Marital status: . 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 ???Nonsmoker since 2013, occasional alcohol. * Medications:?TakingAmoxicill [...] procedure. We will get clearance from her groover runner for the colonoscopy in regard to her overall cardiac status and the recommendations regarding her blood thinners. We will also ask the groover runner if she still requires antibiotics for prophylaxis given her previous history of endocarditis. Jorge was comfortable with this plan. Thank you again for allowing me to participate in Jorge's care. I shall continue to keep you advised of her progress. Plan: * Treatment: * Procedure Orders:? * ?Procedure: COLONOSCOPY * Procedure Codes:?3017F COLOR ECTAL CA SCREEN DOC [id number] TOBACCO [id number] BP SCR NOT PRFRM REC REASON NOS * Preventive Medicine:? ??Counseling:?Care goal follow-up plan:?Above Normal BMI Follow-up?Giving encouragement to exercise,?BMI management provided?Yes.? * Follow Up:?prn * * Sign off status: Completed true * Provider:?Lucien Gooden MD Date:? 024 Generated for Simon samano/Jennifer/eTransmitting on:?09/23/2024 01:49 PM EDT History and Physical Notes * [...]
--- OUTSIDE RECORDS SUMMARY | 2024-09-23 13:50 | XMS_ITS | Patient Health Record ---
Author Organization [facility] Address [address] [place] [address] Care Team Providers Care Torpedoman'S Mate Name Role Phone Janet CRUZ, Marquita Primary Care Provider Lucien Shelby Unavailable [phone] Allergies Allergen (clinical drug ingredient) Drug/Non Drug Allergy documented on EMR Reaction Allergy Type Onset Date Status seasonal-allergy [facility] bi-weekly (uncoded) Unknown Allergy Active Reason For [...] Status Risk Notes Problem Colon cancer screening (462982071) Colon cancer screening (Z12.11) Active confirmed Problem Pre-procedure evaluation check (647110173) Encounter for other preprocedural examination (Z01.818) Active confirmed Problem Long-term current use of aspirin (6111949973421 03) Aspirin long-term use (Z79.82) Active confirmed Vital Signs Blood pressure diastolic 00 mm Hg 04/13/2024 Height 65.25 in 04/13/2024 Blood pressure systolic 00 mm Hg 04/13/2024 Weight 241 lbs 04/13/2024 BMI 39.79 kg/m2 04/13/2024 Procedures Procedure Date Ordered Date Performed Result Body Sit e COLONOSCOPY 04/13/2024 N/A Encounters Encounter Location Date Provider Diagnosis [facility] [address] [facility] [address] [place] [address] 04/13/2024 Lucien Gooden Colon cancer screeni ng [...] procedure. We will get clearance from her mail order sorter for the colonoscopy in regard to her overall cardiac status and the recommendations regarding her blood thinners. We will also ask the mail order sorter if she still requires antibiotics for prophylaxis [...] procedure. We will get clearance from her mail order sorter for the colonoscopy in regard to her overall cardiac status and the recommendations regarding her blood thinners. We will also ask the mail order sorter if she still requires antibiotics for prophylaxis [...] procedure. We will get clearance from her mail order sorter for the colonoscopy in regard to her overall cardiac status and the recommendations regarding her blood thinners. We will also ask the mail order sorter if she still requires antibiotics for prophylaxis given her previous history of endocarditis. Isabella was comfortable with this plan. Thank you again for allowing me to participate in Isabella's care. I shall continue to keep you advised of her progress. Plan Of Treatment Pending Test Test Name Order Date COLONOSCOPY 04/13/2024 Next Appt Details Provider Name:Lucien Matthews Gooden , 11/14/2024 07:30:00 AM, [address] [place] [address] , [place], [place], [phone], Insurance Providers Payer Name Payer Address Payer Phone Subscriber Number Group Number Insured Name Patient Relationship to Insured Coverage Start Date Coverage End Date [facility] [address] [place] [phone] [id number] ISABELLA BISHOP Self - patient is the insured Medical (General) History Medical History History ICD Code Hypertension Denies [place],CVA,renal disease Staph endocarditis in 1983-- Rx'd with a long course of IV antibiotics---her mail order sorter still recommends prophylactic antibiotics before invasive procedures Bronchitis Asthma/COPD NIDDM Goiter Colonoscopy 01/2014 with a hyperplastic p olyp CAD-1 stent 08/2023-Dr. 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 lemon
== END 2024-09-23 14:13 | disposition home or self-care (01) ==
LOC: HO.HCS 13:35
PROVIDERS: PCP Internal Medicine; Visit Provider Nurse Practitioner Family
DX: I25.10 Atherosclerotic heart disease of native coronary artery without angina pectoris (principal); Z98.890 Other specified postprocedural states; I10 Essential (primary) hypertension; E78.5 Hyperlipidemia, unspecified; Z01.810 Encounter for preprocedural cardiovascular examination
CPT/HCPCS: 99214

== ENCOUNTER → 2024-09-23 13:34 | Outpatient (BNVA) | payer OTHER, SELFPAY | PROVIDERS: PCP Internal Medicine; Visit Provider Nurse Practitioner Family | DX: Z01.810 Encounter for preprocedural cardiovascular examination (principal); I25.10 Atherosclerotic heart disease of native coronary artery without angina pectoris; I10 Essential (primary) hypertension; E78.5 Hyperlipidemia, unspecified; Z87.891 Personal history of nicotine dependence; Z98.890 Other specified postprocedural states | CPT/HCPCS: 93005 ==

== ENCOUNTER 2024-10-07 15:17 | Outpatient (REF) | payer SELFPAY ==
--- OUTSIDE RECORDS SUMMARY | 2024-10-07 15:19 | XMS_ITS | Patient Health Record ---
Author Organization [facility] Address [address] [place] [address] Care Team Providers Care Wood Shop Teacher Name Role Phone Janet CRUZ, Marquita Primary Care Provider Lucien Sehlby Unavailable [phone] Allergies Allergen (clinical drug ingredient) Drug/Non Drug Allergy documented on EMR Reaction Allergy Type Onset Date Status seasonal-allergy [facility] bi-weekly (uncoded) Unknown Allergy Active [...] Status Risk Notes Problem Colon cancer screening (329938405) Colon cancer screening (Z12.11) Active confirmed Problem Pre-procedure evaluation check (024810483) Encounter for other preprocedural examination (Z01.818) Active confirmed Problem Long-term current use of aspirin (9128896655450 03) Aspirin long-term use (Z79.82) Active confirmed Vital Signs Blood pressure diastolic 00 mm Hg 04/13/2024 Height 65.25 in 04/13/2024 Blood pressure systolic 00 mm Hg 04/13/2024 Weight 241 lbs 04/13/2024 BMI 39.79 kg/m2 04/13/2024 Procedures Procedure Date Ordered Date Performed Result Body Sit e COLONOSCOPY 04/13/2024 N/A Encounters Encounter Location Date Provider Diagnosis [facility] [address] [facility] [address] [place] [address] 04/13/2024 Lucien Gooden Colon cancer screeni ng [...] procedure. We will get clearance from her tangible personal property appraiser for the colonoscopy in regard to her overall cardiac status and the recommendations regarding her blood thinners. We will also ask the tangible personal property appraiser if she still requires antibiotics for prophylaxis [...] procedure. We will get clearance from her tangible personal property appraiser for the colonoscopy in regard to her overall cardiac status and the recommendations regarding her blood thinners. We will also ask the tangible personal property appraiser if she still requires antibiotics for prophylaxis [...] procedure. We will get clearance from her tangible personal property appraiser for the colonoscopy in regard to her overall cardiac status and the recommendations regarding her blood thinners. We will also ask the tangible personal property appraiser if she still requires antibiotics for prophylaxis given her previous history of endocarditis. Isabella was comfortable with this plan. Thank you again for allowing me to participate in Isabella's care. I shall continue to keep you advised of her progress. Plan Of Treatment Pending Test Test Name Order Date COLONOSCOPY 04/13/2024 Next Appt Details Provider Name:Lucien Matthews Gooden , 11/14/2024 07:30:00 AM, [address] [place] [address] , [place], [place], [phone], Insurance Providers Payer Name Payer Address Payer Phone Subscriber Number Group Number Insured Name Patient Relationship to Insured Coverage Start Date Coverage End Date [facility] [address] [place] [phone] [id number] ISABELLA BISHOP Self - patient is the insured Medical (General) History Medical History History ICD Code Hypertension Denies [place],CVA,renal disease Staph endocarditis in 1983-- Rx'd with a long course of IV antibiotics---her tangible personal property appraiser still recommends prophylactic antibiotics before invasive procedures Bronchitis Asthma/COPD NIDDM Goiter Colonoscopy 01/2014 with a hyperplastic p olyp CAD-1 stent 08/2023-Dr. 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 lemon
--- OUTSIDE RECORDS SUMMARY | 2024-10-07 15:19 | XMS_ITS ---
Author Organization [facility] Address [address] [place] [address] Care Team Providers Care Guyline Operator Name Role Phone Janet CRUZ, Marquita Primary Care Provider Lucien Shelby Unavailable [phone] Allergies Allergen (clinical drug ingredient) Drug/Non Drug Allergy documented on EMR Reaction Allergy Type Onset Date Status seasonal-allergy [facility] bi-weekly (uncoded) Unknown Allergy Active REASON [...] Status Risk Notes Problem Colon cancer screening (195769061) Colon cancer screening (Z12.11) Active confirmed Problem Pre-procedure evaluation check (732289599) Encounter for other preprocedural examination (Z01.818) Active confirmed Problem Long-term current use of aspirin (7404219150729 03) Aspirin long-term use (Z79.82) Active confirmed Vital Signs Blood pressure systolic 00 mm Hg 04/13/20 24 Blood pressure diastolic 00 mm Hg 024 Height 65.25 in 04/13/2024 Weight 241 lbs 04/13/2024 BMI 39.79 kg/m2 04/13/2024 Procedures Procedure Date Ordered Date Performed Result Body Sit e COLONOSCOPY 04/13/2024 N/A Encounters Encounter Location Date Provider Diagnosis [facility] [address] [facility] [address] [place] [address] 04/13/2024 Lucien Gooden Colon cancer screeni ng [...] procedure. We will get clearance from her health education aide for the colonoscopy in regard to her overall cardiac status and the recommendations regarding her blood thinners. We will also ask the health education aide if she still requires antibiotics for prophylaxis [...] procedure. We will get clearance from her health education aide for the colonoscopy in regard to her overall cardiac status and the recommendations regarding her blood thinners. We will also ask the health education aide if she still requires antibiotics for prophylaxis [...] procedure. We will get clearance from her health education aide for the colonoscopy in regard to her overall cardiac status and the recommendations regarding her blood thinners. We will also ask the health education aide if she still requires antibiotics for prophylaxis [...] Provider Name:Lucien Gooden , 11/14/2024 07:30:00 AM, [address] [place] [address] , [place], [place], [phone], Progress Notes * GLORIA BISHOPADOB:1960 (63 yo F)Acc No.[id number]:04/13/2024 Progress Notes Patient:?JORGE BISHOP Provider:?Lucien Gooden MD :1960???Age:63 Y???Sex:Female D ate:04/13/2024 Address:[address] [place] [address] , [address] [facility], [facility] Pcp:Marquita Gonzales MD Subjective: * Chief Complaints: [...] 1992/1995breast reduction 1996cholecystectomy- acalculous cholecystitis eye surgery-left--retinoblastoma [address] [place] [address] / dr. lemon * Hospitalization/Major Diagno stic Procedure:?No Hospitalization History. * Family History:?Father: dece ased.?Mother: .?Siblings: alive, colon polyps at age 52 sister, diagnosed with Colon polyps.? No colorectal cancer. * Social History:?Tobacco Use:?Tobacco Use/Smoking?Patient is a?former smoker,?How long has it been since you last smoked??> 10 years.?Drugs/Alcohol:?Alcohol Screen?Points: 2, Interpretation: Negative.?Miscellaneous:?Marital status: . 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 ???Nonsmoker since 2013, occasional alcohol. * Medications:?TakingAmoxicill [...] procedure. We will get clearance from her health education aide for the colonoscopy in regard to her overall cardiac status and the recommendations regarding her blood thinners. We will also ask the health education aide if she still requires antibiotics for prophylaxis given her previous history of endocarditis. Jorge was comfortable with this plan. Thank you again for allowing me to participate in Jorge's care. I shall continue to keep you advised of her progress. Plan: * Treatment: * Procedure Orders:? * ?Procedure: COLONOSCOPY * Procedure Codes:?3017F COLOR ECTAL CA SCREEN DOC [id number] TOBACCO NON-[id number] BP SCR NOT PRFRM REC REASON NOS * Preventive Medicine:? ??Counseling:?Care goal follow-up plan:?Above Normal BMI Follow-up?Giving encouragement to exercise,?BMI management provided?Yes.? * Follow Up:?prn * * Sign off status: Completed true * Provider:?Lucien Gooden MD Date:? 024 Generated for Simon samano/Jennifer/eTransmitting on:?10/07/2024 03:19 PM EDT History and Physical Notes * [...]
--- OUTSIDE RECORDS SUMMARY | 2024-10-07 15:19 | XMS_ITS | Clinical Summary ---
Author Organization [facility] Address [address] [place] [address] Phone Care Team Providers Care Ammonia Still Operator Name Role Phone Marquita Gonzales MD Primary Care Provider [phone] Allergies No known active allergies Medications alendronate [...] 30 DAYS DIRECTED Active DEBBIE FRIAS [facility] Active budesonide-formot Francine (SYMBICORT) 160-4.5 mcg/actuation inhaler [...] obesity with BMI of 4 0.0-44.9, adult ([facility] V24, [facility] V28) 02/21/2019 DORCAS (obstructive sleep apnea) 09/06/2018 Moderate persistent asthma without complication 09/06/2018 Sinusitis 09/06/2018 Chronic obstructive pulmonar y disease ([facility] V24, [facility] V28) 02/10/2017 Pulmonary nodule 02/10/2017 Immunizations Name [...] SECTION PROCEDURE: HISTORICAL BREAST REDUCTION 1996 PROCEDURE: [place] BREAST REDUCTION OTHER SURGICAL HISTORY PROCEDURE: HISTORY OTHER; COMMENT: hernia repair w/mesh EYE SURGERY 1962 Left PROCEDURE: HISTORICAL EYE SURGERY; COMMENT: retinoblastoma w/enucleation BREAST CYST ASPIRATION Right Medical History Medical History Date Comments Pulmonary nodule 02/10/2017 DX:Pulmonary no dule Chronic obstructive pulmonar y disease ([facility] V24, [facility] V28) 02/10/2017 DX:Chronic obstructive pulm onary disease (HCC) Moderate persistent asthma w ithout complication 09/06/2018 DX:Moderate persistent asthm a without complication DORCAS (obstructive sleep apnea) 09/06/2018 DX :DORCAS (obstructive sleep apnea) Morbid obesity with BMI of 4 0.0-44.9, adult ([facility] V24, [facility] V28) 02/21/2019 DX:Morbid obesity wit h BMI of 40.0-44.9, adult ([facility]) PCOS (polycystic ovarian syndrome) 02/21/2019 [...] Relation Name Comments Coronary artery disease Father PR, CVD Diabetes Mother HTN Breast cancer Mother's [...] 8:45 AM EDT Office Visit Pulmonolgy - [place] [address] [place] [id number] Mikael Leon MD [address] [place] [address] Health Maintenance Due Date Last Done Comments [...] year. Mammo Location: [facility], [address] [place] [address], [id number], . -------- FINAL REPORT -------- Dictated By: Lynnette Arechiga Dictated Date: 04/04/2024 09:20 ET Assigned Physician: Lynnette Arechiga Reviewed and Electronically Signed By: Lynnette Arechiga Signed Date: 04/04/2024 09:21 ET Workstation ID: [id number] Transcribed By: Self Edit Transcribed Date: 04/04/2024 09:20 ET Narrative 04/04/2024 9:21 AM EST HISTORY: Screening. Reduction mammoplasty in 1996. Maternal aunt had breast carcinoma. COMPARISON: 02/12/23, 02/01/22, 01/21/21 ?? TECHNIQUE: Bilateral digital breast tomosynthesis was performed in the CC and MLO projections. Computer aided detection with [employer] 3D 3.1 was employed. BREAST DENSITY: B [...] CCand MLO projections. Computer aided detection with [employer] 3D 3.1was employed. BREAST DENSITY: B - [...] year. Mammo Location: [facility], [address] [place] [address], [id number], . -------- FINAL REPORT -------- Dictated By: Lynnette Arechiga Dictated Date: 04/04/2024 09:20 ET Assigned Physician: Lynnette Arechiga Reviewed and Electronically Signed By: Lynnette Arechiga Signed Date: 04/04/2024 09:21 ET Workstation ID: [id number] Transcribed By: Self Edit Transcribed Date: 04/04/2024 09:20 ET Marquita Gonzales MD IMG BI PROCEDURES Final Res ult from Last 3 Months or Most Recently Relevant to Health Maintenance Insurance [facility] [address] [place] [address] Care Teams Ammonia Still Operator Relationship Specialty Start Date End Date Marquita Gonzales MD [address] [place] [facility] [address] PCP - General Internal Medicine 02/13/20
== END 2024-10-07 15:18 | disposition home or self-care (01) ==
LOC: HO.HAP 15:17
PROVIDERS: Visit Provider Internal Medicine
DX: Z46.1 Encounter for fitting and adjustment of hearing aid (principal); H90.3 Sensorineural hearing loss, bilateral
CPT/HCPCS: V5266

== ENCOUNTER 2024-11-18 05:57 | Day surgery (SDC) | payer SELFPAY ==
[2024-11-16 08:51] VITALS: BMI 39.8
[2024-11-18] VITALS (7 sets, daily range): BP systolic 111–151; BP diastolic 46–71; PULSE 56–66; RESP 15–20; TEMP 36.1–36.7; O2SAT 88–99; BMI 40.3
[2024-11-18] MEDS: Lactated Ringers 1,000 ML 100 ML IVCONT (06:43)
--- NOTE | 2024-11-18 06:44 | PC.NURSE ---
o2 sat down to 88% and comes up to 94%. o2 2l nc applied and averaging 93-94% on 2l. pt had used her albuterol inhaler at 530. no cpap used for her cpap.ls clear throughout with no resp distress.
[2024-11-18 06:50] LABS: Glucose, Whole Blood 124 mg/dL (60-115)
--- NOTE | 2024-11-18 07:23 | HO.ANESPROP2 ---
Documented by User: Cady Callahan NP 11/17/24 09:13 HPI - Anesthesia Eval Consult details Narrative: 64yo F for Right Knee Arthroscopy partial medial meniscectomy, and lateral meniscectomy Cardiac optimized for surgery. Follows [facility] Cardiology for CAD with LAD stent 08/2023, residual moderate RCA stenosis. Last office visit 09/2024 [facility] Active Problems Active Problems: All Active Problems Preop cardiovascular exam (Acute) Tear of medial meniscus of right knee (Acute) Knee pain (Acute) Atherosclerotic cardiovascular disease (Acute) COPD (chronic obstructive pulmonary disease) (Acute) Osteoporosis of lumbar spine (Acute) S/P cardiac catheterization (Acute) Incomplete right bundle branch block (RBBB) determined by electrocardiography (Acute) Hearing loss (Acute) Seasonal allergies (Acute) Mild intermittent asthma in adult without complication (Acute) Nontoxic multinodular goiter (Acute) Lung nodule < 6cm on CT (Acute) Cervical spondylosis (Acute) DJD (degenerative joint disease), lumbar (Acute) 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 (Acute) Primary open angle glaucoma, right eye (Acute) Retinoblastoma of left eye (Acute) Polycystic ovaries (Acute) Morbid obesity (Acute) Menopause (Acute) Type 2 diabetes mellitus without complication, without long-term current use of insulin (Acute) Dyslipidemia (Acute) Hypertension (Acute) Past Medical History Medical History (Updated 11/18/24 @ 06:11 by Maris De Luna RN) History of retinoblastoma Osteoporosis of lumbar spine Incomplete right bundle branch block (RBBB) determined by electrocardiography Hearing loss Family history of early CAD Intermittent left-sided chest pain Seasonal allergies Plantar fasciitis, right Mild intermittent asthma in adult without complication Nontoxic multinodular goiter Lung nodule < 6cm on CT Cervical spondylosis DJD (degenerative joint disease), lumbar 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 Primary open angle glaucoma, right eye Retinoblastoma of left eye Polycystic ovaries Morbid obesity Multiple thyroid nodules Menopause Type 2 diabetes mellitus without complication, without long-term current use of insulin Dyslipidemia Hypertension Family History Family History Father CAD (coronary artery disease) Myocardial infarction CVD (cardiovascular disease) Substance use disorder Mother Diabetes mellitus HTN (hypertension) Maternal Grandfather No problems noted. Maternal Grandmother No problems noted. Paternal Grandfather No problems noted. Paternal Grandmother No problems noted. Brother Substance use disorder Mental health disorder Sister No problems noted. Sister Substance use disorder Sister No problems noted. Sister No problems noted. Son No problems noted. Daughter No problems noted. Surgical History Surgical History History of coronary artery stent placement S/P cardiac catheterization Status post phlebectomy H/O eye surgery H/O hernia repair H/O bilateral breast reduction surgery H/O section H/O thyroidectomy Hx of cholecystectomy Social History Social History Housing: House Alcohol intake: current Patient Tobacco Use Status: Former Tobacco user Cigarette Packs Per Day: 2 Years Smoked: 36 yrs e-Cigarette/Vaping Use: Never Used Second Hand Smoke Exposure: Yes Use of substances other than those prescribed or required for medical reasons: No Are you DNR?: No Advance Directives: No Advance Directives Information Provided: Yes service: No Current occupational status: employed 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: No Cognitive needs: No Hearing needs: Yes Vision needs: Yes Meds Allergies Allergy/AdvReac Type Severity Reaction Status Date / Time mold,trees,dust,cats,dogs Allergy Unknown unknown Uncoded 09/23/24 13:42 strawberries Allergy Unknown hives Uncoded 09/23/24 13:42 Active Medications: Current Medications Cefazolin Sodium/Dextrose (Ancef) 2 gm in 50 mls @ 100 mls/hr IV PREOP ONE Stop: 11/18/24 06:12 Home Medications ?Medication ?Instructions ?Recorded ?Confirmed ?Last Taken ?Type levocetirizine 5 mg tablet (Xyzal) 5 mg PO QPM PRN Allergy Symptoms 02/29/20 09/23/24 Unknown History calcium carbonate (Calcium 500) 500 mg PO DAILY 10/24/20 09/23/24 Unknown History multivitamin 1 tab PO DAILY 10/24/20 09/23/24 Unknown History vitamin B complex (B 1 tab PO DAILY 10/24/20 09/23/24 Unknown History Complex-Vitamin B12 tablet) aspirin 81 mg tablet,delayed 81 mg PO DAILY 10/08/23 09/23/24 Unknown History release (Adult Aspirin Regimen) alendronate 70 mg tablet 70 mg PO QWEEK 01/13/24 09/23/24 Unknown History budesonide-formoterol HFA 160 1 inh inhalation BID 01/13/24 09/23/24 Unknown History mcg-4.5 mcg/actuation aerosol inhaler ketotifen fumarate 0.025 % (0.035 1 drp ophthalmic-Right Q12H 01/13/24 09/23/24 Unknown History %) eye drops (Zaditor) latanoprost 0.005 % eye drops 1 drp ophthalmic (eye) QPM 01/13/24 09/23/24 Unknown History thiamine HCl (vitamin B1) 50 mg 50 mg PO DAILY 11/18/24 11/18/24 Unknown History tablet (Vitamin B-1) zinc 25 mg tablet mg PO DAILY 11/18/24 Unknown History Exam Height,Weight and Vital Signs: Height 5 ft 5 in Weight 108.409 kg Narrative Narrative: EKG 09/2024 Normal sinus rhythm, low voltage QRS, rate 68, Qtc 435ms cardiac catheterization 09/22/2023 showing significant LAD stenosis and stent was placed. She does have a residual moderate RCA stenosis and has been asymptomatic. echocardiogram 08/11/2023 showed EF 65%, no valve abnormalities and no regional wall motion abnormalities. Assessment and Plan Assessment Anesthesia Assessment: Chart Reviewed Documented by User: Maris Moser DO 11/18/24 07:26 HPI - Anesthesia Eval Consult details Narrative: 64yo F for Right Knee Arthroscopy partial medial meniscectomy, and lateral meniscectomy Cardiac optimized for surgery. Follows [facility] Cardiology for CAD with LAD stent 08/2023, residual moderate RCA stenosis. Last office visit 09/2024 SpO2 88-90% in pre-op today. Patient is asymptomatic. [facility] Past Medical History Medical History (Updated 11/18/24 @ 06:11 by Maris De Luna RN) History of retinoblastoma Osteoporosis of lumbar spine Incomplete right bundle branch block (RBBB) determined by electrocardiography Hearing loss Family history of early CAD Intermittent left-sided chest pain Seasonal allergies Plantar fasciitis, right Mild intermittent asthma in adult without complication Nontoxic multinodular goiter Lung nodule < 6cm on CT Cervical spondylosis DJD (degenerative joint disease), lumbar 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 Primary open angle glaucoma, right eye Retinoblastoma of left eye Polycystic ovaries Morbid obesity Multiple thyroid nodules Menopause Type 2 diabetes mellitus without complication, without long-term current use of insulin Dyslipidemia Hypertension Family History Family History Father CAD (coronary artery disease) Myocardial infarction CVD (cardiovascular disease) Substance use disorder Mother Diabetes mellitus HTN (hypertension) Maternal Grandfather No problems noted. Maternal Grandmother No problems noted. Paternal Grandfather No problems noted. Paternal Grandmother No problems noted. Brother Substance use disorder Mental health disorder Sister No problems noted. Sister Substance use disorder Sister No problems noted. Sister No problems noted. Son No problems noted. Daughter No problems noted. Family history of problems with anesthesia: No Surgical History Surgical History History of coronary artery stent placement S/P cardiac catheterization Status post phlebectomy H/O eye surgery H/O hernia repair H/O bilateral breast reduction surgery H/O section H/O thyroidectomy Hx of cholecystectomy History of Problems with Anesthesia: No Social History Social History Housing: House Alcohol intake: current Patient Tobacco Use Status: Former Tobacco user Cigarette Packs Per Day: 2 Years Smoked: 36 yrs e-Cigarette/Vaping Use: Never Used Second Hand Smoke Exposure: Yes Use of substances other than those prescribed or required for medical reasons: No Are you DNR?: No Advance Directives: No Advance Directives Information Provided: Yes service: No Current occupational status: employed 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: No Cognitive needs: No Hearing needs: Yes Vision needs: Yes Meds Allergies Allergy/AdvReac Type Severity Reaction Status Date / Time mold,trees,dust,cats,dogs Allergy Unknown unknown Uncoded 09/23/24 13:42 strawberries Allergy Unknown hives Uncoded 09/23/24 13:42 Home Medications ?Medication ?Instructions ?Recorded ?Confirmed ?Last Taken ?Type levocetirizine 5 mg tablet (Xyzal) 5 mg PO QPM PRN Allergy Symptoms 02/29/20 09/23/24 Unknown History calcium carbonate (Calcium 500) 500 mg PO DAILY 10/24/20 09/23/24 Unknown History multivitamin 1 tab PO DAILY 10/24/20 09/23/24 Unknown History vitamin B complex (B 1 tab PO DAILY 10/24/20 09/23/24 Unknown History Complex-Vitamin B12 tablet) aspirin 81 mg tablet,delayed 81 mg PO DAILY 10/08/23 09/23/24 Unknown History release (Adult Aspirin Regimen) alendronate 70 mg tablet 70 mg PO QWEEK 01/13/24 09/23/24 Unknown History budesonide-formoterol HFA 160 1 inh inhalation BID 01/13/24 09/23/24 Unknown History mcg-4.5 mcg/actuation aerosol inhaler ketotifen fumarate 0.025 % (0.035 1 drp ophthalmic-Right Q12H 01/13/24 09/23/24 Unknown History %) eye drops (Zaditor) latanoprost 0.005 % eye drops 1 drp ophthalmic (eye) QPM 01/13/24 09/23/24 Unknown History thiamine HCl (vitamin B1) 50 mg 50 mg PO DAILY 11/18/24 11/18/24 Unknown History tablet (Vitamin B-1) zinc 25 mg tablet mg PO DAILY 11/18/24 Unknown History Exam Exam Date and Time: 11/18/24 0724 Height,Weight and Vital Signs: Height 5 ft 5 in Weight 108.409 kg Vital Signs Temperature 96.9 F 11/18/24 06:20 Pulse Rate 66 11/18/24 06:20 Respiratory Rate 15 11/18/24 06:20 Blood Pressure 117/50 L 11/18/24 06:20 Pulse Oximetry 88 L 11/18/24 06:20 Oxygen Delivery Method Room Air 11/18/24 06:20 Temperature 96.9 F 11/18/24 06:20 Pulse Rate 66 11/18/24 06:20 Respiratory Rate 15 11/18/24 06:20 Blood Pressure 117/50 L 11/18/24 06:20 Pulse Oximetry 88 L 11/18/24 06:20 Oxygen Delivery Method Room Air 11/18/24 06:20 Airway Mallampati Class: II TM Dist: <=3cm Neck ROM: Full Loose/Missing/Broken Teeth: No (patient denies any loose or broken teeth) Heart: S1S2 Lungs: CTAB Assessment and Plan Assessment Anesthesia Assessment: Anesthesia Plan Discussed and Chart Reviewed Final Anesthetic Review Family History of Problems with Anesthesia: No History of Problems with Anesthesia: No NPO: Yes ASA Class: III Final Preanesthetic Review: No Changes in Pt Med Stat, Meds/Allgs Chart Reviewed, Consent Obtained/Reviewed and Anes Risks/Benef Reviewed Patient Risk: Intermediate Procedure Risk: Low Anesthetic Plan Anesthetic Plan: GA and Agree w/ Assess. and Plan Disposition: Standard PACU
[2024-11-18] MEDS: ceFAZolin Sodium/Dextrose,Iso 2 GM/50 ML PIGGYBACK IV (07:40)
[2024-11-18] MEDS: Acetaminophen 1,000 MG/100 ML PIGGYBACK 400 MG IV (07:50)
--- NOTE | 2024-11-18 07:54 | PC.NURSE ---
anesthesia made aware of o2 sat situation at 0700 and evaluated at bedside. ok'd to proceed.
--- NOTE | 2024-11-18 08:52 | PM.OP ---
Brief Operative Note Date of Service: 11/18/24 Pre-op diagnosis: Right knee lateral meniscus tear, right knee medial meniscus tear, right knee degenerative joint disease Post-op diagnosis: same Procedure: Right knee arthroscopic partial medial meniscectomy, right knee arthroscopic partial lateral meniscectomy, right knee arthroscopic chondroplasty of the undersurface of the patella as well as the medial femoral condyle Implants: none Surgeon: Allen Sánchez MD Was an Performance Makeup Artist used for this Procedure?: No Estimated blood loss (mL): 10 Pathology: none sent Condition: stable Disposition: PACU
--- NOTE | 2024-11-18 08:52 | W.PM.OPN ---
Operative Note Operative Note Date of Service: 11/18/24 Narrative: After the patient was identified as Isabella Gonzalez and her right knee was initialed by myself they were brought to the operating room where general anesthesia was induced by the anesthesiologist in routine fashion. The patient was given 2 g of IV Ancef for infection prophylaxis. A formal time-out was completed. The patient's right lower extremity was prepped and draped in sterile fashion. Marcaine with epinephrine was injected into the planned incision sites as well as their right knee joint. A # 11 scalpel blade was used to make an anterolateral portal 1 cm proximal to the joint line and 1 cm lateral to the patellar tendon. Blunt trocar technique was used into the suprapatellar pouch with the knee in extension. Diagnostic arthroscopy showed multiple bands of thickened plica which would be excised at the end of the procedure. There were no loose bodies or abnormalities found in either the medial or lateral gutters. There were diffuse grades 1 and 2 degenerative changes of the undersurface of the patella as well as grades 1 and 2 degenerative changes of the trochlear groove. The patient's knee was flexed to 45 degrees and a valgus force was placed upon it. The medial compartment was entered. An anteromedial portal was made 1 cm proximal to the joint line and 1 cm medial to the patellar tendon. Probing of the medial meniscus showed a radial tear of the anterior horn. A partial medial meniscectomy was performed using the arthroscopic shaver. Following the partial meniscectomy the remainder of the meniscus tissue was stable. There were diffuse grades 2 and 3 degenerative changes of the medial femoral condyle as well as diffuse grades 1 and 2 degenerative changes of the medial tibial plateau. The articular surface of the medial femoral condyle was made smooth using the arthroscopic shaver. The articular surface of the medial tibial plateau was already smooth so no chondroplasty was indicated. The patient's knee was then placed into a neutral position. There was no injury to the anterior cruciate ligament. The patient's knee was then placed into the figure of 4 position and the lateral compartment was entered. There were minimal degenerative changes of the lateral femoral condyle and lateral tibial plateau. There was a radial tear of the lateral meniscus. A partial lateral meniscectomy was performed using the arthroscopic shaver. Following the partial meniscectomy the remainder of the meniscus tissue was stable. The patient's knee was once again brought into extension and the suprapatellar pouch was entered. The arthroscopic shaver and the ArthroCare Wand were used to excise the thickened bands of plica. The undersurface of the patella was then made smooth using the arthroscopic shaver. The articular surface of the trochlear groove was already smooth so no chondroplasty was indicated. The knee joint was irrigated and then drained. All arthroscopic instruments were removed. The 2 portals were closed with 3-0 nylon interrupted suture. The knee joint was injected with Marcaine. Dry sterile dressing and Alfred bandages were placed over the patient's knee. The patient was awoken and extubated in the operating room. They were transferred to the recovery room in stable condition.
[2024-11-18] MEDS: oxyCODONE HCl Immed Release 5 MG TABLET PO (09:11)
[2024-11-18] MEDS: cefTRIAXone sodium 1 GM VIAL IVPUSH (09:11)
== END 2024-11-18 09:50 | disposition home or self-care (01) ==
PROVIDERS: PCP Internal Medicine; Visit Provider Orthopaedic Surgery
PROC: (CPT 29870; principal; 2024-11-18 07:30)
DX: S83.241A Other tear of medial meniscus, current injury, right knee, initial encounter (principal); S83.281A Other tear of lateral meniscus, current injury, right knee, initial encounter; M17.11 Unilateral primary osteoarthritis, right knee; M25.561 Pain in right knee; M23.51 Chronic instability of knee, right knee; M67.51 Plica syndrome, right knee; W01.0XXA Fall on same level from slipping, tripping and stumbling without subsequent striking against object, initial encounter; Y93.89 Activity, other specified; Y92.9 Unspecified place or not applicable; Y99.9 Unspecified external cause status; J45.20 Mild intermittent asthma, uncomplicated; G47.33 Obstructive sleep apnea (adult) (pediatric); I10 Essential (primary) hypertension; E78.5 Hyperlipidemia, unspecified; E11.9 Type 2 diabetes mellitus without complications; E66.01 Morbid (severe) obesity due to excess calories; Z68.39 Body mass index [BMI] 39.0-39.9, adult; Z79.82 Long term (current) use of aspirin; Z79.02 Long term (current) use of antithrombotics/antiplatelets; Z79.84 Long term (current) use of oral hypoglycemic drugs; Z79.899 Other long term (current) drug therapy; Z99.89 Dependence on other enabling machines and devices; Z91.018 Allergy to other foods; Z91.048 Other nonmedicinal substance allergy status; Z98.890 Other specified postprocedural states; Z87.891 Personal history of nicotine dependence
CPT/HCPCS: 29880; 29876; 82947; J0131; J0171; J0690; J0696; J1885; J2003; J2405; J2704; J2795; J3010

== ENCOUNTER → 2024-11-18 05:57 | Outpatient (BNV) | payer SELFPAY | PROVIDERS: PCP Internal Medicine; Visit Provider Orthopaedic Surgery | DX: S83.241A Other tear of medial meniscus, current injury, right knee, initial encounter (principal); S83.281A Other tear of lateral meniscus, current injury, right knee, initial encounter | CPT/HCPCS: 29880 ==

== ENCOUNTER 2024-12-01 09:03 | Outpatient (AMB) | payer SELFPAY ==
--- OUTSIDE RECORDS SUMMARY | 2024-11-14 03:30 | XMS_ITS ---
Author Organization [facility] Address [address] [place] [address] Care Team Providers Care Geophysical Data Technician Name Role Phone Janet CRUZ, Marquita Primary Care Provider Lucien Shelby [phone] REASON FOR VISIT Colon Cancer Screening Encounters Encounter Location Date Provider Diagnosis [facility] Out[facility] [address] [place] [id number] 11/14/2024 Lucien Gooden Plan Of Treatment No Information Progress Notes * ALEJOGLORIA SorensonADOB:1960 (64 yo F)Acc No.[id number]:11/14/2024 COLON WITH MAC Patient: JORGE MEDEIROS Provider: Kati Gooden MD :1960 A ge:64 Y S ex:Female Date:11/14/2024 Address:[address] [id number] Pcp:Marquita Gonzales MD Subjective: * Chief Complaints: [...] 11/14/2024 Generated for Mpi ng/Fajudyg/eTransmitting on: 0 12/01/2024 09:27 AM EDT
[2024-12-01 09:05] VITALS: BMI 40.3
--- NOTE | 2024-12-01 09:05 | A.OFFVIS_ITS ---
Vital Signs 12/01/24 09:05 Height 5 ft 5 in Weight 242 lb BMI 40.3 Intake Visit Reasons: PO RT knee 11/18/24 DR, Low back pain Intake Note: Isabella is a 64 year old female who presents with complaints of progressively worsening low back pain which radiates down her left leg as well as intermittent left leg ?numbness?. The patient did undergo right knee arthroscopic surgery on 11/18/2024. She reports minimal discomfort in her right knee. She denies any fevers or chills. She describes her low back pain as sharp in nature. She has failed the last 6 weeks of conservative treatment which has included chiropractic treatments, a home exercise program, physical therapy exercises, Tylenol and anti-inflammatory medicines. She also reports intermittent weakness in her left leg. The patient states that she did injure her low back while moving heavy furniture approximately 1 year ago. Allergies mold,trees,dust,cats,dogs Allergy (Unknown, Uncoded 12/01/24 09:06) unknown strawberries Allergy (Unknown, Uncoded 12/01/24 09:06) hives Medication List - Last Reconciled 12/01/24 by Allen Sánchez MD albuterol sulfate 90 mcg/actuation 2 puffs inhalation Q6H PRN alendronate 70 mg PO QWEEK aspirin (Adult Aspirin Regimen) 81 mg PO DAILY blood sugar diagnostic (FreeStyle Lite Strips) Check fasting blood sugar once a day blood-glucose meter (FreeStyle Bolivar Lite kit) As directed budesonide-formoterol 160-4.5 mcg/actuation 1 inh inhalation BID calcium carbonate (Calcium 500) 500 mg PO DAILY citalopram 20 mg PO DAILY irbesartan 75 mg PO DAILY ketotifen fumarate 0.025%(0.035%) (Zaditor) 1 drp ophthalmic-Right Q12H lancets (FreeStyle Lancets) Check fasting glucose once a day latanoprost 0.005% 1 drp ophthalmic (eye) QPM levocetirizine (Xyzal) 5 mg PO QPM PRN magnesium oxide 400 mg PO DAILY metformin ER 500 mg PO QPM methocarbamol 500 mg PO TID PRN montelukast 10 mg PO DAILY multivitamin 1 tab PO DAILY oxycodone 5 mg PO Q6H PRN rosuvastatin 40 mg PO DAILY spironolacton-hydrochlorothiaz 25-25 mg 2 tabs PO DAILY thiamine HCl (vitamin B1) (Vitamin B-1) 50 mg PO DAILY vitamin B complex (B Complex-Vitamin B12 tablet) 1 tab PO DAILY zinc mg PO DAILY [facility] Medical History (Updated 12/01/24 @ 09:27 by Allen Sánchez MD) History of retinoblastoma Osteoporosis of lumbar spine Incomplete right bundle branch block (RBBB) determined by electrocardiography Hearing loss Family history of early CAD Intermittent left-sided chest pain Seasonal allergies Plantar fasciitis, right Mild intermittent asthma in adult without complication Nontoxic multinodular goiter Lung nodule < 6cm on CT Cervical spondylosis DJD (degenerative joint disease), lumbar 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 Primary open angle glaucoma, right eye Retinoblastoma of left eye Polycystic ovaries Morbid obesity Multiple thyroid nodules Menopause Type 2 diabetes mellitus without complication, without long-term current use of insulin Dyslipidemia Hypertension Surgical History History of coronary artery stent placement S/P cardiac catheterization Status post phlebectomy H/O eye surgery H/O hernia repair H/O bilateral breast reduction surgery H/O section H/O thyroidectomy Hx of cholecystectomy Family History Father CAD (coronary artery disease) Myocardial infarction CVD (cardiovascular disease) Substance use disorder Mother Diabetes mellitus HTN (hypertension) Maternal Grandfather No problems noted. Maternal Grandmother No problems noted. Paternal Grandfather No problems noted. Paternal Grandmother No problems noted. Brother Substance use disorder Mental health disorder Sister No problems noted. Sister Substance use disorder Sister No problems noted. Sister No problems noted. Son No problems noted. Daughter No problems noted. 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: No Cognitive needs: No Hearing needs: Yes Vision needs: Yes Physical Exam Vital Signs: BMI result Body Mass Index 40.3 Const Other: Well-nourished well-developed very friendly female awake alert and oriented x3 in no acute distress Back/Spine/Pelvis Other: Low back examination shows left-sided paraspinal muscle tenderness, pain with range of motion, positive straight leg raise test on the left at 70 degrees, 4/5 strength with testing of her left hip flexors and knee extensors when compared to 5/5 strength on her right side Extrem Other: Right knee examination shows that the surgical incisions are healing well, no erythema, minimal discomfort with range of motion, no instability Assessment & Plan Assessment & Plan (1) Right knee pain: Code(s): M25.561 - Pain in right knee Category: Medical (2) Low back pain radiating to left leg: Code(s): M54.50 - Low back pain, unspecified; M79.605 - Pain in left leg Category: Medical Plan Ms. Gonzalez is doing well after undergoing right knee arthroscopic surgery on 11/18/2024. Her sutures were removed and Steri-Strips placed over her incisions. The patient does have progressively worsening low back pain which radiates into her left leg as well as associated left leg weakness possibly due to lumbar stenosis or a disc herniation. Thus, I will send the patient for an MRI of her lumbar spine for further evaluation. I will see her back once the MRI is completed to discuss the findings and treatment options. Feel free to call me at any time should questions regarding her orthopedic management arise. Orders: Orders MR lumbar spine wo con 12/02/24 M54.50 - Low back pain, unspecified, M79.605 - Pain in left leg Coding Level of Care Code Est Pt Level 3 (29975) Complex EM visit Add On G2211 Diagnoses Right knee pain M25.561 Low back pain radiating to left leg M54.50; M79.605
--- OUTSIDE RECORDS SUMMARY | 2024-12-01 09:28 | XMS_ITS | Clinical Summary ---
Author Organization [facility] Address [address] [place] [address] Phone Care Team Providers Care Aerophysicist Name Role Phone Marquita Gonzales MD Primary [...] TO 30 DAYS DIRECTED Active DEBBIE FRIAS [facility] Active budesonide-formot Francine (SYMBICORT) 160-4.5 mcg/actuation [...] obesity with BMI of 4 0.0-44.9, adult ([facility] V24, [facility] V28) 02/21/2019 DORCAS (obstructive sleep apnea) 09/06/2018 Moderate persistent asthma without complication 09/06/2018 Sinusitis 09/06/2018 Chronic obstructive pulmonar y disease ([facility] V24, [facility] V28) 02/10/2017 Pulmonary nodule 02/10/2017 Immunizations Name [...] SECTION PROCEDURE: HISTORICAL BREAST REDUCTION 1996 PROCEDURE: WI BREAST REDUCTION OTHER SURGICAL HISTORY PROCEDURE: HISTORY OTHER; COMMENT: hernia repair w/mesh EYE SURGERY 1962 Left PROCEDURE: HISTORICAL EYE SURGERY; COMMENT: retinoblastoma w/enucleation BREAST CYST ASPIRATION Right Medical History Medical History Date Comments Pulmonary nodule 02/10/2017 DX:Pulmonary no dule Chronic obstructive pulmonar y disease ([facility] V24, [facility] V28) 02/10/2017 DX:Chronic obstructive pulm onary disease (HCC) Moderate persistent asthma w ithout complication 09/06/2018 DX:Moderate persistent asthm a without complication DORCAS (obstructive sleep apnea) 09/06/2018 DX :DORCAS (obstructive sleep apnea) Morbid obesity with BMI of 4 0.0-44.9, adult ([facility] V24, [facility] V28) 02/21/2019 DX:Morbid obesity wit h BMI of 40.0-44.9, adult ([facility]) PCOS (polycystic ovarian syndrome) 02/21/2019 DX:PCOS (polycystic [...] Relation Name Comments Coronary artery disease Father [place], CVD Diabetes Mother HTN Breast cancer Mother's [...] 63 06/13/2024 10:04 AM EST Temperature 36.3 C (97.3 F) 06/13/2024 10:04 AM EST Respiratory Rate 20 06/13/2024 10:04 AM EST [...] 8:45 AM EDT Office Visit Pulmonolgy - [place] [address] [phone] Mikael Leon MD [address] [address] 12/23/2024 5:00 PM EDT Appointment [facility] CT Scan [address] [place] [phone] Health Maintenance Due Date Last Done Comments [...] (2 - Td or Tdap) 05/05/2023 05/05/2013 Influenza Vaccine (#1) 2025 , 03/01/2023, 02/15/2022, Additional history exists Breast Cancer Screening 04/02/2026 04/02/20 24, 02/12/2023, 02/02/2022, Additional history exists Zoster Vaccines Completed 03/20/2022, 07/22/2021 COVID-19 Vaccine Completed 02/27/2024, 06/2022, 06/07/2022, Additional history exists HIB Vaccines Aged Out [...] Mammo Location: [facility], [address] [place] [address], [address], . -------- FINAL REPORT -------- Dictated By: Lynnette Arechiga Dictated Date: 04/04/2024 09:20 ET Assigned Physician: Lynnette Arechiga Reviewed and Electronically Signed By: Lynnette Arechiga Signed Date: 04/04/2024 09:21 ET Workstation ID: [id number] Transcribed By: Self Edit Transcribed Date: 04/04/2024 09:20 ET Narrative 04/04/2024 9:21 AM EST HISTORY: Screening. Reduction mammoplasty in 1996. Maternal aunt had breast carcinoma. COMPARISON: 02/12/23, 02/01/22, 01/21/21 TECHNIQUE: Bilateral digital breast tomosynthesis was performed in the CC and MLO projections. 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 BREAST DENSITY: B [...] CCand MLO projections. Computer aided detection with [employer] 3D 3.1was employed. BREAST DENSITY: B - [...] Mammo Location: [facility], [address] [place] [address], [id number], . -------- FINAL REPORT -------- Dictated By: Lynnette Arechiga Dictated Date: 04/04/2024 09:20 ET Assigned Physician: Lynnette Arechiga Reviewed and Electronically Signed By: Lynnette Arechiga Signed Date: 04/04/2024 09:21 ET Workstation ID: [id number] Transcribed By: Self Edit Transcribed Date: 04/04/2024 09:20 ET Marquita Gonzales MD IMG BI PROCEDURES Final Res ult from Last 3 Months or Most Recently Relevant to Health Maintenance Insurance [facility] Care Teams Aerophysicist Relationship Specialty Start Date End Date Marquita Gonzales MD [address] [place] [address] PCP - General Internal Medicine 02/13/20
--- OUTSIDE RECORDS SUMMARY | 2024-12-01 09:28 | XMS_ITS | Patient Health Record ---
Author Organization [facility] Address [address] [facility] [place] [address] Care Team Providers Care Physics Faculty Member Name Role Phone Carroll Ortiz MD Primary Care Provider Marlon Stokes [phone] Reason For Referral No Information Medications Medication SIG (Take, Route, Fr equency, Duration) Notes Start Date End Date Status Aspirin 81 MG 1 tablet Orally Once a day; Duration: 30 day(s) Active Lamisil 250 250 MG 1 Tab Oral Daily; Du ration: 90 06/30/2011 Active Spironolactone 25 MG 1 tablet Orally Twi ce a day; Duration: 30 day(s) Active Diflucan 200 MG 1 tablet Orally Once a week; Duration: 30 days Active Problems Problem Type SNOMED Code ICD Code Onset Dates Problem Status W/U Status Risk Notes Problem Onychomycosis (218434269) Onychomycosis (110.1) Active confirmed Plan Of Treatment Pending Test Test Name Order Date *Liver Function Test (LFT) 06/30/2011 [id number] Plate 06/30/2011 Insurance Providers Payer Name Payer Address Payer Phone Subscriber Number Group Number Insured Name Patient Relationship to Insured Coverage Start Date Coverage End Date [facility] [address] [place] [address] [id number] VANDA BISHOP Spouse - patient is the spouse of the insured Medical (General) History Medical History History ICD Code gall bladder problems chicken pox measles mumps endocarditis Surgical History Surgery Date(Month/Year) cholecystectomy
== END 2024-12-01 09:23 | disposition home or self-care (01) ==
LOC: HO.HOS 09:04
PROVIDERS: PCP Internal Medicine; Visit Provider Orthopaedic Surgery
DX: M25.561 Pain in right knee (principal); M54.50 Low back pain, unspecified; M79.605 Pain in left leg
CPT/HCPCS: 99213; G2211

== ENCOUNTER → 2024-12-01 09:03 | Outpatient (BNVA) | payer BC, SELFPAY | PROVIDERS: PCP Internal Medicine; Visit Provider Orthopaedic Surgery | DX: Z47.89 Encounter for other orthopedic aftercare (principal); M54.50 Low back pain, unspecified; M25.561 Pain in right knee; M79.605 Pain in left leg | CPT/HCPCS: 99212 ==

== ENCOUNTER 2024-12-13 19:16 | Outpatient (REF) | payer BC, SELFPAY ==
--- NOTE | ~2024-12-13 | MR_ITS ---
CLINICAL HISTORY: M54.50 - Low back pain, unspecified MR lumbar spine without gadolinium Comparison: None Findings: Normal alignment. No vertebral body height loss or findings to suggest acute fracture. Multilevel Modic changes. Conus and cauda equina are unremarkable. The spinal cord terminates at L1. L1-2: Circumferential disc bulge with broad-based posterior disc protrusion. Bilateral facet hypertrophy causing no more than mild effacement of the central canal. Mild narrowing of the left lateral recess. No significant neural foraminal narrowing. L2-3: Disc desiccation with circumferential disc bulge and left foraminal protrusion. Tdmt-zcshtwk-axlo-right facet hypertrophy together causing mild central canal narrowing greater on the left than the right with mild effacement of the left lateral recess. This causes moderate neural foraminal narrowing but does not appear to compress the exiting nerve. L3-4: Circumferential disc bulge with broad-based posterior disc protrusion coupled with facet hypertrophy causes snun-cn-onmxrkvy central canal narrowing. Bilateral lateral recess narrowing. Kdyu-yh-lanzbyxi left and moderate right neural foraminal narrowing without flattening of the exiting nerve. L4-5: Broad-based posterior disc protrusion coupled with severe facet hypertrophy causes severe central canal narrowing though not complete effacement. Bilateral lateral recess narrowing. Ctxb-vc-zmlmoosg bilateral neural foraminal narrowing without flattening of the exiting nerve. L5-S1: Disc desiccation with circumferential bulge and broad-based posterior disc protrusion coupled with severe facet hypertrophy bilaterally. This causes mild central canal narrowing with narrowing of the bilateral lateral recess, greater on the right than the left. No significant left neural foraminal narrowing. Moderate right neural foraminal narrowing with some flattening of the exiting nerve. Small bilateral renal cysts. Paraspinal musculature appears mildly atrophic but without acute finding. IMPRESSION: Multilevel degenerative change described in detail above. Severe central canal narrowing at L4-5. This document has been electronically signed by: Adri Peres MD on 12/14/2024 11:13:26
--- OUTSIDE RECORDS SUMMARY | 2024-12-13 19:18 | XMS_ITS | Patient Health Record ---
Author Organization [facility] Address [address] [facility] [place] [address] Care Team Providers Care Bill Distributor Name Role Phone Carroll Ortiz MD Primary Care Provider Marlon Stokes [phone] Reason For Referral No Information Medications Medication [...] Status W/U Status Risk Notes Problem Onychomycosis (213811305) Onychomycosis (110.1) Active confirmed Plan Of Treatment Pending Test Test Name Order Date *Liver Function Test (LFT) 06/30/2011 [id number] Plate 06/30/2011 Insurance Providers Payer Name Payer Address Payer Phone Subscriber Number Group Number Insured Name Patient Relationship to Insured Coverage Start Date Coverage End Date [facility] [address] [place] [address] [id number] VANDA BISHOP Spouse - patient is the spouse of the insured Medical (General) History Medical History History ICD Code gall bladder problems chicken pox measles mumps endocarditis Surgical History Surgery Date(Month/Year) cholecystectomy
== END 2024-12-13 19:17 | disposition home or self-care (01) ==
LOC: HO.MRI 19:16
PROVIDERS: PCP Internal Medicine; Visit Provider Orthopaedic Surgery
DX: M79.605 Pain in left leg (principal); M54.50 Low back pain, unspecified
CPT/HCPCS: 72148

== ENCOUNTER → 2024-12-13 19:23 | Outpatient (BNV) | payer BC, SELFPAY | PROVIDERS: PCP Internal Medicine; Visit Provider Radiology Diagnostic Radiology | DX: M48.061 Spinal stenosis, lumbar region without neurogenic claudication (principal); M51.360 Other intervertebral disc degeneration, lumbar region with discogenic back pain only | CPT/HCPCS: 72148 ==

== ENCOUNTER 2025-01-17 12:38 | Outpatient (AMB) | payer BC, SELFPAY ==
--- OUTSIDE RECORDS SUMMARY | 2024-11-14 03:30 | XMS_ITS ---
Author Organization [facility] Address [address] [place] [address] Care Team Providers Care Medication Aid Name Role Phone Janet CRUZ, Marquita Primary Care Provider Lucien Shelby [phone] REASON FOR VISIT Colon Cancer Screening Encounters Encounter Location Date Provider Diagnosis [facility] Out[facility] [address] [place] [phone] 11/14/2024 Lucien Gooden Plan Of Treatment No Information Progress Notes * JACINTOGLORIA ROGERSADOB:1960 (64 yo F)Acc No.[id number]:11/14/2024 COLON WITH MAC Patient: JORGE MEDEIROS Provider: Kati Gooden MD :1960 A ge:64 Y S ex:Female Date:11/14/2024 Address:[address] [place] Pcp:Marquita Gonzales MD Subjective: * Chief Complaints: [...] Gooden MD Date: 0 11/14/2024 Generated for Mpi ng/Fajudyg/eTransmitting on: 01/17/2025 01:21 PM EDT
--- NOTE | 2025-01-17 12:48 | A.OFFVIS_ITS ---
Vital Signs 01/17/25 12:51 Height 5 ft 5 in Weight 234 lb BMI 38.9 Intake Visit Reasons: OV-Lumbar Spine MRI Review, Right knee pain Intake Note: Isabella is a 64 year old female who presents with complaints of progressively worsening low back pain which radiates down her left leg as well as intermittent left leg ?numbness?. The patient did undergo right knee arthroscopic surgery on 11/18/2024. She reports minimal discomfort in her right knee. She denies any fevers or chills. She describes her low back pain as sharp in nature. She has failed the last 6 weeks of conservative treatment which has included chiropractic treatments, a home exercise program, physical therapy exercises, Tylenol and anti-inflammatory medicines. She also reports intermittent weakness in her left leg. The patient states that she did injure her low back while moving heavy furniture approximately 1 year ago. Allergies mold,trees,dust,cats,dogs Allergy (Unknown, Uncoded 12/01/24 09:06) unknown strawberries Allergy (Unknown, Uncoded 12/01/24 09:06) hives Medication List - Last Reconciled 01/17/25 by Allen Sánchez MD albuterol sulfate 90 mcg/actuation 2 puffs inhalation Q6H PRN alendronate 70 mg PO QWEEK aspirin (Adult Aspirin Regimen) 81 mg PO DAILY blood sugar diagnostic (FreeStyle Lite Strips) Check fasting blood sugar once a day blood-glucose meter (FreeStyle [place] Lite kit) As directed budesonide-formoterol 160-4.5 mcg/actuation 1 inh inhalation BID calcium carbonate (Calcium 500) 500 mg PO DAILY citalopram 20 mg PO DAILY irbesartan 75 mg PO DAILY ketotifen fumarate 0.025%(0.035%) (Zaditor) 1 drp ophthalmic-Right Q12H lancets (FreeStyle Lancets) Check fasting glucose once a day latanoprost 0.005% 1 drp ophthalmic (eye) QPM levocetirizine (Xyzal) 5 mg PO QPM PRN magnesium oxide 400 mg PO DAILY metformin ER 500 mg PO QPM methocarbamol 500 mg PO TID PRN montelukast 10 mg PO DAILY multivitamin 1 tab PO DAILY rosuvastatin 40 mg PO DAILY spironolacton-hydrochlorothiaz 25-25 mg 2 tabs PO DAILY thiamine HCl (vitamin B1) (Vitamin B-1) 50 mg PO DAILY vitamin B complex (B Complex-Vitamin B12 tablet) 1 tab PO DAILY zinc mg PO DAILY [facility] Medical History (Updated 12/01/24 @ 09:27 by Allen Sánchez MD) History of retinoblastoma Osteoporosis of lumbar spine Incomplete right bundle branch block (RBBB) determined by electrocardiography Hearing loss Family history of early CAD Intermittent left-sided chest pain Seasonal allergies Plantar fasciitis, right Mild intermittent asthma in adult without complication Nontoxic multinodular goiter Lung nodule < 6cm on CT Cervical spondylosis DJD (degenerative joint disease), lumbar 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 Primary open angle glaucoma, right eye Retinoblastoma of left eye Polycystic ovaries Morbid obesity Multiple thyroid nodules Menopause Type 2 diabetes mellitus without complication, without long-term current use of insulin Dyslipidemia Hypertension Surgical History History of coronary artery stent placement S/P cardiac catheterization Status post phlebectomy H/O eye surgery H/O hernia repair H/O bilateral breast reduction surgery H/O section H/O thyroidectomy Hx of cholecystectomy Family History Father CAD (coronary artery disease) Myocardial infarction CVD (cardiovascular disease) Substance use disorder Mother Diabetes mellitus HTN (hypertension) Maternal Grandfather No problems noted. Maternal Grandmother No problems noted. Paternal Grandfather No problems noted. Paternal Grandmother No problems noted. Brother Substance use disorder Mental health disorder Sister No problems noted. Sister Substance use disorder Sister No problems noted. Sister No problems noted. Son No problems noted. Daughter No problems noted. 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: No Cognitive needs: No Hearing needs: Yes Vision needs: Yes Physical Exam Vital Signs: BMI result Body Mass Index 38.9 Const Other: Well-nourished well-developed very friendly female awake alert and oriented x3 in no acute distress Back/Spine/Pelvis Other: Low back examination shows left-sided paraspinal muscle tenderness, pain with range of motion, positive straight leg raise test on the left at 70 degrees Extrem Other: Right knee examination shows that the surgical incisions are well healed, no erythema, minimal discomfort with range of motion, no instability Assessment & Plan Assessment & Plan (1) Right knee pain: Code(s): M25.561 - Pain in right knee Category: Medical (2) Low back pain radiating to left leg: Code(s): M54.50 - Low back pain, unspecified; M79.605 - Pain in left leg Category: Medical Plan Ms. Gonzalez continues to do well after undergoing right knee arthroscopic surgery. She does have low back pain which radiates into her left leg due to lumbar stenosis. Thus, I will refer her to the neuro-spine Department here at [facility]. She will contact me prior to that appointment should her symptoms worsen in any way. Feel free to call me at any time should questions regarding her orthopedic management arise. I spent 20 minutes in reviewing the patient's records and imaging studies, seeing the patient and documenting in the medical record. Orders: Referrals Neuro Spine Referral M54.50 - Low back pain, unspecified, M79.605 - Pain in left leg Coding Level of Care Code Est Pt Level 3 (25315) Complex EM visit Add On G2211 Diagnoses Right knee pain M25.561 Low back pain radiating to left leg M54.50; M79.605
[2025-01-17 12:51] VITALS: BMI 38.9
--- OUTSIDE RECORDS SUMMARY | 2025-01-17 13:21 | XMS_ITS | Patient Health Record ---
Author Organization [facility] Address [address] [place] [phone] Care Team Providers Care Rfid Systems Engineer Name Role Phone Janet CRUZ, Marquita Primary Care Provider Lucien Shelby Unavailable [phone] Allergies Allergen (clinical drug ingredient) Drug/Non Drug Allergy documented on EMR Reaction Allergy Type Onset Date Status seasonal-allergy [facility] bi-weekly (uncoded) Unknown Allergy Active Reason For [...] Status Risk Notes Problem Colon cancer screening (664811006) Colon cancer screening (Z12.11) Active confirmed Problem Pre-procedure evaluation check (152087398) Encounter for other preprocedural examination (Z01.818) Active confirmed Problem Long-term current use of aspirin (6699547765480 03) Aspirin long-term use (Z79.82) Active confirmed Vital Signs Blood pressure diastolic 00 mm Hg 04/13/2024 Height 65.25 in 04/13/2024 Blood pressure systolic 00 mm Hg 04/13/2024 Weight 241 lbs 04/13/2024 BMI 39.79 kg/m2 04/13/2024 Procedures Procedure Date Ordered Date Performed Result Body Sit e COLONOSCOPY 04/13/2024 N/A Encounters Encounter Location Date Provider Diagnosis [facility] [address] [place] [phone] 04/13/2024 Lucien Gooden Colon cancer screeni ng Z12.11 ; Encounter for other preprocedural examination Z01.818 and Aspirin long-term use Z79.82 [facility] [address] [place] [phone] 11/01/2024 Lucien Gooden [facility] [address] [place] [phone] 11/11/2024 Lucien Gooden Assessments Encounter Date Diagnosis (ICD Code) Assessment [...] procedure. We will get clearance from her welding machine operator gas for the colonoscopy in regard to her overall cardiac status and the recommendations regarding her blood thinners. We will also ask the welding machine operator gas if she still requires antibiotics for prophylaxis [...] procedure. We will get clearance from her welding machine operator gas for the colonoscopy in regard to her overall cardiac status and the recommendations regarding her blood thinners. We will also ask the welding machine operator gas if she still requires antibiotics for prophylaxis [...] procedure. We will get clearance from her welding machine operator gas for the colonoscopy in regard to her overall cardiac status and the recommendations regarding her blood thinners. We will also ask the welding machine operator gas if she still requires antibiotics for prophylaxis given her previous history of endocarditis. Isabella was comfortable with this plan. Thank you again for allowing me to participate in Isabella's care. I shall continue to keep you advised of her progress. Plan Of Treatment Pending Test Test Name Order Date COLONOSCOPY 04/13/2024 Insurance Providers Payer Name Payer Address Payer Phone Subscriber Number Group Number Insured Name Patient Relationship to Insured Coverage Start Date Coverage End Date [facility] [address] [place] [phone] [id number] ALEJOISABELLA Sorenson Self - patient is the insured Medical (General) History Medical History History ICD Code Hypertension Denies CA,CVA,renal disease Staph endocarditis in 1983-- Rx'd with a long course of IV antibiotics---her welding machine operator gas still recommends prophylactic antibiotics before invasive procedures Bronchitis Asthma/COPD NIDDM Goiter Colonoscopy 01/2014 with a hyperplastic p olyp CAD-1 stent 08/2023-Dr. 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 lemon
--- OUTSIDE RECORDS SUMMARY | 2025-01-17 13:21 | XMS_ITS | Patient Health Record ---
Author Organization [facility] Address [address] [facility] [place] [address] Care Team Providers Care Director Social Service Name Role Phone Carroll Ortiz MD Primary Care Provider Marlon Stokes [phone] Reason For Referral No Information Medications Medication [...] Status W/U Status Risk Notes Problem Onychomycosis (815129854) Onychomycosis (110.1) Active confirmed Plan Of Treatment Pending Test Test Name Order Date *Liver Function Test (LFT) 06/30/2011 [id number]-Pytnqvfi Plate 06/30/2011 Insurance Providers Payer Name Payer Address Payer Phone Subscriber Number Group Number Insured Name Patient Relationship to Insured Coverage Start Date Coverage End Date [facility] [address] [place] [address] [id number] VANDA BISHOP Spouse - patient is the spouse of the insured Medical (General) History Medical History History ICD Code gall bladder problems chicken pox measles mumps endocarditis Surgical History Surgery Date(Month/Year) cholecystectomy
--- OUTSIDE RECORDS SUMMARY | 2025-01-17 13:21 | XMS_ITS | Clinical Summary ---
Author Organization [facility] Address [address] [place] [address] Phone Care Team Providers Care City Library Director Name Role Phone Marquita Gonzales MD [...] TO 30 DAYS DIRECTED Active DEBBIE FRIAS [facility] [place] Active budesonide-formot Francine (SYMBICORT) 160-4.5 mcg/actuation inhaler [...] obesity with BMI of 4 0.0-44.9, adult ([facility] V24, [facility] V28) 02/21/2019 DORCAS (obstructive sleep apnea) 09/06/2018 Moderate persistent asthma without complication 09/06/2018 Sinusitis 09/06/2018 Chronic obstructive pulmonar y disease ([facility] V24, [facility] V28) 02/10/2017 Pulmonary nodule 02/10/2017 Encounters Date Type Department Care Team Description 12/23/2024 5:00 PM EDT - 12/23/2024 11:59 PM EDT Hospital Encounter [facility] CT Scan [address] [place] [phone] Screening for malignant neoplasm of respiratory organ; History of tobacco use Discharge Disposition: Home or Self Care 12/12/2024 8:45 AM EDT Office Visit Pulmonolgy - [place] [address] [facility] [address] [place] [address] Mikael Leon MD Chronic obstructive pulmonary disease, unspecified COPD type ([facility] V24, [facility] V28) (Primary Dx); DORCAS (obstructive sleep apnea) 12/05/2024 Telephone Lung Screening Program - [place] [address] [facility] [address] [place] [address] Alberta Ryan MA from Last 3 Months Immunizations Name Administration [...] SECTION PROCEDURE: HISTORICAL BREAST REDUCTION 1996 PROCEDURE: [place] BREAST REDUCTION OTHER SURGICAL HISTORY PROCEDURE: HISTORY OTHER; COMMENT: hernia repair w/mesh EYE SURGERY 1962 Left PROCEDURE: HISTORICAL EYE SURGERY; COMMENT: retinoblastoma w/enucleation BREAST CYST ASPIRATION Right Medical History Medical History Date Comments Pulmonary nodule 02/10/2017 DX:Pulmonary no dule Chronic obstructive pulmonar y disease ([facility] V24, [facility] V28) 02/10/2017 DX:Chronic obstructive pulm onary disease (HCC) Moderate persistent asthma w ithout complication 09/06/2018 DX:Moderate persistent asthm a without complication DORCAS (obstructive sleep apnea) 09/06/2018 DX :DORCAS (obstructive sleep apnea) Morbid obesity with BMI of 4 0.0-44.9, adult ([facility] V24, [facility] V28) 02/21/2019 DX:Morbid obesity wit h BMI of 40.0-44.9, adult ([facility]) PCOS (polycystic ovarian syndrome) 02/21/2019 [...] Relation Name Comments Coronary artery disease Father [place], CVD Diabetes Mother HTN Breast cancer Mother's [...] Sign Reading Time Taken Comments Blood Pressure 114/60 12/12/2024 9:02 AM EDT Pulse 72 12/12/2024 9:02 AM EDT Temperature 36.2 C (97.1 F) 12/12/2024 9:02 AM EDT Respiratory Rate 20 12/12/2024 9:02 AM EDT Oxygen Saturation 93% 12/12/2024 9:02 AM EDT Inhaled Oxygen Concentration - - Weight 109 kg (239 lb 6.4 oz) 12/12/2024 9:02 AM EDT Height 165.1 cm (5' 5 ) 12/12/2024 9:02 AM EDT Body Mass Index 39.84 12/12/2024 9:02 AM EDT Plan of Treatment Upcoming Encounters Date Type Department Care Team (Late st Contact Info) Description 06/14/2025 3:30 PM EST Office Visit Pulmonol - [place] [address] [place] [address] Mikael Leon MD [address] [place] [phone] Health Maintenance Due Date Last Done Comments Cervical Cancer Screening: Pap Smear 1982 Pneumococcal Vaccine: 50+ Years (2 of 2 - PCV) 12/15/2018 12/15/2017 RSV Immunization Adult Patients (1 - Risk 60-74 years 1-dose series) 2021 Cholesterol Screening (Lipid Panel) 05/03/2022 Colorectal Cancer Screening: Colonoscopy 05/03/2022 HIV Screening 05/03/2022 Hepatitis C Screening 05/03/2022 Social Influencers of Health Screening 05/03/2022 Hypertension/CHF/CAD Annual BMP Blood Test 05/09/2022 DTaP,Tdap,and Td Vaccines (2 - Td or Tdap) 05/05/2023 05/05/2013 Depression Screening 05/25/2024 Influenza Vaccine (#1) 2025 4, 03/01/2023, 02/15/2022, Additional history exists Breast Cancer [...] Procedure Name Priority Date/Time Associated Diagnosis Comments CT LUNG SCREENING Routine 12/23/2024 5:3 3 PM EDT Screening for malignant neoplasm of respiratory organ History of tobacco use MG MAMMO DIGITAL SCREENING W YEHUDA BILAT Routine 04/02/2024 8:14 AM EST Encounter for screening mammogram for breast cancer from Last 3 Months or Most Recently Relevant to Health Maintenance Results * CT Lung Screening (12/23/2024 5:33 PM EDT) Anatomical Region Laterality Modality Chest Computed Tomogra phy 12/30/2024 2:10 PM EDT Impressions 12/30/2024 2:14 PM EDT No suspicious pulmonary nodule. ASSESSMENT: LungRADS Category2: Benign Appearance/Behavior - Continue annual screening with LDCT in 12 months Complete Lung RADS description including probabilities of malignancy and prevalence can be found at: [employer] Committee on Lung-RADS?. Lung- RADS Assessment Categories 2021. Available at https://[email or web address]. -------- FINAL REPORT -------- Dictated By: Jesus Monzon Dictated Date: 12/30/2024 14:10 ET Assigned Physician: Jesus Monzon Reviewed and Electronically Signed By: Jesus Monzon Signed Date: 12/30/2024 14:14 ET Workstation ID: [id number] Transcribed By: Self Edit Transcribed Date: 12/30/2024 14:10 ET Narrative 12/30/2024 2:14 PM EDT History: 64 year-old 58.5 pack-year former smoker, asymptomatic, for lung cancer screening. 4 year since stopped Comparison: 12/22/2023 Technique: Helical volumetric imaging of the thorax was performed, using low- dose technique, without IV contrast. DLP: 164 mGy/cm CT dose reduction technique utilized with one or more of the following: Automated exposure control and/or adjustment of the mA and/or kV according to patient size and/or use of iterative reconstruction technique. Findings: Lungs: Stable fusiform dilatation of a right lower lobe pulmonary artery consider further evaluation with CT pulmonary angiogram indicated. This is stable compared to prior exams. Stable tiny scattered pulmonary nodules throughout the lungs. No suspicious nodules evident. Atelectasis/scarring at the lingula and right lung base. Pleura: There are no pleural effusions. No calcified or noncalcified pleural plaques. Mediastinum: No mass. Extensive coronary artery calcifications. Upper Abdomen: This study was performed without contrast and with lower than standard dose. These factors reduce the sensitivity for detection of small lesions in the upper abdomen. Osseous Structures: No suspicious osseous abnormalities. Procedure Note Jesus Monzon MD - 12/30/2024 History: 64 year-old 58.5 pack-year former smoker, asymptomatic, for lungcancer screening. 4 year since stopped Comparison: 12/22/2023 Technique: Helical volumetric imaging of the thorax was performed, usinglow-dose technique, without IV contrast. DLP: 164 mGy/cm CT dose reduction technique utilized with one or more of the following:Automated exposure control and/or adjustment of the mA and/or kV accordingto patient size and/or use of iterative reconstruction technique. Findings: Lungs: Stable fusiform dilatation of a right lower lobe pulmonary arteryconsider further evaluation with CT pulmonary angiogram indicated. Thisis stable compared to prior exams. Stable tiny scattered pulmonarynodules throughout the lungs. No suspicious nodules evident.Atelectasis/scarring at the lingula and right lung base. Pleura: There are no pleural effusions. No calcified or noncalcifiedpleural plaques. Mediastinum: No mass. Extensive coronary artery calcifications. UpperAbdomen: This study was performed without contrast and with lower thanstandard dose. These factors reduce the sensitivity for detection of smalllesions in the upper abdomen. Osseous Structures: No suspicious osseous abnormalities. IMPRESSION: No suspicious pulmonary nodule. ASSESSMENT: LungRADS Category2: Benign Appearance/Behavior - Continue annual screeningwith LDCT in 12 months Complete Lung RADS description including probabilities of malignancy andprevalence can be found at: [employer] Committee onLung-RADS?. Lung-RADS Assessment Categories 2021. Available athttps://www.acr.org/-/[email or web address]. -------- FINAL REPORT -------- Dictated By: Jesus Monzon Dictated Date: 12/30/2024 14:10 ET Assigned Physician: Jesus Monzon Reviewed and Electronically Signed By: Jesus Monzon Signed Date: 12/30/2024 14:14 ET Workstation ID: [id number] Transcribed By: Self Edit Transcribed Date: 12/30/2024 14:10 ET us Rupesh FERNANDEZ IMG CT PROCEDURES Final Result * MG Mammo Digital Screening w Yehuda [...] year. Mammo Location: [facility], [address] [place] [address], [id number], . -------- FINAL REPORT -------- Dictated By: Lynnette Arechiga Dictated Date: 04/04/2024 09:20 ET Assigned Physician: Lynnette Arechiga Reviewed and Electronically Signed By: Lynnette Arechiga Signed Date: 04/04/2024 09:21 ET Workstation ID: [id number] Transcribed By: Self Edit Transcribed Date: 04/04/2024 09:20 ET Narrative 04/04/2024 9:21 AM EST HISTORY: Screening. Reduction mammoplasty in 1996. Maternal aunt had breast carcinoma. COMPARISON: 02/12/23, 02/01/22, 01/21/21 TECHNIQUE: Bilateral digital breast tomosynthesis was performed in the CC and MLO projections. Computer aided detection with NowForceD ProFound AI 3D 3.1 was employed. BREAST DENSITY: B [...] MLO projections. Computer aided detection with iCAD ProFound AI 3D 3.1was employed. BREAST DENSITY: B [...] year. Mammo Location: [facility], [address] [place] [address], [address], . -------- FINAL REPORT -------- Dictated By: Lynnette Arechiga Dictated Date: 04/04/2024 09:20 ET Assigned Physician: Lynnette Arechiga Reviewed and Electronically Signed By: Lynnette Arechiga Signed Date: 04/04/2024 09:21 ET Workstation ID: [id number] Transcribed By: Self Edit Transcribed Date: 04/04/2024 09:20 ET Marquita Gonzales MD IMG BI PROCEDURES Final Res ult from Last 3 Months or Most Recently Relevant to Health Maintenance Insurance [facility] Care Teams City Library Director Relationship Specialty Start Date End Date Marquita Gonzales MD [address] [place] [address] PCP - General Internal Medicine 02/13/20
== END 2025-01-17 13:02 | disposition home or self-care (01) ==
LOC: HO.HOS 12:39
PROVIDERS: PCP Internal Medicine; Visit Provider Orthopaedic Surgery
DX: M54.50 Low back pain, unspecified (principal); M25.561 Pain in right knee; M79.605 Pain in left leg
CPT/HCPCS: 99213

== ENCOUNTER 2025-02-04 07:26 | Outpatient (REF) | payer BC, SELFPAY ==
--- OUTSIDE RECORDS SUMMARY | 2024-11-14 03:30 | XMS_ITS ---
Author Organization [facility] Address [address] [place] [address] Care Team Providers Care Meat Lugger Name Role Phone Janet CRUZ, Marquita Primary Care Provider Lucien Shelby [phone] REASON FOR VISIT Colon Cancer Screening Encounters Encounter Location Date Provider Diagnosis [facility] Out[facility] [address] [place] [id number] 11/14/2024 Lucien Gooden Plan Of Treatment No Information Progress Notes * VENICEGLORIA MIMSADOB:1960 (64 yo F)Acc No.[id number]:11/14/2024 COLON WITH MAC Patient: JORGE MEDEIROS Provider: Kati Gooden MD :1960 A ge:64 Y S ex:Female Date:11/14/2024 Address:[address] [id number] Pcp:Marquita Gonzales MD Subjective: * Chief Complaints: [...] 0 11/14/2024 Generated for Mpi ng/Fajudyg/eTransmitting on: 0 02/04/2025 07:28 AM EDT
--- OUTSIDE RECORDS SUMMARY | 2025-01-27 06:30 | XMS_ITS ---
Author Organization [facility] Address [address] [place] [address] Care Team Providers Care Baker Apprentice Name Role Phone Janet CRUZ, Marquita Primary Care Provider Lucien Shelby [phone] REASON FOR VISIT screening colonoscopy Encounters Encounter Location Date Provider Diagnosis [facility] [place] [address] [place], [place] [address] [place] [phone] 01/27/2025 Lucien Gooden Plan Of Treatment No Information Progress Notes * JACINTOGLORIA ROGERSADOB:1960 (64 yo F)Acc No.[id number]:01/27/2025 COLON WITH MAC Patient: JORGE MEDEIROS Provider: Kati Gooden MD :1960 A ge:64 Y S ex:Female Date:01/27/2025 Address:[address] [id number] Pcp:Marquita Gonzales MD Subjective: * Chief Complaints: [...] Gooden MD Date: 0 01/27/2025 Generated for Printi ng/Faxing/eTransmitting on: 02/04/2025 07:29 AM EDT
--- OUTSIDE RECORDS SUMMARY | 2025-02-04 07:29 | XMS_ITS | Patient Health Record ---
Author Organization [facility] Address [address] [place] [phone] Care Team Providers Care Development Manager Name Role Phone Janet CRUZ, Marquita Primary Care Provider Lucien Shelby Unavailable [phone] Allergies Allergen (clinical drug ingredient) Drug/Non Drug Allergy documented on EMR Reaction Allergy Type Onset Date Status seasonal-allergy [facility] bi-weekly (uncoded) Unknown Allergy Active Reason For [...] Status Risk Notes Problem Colon cancer screening (800717202) Colon cancer screening (Z12.11) Active confirmed Problem Pre-procedure evaluation check (840837389) Encounter for other preprocedural examination (Z01.818) Active confirmed Problem Long-term current use of aspirin (6741473899566 03) Aspirin long-term use (Z79.82) Active confirmed Vital Signs Blood pressure diastolic 00 mm Hg 04/13/2024 Height 65.25 in 04/13/2024 Blood pressure systolic 00 mm Hg 04/13/2024 Weight 241 lbs 04/13/2024 BMI 39.79 kg/m2 04/13/2024 Procedures Procedure Date Ordered Date Performed Result Body Sit e COLONOSCOPY 04/13/2024 N/A Encounters Encounter Location Date Provider Diagnosis [facility] [address] [place] [address] 04/13/2024 Lucien Gooden Colon cancer screeni ng Z12.11 ; Encounter for other preprocedural examination Z01.818 and Aspirin long-term use Z79.82 [facility] [address] [place] [phone] 11/01/2024 Lucien Gooden [facility] [address] [place] [phone] 11/11/2024 Lucien Gooden Assessments Encounter Date Diagnosis [...] procedure. We will get clearance from her green building architect for the colonoscopy in regard to her overall cardiac status and the recommendations regarding her blood thinners. We will also ask the green building architect if she still requires antibiotics for prophylaxis [...] procedure. We will get clearance from her green building architect for the colonoscopy in regard to her overall cardiac status and the recommendations regarding her blood thinners. We will also ask the green building architect if she still requires antibiotics for prophylaxis [...] procedure. We will get clearance from her green building architect for the colonoscopy in regard to her overall cardiac status and the recommendations regarding her blood thinners. 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 lemon
--- OUTSIDE RECORDS SUMMARY | 2025-02-04 07:29 | XMS_ITS | Clinical Summary ---
Author Organization [facility] Address [address] [place] [address] Phone Care Team Providers Care Heavy Truck Mechanic Name Role Phone Marquita Gonzales MD Primary [...] 30 DAYS DIRECTED Active DEBBIE FRIAS [facility] [place] Active budesonide-formot Francine (SYMBICORT) 160-4.5 mcg/actuation inhaler [...] with BMI of 4 0.0-44.9, adult ([facility] V24, [facility] V28) 02/21/2019 DORCAS (obstructive sleep apnea) 09/06/2018 Moderate persistent asthma without complication 09/06/2018 Sinusitis 09/06/2018 Chronic obstructive pulmonar y disease ([facility] V24, [facility] V28) 02/10/2017 Pulmonary nodule 02/10/2017 Encounters Date Type Department Care Team Description 12/23/2024 5:00 PM EDT - 12/23/2024 11:59 PM EDT Hospital Encounter [facility] CT Scan [address] [place] [phone] Screening for malignant neoplasm of respiratory organ; History of tobacco use Discharge Disposition: Home or Self Care 12/12/2024 8:45 AM EDT Office Visit Pulmonolgy - [place] [address] [facility] [address] [place] [address] Mikael Leon MD Chronic obstructive pulmonary disease, unspecified COPD type ([facility] V24, [facility] V28) (Primary Dx); DORCAS (obstructive sleep apnea) 12/05/2024 Telephone Lung Screening Program - [place] [address] [facility] [address] [place] [address] Alberta Ryan MA from Last [...] SECTION PROCEDURE: HISTORICAL BREAST REDUCTION 1996 PROCEDURE: ID BREAST REDUCTION OTHER SURGICAL HISTORY PROCEDURE: HISTORY OTHER; COMMENT: hernia repair w/mesh EYE SURGERY 1962 Left PROCEDURE: HISTORICAL EYE SURGERY; COMMENT: retinoblastoma w/enucleation BREAST CYST ASPIRATION Right Medical History Medical History Date Comments Pulmonary nodule 02/10/2017 DX:Pulmonary no dule Chronic obstructive pulmonar y disease ([facility] V24, [facility] V28) 02/10/2017 DX:Chronic obstructive pulm onary disease (HCC) Moderate persistent asthma w ithout complication 09/06/2018 DX:Moderate persistent asthm a without complication DORCAS (obstructive sleep apnea) 09/06/2018 DX :DORCAS (obstructive sleep apnea) Morbid obesity with BMI of 4 0.0-44.9, adult ([facility] V24, [facility] V28) 02/21/2019 DX:Morbid obesity wit h BMI of 40.0-44.9, adult ([facility]) PCOS (polycystic ovarian syndrome) 02/21/2019 [...] Relation Name Comments Coronary artery disease Father [place], CVD Diabetes Mother HTN Breast cancer Mother's [...] Description 06/14/2025 3:30 PM EST Office Visit Pulmonolgy - [place] [address] [facility] [address] [place] [phone] Mikael Leon MD [address] [facility] [address] [place] [address] Health Maintenance Due Date Last Done Comments [...] malignancy and prevalence can be found at: [employer] Committee on Lung-RADS?. Lung- RADS Assessment Categories 2021. Available at https://[email or web address]/-/[email or web address]. -------- FINAL REPORT -------- Dictated By: Jesus Monzon Dictated Date: 12/30/2024 14:10 ET Assigned Physician: Jesus Monzon Reviewed and Electronically Signed By: Jesus Monzon Signed Date: 12/30/2024 14:14 ET Workstation ID: [id number] Transcribed By: Self Edit Transcribed Date: 12/30/2024 [...] of malignancy andprevalence can be found at: [place] Committee onLung-RADS?. Lung-RADS Assessment Categories 2021. Available athttps://[email or web address]. -------- FINAL REPORT -------- Dictated By: Jesus Monzon Dictated Date: 12/30/2024 14:10 ET Assigned Physician: Jesus Monzon Reviewed and Electronically Signed By: Jesus Monzon Signed Date: 12/30/2024 14:14 ET Workstation ID: [id number] Transcribed By: Self Edit Transcribed Date: 12/30/2024 [...] Mammography at [facility], [address] [place] [address], [address], . -------- FINAL REPORT -------- Dictated By: Lynnette Arechiga Dictated Date: 04/04/2024 09:20 ET Assigned Physician: Lynnette Arechiga Reviewed and Electronically Signed By: Lynnette Arechiga Signed Date: 04/04/2024 09:21 ET Workstation ID: [id number] Transcribed By: Self Edit Transcribed Date: 04/04/2024 09:20 ET Narrative 04/04/2024 9:21 AM EST HISTORY: Screening. Reduction mammoplasty in 1996. Maternal aunt had breast carcinoma. COMPARISON: 02/12/23, 02/01/22, 01/21/21 TECHNIQUE: Bilateral digital breast tomosynthesis was performed in the CC and MLO projections. Computer aided detection with iCAD ProFound AI 3D 3.1 was employed. BREAST [...] MLO projections. Computer aided detection with iCAD MobileTag AI 3D 3.1was employed. BREAST DENSITY: B [...] Mammography at [facility], [address] [place] [address], [address], . -------- FINAL REPORT -------- Dictated By: Lynnette Arechiga Dictated Date: 04/04/2024 09:20 ET Assigned Physician: Lynnette Arechiga Reviewed and Electronically Signed By: Lynnette Arechiga Signed Date: 04/04/2024 09:21 ET Workstation ID: [id number] Transcribed By: Self Edit Transcribed Date: 04/04/2024 09:20 ET Marquita Gonzales MD IMG BI PROCEDURES Final Res ult from Last 3 Months or Most Recently Relevant to Health Maintenance Insurance [facility] Care Teams Heavy Truck Mechanic Relationship Specialty Start Date End Date Marquita Gonzales MD [address] [place] [address] PCP - General Internal Medicine 02/13/20
--- OUTSIDE RECORDS SUMMARY | 2025-02-04 07:29 | XMS_ITS | Patient Health Record ---
Author Organization [facility] Address [address] [facility] [place] [address] Care Team Providers Care Lease Buyer Name Role Phone Carroll Ortiz MD Primary Care Provider Marlon Stokes [phone] Reason For Referral No Information Medications Medication [...] Status W/U Status Risk Notes Problem Onychomycosis (978722113) Onychomycosis (110.1) Active confirmed Plan Of Treatment Pending Test Test Name Order Date *Liver Function Test (LFT) 06/30/2011 [id number]-Ifrmvlms Plate 06/30/2011 Insurance Providers Payer Name Payer Address Payer Phone Subscriber Number Group Number Insured Name Patient Relationship to Insured Coverage Start Date Coverage End Date [facility] [address] [place] [address] [id number] VANDA BISHOP Spouse - patient is the spouse of the insured Medical (General) History Medical History History ICD Code gall bladder problems chicken pox measles mumps endocarditis Surgical History Surgery Date(Month/Year) cholecystectomy
[2025-02-04 11:32] LABS: Hemoglobin A1C 144.9484 umol/L; Total Hemoglobin (HGBA1C) 3089.3390 umol/L
[2025-02-04 11:45] LABS: Alanine Aminotransferase 21 U/L (0-31); Anion Gap 14 (12-20); Aspartate Amino Transferase 21 U/L (5-31); Blood Urea Nitrogen 12 mg/dL (9-16); Calcium 9.3 mg/dL (8.4-10.2); Carbon Dioxide 27 mmol/L (22-29); Chloride 104 mmol/L (96-108); Cholesterol 124 mg/dL (<200); Estimated Glomerular Filt Rate > 60; HDL Cholesterol 39 mg/dL (>40); Potassium 3.7 mmol/L (3.3-5.1); Sodium 141 mmol/L (135-145); Triglycerides 95 mg/dL (<150)
[2025-02-04 12:05] LABS: Free T4 (Free Thyroxine) 1.00 ng/dL (0.71-1.85); Thyroid Stimulating Hormone 1.44 uIU/mL (0.32-4.0)
== END 2025-02-04 07:27 | disposition home or self-care (01) ==
LOC: HO.HMGCLDS 07:26
PROVIDERS: PCP Internal Medicine; Visit Provider Internal Medicine
DX: M81.0 Age-related osteoporosis without current pathological fracture (principal); I25.10 Atherosclerotic heart disease of native coronary artery without angina pectoris; J45.20 Mild intermittent asthma, uncomplicated; E04.2 Nontoxic multinodular goiter; R91.1 Solitary pulmonary nodule; G47.33 Obstructive sleep apnea (adult) (pediatric); Z99.89 Dependence on other enabling machines and devices; H40.1110 Primary open-angle glaucoma, right eye, stage unspecified; Z85.840 Personal history of malignant neoplasm of eye; J44.9 Chronic obstructive pulmonary disease, unspecified; E28.2 Polycystic ovarian syndrome; E78.5 Hyperlipidemia, unspecified; E11.9 Type 2 diabetes mellitus without complications; I10 Essential (primary) hypertension; E66.01 Morbid (severe) obesity due to excess calories
CPT/HCPCS: 36415; 80048; 80061; 83036; 84439; 84443; 84450; 84460

== ENCOUNTER 2025-02-06 13:40 | Outpatient (AMB) | payer BC, SELFPAY ==
--- NOTE | 2025-02-06 13:53 | A.SPINEOV_ITS ---
Vital Signs 02/06/25 13:54 Height 5 ft 5 in Weight 234 lb BMI 38.9 Intake Visit Reasons: left leg & low back pain Intake Note: Ms. Gonzalez is here today c/o hip and right back pain. Alarm Mechanism Adjuster Required: No Allergies mold,trees,dust,cats,dogs Allergy (Unknown, Uncoded 12/01/24 09:06) unknown strawberries Allergy (Unknown, Uncoded 12/01/24 09:06) hives Physical Exam Vital Signs: BMI result Body Mass Index 38.9 Assessment & Plan Assessment & Plan (1) Back pain: Code(s): M54.9 - Dorsalgia, unspecified Category: Medical Qualifiers: Back pain laterality: bilateral Back pain location: low back pain Chronicity: acute Sciatica presence: without sciatica Qualified Code(s): M54.50 - Low back pain, unspecified Plan Dear Dr Sánchez, Thank you for referring Mrs Gonzalez to our office today. 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 It is only present if she is sitting for any length of time. It is not there when she is up and moving around, in fact getting up and walking helps the symptoms. She was taking ibuprofen and that helped a lot. She is also taking some [id number] natural remedies she got on [employer] but had to stop that secondary to GI discomfort. She goes to a chiropractor who will crack her back periodically. That helps a little. She does yoga and stretching. She also tries to ride a bike. She comes in today with an MRI showing severe stenosis at L4-5. She has never been to formal physical therapy or had any pain management interventional procedures. PMH: History of high cholesterol, CAD, diabetes, her A1c is 6.6. She had a stent placed in 2023 and has been stable since. She is followed by Cardiology here at [facility]. History of hypertension, osteoporosis, asthma but she does not routinely have shortness of breath or need her rescue inhaler. Glaucoma, right knee meniscus surgery. Social hx: She did smoke for a long time but quit many years ago. She does not smoke marijuana or alcohol. Medications: Metformin, rosuvastatin, baby aspirin, albuterol, thiamine, spironolactone, multivitamin, methocarbamol, magnesium, irbesartan, citalopram, calcium carbonate, alendronate, albuterol Allergies: Please see the Vital Therapies list Physical exam: Awake alert oriented, gait normal, strength and reflexes normal Imaging review: Lumbar MRI at [facility] shows degenerative disc disease at L3-4 with moderate stenosis, degenerative disc disease at L4-5 with severe central canal stenosis. She has significant facet arthropathy at this level. Impression: 64-year-old female presents for evaluation of right-sided low back pain going into her outer hip and lateral thigh into some degree into her hamstring. The symptoms are only present with sitting for any length of time when she is at work. 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 She has no pain with standing walking. The pain has not disabling or at a level where it really interferes with anything she wants to do. She does have severe stenosis on her MRI as outlined above. Generally in the absence of symptoms with ambulation, this is likely more of an incidental finding than something that is causing her pain. Especially in light of the fact that is positional with sitting and she tells me she could walk for hours on end with no issues, we generally do not pursue preventative surgery for this. I educated her on the signs and symptoms to look out for. I did give her a referral to physical therapy to work on conditioning.. If that does not give her any significant improvement we could also consider facet blocks she does have facet arthropathy. I will see her back in 2 months to re-evaluate her. Thank you for allowing us to care for your patient. The total time spent with this visit with this patient was 45 minutes reviewing history, physical exam, lumbar imaging review, and implementation of treatment plan or further diagnostic testing Christopher Huff MD,PhD [facility] Orders: Orders PT Evaluation and Treatment Today M54.50 - Low back pain, unspecified Coding Level of Care Code New Pt Level 4 (29145) Diagnoses Acute bilateral low back pain without sciatica M54.50 Back pain laterality: bilateral Back pain location: low back pain Chronicity: acute Sciatica presence: without sciatica
[2025-02-06 13:54] VITALS: BMI 38.9
--- OUTSIDE RECORDS SUMMARY | 2025-02-06 18:57 | XMS_ITS | Patient Health Record ---
Author Organization [facility] Address [address] [facility] [place] [address] Care Team Providers Care Cardiac Technician Name Role Phone Carroll Ortiz MD Primary Care Provider Marlon Stokes [phone] Reason For Referral No Information Medications Medication [...] Status W/U Status Risk Notes Problem Onychomycosis (217552827) Onychomycosis (110.1) Active confirmed Plan Of Treatment Pending Test Test Name Order Date *Liver Function Test (LFT) 06/30/2011 [id number] Plate 06/30/2011 Insurance Providers Payer Name Payer Address Payer Phone Subscriber Number Group Number Insured Name Patient Relationship to Insured Coverage Start Date Coverage End Date [facility] [address] [place] [address] [id number] VANDA BISHOP Spouse - patient is the spouse of the insured Medical (General) History Medical History History ICD Code gall bladder problems chicken pox measles mumps endocarditis Surgical History Surgery Date(Month/Year) cholecystectomy
--- OUTSIDE RECORDS SUMMARY | 2025-02-06 18:57 | XMS_ITS | Clinical Summary ---
Author Organization [facility] Address [address] [place] [address] Phone Care Team Providers Care Correspondence Section Supervisor Name Role Phone Marquita Gonzales MD Primary [...] TO 30 DAYS DIRECTED Active DEBBIE FRIAS [facility] Active budesonide-formot Francine (SYMBICORT) 160-4.5 mcg/actuation inhaler [...] obesity with BMI of 4 0.0-44.9, adult ([facility] V24, [facility] V28) 02/21/2019 DORCAS (obstructive sleep apnea) 09/06/2018 Moderate persistent asthma without complication 09/06/2018 Sinusitis 09/06/2018 Chronic obstructive pulmonar y disease ([facility] V24, [facility] V28) 02/10/2017 Pulmonary nodule 02/10/2017 Encounters Date Type Department Care Team Description 12/23/2024 5:00 PM EDT - 12/23/2024 11:59 PM EDT Hospital Encounter [facility] CT Scan [address] [place] [phone] Screening for malignant neoplasm of respiratory organ; History of tobacco use Discharge Disposition: Home or Self Care 12/12/2024 8:45 AM EDT Office Visit Pulmonolgy - [place] [address] [facility] [address] [place] [address] Mikael Leon MD Chronic obstructive pulmonary disease, unspecified COPD type ([facility] V24, [facility] V28) (Primary Dx); DORCAS (obstructive sleep apnea) 12/05/2024 Telephone Lung Screening Program - [place] [address] [facility] [address] [place] [address] Alberta Ryan MA from Last [...] SECTION PROCEDURE: HISTORICAL BREAST REDUCTION 1996 PROCEDURE: ND BREAST REDUCTION OTHER SURGICAL HISTORY PROCEDURE: HISTORY OTHER; COMMENT: hernia repair w/mesh EYE SURGERY 1962 Left PROCEDURE: HISTORICAL EYE SURGERY; COMMENT: retinoblastoma w/enucleation BREAST CYST ASPIRATION Right Medical History Medical History Date Comments Pulmonary nodule 02/10/2017 DX:Pulmonary no dule Chronic obstructive pulmonar y disease ([facility] V24, [facility] V28) 02/10/2017 DX:Chronic obstructive pulm onary disease (HCC) Moderate persistent asthma w ithout complication 09/06/2018 DX:Moderate persistent asthm a without complication DORCAS (obstructive sleep apnea) 09/06/2018 DX :DORCAS (obstructive sleep apnea) Morbid obesity with BMI of 4 0.0-44.9, adult ([facility] V24, [facility] V28) 02/21/2019 DX:Morbid obesity wit h BMI of 40.0-44.9, adult ([facility]) PCOS (polycystic ovarian syndrome) 02/21/2019 DX:PCOS [...] Relation Name Comments Coronary artery disease Father [place], CVD Diabetes Mother HTN Breast cancer Mother's [...] 3:30 PM EST Office Visit Pulmonolgy - [place] [address] [facility] [address] [place] [phone] Mikael Leon MD [address] [facility] [address] [place] [address] Health Maintenance Due Date Last Done Comments [...] malignancy and prevalence can be found at: [employer] Committee on Lung-RADS?. Lung- RADS Assessment Categories 2021. Available at [email or web address]. -------- FINAL REPORT -------- Dictated By: Jesus Monzon Dictated Date: 12/30/2024 14:10 ET Assigned Physician: Jesus Monzon Reviewed and Electronically Signed By: Jesus Monzon Signed Date: 12/30/2024 14:14 ET Workstation ID: [id number] Transcribed By: Self Edit Transcribed Date: 12/30/2024 [...] of malignancy andprevalence can be found at: [employer] Committee onLung-RADS?. Lung-RADS Assessment Categories 2021. Available [email or web address]. -------- FINAL REPORT -------- Dictated By: Jesus Monzon Dictated Date: 12/30/2024 14:10 ET Assigned Physician: Jesus Monzon Reviewed and Electronically Signed By: Jesus Monzon Signed Date: 12/30/2024 14:14 ET Workstation ID: [id number] Transcribed By: Self Edit Transcribed Date: 12/30/2024 [...] year. Mammo Location: [facility], [address] [place] [address], [address], . -------- FINAL REPORT -------- Dictated By: Lynnette Arechiga Dictated Date: 04/04/2024 09:20 ET Assigned Physician: Lynnette Arechiga Reviewed and Electronically Signed By: Lynnette Arechiga Signed Date: 04/04/2024 09:21 ET Workstation ID: [id number] Transcribed By: Self Edit Transcribed Date: 04/04/2024 [...] MLO projections. Computer aided detection with iCAD [employer] AI 3D 3.1was employed. BREAST DENSITY: B [...] year. Mammo Location: [facility], [address] [place] [address], [address], . -------- FINAL REPORT -------- Dictated By: Lynnette Arechiga Dictated Date: 04/04/2024 09:20 ET Assigned Physician: Lynnette Arechiga Reviewed and Electronically Signed By: Lynnette Arechiga Signed Date: 04/04/2024 09:21 ET Workstation ID: [id number] Transcribed By: Self Edit Transcribed Date: 04/04/2024 09:20 ET Marquita Gonzales MD IMG BI PROCEDURES Final Res ult from Last 3 Months or Most Recently Relevant to Health Maintenance Insurance [facility] Care Teams Correspondence Section Supervisor Relationship Specialty Start Date End Date Marquita Gonzales MD [address] [place] [address] PCP - General Internal Medicine 02/13/20
== END 2025-02-06 14:36 | disposition home or self-care (01) ==
LOC: HO.HNS 13:41
PROVIDERS: PCP Internal Medicine; Referring Provider Orthopaedic Surgery; Visit Provider Physician Assistant
DX: M54.50 Low back pain, unspecified (principal)
CPT/HCPCS: 99204

== ENCOUNTER 2025-02-16 08:57 | Outpatient (AMB) | payer BC, SELFPAY ==
--- OUTSIDE RECORDS SUMMARY | 2024-11-14 03:30 | XMS_ITS ---
Author Organization [facility] Address [address] [place] [address] Care Team Providers Care Gsa Coordinator Name Role Phone Janet CRUZ, Marquita Primary Care Provider Lucien Shelby [phone] REASON FOR VISIT Colon Cancer Screening Encounters Encounter Location Date Provider Diagnosis [facility] [place] [address] [place] [id number] 11/14/2024 Lucien Gooden Plan Of Treatment No Information Progress Notes * VENICEGLORIA MIMSADOB:1960 (64 yo F)Acc No.[id number]:11/14/2024 COLON WITH MAC Patient: JORGE MEDEIROS Provider: Kati Gooden MD :1960 A ge:64 Y S ex:Female Date:11/14/2024 Address:[address] [id number] Pcp:Marquita Gonzales MD Subjective: * Chief Complaints: [...] 11/14/2024 Generated for Mpi ng/Fajudyg/eTransmitting on: 0 02/16/2025 09:42 AM EDT
--- OUTSIDE RECORDS SUMMARY | 2025-01-27 06:30 | XMS_ITS ---
Author Organization [facility] Address [address] [place] [address] Care Team Providers Care Script Developer Name Role Phone Janet CRUZ, Marquita Primary Care Provider Lucien Shelby [phone] REASON FOR VISIT screening colonoscopy Encounters Encounter Location Date Provider Diagnosis [facility] Outpatient [address] [place], [place] [address] [place] [id number] 01/27/2025 Lucien Gooden Plan Of Treatment No Information Progress Notes * JACINTOGLORIA ROGERSADOB:1960 (64 yo F)Acc No.[id number]:01/27/2025 COLON WITH MAC Patient: JORGE MEDEIROS Provider: Kati Gooden MD :1960 A ge:64 Y S ex:Female Date:01/27/2025 Address:[address] [place] Pcp:Marquita Gonzales MD Subjective: * Chief Complaints: [...] 0 01/27/2025 Generated for Printi ng/Faxing/eTransmitting on: 02/16/2025 09:42 AM EDT
--- NOTE | 2025-02-16 09:06 | A.OFFPC_ITS ---
Vital Signs 02/16/25 09:07 Height 5 ft 5 in Weight 240 lb BMI 39.9 BP 108/62 Blood Pressure Location Rt brachial Position Sitting Respiration 17 Pulse 72 Pulse Source Pulse Oximeter Temp 98.6 F Temp Source Oral Pulse Oximetry (%) 93 Oxygen Delivery Method Room Air Intake Visit Reasons: 6m f/u Intake Note: Pt is here today for her 6mo. 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 Required: No Allergies mold,trees,dust,cats,dogs Allergy (Unknown, Uncoded 02/16/25 09:11) unknown strawberries Allergy (Unknown, Uncoded 02/16/25 09:11) hives Tobacco use date assessed: 02/16/25 Dental Screening Dental Screen Date: 02/16/25 Did you have a dental visit in the last 12 months?: Yes Did you have a dental problem in the last 6 months where you did not have access to dental care?: No Was dental information given to patient?: Patient has dentist [facility] Medical History (Updated 12/01/24 @ 09:27 by Allen Sánchez MD) History of retinoblastoma Osteoporosis of lumbar spine Incomplete right bundle branch block (RBBB) determined by electrocardiography Hearing loss Family history of early CAD Intermittent left-sided chest pain Seasonal allergies Plantar fasciitis, right Mild intermittent asthma in adult without complication Nontoxic multinodular goiter Lung nodule < 6cm on CT Cervical spondylosis DJD (degenerative joint disease), lumbar 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 Primary open angle glaucoma, right eye Retinoblastoma of left eye Polycystic ovaries Morbid obesity Multiple thyroid nodules Menopause Type 2 diabetes mellitus without complication, without long-term current use of insulin Dyslipidemia Hypertension Surgical History History of coronary artery stent placement S/P cardiac catheterization Status post phlebectomy H/O eye surgery H/O hernia repair H/O bilateral breast reduction surgery H/O section H/O thyroidectomy Hx of cholecystectomy Family History Father CAD (coronary artery disease) Myocardial infarction CVD (cardiovascular disease) Substance use disorder Mother Diabetes mellitus HTN (hypertension) Maternal Grandfather No problems noted. Maternal Grandmother No problems noted. Paternal Grandfather No problems noted. Paternal Grandmother No problems noted. Brother Substance use disorder Mental health disorder Sister No problems noted. Sister Substance use disorder Sister No problems noted. Sister No problems noted. Son No problems noted. Daughter No problems noted. 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 1. Little interest or pleasure in doing things: not at all 2. Feeling down, depressed, or hopeless: not at all 3. Trouble falling or staying asleep, or sleeping too much: not at all 4. Feeling tired or having little energy: several days 5. Poor appetite or overeating: several days 6. Feeling bad about yourself - or that you are a failure or have let yourself or your family down: not at all 7. Trouble concentrating on things, such as reading the newspaper or watching television: not at all 8. Moving or speaking so slowly that other people could have noticed. Or the opposite - being so fidgety or restless that you have been moving around a lot more than usual: not at all 9. Thoughts that you would be better off or of hurting yourself in some way: not at all Total score: 2 Source: Developed by Drs. Lucien Greenberg, Tika Ryan, Raúl Marmolejo and colleagues, with an educational julian from [employer]. Thrive Questionnaire Date Thrive assessed: 08/08/24 I am a: Patient What is your living situation today?: I have a steady place to live Within the past 12 months, did the food you bought not last and you didn't have the money to get more?: Never true Within the past 12 months, did you worry whether your food would run out before you got money to buy more?: Never true Do you have trouble paying for medicines?: No Do you have trouble getting transportation to medical appointments?: No Do you have trouble paying your heating and electricity bill?: No Do you have trouble taking care of your child, family member or friend?: No Do you have trouble with day-to-day activities such as bathing, preparing meals, shopping, managing finances, etc.?: No Are you currently unemployed and looking for a job?: No Are you interested in more education?: No Please select the resources that you would like help with: None Currently or been in a relationship where the following occur: No concerns reported THRIVE Score: 0 AUDIT C Alcohol Use Questionnaire (AUDIT-C) 1. How often do you have a drink containing alcohol?: Monthly or less 2. How many drinks containing alcohol do you have on a typical day when you are drinking?: 1 or 2 3. How often do you have six or more drinks on one occasion?: Never Total Score: 1 MONIK-7 AMB Questionnaire MONIK-7 Date MONIK - 7 assessed: 08/15/24 Feeling nervous, anxious, or on edge: 0 = Not at all Not being able to stop or control worryin = Not at all Worrying too much about different things: 1 = Several days Trouble relaxin = Not at all Being so restless that it is hard to sit still: 0 = Not at all Becoming easily annoyed or irritable: 0 = Not at all Feeling afraid as if something awful might happen: 0 = Not at all Total MONIK-7 score (0-4 normal; 5-9 mild; 10-14 moderate; 15-21 severe): 1 Source: Developed by Drs. Lucien Greenberg, Tika Ryan, Raúl Marmolejo and colleagues, with an educational julian from [employer]. Physical exam (Primary Care) Vital Signs: Last Vital Signs Temp 98.6 F 02/16/25 09:07 Pulse 72 02/16/25 09:07 Resp 17 02/16/25 09:07 BP 108/62 02/16/25 09:07 Pulse Ox 93 02/16/25 09:07 Oxygen Delivery Method Room Air 02/16/25 09:07 BMI result Body Mass Index 39.9 Tobacco/Smoking Status: Tobacco use Status Tobacco use date assessed 02/16/25 02/16/25 09:10 Patient Tobacco Use Status Former Tobacco user 02/16/25 09:07 e-Cigarette/Vaping Use Never Used 02/16/25 09:07 PHQ-9: PHQ-9 Score PHQ-9: Total score 2 02/16/25 09:10 Thrive Assessment: Date of Thrive Assessment Date Thrive assessed 08/08/24 02/16/25 09:07 Currently or been in a relationship where the following occur: No concerns reported Office Procedures Flu Questionnaire Does the patient have a severe egg allergy?: No Does the patient have severe life threatening allergies?: No Does the patient have a fever or illness today?: No Has the patient ever had Guillain-[place] Syndrome?: No Has the patient ever had any past reaction to a flu shot?: No Immunizations Fluarix [id number] (PF) 45 mcg (15 mcg x 3)/0.5 mL IM syringe Performing Provider: Marquita Gonzales MD Performing Location: [facility] Administered by: Trinidad Potter CMA on 02/16/25 09:19 Dose Route Admin Location Dispensed Lot Number Expiration Date [facility] Molder Inflated Ball 0.5 mL IM Left Deltoid 0.5 mL [id number] 11/21/25 [id number] [employer] VIS Given Date VIS Provided VIS Publication Date 02/16/25 Single Vaccine 24 Eligibility Eligibility Date Funding Source Not [facility] Eligible 02/16/25 Private Coding Assessment & Plan Assessment & Plan Orders: Orders Influenza [id number] Immunization Today Z23 - Encounter for immunization
[2025-02-16 09:07] VITALS: BP 108/62; PULSE 72; RESP 17; TEMP 37; O2SAT 93; BMI 39.9
--- OUTSIDE RECORDS SUMMARY | 2025-02-16 09:43 | XMS_ITS | Patient Health Record ---
Author Organization [facility] Address [address] [place] [address] Care Team Providers Care Unload Associate Name Role Phone Janet CRUZ, Marquita Primary Care Provider Lucien Shelby Unavailable [phone] Allergies Allergen (clinical drug ingredient) Drug/Non Drug Allergy documented on EMR Reaction Allergy Type Onset Date Status seasonal-allergy [facility] bi-weekly (uncoded) Unknown Allergy Active Reason [...] Status Risk Notes Problem Colon cancer screening (647606371) Colon cancer screening (Z12.11) Active confirmed Problem Pre-procedure evaluation check (597671410) Encounter for other preprocedural examination (Z01.818) Active confirmed Problem Long-term current use of aspirin (7212141061450 03) Aspirin long-term use (Z79.82) Active confirmed Vital Signs Blood pressure diastolic 00 mm Hg 04/13/2024 Height 65.25 in 04/13/2024 Blood pressure systolic 00 mm Hg 04/13/2024 Weight 241 lbs 04/13/2024 BMI 39.79 kg/m2 04/13/2024 Procedures Procedure Date Ordered Date Performed Result Body Sit e COLONOSCOPY 04/13/2024 N/A Encounters Encounter Location Date Provider Diagnosis [facility] [address] [place] [phone] 04/13/2024 Lucien Gooden Colon cancer screeni ng Z12.11 ; Encounter for other preprocedural examination Z01.818 and Aspirin long-term use Z79.82 [facility] [address] [place] [phone] 11/01/2024 Lucien Gooden [facility] [address] [place] [phone] 11/11/2024 Lucien Gooden Assessments Encounter Date Diagnosis [...] procedure. We will get clearance from her network analyst for the colonoscopy in regard to her overall cardiac status and the recommendations regarding her blood thinners. We will also ask the network analyst if she still requires antibiotics for prophylaxis [...] procedure. We will get clearance from her network analyst for the colonoscopy in regard to her overall cardiac status and the recommendations regarding her blood thinners. We will also ask the network analyst if she still requires antibiotics for prophylaxis [...] procedure. We will get clearance from her network analyst for the colonoscopy in regard to her overall cardiac status and the recommendations regarding her blood thinners. We will also ask the network analyst if she still requires antibiotics for prophylaxis [...] Insured Coverage Start Date Coverage End Date [facility] [address] [place] [phone] [id number] ALEJOISABELLA Sorenson Self - patient is the insured Medical (General) History Medical History History ICD Code Hypertension Denies NM,CVA,renal disease Staph endocarditis in 1983-- Rx'd with a long course of IV antibiotics---her network analyst still recommends prophylactic antibiotics before invasive procedures Bronchitis Asthma/COPD NIDDM Goiter Colonoscopy 01/2014 with a hyperplastic p olyp CAD-1 stent 08/2023-Dr. 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 lemon
--- OUTSIDE RECORDS SUMMARY | 2025-02-16 09:43 | XMS_ITS | Patient Health Record ---
Author Organization [facility] Address [address] [facility] [place] [address] Care Team Providers Care Returned Materials Inspector Name Role Phone Carroll Ortiz MD Primary Care Provider Marlon Stokes [phone] Reason For Referral No Information Medications Medication [...] Status W/U Status Risk Notes Problem Onychomycosis (289550895) Onychomycosis (110.1) Active confirmed Plan Of Treatment Pending Test Test Name Order Date *Liver Function Test (LFT) 06/30/2011 [id number] Plate 06/30/2011 Insurance Providers Payer Name Payer Address Payer Phone Subscriber Number Group Number Insured Name Patient Relationship to Insured Coverage Start Date Coverage End Date [employer] [address] [place] [address] [id number] VANDA BISHOP Spouse - patient is the spouse of the insured Medical (General) History Medical History History ICD Code gall bladder problems chicken pox measles mumps endocarditis Surgical History Surgery Date(Month/Year) cholecystectomy
--- OUTSIDE RECORDS SUMMARY | 2025-02-16 09:43 | XMS_ITS | Clinical Summary ---
Author Organization [facility] Address [address] [place] [address] Phone Care Team Providers Care Manager Diversity Name Role Phone Marquita Gonzales MD Primary [...] TO 30 DAYS DIRECTED Active DEBBIE FRIAS [facility] Active budesonide-formot Francine (SYMBICORT) 160-4.5 mcg/actuation inhaler [...] obesity with BMI of 4 0.0-44.9, adult ([facility] V24, [facility] V28) 02/21/2019 DORCAS (obstructive sleep apnea) 09/06/2018 Moderate persistent asthma without complication 09/06/2018 Sinusitis 09/06/2018 Chronic obstructive pulmonar y disease ([facility] V24, [facility] V28) 02/10/2017 Pulmonary nodule 02/10/2017 Encounters Date Type Department Care Team Description 12/23/2024 5:00 PM EDT - 12/23/2024 11:59 PM EDT Hospital Encounter [facility] CT Scan [address] [place] [id number] Screening for malignant neoplasm of respiratory organ; History of tobacco use Discharge Disposition: Home or Self Care 12/12/2024 8:45 AM EDT Office Visit Pulmonology - [place] [address] [facility] [address] [place] [address] Mikael Leon MD Chronic obstructive pulmonary disease, unspecified COPD type ([facility] V24, [facility] V28) (Primary Dx); DORCAS (obstructive sleep apnea) 12/05/2024 Telephone Lung Screening Program - [place] [address] [facility] [address] [place] [address] Alberta Ryan MA from Last [...] SECTION PROCEDURE: HISTORICAL BREAST REDUCTION 1996 PROCEDURE: [place] BREAST REDUCTION OTHER SURGICAL HISTORY PROCEDURE: HISTORY OTHER; COMMENT: hernia repair w/mesh EYE SURGERY 1962 Left PROCEDURE: HISTORICAL EYE SURGERY; COMMENT: retinoblastoma w/enucleation BREAST CYST ASPIRATION Right Medical History Medical History Date Comments Pulmonary nodule 02/10/2017 DX:Pulmonary no dule Chronic obstructive pulmonar y disease ([facility] V24, [facility] V28) 02/10/2017 DX:Chronic obstructive pulm onary disease (HCC) Moderate persistent asthma w ithout complication 09/06/2018 DX:Moderate persistent asthm a without complication DORCAS (obstructive sleep apnea) 09/06/2018 DX :DORCAS (obstructive sleep apnea) Morbid obesity with BMI of 4 0.0-44.9, adult ([facility] V24, [facility] V28) 02/21/2019 DX:Morbid obesity wit h BMI of 40.0-44.9, adult ([facility]) PCOS (polycystic ovarian syndrome) 02/21/2019 DX:PCOS [...] Relation Name Comments Coronary artery disease Father [place], CVD Diabetes Mother HTN Breast cancer Mother's [...] Description 06/14/2025 3:30 PM EST Office Visit Pulmonology - [place] [address] [facility] [address] [place] [address] Mikael Leon MD [address] [facility] [address] [place] [address] Health Maintenance Due Date Last Done Comments [...] malignancy and prevalence can be found at: [employer] Committee on Lung-RADS?. Lung- RADS Assessment Categories 2021. Available at [email or web address]. -------- FINAL REPORT -------- Dictated By: Jesus Monzon Dictated Date: 12/30/2024 14:10 ET Assigned Physician: Jesus Monzon Reviewed and Electronically Signed By: Jesus Monzon Signed Date: 12/30/2024 14:14 ET Workstation ID: [id number] Transcribed By: Self Edit Transcribed Date: 12/30/2024 [...] of malignancy andprevalence can be found at: [employer] Committee onLung-RADS?. Lung-RADS Assessment Categories 2021. Available [email or web address]. -------- FINAL REPORT -------- Dictated By: Jesus Monzon Dictated Date: 12/30/2024 14:10 ET Assigned Physician: Jesus Monzon Reviewed and Electronically Signed By: Jesus Monzon Signed Date: 12/30/2024 14:14 ET Workstation ID: [id number] Transcribed By: Self Edit Transcribed Date: 12/30/2024 [...] Mammo Location: [facility], [address] [place] [address], [address], . -------- FINAL REPORT -------- Dictated By: Lynnette Arechiga Dictated Date: 04/04/2024 09:20 ET Assigned Physician: Lynnette Arechiga Reviewed and Electronically Signed By: Lynnette Arechiga Signed Date: 04/04/2024 09:21 ET Workstation ID: [id number] Transcribed By: Self Edit Transcribed Date: 04/04/2024 [...] Mammo Location: [facility], [address] [place] [address], [address], . -------- FINAL REPORT -------- Dictated By: Lynnette Arechiga Dictated Date: 04/04/2024 09:20 ET Assigned Physician: Lynnette Arechiga Reviewed and Electronically Signed By: Lynnette Arechiga Signed Date: 04/04/2024 09:21 ET Workstation ID: [id number] Transcribed By: Self Edit Transcribed Date: 04/04/2024 09:20 ET Marquita Gonzales MD IMG BI PROCEDURES Final Res ult from Last 3 Months or Most Recently Relevant to Health Maintenance Insurance [facility] Care Teams Manager Diversity Relationship Specialty Start Date End Date Marquita Gonzales MD [address] [place] [address] PCP - General Internal Medicine 02/13/20
== END 2025-02-16 09:47 | disposition home or self-care (01) ==
LOC: HO.HMCC 08:58
PROVIDERS: PCP Internal Medicine; Visit Provider Internal Medicine
DX: Z23 Encounter for immunization (principal)

== ENCOUNTER → 2025-02-16 08:57 | Outpatient (BNVA) | payer BC, SELFPAY | PROVIDERS: PCP Internal Medicine; Visit Provider Internal Medicine | DX: E78.5 Hyperlipidemia, unspecified (principal); Z23 Encounter for immunization; E11.9 Type 2 diabetes mellitus without complications; I10 Essential (primary) hypertension; J30.2 Other seasonal allergic rhinitis; Z79.84 Long term (current) use of oral hypoglycemic drugs; Z79.899 Other long term (current) drug therapy; Z13.31 Encounter for screening for depression | CPT/HCPCS: 90471; 90656; 96127 ==

== ENCOUNTER 2025-04-05 13:03 | Outpatient (AMB) | payer BC, SELFPAY ==
--- OUTSIDE RECORDS SUMMARY | 2024-11-14 02:30 | XMS_ITS ---
Author Organization [facility] Address [address] [facility] [address] [place] [address] Care Team Providers Care Mechanical Spreader Operator Name Role Phone Marquita Gonzales MD Primary Care Provider Lucien Shelby [phone] REASON FOR VISIT Colon Cancer Screening Encounters Encounter Location Date Provider Diagnosis [facility] Out[facility] [address] [place] [phone] 11/14/2024 Lucien Gooden Plan Of Treatment Next Appt Details Provider Name:Lucien Matthesw Berkley , 05/09/2025 11:10:00 AM, [address] [facility], [address], [place], [address], Progress Notes * GLORIA BISHOPADOB:1960 (64 yo F)Acc No.[id number]:11/14/2024 COLON WITH MAC Patient: JORGE MEDEIROS Provider: Kati Gooden MD :1960 A ge:64 Y S ex:Female Date:11/14/2024 Address:[address], [place] Pcp:Marquita Gonzales MD Subjective: * Chief Complaints: * 1 . Colon Cancer Screening. * Medical History: Objective: * Vitals: Assessment: Plan: * Treatment: * * The named appointment provid er may or may not be the originator of this progress note, and it is not deemed complete until electronically signed by the appointment provider. Sign off status: Pending * Provider: Kati Gooden MD Date: 0 11/14/2024 Generated for Simon samano/Jennifer/Harish on: 1 06/05/2024 03:48 PM EST
--- OUTSIDE RECORDS SUMMARY | 2025-01-27 05:30 | XMS_ITS ---
Author Organization [facility] Address [address] [place] [address] Care Team Providers Care Lavender Farm Worker Name Role Phone Janet CRUZ, Marquita Primary Care Provider Lucien Shelby [phone] REASON FOR VISIT screening colonoscopy Encounters Encounter Location Date Provider Diagnosis [facility] Outpatient [address] [place] [phone] 01/27/2025 Lucien Gooden Plan Of Treatment Next Appt Details Provider Name:Lucien Gooden , 05/09/2025 11:10:00 AM, [address], [address], [place], [address], Progress Notes * GLORIA BISHOPADOB:1960 (64 yo F)Acc No.[id number]:01/27/2025 COLON WITH MAC Patient: JORGE MEDEIROS Provider: Kati Gooden MD :1960 A ge:64 Y S ex:Female Date:01/27/2025 Address:[address], [place] Pcp:Marquita Gonzales MD Subjective: * Chief Complaints: * 1 . Screening colonoscopy. * Medical History: Objective: * Vitals: Assessment: Plan: * Treatment: * * The named appointment provid er may or may not be the originator of this progress note, and it is not deemed complete until electronically signed by the appointment provider. Sign off status: Pending * Provider: Kati Gooden MD Date: 0 01/27/2025 Generated for Simon samano/Jennifer/Harish on: 1 06/05/2024 03:48 PM EST
[2025-04-05 13:07] VITALS: BP 108/68; PULSE 76; BMI 39.6
--- NOTE | 2025-04-05 13:07 | MHC.OFFVIS ---
Vital Signs 04/05/25 13:07 Height 5 ft 5 in Weight 238 lb 1.588 oz BMI 39.6 BP 108/68 Blood Pressure Location Lt brachial Position Sitting Pulse 76 Pulse Source Pulse Oximeter Intake Visit Reasons: 6m follow up Allergies mold,trees,dust,cats,dogs Allergy (Unknown, Uncoded 02/18/25 22:25) unknown strawberries Allergy (Unknown, Uncoded 02/18/25 22:25) hives Medication List - Last Reconciled 04/05/25 by Shubham Jefferson MD albuterol sulfate 90 mcg/actuation 2 puffs inhalation Q6H PRN alendronate 70 mg PO QWEEK aspirin (Adult Aspirin Regimen) 81 mg PO DAILY blood sugar diagnostic (FreeStyle Lite Strips) Check fasting blood sugar once a day blood-glucose meter (FreeStyle [place] Lite kit) As directed budesonide-formoterol 160-4.5 mcg/actuation 1 inh inhalation BID calcium carbonate (Calcium 500) 500 mg PO DAILY citalopram 20 mg PO DAILY irbesartan 75 mg PO DAILY ketotifen fumarate 0.025%(0.035%) (Zaditor) 1 drp ophthalmic-Right Q12H lancets (FreeStyle Lancets) Check fasting glucose once a day latanoprost 0.005% 1 drp ophthalmic (eye) QPM loratadine (Claritin) 10 mg PO DAILY metformin ER 500 mg PO QPM methocarbamol 500 mg PO TID PRN montelukast 10 mg PO DAILY multivitamin 1 tab PO DAILY rosuvastatin 40 mg PO DAILY spironolacton-hydrochlorothiaz 25-25 mg 2 tabs PO DAILY thiamine HCl (vitamin B1) (Vitamin B-1) 50 mg PO DAILY vitamin B complex (B Complex-Vitamin B12 tablet) 1 tab PO DAILY zinc mg PO DAILY HPI Comments Details: Isabella returns for follow-up. To recall, in the past she was seen in evaluation of chest pain. Many comorbidities including obesity, hypertension, dyslipidemia. Chest CT scan had shown coronary artery calcification. She underwent stress testing and that led to a cardiac catheterization. Status post LAD stenting 08/2023. From the cardiac standpoint, she has been doing good. No specific symptoms. [facility] Medical History (Updated 02/18/25 @ 22:54 by Marquita Gonzales MD) Tear of medial meniscus of right knee History of retinoblastoma Osteoporosis of lumbar spine Incomplete right bundle branch block (RBBB) determined by electrocardiography Hearing loss Family history of early CAD Intermittent left-sided chest pain Seasonal allergies Plantar fasciitis, right Mild intermittent asthma in adult without complication Nontoxic multinodular goiter Lung nodule < 6cm on CT Cervical spondylosis DJD (degenerative joint disease), lumbar 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 Primary open angle glaucoma, right eye Retinoblastoma of left eye Polycystic ovaries Morbid obesity Multiple thyroid nodules Menopause Type 2 diabetes mellitus without complication, without long-term current use of insulin Dyslipidemia Hypertension Surgical History History of coronary artery stent placement S/P cardiac catheterization Status post phlebectomy H/O eye surgery H/O hernia repair H/O bilateral breast reduction surgery H/O section H/O thyroidectomy Hx of cholecystectomy Family History Father CAD (coronary artery disease) Myocardial infarction CVD (cardiovascular disease) Substance use disorder Mother Diabetes mellitus HTN (hypertension) Maternal Grandfather No problems noted. Maternal Grandmother No problems noted. Paternal Grandfather No problems noted. Paternal Grandmother No problems noted. Brother Substance use disorder Mental health disorder Sister No problems noted. Sister Substance use disorder Sister No problems noted. Sister No problems noted. Son No problems noted. Daughter No problems noted. 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: No Cognitive needs: No Hearing needs: Yes Vision needs: Yes Review of Systems Const Denies weakness ENT Denies dizziness Card Denies chest pain, Denies chest pain with activity, Denies syncope, Denies rapid heart rate, Denies pedal edema, Denies edema, Denies leg edema, Denies lightheadedness, Denies palpitations, Denies dyspnea, Denies dyspnea on exertion and Denies orthopnea Resp Denies cough, Denies dyspnea and Denies dyspnea on exertion GI Denies hematochezia and Denies change in stool character Musc Denies abnormal gait, Denies muscle cramps, Denies muscle weakness, Denies numbness, Denies radiating pain into limb and Denies tingling Neuro Denies abnormal gait, Denies dizziness, Denies syncope, Denies numbness, Denies tingling and Denies weakness Endo Denies palpitations Physical Exam Vital Signs: Last Vital Signs Pulse 76 04/05/25 13:07 BP 108/68 04/05/25 13:07 BMI result Body Mass Index 39.6 Const General: comfortable and no acute distress Orientation/consciousness: patient oriented x3 HEENT Other: Unremarkable Head: Yes normal to inspection Neck Neck: Yes normal visual inspection Chest Chest palpation & inspection: normal inspection of the chest Resp Auscultation: clear to auscultation bilaterally Cardio Palpation: normal PMI Heart sounds: S1 normal heart sound present, S2 normal heart sound present, no gallops, no murmurs and no rubs GI Palpation (GI): Soft to palpation Back/Spine/Pelvis Other: unremarkable Skin General skin exam: no rashes or lesions noted Neuro General: patient oriented x3 Extrem General: Yes normal to inspection Psych Mental Status: mental status grossly normal Assessment & Plan Assessment & Plan (1) Atherosclerotic cardiovascular disease: Code(s): I25.10 - Atherosclerotic heart disease of [place] coronary artery without angina pectoris Category: Medical (2) Hypertension: Code(s): I10 - Essential (primary) hypertension Category: Medical Qualifiers: Hypertension type: essential hypertension Qualified Code(s): I10 - Essential (primary) hypertension (3) Type 2 diabetes mellitus without complication, without long-term current use of insulin: Code(s): E11.9 - Type 2 diabetes mellitus without complications Category: Medical (4) Dyslipidemia: Code(s): E78.5 - Hyperlipidemia, unspecified Category: Medical Plan Cardiac testing reviewed. Echocardiogram with LVEF of 65%. No wall motion abnormalities and otherwise unremarkable. In the exercise stress test, positive for chest tightness, hypertensive blood pressure response with EKG changes. Perfusion component showed LAD territory ischemia. Cardiac catheterization 08/2023 with severe proximal to mid LAD stenosis status post PCI. Mid RCA, moderate 60-70% stenosis, medical managed. Overall, long-term aspirin. With regard to blood pressure, she is on irbesartan, spironolactone, hydrochlorothiazide. With regard to dyslipidemia, on statins. Last LDL is 66 mg/dL. Total time spent including review of data, counseling, documentation, coordination of care-32 minutes. Coding Level of Care Code Est Pt Level 4 (64343) Complex EM visit Add On G2211 Diagnoses Atherosclerotic cardiovascular disease I25.10 Essential hypertension I10 Hypertension type: essential hypertension Type 2 diabetes mellitus without complication, without long-term current use of insulin E11.9 Dyslipidemia E78.5
--- OUTSIDE RECORDS SUMMARY | 2025-04-05 15:49 | XMS_ITS | Patient Health Record ---
Author Organization [facility] Address [address] [facility] [place] [address] Care Team Providers Care Biological Lab Technician Name Role Phone Carroll Ortiz MD Primary Care Provider Marlon Sin Unavailable [phone] Reason For Referral No Information Medications Medication [...] Status W/U Status Risk Notes Problem Onychomycosis (360248227) Onychomycosis (110.1) Active confirmed Plan Of Treatment Pending Test Test Name Order Date *Liver Function Test (LFT) 06/30/2011 [id number] Plate 06/30/2011 Insurance Providers Payer Name Payer Address Payer Phone Subscriber Number Group Number Insured Name Patient Relationship to Insured Coverage Start Date Coverage End Date [facility] [address] [facility] [place] [address] [id number] VANDA BISHOP Spouse - patient is the spouse of the insured Medical (General) History Medical History History ICD Code gall bladder problems chicken pox measles mumps endocarditis Surgical History Surgery Date(Month/Year) cholecystectomy
--- OUTSIDE RECORDS SUMMARY | 2025-04-05 15:49 | XMS_ITS | Clinical Summary ---
Author Organization [facility] Address [address] [place] [address] Phone Care Team Providers Care [employer] Flatbed Driver Name Role Phone Marquita Gonzales MD Primary [...] TO 30 DAYS DIRECTED Active DEBBIE FRIAS [facility] Active budesonide-formot Francine (SYMBICORT) [...] obesity with BMI of 4 0.0-44.9, adult ([facility] V24, [facility] V28) 02/21/2019 DORCAS (obstructive sleep apnea) 09/06/2018 Moderate persistent asthma without complication 09/06/2018 Sinusitis 09/06/2018 Chronic obstructive pulmonar y disease ([facility] V24, [facility] V28) 02/10/2017 Pulmonary nodule 02/10/2017 Immunizations Immunization Administration Dates Next Due Influenza trivalent, 0.5mL, preservative free (Fluarix; FluLaval; Fluzone) ages 6mo and older (Afluria) 3 years and older 03/18/2018 Pneumococcal polysaccharide 23 valent (Pneumovax 23) 2yo and older 12/15/2017 Tdap Tetanus diptheria acell ular pertussis (Boostrix; Adacel) 7yo and older 05/05/2013 Surgical History Surgery Date Site/Laterality Comments CHOLECYSTECTOMY PROCEDURE: HISTORICAL CHOLECYSTECTOMY SECTION PROCEDURE: HISTORICAL BREAST REDUCTION 1996 PROCEDURE: [place] BREAST REDUCTION OTHER SURGICAL HISTORY PROCEDURE: HISTORY OTHER; COMMENT: hernia repair w/mesh EYE SURGERY 1962 Left PROCEDURE: HISTORICAL EYE SURGERY; COMMENT: retinoblastoma w/enucleation BREAST CYST ASPIRATION Right Medical History Medical History Date Comments Pulmonary nodule 02/10/2017 DX:Pulmonary no dule Chronic obstructive pulmonar y disease ([facility] V24, [facility] V28) 02/10/2017 DX:Chronic obstructive pulm onary disease (HCC) Moderate persistent asthma w ithout complication 09/06/2018 DX:Moderate persistent asthm a without complication DORCAS (obstructive sleep apnea) 09/06/2018 DX :DORCAS (obstructive sleep apnea) Morbid obesity with BMI of 4 0.0-44.9, adult ([facility] V24, [facility] V28) 02/21/2019 DX:Morbid obesity wit h BMI of 40.0-44.9, adult ([facility]) PCOS (polycystic ovarian syndrome) 02/21/2019 DX:PCOS (polycystic [...] Relation Name Comments Coronary artery disease Father [place], CVD Diabetes Mother HTN Breast cancer Mother's Sister Relation Name Status Comments Father Maternal Grandfather Maternal Grandmother Mother Alive Mother's Sister Alive Paternal Grandfather Paternal Grandmother Social History Tobacco Use Types Packs/Day Years Used Date Smoking Tobacco: Former Cigarettes 0 Q uit: 05/25/2015 Smokeless Tobacco: Never Alcohol [...] kg (239 lb 6.4 oz) 12/12/2024 9:02 A M EDT Height 165.1 cm (5' 5 ) 12/12/2024 9:02 AM EDT Body Mass Index 39.84 12/12/2024 9:02 AM EDT Plan of Treatment Upcoming Encounters Date Type Department Care Team (Late st Contact Info) Description 05/09/2025 2:00 PM EST [facility]ointment [facility] [address] [place] [address] 05/09/2025 2:30 PM EST Appointment [facility] Bone Density [address] [place] [address] 06/14/2025 3:30 PM EST Office Visit Pulmonology - [place] [address] [facility] [address] [place] [phone] Mikael Leon MD [address] [place] [phone] Health Maintenance Due Date Last Done Comments Colorectal Cancer Screening: Colonoscopy 1961 Cervical Cancer Screening: Pap Smear 1982 RSV Immunization Adult Patients (1 - Risk 50-74 years 1-dose series) 08/14/2011 Pneumococcal Vaccine: 50+ Years (2 of 2 - PCV) 12/15/2018 12/15/2017 Cholesterol Screening (Lipid Panel) 05/03/2022 HIV Screening 05/03/2022 Hepatitis C Screening 05/03/2022 Social Influencers of Health Screening 05/03/2022 Hypertension/CHF/CAD Annual BMP Blood Test 05/09/2022 DTaP,Tdap,and Td Vaccines (2 - Td or Tdap) 05/05/2023 05/05/2013 Depression Screening 05/25/2024 COVID-19 Vaccine ( season) 2025 02/27/2024, 02/23/2023, 06/07/2022, Additional history exists Influenza Vaccine (#1) 2025 , 03/01/2023, 02/15/2022, Additional history exists Breast Cancer Screening 04/02/2026 04/02/20, 02/12/2023, 02/02/2022, Additional history exists Zoster Vaccines Completed 03/20/2022, 07/22/2021 HIB Vaccines Aged Out No longer eligi [...] year. Mammo Location: [facility], [address] [place] [address], [address], . -------- FINAL REPORT -------- Dictated By: Lynnette Arechiga Dictated Date: 04/04/2024 09:20 ET Assigned Physician: Lynnette Arechiga Reviewed and Electronically Signed By: Lynnette Arechiga Signed Date: 04/04/2024 09:21 ET Workstation ID: [id number] Transcribed By: Self Edit Transcribed Date: 04/04/2024 09:20 ET Narrative 04/04/2024 9:21 AM EST HISTORY: Screening. Reduction mammoplasty in 1996. Maternal aunt had breast carcinoma. COMPARISON: 02/12/23, 02/01/22, 01/21/21 TECHNIQUE: Bilateral digital breast tomosynthesis was performed in the CC and MLO projections. Computer aided detection with [employer] 3D 3.1 was employed. BREAST DENSITY: B [...] MLO projections. Computer aided detection with [employer] 3D 3.1was employed. BREAST DENSITY: B - [...] year. Mammo Location: [facility], [address] [place] [address], [address], . -------- FINAL REPORT -------- Dictated By: Lynnette Arechiga Dictated Date: 04/04/2024 09:20 ET Assigned Physician: Lynnette Arechiga Reviewed and Electronically Signed By: Lynnette Arechiga Signed Date: 04/04/2024 09:21 ET Workstation ID: [id number] Transcribed By: Self Edit Transcribed Date: 04/04/2024 09:20 ET us Marquita Gonzales MD IMG BI PROCEDURES Final Res ult from Last 3 Months or Most Recently Relevant to Health Maintenance Insurance [facility] Care Teams [employer] Flatbed Driver Relationship Specialty Start Date End Date Marquita Gonzales MD [address] [place] [address] PCP - General Internal Medicine 02/13/20
--- OUTSIDE RECORDS SUMMARY | 2025-04-05 15:49 | XMS_ITS | Patient Health Record ---
Author Organization [facility] Address [address] [place] [address] Care Team Providers Care Director Of Financial Aid Name Role Phone Janet CRUZ, Marquita Primary Care Provider Lucien Shelby Unavailable [phone] Allergies Allergen (clinical drug ingredient) Drug/Non Drug Allergy documented on EMR Reaction Allergy Type Onset Date Status seasonal-allergy [facility] bi-weekly (uncoded) Unknown Allergy Active Reason For Referral No Information Medications Medication SIG (Take, Route, Frequency, Duration) Notes Start Date End Date Status Citalopram Hydrobromide 20 MG Oral; Duration: 90 Active Albuterol Sulfate HFA 108 (90 Base) MCG/ACT Inhalation; Duration: 16 Active Aspir-81 81 MG 1 tablet Orally Once a day Active Irbesartan 75 MG Oral; Duration: 30 Active Amoxicillin 500 MG 1 tablet Orally every 12 hrs before dental appointment Active Rosuvastatin Calcium 40 MG Oral; Duration: 30 Active Clopidogrel Bisulfate 75 MG Oral; Duration: 30 Active Fluticasone-Salmeter ol 250-50 MCG/ACT Inhalation; Duration: 30 Active Alendronate Sodium 70 MG Oral; Duration: 28 Active metFORMIN HCl ER 500 MG Oral; Duration: 30 Active Brilinta 90 MG Oral; Duration: 30 Not-Taking Montelukast Sodium 10 MG Oral; Duration: 30 Active Methocarbamol 500 MG Oral; Duration: 3 Active Latanoprost 0.005 % Ophthalmic; Duration: 75 Active Spironolactone-HCTZ 25-25 MG Oral; Duration: 30 Active Social History Tobacco Use: Social [...] Status Risk Notes Problem Colon cancer screening (803720361) Colon cancer screening (Z12.11) Active confirmed Problem Pre-procedure evaluation check (860625514) Encounter for other preprocedural examination (Z01.818) Active confirmed Problem Long-term current use of aspirin (8830779826256 03) Aspirin long-term use (Z79.82) Active confirmed Vital Signs Blood pressure diastolic 00 mm Hg 04/13/2024 Height 65.25 in 04/13/2024 Blood pressure systolic 00 mm Hg 04/13/2024 Weight 241 lbs 04/13/2024 BMI 39.79 kg/m2 04/13/2024 Procedures Procedure Date Ordered Date Performed Result Body Sit e COLONOSCOPY 04/13/2024 N/A Encounters Encounter Location Date Provider Diagnosis [facility] [address] [place] [phone] 04/13/2024 Lucien Gooden Colon cancer screeni ng Z12.11 ; Encounter for other preprocedural examination Z01.818 and Aspirin long-term use Z79.82 [facility] [address] [place] [phone] 11/01/2024 Lucien Gooden [facility] [address] [place] [phone] 11/11/2024 Lucien Gooden Assessments Encounter Date Diagnosis [...] procedure. We will get clearance from her dietary server for the colonoscopy in regard to her overall cardiac status and the recommendations regarding her blood thinners. We will also ask the dietary server if she still requires antibiotics for prophylaxis [...] procedure. We will get clearance from her dietary server for the colonoscopy in regard to her overall cardiac status and the recommendations regarding her blood thinners. We will also ask the dietary server if she still requires antibiotics for prophylaxis [...] procedure. We will get clearance from her dietary server for the colonoscopy in regard to her overall cardiac status and the recommendations regarding her blood thinners. We will also ask the dietary server if she still requires antibiotics for prophylaxis given her previous history of endocarditis. Isabella was comfortable with this plan. Thank you again for allowing me to participate in Isabella's care. I shall continue to keep you advised of her progress. Plan Of Treatment Pending Test Test Name Order Date COLONOSCOPY 04/13/2024 Next Appt Details Provider Name:Lucien Gooden , 05/09/2025 11:10:00 AM, [address] [place] [address], [address], [place], [address], Insurance Providers Payer Name Payer Address Payer Phone Subscriber Number Group Number Insured Name Patient Relationship to Insured Coverage Start Date Coverage End Date [facility] [address] [place] [phone] [id number] SIABELLA BISHOP Self - patient is the insured Medical (General) History Medical History History ICD Code Hypertension Denies HI,CVA,renal disease 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 lemon
== END 2025-04-05 13:26 | disposition home or self-care (01) ==
LOC: HO.HCS 13:04
PROVIDERS: PCP Internal Medicine; Visit Provider Internal Medicine
DX: I25.10 Atherosclerotic heart disease of native coronary artery without angina pectoris (principal); I10 Essential (primary) hypertension; E11.9 Type 2 diabetes mellitus without complications; E78.5 Hyperlipidemia, unspecified
CPT/HCPCS: 99214

== ENCOUNTER 2025-04-07 13:36 | Outpatient (AMB) | payer BC, SELFPAY ==
--- NOTE | 2025-04-07 13:43 | HO.SPINEOV ---
Intake Visit Reasons: 2 month f/u Intake Note: Ms. Gonzalez is here today for a 2 month F/u. Foreign Legal Consultant Required: No Allergies mold,trees,dust,cats,dogs Allergy (Unknown, Uncoded 02/18/25 22:25) unknown strawberries Allergy (Unknown, Uncoded 02/18/25 22:25) hives Assessment & Plan Assessment & Plan (1) DJD (degenerative joint disease), lumbar: Code(s): M47.816 - Spondylosis without myelopathy or radiculopathy, lumbar region Category: Medical Plan Mrs Gonzalez is here in follow-up. Please see my last note for the specifics of her problem. She currently is not having the same intensity back pain that she was having. She is starting to develop a degree of claudicating symptoms going into her buttocks and her hips. It is not bad enough to keep her from doing most things she wants to do, however it is noticeable. She also gets some tingling in her left foot. She does not have footdrop or any weakness of the foot just the sensory symptoms. On exam she is able to stand up and walk comfortably. Her strength is fine in the lower extremities. I reviewed with her again the indications for surgery and at this point she is just starting to get symptoms from the stenosis. She is going to complete physical therapy. We talked about the natural history of stenosis and the fact that eventually when the symptoms get bad enough to really affect her quality of life, we could do a simple decompression. She will let me know down the road as the symptoms get worse. I will see her back on an as-needed basis. Total amount of time spent in this visit was 20 minutes in discussion of symptoms, lumbar MRI imaging results and subsequent plan of care Christopher Huff MD,PhD [facility] Coding Level of Care Code Est Pt Level 3 (84149) Diagnoses DJD (degenerative joint disease), lumbar M47.816
--- OUTSIDE RECORDS SUMMARY | 2025-04-07 19:57 | XMS_ITS | Patient Health Record ---
Author Organization [facility] Address [address] [place] [address] Care Team Providers Care Panel Sewer Name Role Phone Carroll Ortiz MD Primary Care Provider Marlon Sin Unavailable [phone] Reason For Referral No Information Medications Medication [...] Status W/U Status Risk Notes Problem Onychomycosis (051102459) Onychomycosis (110.1) Active confirmed Plan Of Treatment Pending Test Test Name Order Date *Liver Function Test (LFT) 06/30/2011 10123-Tgoinvjp Plate 06/30/2011 Insurance Providers Payer Name Payer Address Payer Phone Subscriber Number Group Number Insured Name Patient Relationship to Insured Coverage Start Date Coverage End Date [facility] [address] [facility] [place] [id number] VANDA BISHOP Spouse - patient is the spouse of the insured Medical (General) History Medical History History ICD Code gall bladder problems chicken pox measles mumps endocarditis Surgical History Surgery Date(Month/Year) cholecystectomy
--- OUTSIDE RECORDS SUMMARY | 2025-04-07 19:58 | XMS_ITS | Clinical Summary ---
Author Organization [facility] Address [address] [place] [address] Phone Care Team Providers Care Boiler Tenders Supervisor Name Role Phone Marquita Gonzales MD [...] TO 30 DAYS DIRECTED Active DEBBIE FRIAS [facility] Active budesonide-formot Francine (SYMBICORT) 160-4.5 mcg/actuation inhaler [...] obesity with BMI of 4 0.0-44.9, adult ([facility] V24, [facility] V28) 02/21/2019 DORCAS (obstructive sleep apnea) 09/06/2018 Moderate persistent asthma without complication 09/06/2018 Sinusitis 09/06/2018 Chronic obstructive pulmonar y disease ([facility] V24, [facility] V28) 02/10/2017 Pulmonary nodule 02/10/2017 Immunizations Immunization [...] SECTION PROCEDURE: HISTORICAL BREAST REDUCTION 1996 PROCEDURE: ME BREAST REDUCTION OTHER SURGICAL HISTORY PROCEDURE: HISTORY OTHER; COMMENT: hernia repair w/mesh EYE SURGERY 1962 Left PROCEDURE: HISTORICAL EYE SURGERY; COMMENT: retinoblastoma w/enucleation BREAST CYST ASPIRATION Right Medical History Medical History Date Comments Pulmonary nodule 02/10/2017 DX:Pulmonary no dule Chronic obstructive pulmonar y disease ([facility] V24, [facility] V28) 02/10/2017 DX:Chronic obstructive pulm onary disease (HCC) Moderate persistent asthma w ithout complication 09/06/2018 DX:Moderate persistent asthm a without complication DORCAS (obstructive sleep apnea) 09/06/2018 DX :DORCAS (obstructive sleep apnea) Morbid obesity with BMI of 4 0.0-44.9, adult ([facility] V24, [facility] V28) 02/21/2019 DX:Morbid obesity wit h BMI of 40.0-44.9, adult ([facility]) PCOS (polycystic ovarian syndrome) 02/21/2019 [...] Relation Name Comments Coronary artery disease Father [place], CVD Diabetes Mother HTN Breast cancer Mother's [...] Care Team (Late st Contact Info) Description 04/27/2025 2:45 PM EST Appointment [facility] Pulmonary [address] [place] [address] 05/09/2025 2:00 PM EST Appointment [facility] [address] [place] [address] 05/09/2025 2:30 PM EST Appointment [facility] Bone Density [address] [place] [address] 06/14/2025 3:30 PM EST Office Visit Pulmonology - [address] [place] [address] Mikael Leon MD [facility] [place] [address] Health Maintenance Due Date Last Done Comments [...] year. Mammo Location: [facility], [address] [place] [address], [id number], . -------- FINAL REPORT -------- Dictated By: Lynnette Arechiga Dictated Date: 04/04/2024 09:20 ET Assigned Physician: Lynnette Arechiga Reviewed and Electronically Signed By: Lynnette Arechiga Signed Date: 04/04/2024 09:21 ET Workstation ID: [id number] Transcribed By: Self Edit Transcribed Date: 04/04/2024 09:20 ET Narrative 04/04/2024 9:21 AM EST HISTORY: Screening. Reduction mammoplasty in 1996. Maternal aunt had breast carcinoma. COMPARISON: 02/12/23, 02/01/22, 01/21/21 TECHNIQUE: Bilateral digital breast tomosynthesis was performed in the CC and MLO projections. 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 BREAST DENSITY: B [...] CCand MLO projections. Computer aided detection with [employer] 3D 3.1was employed. BREAST DENSITY: B - [...] year. Mammo Location: [facility], [address] [place] [address], [id number], . -------- FINAL REPORT -------- Dictated By: Lynnette Arechiga Dictated Date: 04/04/2024 09:20 ET Assigned Physician: Lynnette Arechiga Reviewed and Electronically Signed By: Lynnette Arechiga Signed Date: 04/04/2024 09:21 ET Workstation ID: [id number] Transcribed By: Self Edit Transcribed Date: 04/04/2024 09:20 ET us Marquita Gonzales MD IMG BI PROCEDURES Final Res ult from Last 3 Months or Most Recently Relevant to Health Maintenance Insurance [facility] Care Teams Boiler Tenders Supervisor Relationship Specialty Start Date End Date Marquita Gonzales MD [address] [place] [address] PCP - General Internal Medicine 02/13/20
== END 2025-04-07 14:05 | disposition home or self-care (01) ==
LOC: HO.HNS 13:36
PROVIDERS: PCP Internal Medicine; Visit Provider Physician Assistant
DX: M47.816 Spondylosis without myelopathy or radiculopathy, lumbar region (principal)
CPT/HCPCS: 99213

== ENCOUNTER 2025-05-17 12:26 | Outpatient (AMB) | payer BC, SELFPAY ==
--- OUTSIDE RECORDS SUMMARY | 2024-11-14 02:30 | XMS_ITS ---
Author Organization [facility] Address [address] [place] [address] Care Team Providers Care Smash Hand Name Role Phone Janet CRUZ, Marquita Primary Care Provider Lucien Shelby [phone] REASON FOR VISIT Colon Cancer Screening Encounters Encounter Location Date Provider Diagnosis [facility] Outpatient [address] [place] [phone] 11/14/2024 Lucien Gooden Plan Of Treatment Next Appt Details Provider Name:Lucien Matthews Gooden , 07/21/2025 08:30:00 AM, [address] [place] [address], [phone], Progress Notes * GOLRIA BISHOPADOB:1960 (64 yo F)Acc No.[id number]:11/14/2024 COLON WITH MAC Patient: JORGE MEDEIROS Provider: Kati Gooden MD :1960 A ge:64 Y S ex:Female Date:11/14/2024 Address:[address], [place] Pcp:Marquita Gonzales MD Subjective: * Chief Complaints: * C olon Cancer Screening * The named appointment provid er may or may not be the originator of this progress note, and it is not deemed complete until electronically signed by the appointment provider. Sign off status: Pending * Provider: Kati Gooden MD Date: 0 11/14/2024 Generated for Simon samano/Jennifer/Harish on: 07/18/2024 12:29 PM EST
--- OUTSIDE RECORDS SUMMARY | 2025-05-09 06:10 | XMS_ITS ---
Author Organization [facility] Address [address] [place] [address] Care Team Providers Care Technical Sme Name Role Phone Janet CRUZ, Marquita Primary Care Provider Lucien Shelby [phone] Allergies Allergen (clinical drug ingredient) Drug/Non Drug Allergy documented on EMR Reaction Allergy Type Onset Date Status seasonal-allergy [facility] bi-weekly (uncoded) Unknown Allergy Active REASON FOR VISIT Patient presents today for discuss colonoscopy Medications Medication SIG (Take, Route, Frequency, Duration) Notes Start Date End Date Status Irbesartan 75 MG Tablet Oral; Duration: 30 Active Albuterol Sulfate HFA 108 (90 Base) MCG/ACT Aerosol Solution Inhalation; Duration: 16 Active Brilinta 90 MG Tablet Oral; Duration: 30 Not-Taking/P RN Clopidogrel Bisulfate 75 MG Tablet Oral; Duration: 30 Not-Taking/P RN Rosuvastatin Calcium 40 MG Tablet Oral; Duration: 30 Active Fluticasone-Salmeter ol 250-50 MCG/ACT Aerosol Powder Breath Activated Inhalation; Duration: 30 Active Spironolactone-HCTZ 25-25 MG Tablet Oral; Duration: 30 Active Latanoprost 0.005 % Solution Ophthalmic; Duration: 75 Active Methocarbamol 500 MG Tablet Oral; Duration: 3 Active Montelukast Sodium 10 MG Tablet Oral; Duration: 30 Active Aspir-81 81 MG Tablet Delayed Release 1 tablet Orally Once a day Active Citalopram Hydrobromide 20 MG Tablet Oral; Duration: 90 Active metFORMIN HCl ER 500 MG Tablet Extended Release 24 Hour Oral; Duration: 30 Active Alendronate Sodium 70 MG Tablet Oral; Duration: 28 Active Amoxicillin 500 MG Tablet 1 tablet Orally every 12 hrs before dental appointment Not-Taking/P RN Social History Tobacco Use: Social History Observation Description Date Details (start date - stop date) Former Smoker NA - NA Social History Drug/Alcohol: Social Info Question Answer Notes AUDIT-C (Standard) Did you have a drink containing alcohol in the past year? Yes How often did you have a drink containing alcohol in the past year? Monthly or less (1 point) How many drinks did you have on a typical day when you were drinking in the past year? 1 or 2 drinks (0 point) How often did you have six or more drinks on one occasion in the past year? Never (0 point) Points 1 Interpretation Negative Tobacco Use: Social Info Question Answer Notes Tobacco Use/Smoking Patient is a former smoker How long has it been since you last smoked? > 10 years Section Notes: Nonsmoker since 2013, occasi onal alcohol Vital Signs Blood pressure systolic 001 mm Hg 05/09/20 25 Blood pressure diastolic 01 mm Hg 025 Height 65.25 in 05/09/2025 Weight 240.6 lbs 05/09/2025 BMI 39.73 kg/m2 05/09/2025 Encounters Encounter Location Date Provider Diagnosis [facility] [address] [place] [phone] 05/09/2025 Lucien Gooden Colon cancer screeni ng Z12.11 and Encounter for other preprocedural examination Z01.818 Assessments Encounter Date Diagnosis (ICD Code) Assessment Notes Treatment Notes Treatment Clinical Notes Section Notes 05/09/2025 Colon cancer screening (ICD-10 - Z12.11) Overall, Jorge appears well. She is not having any new or worrisome GI complaints. I did recommend a colonoscopy for screening purposes given her good clinical appearance and her last exam being over 10 years ago. We did review the rationale for this in regard to colon cancer prevention. Full consent has been obtained for this, including risks of bleeding and perforation. The procedure will be done with monitored anesthesia care. She was given the below instructions regarding adjustment of her medications for the procedure. We shall also check with her software verification engineer, Dr. Jefferson, as to whether she needs prophylactic antibiotics for the procedure due to a distant history of endocarditis. Jorge was comfortable with this plan. Thank you again for allowing me to participate in Jorge's care. I shall continue to keep you advised of her progress.. 05/09/2025 Encounter for other preprocedural examination (ICD-10 - Z01.818) Overall, Jorge appears well. She is not having any new or worrisome GI complaints. I did recommend a colonoscopy for screening purposes given her good clinical appearance and her last exam being over 10 years ago. We did review the rationale for this in regard to colon cancer prevention. Full consent has been obtained for this, including risks of bleeding and perforation. The procedure will be done with monitored anesthesia care. She was given the below instructions regarding adjustment of her medications for the procedure. We shall also check with her software verification engineer, Dr. Jefferson, as to whether she needs prophylactic antibiotics for the procedure due to a distant history of endocarditis. Jorge was comfortable with this plan. Thank you again for allowing me to participate in Jorge's care. I shall continue to keep you advised of her progress.. Plan Of Treatment Future Test Test Name Order Date COLONOSCOPY 05/09/2025 Next Appt Details Provider Name:Lucien Matthews Berkley , 07/21/2025 08:30:00 AM, [address] [place] [address], [id number], History and Physical Notes * HPI (History of Present Illness) Category Sub-Category Detail Notes Category Not es incontinence I saw Jorge in the office today for evaluation of colorectal cancer screening. I last saw Jorge in March 2024, at which time we had discussed colorectal cancer screening and scheduled her for a colonoscopy for the early part of 2024. We had to wait as she had had a fairly recent coronary artery stent placed prior to the office visit in 2023 and she was still on clopidogrel. The colonoscopy in the early part of this year was ultimately canceled as she had to reschedule once and then canceled again when she was having a knee replacement done. The knee replacement was done in October and she has been recuperating from that. She feels well from a GI standpoint. She enjoys a good appetite and denies any significant heartburn or dysphagia. Her bowel movements have remained regular and without any signs of bleeding. She denies abdominal pain, signs of jaundice, nor any unintentional weight loss. She denies any known family history of colorectal cancer. Her last colonoscopy was in 2013. Laboratories from earlier this year revealed normal chemistries and renal function, normal liver enzymes, and a normal CBC with a hemoglobin of 12.8 Progress Notes * BRENDAN BISHOPB:1960 (64 yo F)Acc No.[id number]:05/09/2025 Progress Notes Patient: JORGE MEDEIROS Provider: Kati Gooden MD :1960 A ge:64 Y S ex:Female Date:05/09/2025 Address:[address] [place] [address] , [place] Pcp:Marquita Gonzales MD Subjective: * Chief Complaints: * P helen presents today for discuss colonoscopy * HPI: i ncontinence: I saw Jorge in the office today for evaluation of colorectal cancer screening. I last saw Jorge in March 2024, at which time we had discussed colorectal cancer screening and scheduled her for a colonoscopy for the early part of 2024. We had to wait as she had had a fairly recent coronary artery stent placed prior to the office visit in 2023 and she was still on clopidogrel. The colonoscopy in the early part of this year was ultimately canceled as she had to reschedule once and then canceled again when she was having a knee replacement done. The knee replacement was done in October and she has been recuperating from that. She feels well from a GI standpoint. She enjoys a good appetite and denies any significant heartburn or dysphagia. Her bowel movements have remained regular and without any signs of bleeding. She denies abdominal pain, signs of jaundice, nor any unintentional weight loss. She denies any known family history of colorectal cancer. Her last colonoscopy was in 2013. Laboratories from earlier this year revealed normal chemistries and renal function, normal liver enzymes, and a normal CBC with a hemoglobin of 12.8. 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 Jefferson Spinal stenosis Sleep apnea- not using any CPAP Medical History Verified * Surgical History: Breast reduction 1996 Cholecystectomy-acalculous cholecystitis Eye surgery-left- retinoblastoma- prosthetic eye 1963 Legs veins / Dr. Cuello Right knee replacement 07/2023 2 C-sections Surgical History verified. * Hospitalization/Major Diagno stic Procedure: No Hospitalization Documented. Hospitalization Verified. * Family History: F ather: . M other: . S ibemeli: alive, colon polyps at age 52 sister, diagnosed with Colon polyps. F amily History Verified.. No family hx of colon or liver cancer. * Social History: T obacco Use: T obacco Use/Smoking P atient is a f ormer smoker, H ow long has it been since you last smoked? > 10 years. D rugs/Alcohol: A lcohol Screen P oints: 2, Interpretation: Negative. D rug/Alcohol: A ABDIFATAH-C (Standard) D id you have a drink containing alcohol in the past year? Y es,?How often did you have a drink containing alcohol in the past year? M onthly or less (1 point), H ow many drinks did you have on a typical day when you were drinking in the past year? 1 or 2 drinks (0 point), H ow often did you have six or more drinks on one occasion in the past year? N ever (0 point), P oints 1 , I nterpretation N egative. Social History Verified. N onsmoker since 2013, occasional alcohol. * Medications: T akingAspir-81 81 MG Tablet Delayed Release 1 tablet Orally Once a day Citalopram Hydrobromide 20 MG Tablet Oral metFORMIN HCl ER 500 MG Tablet Extended Release 24 Hour Oral Alendronate Sodium 70 MG Tablet Oral Fluticasone-Salmeterol 250-50 MCG/ACT Aerosol Powder Breath Activated Inhalation Spironolactone-HCTZ 25-25 MG Tablet Oral Latanoprost 0.005 % Solution Ophthalmic Methocarbamol 500 MG Tablet Oral Montelukast Sodium 10 MG Tablet Oral Rosuvastatin Calcium 40 MG Tablet Oral Irbesartan 75 MG Tablet Oral Albuterol Sulfate HFA 108 (90 Base) MCG/ACT Aerosol Solution Inhalation Taking Aspir-81 81 MG Tablet Delayed Release 1 tablet Orally Once a day Taking Citalopram Hydrobromide 20 MG Tablet Oral Taking metFORMIN HCl ER 500 MG Tablet Extended Release 24 Hour Oral Taking Alendronate Sodium 70 MG Tablet Oral Taking Fluticasone-Salmeterol 250-50 MCG/ACT Aerosol Powder Breath Activated Inhalation Taking Spironolactone-HCTZ 25-25 MG Tablet Oral Taking Latanoprost 0.005 % Solution Ophthalmic Taking Methocarbamol 500 MG Tablet Oral Taking Montelukast Sodium 10 MG Tablet Oral Taking Rosuvastatin Calcium 40 MG Tablet Oral Taking Irbesartan 75 MG Tablet Oral Taking Albuterol Sulfate HFA 108 (90 Base) MCG/ACT Aerosol Solution Inhalation Not-Taking/PRNAmoxicillin 500 MG Tablet 1 tablet Orally every 12 hrs , Notes to Pharmacist: before dental appointmentClopidogrel Bisulfate 75 MG Tablet Oral Brilinta 90 MG Tablet Oral Medication List reviewed and reconciled with the patientNot-Taking/PRN Amoxicillin 500 MG Tablet 1 tablet Orally every 12 hrs , Notes to Pharmacist: before dental appointmentNot-Taking/PRN Clopidogrel Bisulfate 75 MG Tablet Oral Not-Taking/PRN Brilinta 90 MG Tablet Oral Medication List reviewed and reconciled with the patient * Allergies: s easonal-allergy shots bi-weeklyyesAllergies Verified. Objective: * Vitals: W t: 240.6 lbs, Ht: 65.25 in, BMI:39.73Index, BP: 001/01 mm Hg, Ht-cm: 165.74 cm, Wt-k.14 kg. Assessment: * Assessment: 1. C olon cancer screening - Z12.11 (Primary) 2 . E ncounter for other preprocedural examination - Z01.818 Overall, Jorge appears well. She is not having any new or worrisome GI complaints. I did recommend a colonoscopy for screening purposes given her good clinical appearance and her last exam being over 10 years ago. We did review the rationale for this in regard to colon cancer prevention. Full consent has been obtained for this, including risks of bleeding and perforation. The procedure will be done with monitored anesthesia care. She was given the below instructions regarding adjustment of her medications for the procedure. We shall also check with her software verification engineer, Dr. Jefferson, as to whether she needs prophylactic antibiotics for the procedure due to a distant history of endocarditis. Jorge was comfortable with this plan. Thank you again for allowing me to participate in Jorge's care. I shall continue to keep you advised of her progress.. Plan: * Treatment: Billing Information: * Procedure Codes: * The named appointment provid er may or may not be the originator of this progress note, and it is not deemed complete until electronically signed by the appointment provider. Sign off status: Pending * Provider: Kati Gooden MD Date: 07/10/2024 Generated for Simon samano/Jennifer/Harish on: 07/18/2024 12:30 PM EST
--- OUTSIDE RECORDS SUMMARY | 2025-05-17 12:30 | XMS_ITS | Patient Health Record ---
Author Organization [facility] Address [address] [place] [address] Care Team Providers Care Placement Interviewer Name Role Phone Janet CRUZ, Marquita Primary Care Provider Lucien Shelby Unavailable [phone] Allergies Allergen (clinical drug ingredient) Drug/Non Drug Allergy documented on EMR Reaction Allergy Type Onset Date Status seasonal-allergy luz maria ts bi-weekly (uncoded) Unknown Allergy Active Reason For Referral Referring Provider First Name Marquita Referring Provider Last Name Janet Referring Provider Speciality Internal M edicine Referred Organization [facility] Referred Provider Lucien Nichols Referred Address [address],[place], [place],[address], Referred Provider Specialty Gastroentero logy General Notes Dianna Espinoza 2024 09:59:28 AM EST > REQUESTED O BLUE REFERRAL FROM FELIX AT DR CONLEY' OFFICE FOR VISIT WITH DR NICHOLS ON 05-09-25 Referral Priority Routine Medications Medication SIG (Take, Route, Frequency, Duration) Notes Start Date End Date Status Aspir-81 81 MG Tablet Delayed Release 1 tablet Orally Once a day Active Irbesartan 75 MG Tablet Oral; Duration: 30 Active Citalopram Hydrobromide 20 MG Tablet Oral; Duration: 90 Active Albuterol Sulfate HFA 108 (90 Base) MCG/ACT Aerosol Solution Inhalation; Duration: 16 Active metFORMIN HCl ER 500 MG Tablet Extended Release 24 Hour Oral; Duration: 30 Active Brilinta 90 MG Tablet Oral; Duration: 30 Not-Taking/P RN Alendronate Sodium 70 MG Tablet Oral; Duration: 28 Active Fluticasone-Salmeter ol 250-50 MCG/ACT Aerosol Powder Breath Activated Inhalation; Duration: 30 Active Spironolactone-HCTZ 25-25 MG Tablet Oral; Duration: 30 Active Latanoprost 0.005 % Solution Ophthalmic; Duration: 75 Active Methocarbamol 500 MG Tablet Oral; Duration: 3 Active Montelukast Sodium 10 MG Tablet Oral; Duration: 30 Active Clopidogrel Bisulfate 75 MG Tablet Oral; Duration: 30 Not-Taking/P RN Amoxicillin 500 MG Tablet 1 tablet Orally every 12 hrs before dental appointment Not-Taking/P RN Rosuvastatin Calcium 40 MG Tablet Oral; Duration: 30 Active Immunizations Vaccine Route Administration Date Status Comme nts Influenza Unknown 05/09/2024 Administered Social History Tobacco Use: Social History Observation [...] since you last smoked? 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 [employer] Notes: Smoker 1/2 ppd; occasional a lcohol Nonsmoker since 2013, occasi onal alcohol Nonsmoker since 2013, occasi onal alcohol Problems Problem Type SNOMED Code ICD Code Onset Dates Problem Status W/U Status Risk Notes Problem Colon cancer screening (431323149) Colon cancer screening (Z12.11) Active confirmed Problem Pre-procedure evaluation check (953503456) Encounter for other preprocedural examination (Z01.818) Active confirmed Problem Long-term current use of aspirin (9611829616885 03) Aspirin long-term use (Z79.82) Active confirmed Vital Signs Blood pressure diastolic 01 mm Hg 05/09/2025 Height 65.25 in 05/09/2025 Blood pressure systolic 001 mm Hg 05/09/2025 Weight 240.6 lbs 05/09/2025 BMI 39.73 kg/m2 05/09/2025 Encounters Encounter Location Date Provider Diagnosis [facility] [address] [place] [address] 05/09/2025 Lucien Nichols Colon cancer screeni ng Z12.11 and Encounter for other preprocedural examination Z01.818 [facility] [address] [place] [address] 05/09/2025 Lucien Nichols [facility] [address] [place] [address] 11/01/2024 Lucien Nichols [facility] [address] [place] [address] 11/11/2024 Lucien Nichols Assessments Encounter Date Diagnosis (ICD Code) Assessment Notes Treatment Notes Treatment Clinical Notes Section Notes 05/09/2025 Colon cancer screening (ICD-10 - Z12.11) Overall, Isabella appears well. She is not having any [...] procedure. We shall also check with her kapok machine operator, Dr. Jefferson, as to whether she needs prophylactic antibiotics for the procedure due to a distant history of endocarditis. Isabella was comfortable with this plan. Thank you again for allowing me to participate in Isabella's care. I shall continue to keep you advised of her progress.. 05/09/2025 Encounter for other preprocedural examination (ICD-10 - Z01.818) Overall, Isabella appears well. She is not having any [...] procedure. We shall also check with her kapok machine operator, Dr. Jefferson, as to whether she needs prophylactic antibiotics for the procedure due to a distant history of endocarditis. Isabella was comfortable with this plan. Thank you again for allowing me to participate in Isabella's care. I shall continue to keep you advised of her progress.. Plan Of Treatment Pending Test Test Name Order Date COLONOSCOPY 04/13/2024 Future Test Test Name Order Date COLONOSCOPY 05/09/2025 Next Appt Details Provider Name:Lucien Nichols , 07/21/2025 08:30:00 AM, [address] [place] [address] , [place], [place], [phone], Insurance Providers Payer Name Payer Address Payer Phone Subscriber Number Group Number Insured Name Patient Relationship to Insured Coverage Start Date Coverage End Date [facility] [employer] [address] [place] [address] [id number] ISABELLA BISHOP Self - patient is the insured Medical (General) History Medical History History ICD Code Hypertension Denies [place],CVA,renal disease Staph endocarditis in 1983- Rx'd with a long course of IV antibiotics- -her kapok machine operator still recommends prophylactic antibiotics before invasive procedures Bronchitis Asthma/COPD NIDDM Goiter Colonoscopy 01/2014 with a hyperplastic p olyp CAD-1 stent 08/2023-Dr. Jefferson Spinal stenosis Sleep apnea- not using any CPAP Surgical History Surgery Date(Month/Year) Breast reduction 1996 Cholecystectomy-acalculous cholecystitis Eye surgery-left- retinoblastoma- prosth etic eye 1963 Legs veins / Dr. Cuello Right knee replacement 07/2023 2 C-sections
--- OUTSIDE RECORDS SUMMARY | 2025-05-17 12:30 | XMS_ITS | Patient Health Record ---
Author Organization [facility] Address [address] [place] [address] Care Team Providers Care Fourth Officer Name Role Phone Carroll Ortiz MD Primary Care Provider Marlon Sin Unavailable [phone] Reason For Referral No Information Medications Medication [...] Status W/U Status Risk Notes Problem Onychomycosis (601847751) Onychomycosis (110.1) Active confirmed Plan Of Treatment Pending Test Test Name Order Date *Liver Function Test (LFT) 06/30/2011 80818-[id number] Plate 06/30/2011 Insurance Providers Payer Name Payer Address Payer Phone Subscriber Number Group Number Insured Name Patient Relationship to Insured Coverage Start Date Coverage End Date [facility] [address] [facility] [place] [id number] VANDA BISHOP Spouse - patient is the spouse of the insured Medical (General) History Medical History History ICD Code gall bladder problems chicken pox measles mumps endocarditis Surgical History Surgery Date(Month/Year) cholecystectomy
--- OUTSIDE RECORDS SUMMARY | 2025-05-17 12:30 | XMS_ITS | Clinical Summary ---
Author Organization [facility] Address [address] [place] [address] Phone Care Team Providers Care [employer] Name Role Phone Marquita Gonzales MD Primary [...] Encounters Date Type Department Care Team Description 05/09/2025 1:51 PM EST - 05/09/2025 11:59 PM EST Hospital Encounter [facility] Bone Density [address] [place] [id number] Osteopenia, unspecified location Discharge Disposition: Home or Self Care 05/09/2025 1:50 PM EST - 05/09/2025 11:59 PM EST Hospital Encounter [facility] [address] [place] [address] Encounter for screening mammogram for malignant neoplasm of breast Discharge Disposition: Home or Self Care from Last 3 Months Immunizations Immunization Administration Dates Next Due Influenza trivalent, 0.5mL, preservative free (Fluarix; FluLaval; Fluzone) ages 6mo and older (Afluria) 3 years and older 03/18/2018 Pneumococcal polysaccharide 23 valent (Pneumovax 23) 2yo and older 12/15/2017 Tdap Tetanus diptheria acell ular pertussis (Boostrix; Adacel) 7yo and older 05/05/2013 Surgical History Surgery Date Site/Laterality Comments CHOLECYSTECTOMY PROCEDURE: HISTORICAL CHOLECYSTECTOMY SECTION PROCEDURE: HISTORICAL BREAST REDUCTION 1996 PROCEDURE: [place] BREAST REDUCTION OTHER SURGICAL HISTORY PROCEDURE: HISTORY OTHER; COMMENT: hernia repair w/mesh EYE SURGERY 1962 Left PROCEDURE: HISTORICAL EYE SURGERY; COMMENT: retinoblastoma w/enucleation BREAST CYST ASPIRATION Right Medical History Medical History Date Comments Pulmonary nodule 02/10/2017 DX:Pulmonary no dule Chronic obstructive pulmonar y disease ([facility]24, [facility] V28) 02/10/2017 DX:Chronic obstructive pulm onary disease (HCC) Moderate persistent asthma w ithout complication 09/06/2018 DX:Moderate persistent asthm a without complication DORCAS (obstructive sleep apnea) 09/06/2018 DX :DORCAS (obstructive sleep apnea) Morbid obesity with BMI of 4 0.0-44.9, adult ([facility] V24, [facility] V28) 02/21/2019 DX:Morbid obesity wit h BMI of 40.0-44.9, adult ([facility] [...] Relation Name Comments Coronary artery disease Father [place], CVD Diabetes Mother HTN Breast cancer Mother's [...] Care Team (Late st Contact Info) Description 05/22/2025 7:30 AM EST Appointment [facility] Pulmonary [address] [place] [phone] 06/14/2025 3:30 PM EST Office Visit Pulmonology - [place] [address] [place] [phone] iMkael Leon MD [facility] [place] [address] Health Maintenance Due Date Last [...] 2025 02/27/2024, 02/23/2023, 06/07/2022, Additional history exists Breast Cancer Screening 05/09/2027 05/09/20, 04/02/2024, 02/12/2023, Additional history exists Osteoporosis Screening (Bone Density Screening) 05/09/2035 05/09/2025, 02/12/2023 Zoster Vaccines Completed 03/20/2022, 07/22/2021 Influenza Vaccine Completed 02/16/2025, , 03/01/2023, Additional history exists HIB Vaccines Aged Out [...] Procedure Name Priority Date/Time Associated Diagnosis Comments BD BONE DENSITY DXA AXIAL SKELETON Routine 05/09/2025 2:39 PM EST Osteopenia, unspecified location MG MAMMO DIGITAL SCREENING W YEHUDA BILAT Routine 05/09/2025 2:15 PM EST Encounter for screening mammogram for malignant neoplasm of breast from Last 3 Months Results * BD Bone Density DXA Axial Skeleton (05/09/2025 2:39 PM EST) Anatomical Region Laterality Modality Wrist, Hip, L-spine Bone Densito metry 05/10/2025 7:47 AM EST Impressions 05/10/2025 7:49 AM EST 1. Osteopenia. There has been an increase of 0.9% in bone mineral density in the lumbar spine since the prior examination of 02/12/2023. There has been an increase of 3.6% in bone mineral density in the right femur and an increase of 6.6% in bone mineral density in the left femur. 2. FRAX analysis yields a 10-year probability of major osteoporotic fracture of 19.2% and a 10-year probability of hip fracture of 1.9%. Code 33394 -------- FINAL REPORT -------- Dictated By: Ruben Singh Dictated Date: 05/10/2025 07:47 ET Assigned Physician: Ruben Singh Reviewed and Electronically Signed By: Ruben Singh Signed Date: 05/10/2025 07:49 ET Workstation ID: [id number] Transcribed By: Self Edit Transcribed Date: 05/10/2025 07:47 ET Narrative 05/10/2025 7:49 AM EST HISTORY: The patient is a 64-year-old postmenopausal female on chronic glucocorticoid therapy, with clinical concern for metabolic bone disease. FINDINGS: Dual energy x-ray absorptiometry of the lumbar spine and femurs is performed. The mean bone mineral density at L1-L4 is 1.401 gm/cm2 which is 119% of that of young normals and 123% of that of age matched controls. This yields a T-score of 1.8 and a Z-score of 2.2 and there is therefore no evidence of osteoporosis or osteopenia here. The mean bone mineral density of the femurs bilaterally is 0.912 gm/cm2 which is 90% of that of young normals and 94% of that of age matched controls. This yields a T-score of -0.8 and a Z-score of -0.5 and there is therefore no evidence of osteoporosis or osteopenia here. However, the T-score of the right femoral neck is -1.4 which is diagnostic of osteopenia. Procedure Note Ruben Singh MD - 05/10/2025 HISTORY: The patient is a 64-year-old postmenopausal female on chronicglucocorticoid therapy, with clinical concern for metabolic bonedisease. FINDINGS: Dual energy x-ray absorptiometry of the lumbar spine and femursis performed. The mean bone mineral density at L1-L4 is 1.401 gm/cm2 whichis 119% of that of young normals and 123% of that of age matched controls.This yields a T- score of 1.8 and a Z-score of 2.2 and there is thereforeno evidence of osteoporosis or osteopenia here. The mean bone mineral density of the femurs bilaterally is 0.912 gm/uo3vqxku is 90% of that of young normals and 94% of that of age matchedcontrols. This yields a T-score of -0.8 and a Z-score of -0.5 and thereis therefore no evidence of osteoporosis or osteopenia here. However, theT-score of the right femoral neck is -1.4 which is diagnostic ofosteopenia. IMPRESSION: 1. Osteopenia. There has been an increase of 0.9% in bone mineral densityin the lumbar spine since the prior examination of 02/12/2023. There hasbeen an increase of 3.6% in bone mineral density in the right femur and anincrease of 6.6% in bone mineral density in the left femur. 2. FRAX analysis yields a 10-year probability of major osteoporoticfracture of 19.2% and a 10-year probability of hip fracture of 1.9%. Code 69307 -------- FINAL REPORT -------- Dictated By: Ruben Singh Dictated Date: 05/10/2025 07:47 ET Assigned Physician: Ruben Singh Reviewed and Electronically Signed By: Ruben Singh Signed Date: 05/10/2025 07:49 ET Workstation ID: [id number] Transcribed By: Self Edit Transcribed Date: 05/10/2025 07:47 ET us Marquita Gonzales MD IMG DXA PROCEDURES Final Re sult * MG Mammo Digital Screening w Yehuda bilat (05/09/2025 2:15 PM EST) Anatomical Region Laterality Modality Breast Bilateral Mammography 05/09/2025 2:19 PM EST Impressions 05/09/2025 2:42 PM EST No evidence of breast malignancy. BI-RADS CATEGORY: 2 - BENIGN RECOMMENDATION: Screening bilateral mammogram is recommended in 1 year. Mammo Location: [facility], [address] [place] [address], [id number], . -------- FINAL REPORT -------- Dictated By: Ayleen Benavidez Dictated Date: 05/09/2025 14:19 ET Assigned Physician: Ayleen Benavidez Reviewed and Electronically Signed By: Ayleen Benavidez Signed Date: 05/09/2025 14:42 ET Workstation ID: [id number] Transcribed By: Self Edit Transcribed Date: 05/09/2025 14:20 ET Narrative 05/09/2025 2:42 PM EST CLINICAL: 64 years old, Female, routine annual exam. History of bilateral breast reduction in 1996. COMPARISON: Multiple prior studies dating back to 2019 TECHNIQUE: Bilateral MLO and CC views were obtained digitally with 3-D mammogram (digital breast tomosynthesis). Computer-aided detection was utilized in evaluation of this exam (CAD). FINDINGS: There is no evidence of suspicious mass or architectural distortion. No worrisome calcifications are evident. There has been no significant change from prior exam(s). Stable bilateral post reduction mammoplasty changes. Stable bilateral benign-appearing calcifications. BREAST DENSITY: B - There are scattered areas of fibroglandular density. Procedure Note Ayleen Benavidez MD - 05/09/2025 CLINICAL: 64 years old, Female, routine annual exam. History of bilateralbreast reduction in 1996. COMPARISON: Multiple prior studies dating back to 2019 TECHNIQUE: Bilateral MLO and CC views were obtained digitally with 3-Dmammogram (digital breast tomosynthesis). Computer-aided detection wasutilized in evaluation of this exam (CAD). FINDINGS: There is no evidence of suspicious mass or architectural distortion. Noworrisome calcifications are evident. There has been no significantchange from prior exam(s). Stable bilateral post reduction mammoplastychanges. Stable bilateral benign- appearing calcifications. BREAST DENSITY: B - There are scattered areas of fibroglandular density. IMPRESSION: No evidence of breast malignancy. BI-RADS CATEGORY: 2 - BENIGN RECOMMENDATION: Screening bilateral mammogram is recommended in 1 year. Mammo Location: [facility], [address] [place] [address], [id number], . -------- FINAL REPORT -------- Dictated By: Ayleen Benavidez Dictated Date: 05/09/2025 14:19 ET Assigned Physician: Ayleen Benavidez Reviewed and Electronically Signed By: Ayleen Benavidez Signed Date: 05/09/2025 14:42 ET Workstation ID: [id number] Transcribed By: Self Edit Transcribed Date: 05/09/2025 14:20 ET us Marquita Gonzales MD IMG BI PROCEDURES Final Res ult from Last 3 Months Insurance [facility] Care Teams [employer] Relationship Specialty Start Date End Date Marquita Gonzales MD [address] [place] [address] PCP - General Internal Medicine 02/13/20
--- NOTE | 2025-05-17 12:38 | A.OFFVIS_ITS ---
Intake Visit Reasons: Right knee pain Intake Note: Isabella is a 64 year old female who presents with complaints of right knee pain. The patient did undergo right knee arthroscopic surgery on 11/18/2024. She got fairly good relief from that procedure initially. The patient states that she recently twisted her right knee when she fell down 2 stairs. She has failed the last 3 months of conservative treatment which has included Tylenol, anti- inflammatory medicines, a home exercise program and physical therapy exercises. She has had cortisone injections in the past which gave her minimal relief. She has not had a viscosupplementation injection. At this point her right knee pain is interfering with her activities of daily living and her ability to sleep well through the night. Allergies mold,trees,dust,cats,dogs Allergy (Unknown, Uncoded 02/18/25 22:25) unknown strawberries Allergy (Unknown, Uncoded 02/18/25 22:25) hives Medication List - Last Reconciled 05/17/25 by Allen Sánchez MD albuterol sulfate 90 mcg/actuation 2 puffs inhalation Q6H PRN alendronate 70 mg PO QWEEK aspirin (Adult Aspirin Regimen) 81 mg PO DAILY blood sugar diagnostic (FreeStyle Lite Strips) Check fasting blood sugar once a day blood-glucose meter (FreeStyle Justin Lite kit) As directed budesonide-formoterol 160-4.5 mcg/actuation 1 inh inhalation BID calcium carbonate (Calcium 500) 500 mg PO DAILY citalopram 20 mg PO DAILY irbesartan 75 mg PO DAILY ketotifen fumarate 0.025%(0.035%) (Zaditor) 1 drp ophthalmic-Right Q12H lancets (FreeStyle Lancets) Check fasting glucose once a day latanoprost 0.005% 1 drp ophthalmic (eye) QPM loratadine (Claritin) 10 mg PO DAILY metformin ER 500 mg PO QPM methocarbamol 500 mg PO TID PRN montelukast 10 mg PO DAILY multivitamin 1 tab PO DAILY rosuvastatin 40 mg PO DAILY spironolacton-hydrochlorothiaz 25-25 mg 2 tabs PO DAILY thiamine HCl (vitamin B1) (Vitamin B-1) 50 mg PO DAILY vitamin B complex (B Complex-Vitamin B12 tablet) 1 tab PO DAILY zinc mg PO DAILY [facility] Medical History (Updated 05/19/25 @ 07:36 by Allen Sánchez MD) Tear of medial meniscus of right knee History of retinoblastoma Osteoporosis of lumbar spine Incomplete right bundle branch block (RBBB) determined by electrocardiography Hearing loss Family history of early CAD Intermittent left-sided chest pain Seasonal allergies Plantar fasciitis, right Mild intermittent asthma in adult without complication Nontoxic multinodular goiter Lung nodule < 6cm on CT Cervical spondylosis DJD (degenerative joint disease), lumbar 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 Primary open angle glaucoma, right eye Retinoblastoma of left eye Polycystic ovaries Morbid obesity Multiple thyroid nodules Menopause Type 2 diabetes mellitus without complication, without long-term current use of insulin Dyslipidemia Hypertension Surgical History History of coronary artery stent placement S/P cardiac catheterization Status post phlebectomy H/O eye surgery H/O hernia repair H/O bilateral breast reduction surgery H/O section H/O thyroidectomy Hx of cholecystectomy Family History Father CAD (coronary artery disease) Myocardial infarction CVD (cardiovascular disease) Substance use disorder Mother Diabetes mellitus HTN (hypertension) Maternal Grandfather No problems noted. Maternal Grandmother No problems noted. Paternal Grandfather No problems noted. Paternal Grandmother No problems noted. Brother Substance use disorder Mental health disorder Sister No problems noted. Sister Substance use disorder Sister No problems noted. Sister No problems noted. Son No problems noted. Daughter No problems noted. 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: No Cognitive needs: No Hearing needs: Yes Vision needs: Yes Physical Exam Extrem Other: Right knee examination shows a minimal effusion, palpable crepitus with range of motion, pain with range of motion, no instability Results Reviewed Results Reviewed: X-rays of the patient's right knee taken previously show joint space narrowing, subchondral sclerosis, no acute bony abnormalities Assessment & Plan Assessment & Plan (1) Right knee pain: Code(s): M25.561 - Pain in right knee Category: Medical (2) Osteoarthritis of right knee: Code(s): M17.11 - Unilateral primary osteoarthritis, right knee Category: Medical Plan Ms. Gonzalez presents with right knee pain due to osteoarthritis. I had a lengthy discussion with the patient regarding the treatment options. She wishes to hold off on further surgery if at all possible. I agree with this plan. I will see if the patient's insurance company will cover a viscosupplementation injection, such as Durolane, for her right knee. I will see her back once the injection is approved. Feel free to call me at any time should questions regarding her orthopedic management arise. I spent 22 minutes in reviewing the patient's records and imaging studies, seeing the patient and documenting in the medical record. Medications: New methylprednisolone (Medrol (Laron)) PO PER PKG DIR 21 ea 0RF Coding Level of Care Code Est Pt Level 3 (62815) Add On Problem Visit Only Diagnoses Right knee pain M25.561 Osteoarthritis of right knee M17.11
== END 2025-05-17 13:14 | disposition home or self-care (01) ==
LOC: HO.HOS 12:27
PROVIDERS: PCP Internal Medicine; Visit Provider Orthopaedic Surgery
DX: M25.561 Pain in right knee (principal); M17.11 Unilateral primary osteoarthritis, right knee
CPT/HCPCS: 99213